=== PATIENT | male | born 1950 | race Caucasian/White ===

== ENCOUNTER 2023-11-04 12:11 | Emergency (ER) | payer MEDICARE, SELFPAY ==
[2023-11-04] VITALS (13 sets, daily range): BP systolic 91–124; BP diastolic 62–104
--- NOTE | 2023-11-04 13:13 | ED.GENMED ---
History of Present Illness
General
Chief Complaint: Heart Rate Problem
Source: patient
Time Seen by Provider: 11/04/23 12:56
Travel History
Have you had any contact with someone who has COVID-19?: No
Do you have any symptoms of coronavirus? Fever > 100 degrees, chills, cough, shortness of breath, sore throat, loss of taste or smell, muscle aches, or headache?: No
History of Present Illness
History of Present Illness:
This patient is a 72-year-old male with a longstanding history of intermittent A-fib. He is currently anticoagulated with a DOAC and confirms that he is compliant with this without interruptions or skipped doses. Patient had a 'regular cup' with
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 He was asymptomatic at that time. He was advised to take an extra dose of metoprolol at 50 mg. By Tuesday, he was starting to have symptoms which includes dyspnea on exertion
and fatigue, no chest pain. He was advised to increase his sotalol from 80 to 120 mg twice daily. He saw the cardiology PA on Tuesday and because he was still in a A-fib at a rapid rate the plan was for cardioversion next . Patient
presents emergency department today because his symptoms are getting worse. He describes fatigue, dyspnea, and dyspnea on exertion. He denies other symptoms. He denies chest pain or pressure, back pain, neck pain, headache, dizziness, fever,
chills, nausea, vomiting, leg swelling, abdominal pain, bleeding, or other complaints. Patient has a history of multiple myeloma and had labs checked yesterday and shows me a lab value of 13 2 for his hemoglobin
Past History
Past History
ED Past Medical History: Arrthythmia, CAD, HTN, Hypercholesterolemia and Other (multiple myeloma)
ED Past Surgical History: Orthopedic
Social History
Tobacco: Non-smoker
Alcohol: None
Drug: None
Personal:
Living: with family
Phy Exam
Physical Exam
Physical Exam:
GENERAL: Alert , in no apparent distress
EYE: pupils equal and reactive, conjunctive slightly pale
NECK: Supple, no significant adenopathy.
ENT: o/p clr, mmm.
CARDIAC: Tachycardic, irregularly irregular
LUNGS: Clear breath sounds bilaterally, no acute respiratory distress, no wheezes/rales/rhonchi
ABDOMEN: Soft, without focal tenderness, no r/g, no cvat
NEUROLOGICAL: Alert and oriented, no focal neuro deficits
SKIN: Warm and dry, skin intact.
MUSCULOSKELETAL: No edema, well perfused.
PSYCH: Normal and appropriate interaction.
Course
Orders/Labs/Results
Orders:
Orders
11/04/23 12:18
EKG [Electrocardiogram (*1)] Urgent
Reason for Study: Atrial Fibrillation
EKG- Treatment ONCE
11/04/23 13:12
Metoprolol [Lopressor] 5 mg IV NOW STA
11/04/23 13:13
Cardiac Monitoring- Treatment ONCE
11/04/23 13:20
Complete Blood Count/No Diff Urgent
Comprehensive Metabolic Panel Urgent
11/04/23 13:46
Propofol [Diprivan] 20 ml .ROUTE .STK-MED
11/04/23 14:02
EKG [Electrocardiogram (*1)] Urgent
Reason for Study: Atrial Fibrillation
EKG- Treatment ONCE
Abnormal Lab Results
11/04/23
13:20
RBC 4.21 L 10^6/uL
(4.70-6.10)
MCH 32.3 H pg
(27.0-31.0)
RDW 18.8 H %
(11.5-14.5)
Plt Count 128 L 10^3/uL
(130-400)
Sodium 134 L mmol/L
(135-145)
BUN 28 H mg/dl
(9-20)
Total Bilirubin 3.7 H mg/dl
(0.2-1.3)
ALT 83 H U/L
(0-50)
Alkaline Phosphatase 131 H U/L
(38-126)
11/04/23 13:20
11/04/23 13:20
Vital Signs
Initial and Last Documented VS:
Initial Vital Signs
Temp Pulse Resp BP Pulse Ox
98.5 F 104 18 110/75 99
11/04/23 12:14 11/04/23 12:14 11/04/23 12:14 11/04/23 12:14 11/04/23 12:14
Last Documented Vital Signs
Temp Pulse Resp BP Pulse Ox
98.5 F 60 28 111/75 98
11/04/23 12:14 11/04/23 15:00 11/04/23 15:00 11/04/23 15:00 11/04/23 15:00
Procedures
Moderate Sedation
ASA Risk Score: Class II
Chart and allergies reviewed: Yes
Consent for anesthesia obtained: Yes
Time out completed (validating right patient & procedure): Yes
History of difficult intubation: No
Airway free of obstruction: Yes
Patient has a gag reflex: Yes
Patient is able to open mouth: Yes
Patient has no dentures: Yes
Patient has no loose teeth: Yes
Medication administered by Provider during Moderate Sedation: IV Propofol (mg)
Total dose administered: 50
Time drug administered: 14:00
Start Time: 13:59
Stop Time: 14:15
Cardioversion
Indication:: Afib
Performed by:: Leslie Heart md
Synchronized?: Yes
Energy Used: Other
Number of attempts: 1
Successful?: Yes
*Critical Care Note
Total Time (30-74mins, 75-104mins- exclusive of procedures): Not Applicable
Update Note
Update Note:
Patient presents to the Emergency Department with ___fatigue sob
Number and Complexity of Problems Addressed at the Encounter
� Chronic conditions affecting care:
� Acute Exacerbation and/or Progression of Chronic Illness:
� Differential Diagnosis includes: But not limited to symptomatic anemia, A-fib with RVR, electrolyte disturbance, etc.
Amount and/or Complexity of Data to be Reviewed and Analyzed
� I performed an independent evaluation of and my interpretation is:
EKG: tachycardic, afib with rvr, no acute ischemia noted
CT:
Xrays:
Laboratory Studies: Nonspecific mild abnormalities noted, hemoglobin within normal limits
Other:
� Review of other/old records reveals: admitted recently for hernia repiar
� Clinical information was obtained by an independent historian: who is at bedside
� Prescriptions/Medications Considered but not given:
� Further testing considered but not performed:
Risk of Complications and/or Morbidity or Mortality of Patient Management
� Social determinants of health affecting care:
� Discussion with other providers (PCP, Hospitalists, Consultants, etc):
� Escalation of care including admission/observation vs risk of discharge considered: Long discussion with patient and . Patient reports being on Eliquis for at least 30 days, and again reaffirms that he has been compliant
with this medication. Case discussed with PA for his speed belt sander tender kate allen, who is aware of history, physical, and plan of care here. Patient will be encouraged to continue his DOAC upon discharge.
ED Attending Note
-
Portions of this chart may have been created with voice recognition software.� Occasional wrong word or��sound alike� substitutions may have occurred due to the inherent limitations of voice recognition software.
Discharge Plan
Departure
Patient Disposition: Home (Routine Discharge)
Date of Disposition: 11/04/23
Time of Disposition: 15:09
Patient with high blood pressure during this ER visit?: Yes
Condition: Good
Discharge Problem:
procedural sedation, Atrial fibrillation
Instructions: Atrial Fibrillation (DC), MODERATE SEDATION ADULT, BLOOD PRESSURE
Prescriptions:
No Action
clopidogrel 75 mg tablet
75 mg PO DAILY
Hold Instructions: Resume on 09/01/23. Hold Plavix 72 hours postop. Okay to resume a.m. 09/01/2023
Rx Instructions:
stopped 2 days ago
apixaban 5 mg Tablet
5 mg PO BID
Hold Instructions: Resume on 09/01/23. Hold apixaban for 72 hours postop. Okay to resume a.m.
tamsulosin [Flomax] 0.4 mg Capsule
0.4 mg PO DAILY
sotalol 80 mg Tablet
80 mg PO BID
potassium chloride 10 mEq Tablet Extended Release
10 meq PO BID
amlodipine 5 mg Tablet
5 mg PO DAILY
acyclovir 800 mg Tablet
800 mg PO BID
metoprolol succinate 25 mg Tablet Extended Release 24 Hr
25 mg PO DAILY
lisinopril 40 mg Tablet
40 mg PO DAILY
lenalidomide [Revlimid] 10 mg Capsule
10 mg PO DAILY
tramadol 50 mg tablet
50 mg PO Q6HPRN PRN (Reason: severe pain/breakthrough pain) Qty: 15 0RF
polyethylene glycol 3350 [Miralax] 17 gram/dose powder
4 g PO DAILY PRN (Reason: Constipation) Qty: 119 0RF
Rx Instructions:
start a laxative such as MIRALAX on day 2 after surgery if no bowel movement yet as long as no nausea/vomiting and passing gas
aspirin 81 mg capsule
81 mg PO DAILY Qty: 7 0RF
Rx Instructions:
take baby ASA 81mg daily while off plavix/eliquis
Referrals:
Walt Chin MD [Active] - Next open appointment
Sarabjit Chavarria MD [Family Provider] -
Activity Restrictions/Additional Instructions:
IF YOU DEVELOP CHEST PAIN, TROUBLE BREATHING, PALPITATIONS, FEVER, DIZZINESS, OR OTHER WORRISOME SIGNS, GO TOT HE ER IMMEDIATELY! PLEASE CONTINUE ALL YOUR MEDICATIONS, INCLUDING THE ELIQUIS.
Interventions
Interventions:
*Risk Screen - Suicide Last Done: 11/04/23 12:41
*General Assessment Last Done: 11/04/23 12:14
*Neglect/Abuse Screening Last Done: 11/04/23 12:41
*ED COVID-19 Vaccine History Last Done: 11/04/23 12:14
ED- Cardiac Assessment Last Done: 11/04/23 12:41
ED- Pulmonary Assessment Last Done: 11/04/23 12:41
[2023-11-04] MEDS: LOPRESSOR 5 MG IV (13:18)
[2023-11-04 13:30] LABS: Hematocrit 39.2 % (39.0-52.0); Hemoglobin 13.6 g/dL (13.0-18.0); Mean Corp Hgb Conc. 34.7 g/dL (33.0-37.0); Mean Corpuscular Hgb 32.3 pg (27.0-31.0); Mean Corpuscular Volume 93.1 fL (80.0-94.0); Mean Platelet Volume 10.1 fL (7.4-10.4); Platelet Count 128 10^3/uL (130-400); Red Blood Cell Count 4.21 10^6/uL (4.70-6.10); Red Cell Dist. Width 18.8 % (11.5-14.5); White Blood Cell Count 6.9 10^3/uL (4.8-10.8)
[2023-11-04 13:44] LABS: ALT (SGPT) 83 U/L (0-50); AST (SGOT) 48 U/L (17-59); Albumin 3.6 g/dl (3.5-5.0); Alkaline Phosphatase 131 U/L (38-126); Blood Urea Nitrogen 28 mg/dl (9-20); Calcium 9.2 mg/dl (8.4-10.2); Carbon Dioxide 23 mmol/L (22-30); Chloride 105 mmol/L (98-107); Glucose 88 mg/dl (70-99); Potassium 4.3 mmol/L (3.5-5.1); Sodium 134 mmol/L (135-145); Total Bilirubin 3.7 mg/dl (0.2-1.3); Total Protein 6.4 g/dl (6.3-8.2); eGFR > 60.00
== END 2023-11-04 15:29 | disposition home or self-care (01) ==
LOC: EMR 12:11
PROVIDERS: EMERGENCY PHYSICIAN Emergency Medicine; FAMILY PHYSICIAN Family Medicine
DX: I48.0 Paroxysmal atrial fibrillation (principal); I10 Essential (primary) hypertension; Z79.01 Long term (current) use of anticoagulants
CPT/HCPCS: 92960; 99285; 96374; 99152; 80053; 85027; 93005

== ENCOUNTER 2023-11-14 10:47 | Emergency (ER) | payer MEDICARE, SELFPAY ==
[2023-11-14] VITALS (10 sets, daily range): BP systolic 100–130; BP diastolic 62–84
[2023-11-14 11:23] LABS: % Eosinophils 19.6 % (0-6); % Immature Granulocytes 1.6 % (0-0.5); % Lymphocytes 10.3 % (20.5-51.1); % Monocytes 6.1 % (1.7-9.3); % Neutrophils 61.4 % (42.2-75.2); Absolute Eosinophils 0.6 10^3/uL (0-0.7); Absolute Immature Granulocytes 0.1 10^3/uL (0-0.05); Absolute Lymphocytes 0.3 10^3/uL (1.2-3.4); Absolute Monocytes 0.2 10^3/uL (0.1-0.6); Absolute Neutrophils 1.9 10^3/uL (1.4-6.5); Hematocrit 32.2 % (39.0-52.0); Hemoglobin 11.1 g/dL (13.0-18.0); Mean Corp Hgb Conc. 34.5 g/dL (33.0-37.0); Mean Corpuscular Hgb 32.8 pg (27.0-31.0); Mean Corpuscular Volume 95.3 fL (80.0-94.0); Nucleated Red Blood Cells % 0.6 % (-); Red Blood Cell Count 3.38 10^6/uL (4.70-6.10); Red Cell Dist. Width 19.9 % (11.5-14.5); White Blood Cell Count 3.1 10^3/uL (4.8-10.8)
--- NOTE | 2023-11-14 11:38 | ED.GENMED ---
History of Present Illness
<CUAUHTEMOC Sethi - Last Filed: 11/14/23 16:14>
General
Chief Complaint: Chest Pain
Source: patient
Exam Limitations: none
Time Seen by Provider: 11/14/23 11:14
Nursing documentation reviewed up to this point in time: agreed with
Travel History
Have you had any contact with someone who has COVID-19?: No
Do you have any symptoms of coronavirus? Fever > 100 degrees, chills, cough, shortness of breath, sore throat, loss of taste or smell, muscle aches, or headache?: No
History of Present Illness
History of Present Illness:
Patient is a 72-year-old male with past medical history of A-fib, ND 2018 multiple myeloma who presents to the ER for evaluation of chest pain. Patient reports he is currently receiving IVIG monthly for his multiple myeloma and he was about an hour
and a half in his treatment when he suddenly developed chest pain that shot to his back. He had no other radiation of symptoms. He had no associated chest pain shortness of breath diaphoresis. EMS was called he was given 1 sublingual
nitroglycerin which took away his pain. He is presently symptomatic. He also was given 4 baby aspirin. He reports that this pain is the same pain he had when he had his previous ND in 2018 at [facility]. He does have 2 current stents in
his RCA. He is on Eliquis for A-fib and also on Plavix.
Past History
<CUAUHTEMOC Sethi - Last Filed: 11/14/23 16:14>
Past History
ED Past Medical History: Arrthythmia, CAD, HTN, Hypercholesterolemia and Other (multiple myeloma)
ED Past Surgical History: Orthopedic
Social History
Tobacco: Non-smoker
Alcohol: None
Drug: None
Personal:
Living: with family
Review of Systems
<CUAUHTEMOC Stehi - Last Filed: 11/14/23 16:14>
Review of Systems
Allergies reviewed?: Yes
All Other Systems: ROS reviewed and negative except as documented in HPI and ROS
Constitutional: Reports no symptoms; Denies fever, fatigue or chills
Respiratory: Reports no symptoms
Cardiac: Reports chest pain; Denies diaphoresis, palpitations or syncope
ABD/GI: Reports no symptoms
: Reports no symptoms
Musculoskeletal: Reports no symptoms
Skin: Reports no symptoms
Neurological: Reports no symptoms
Psychiatric: Reports no symptoms
Phy Exam
<CUAUHTEMOC Sethi - Last Filed: 11/14/23 16:14>
General Physical Exam
General Presentation: no apparent distress
General age: appears stated age
General Skin: warm and dry
General Habitus: normal
General Mental: alert
General Hydration: appears well hydrated
Cardiovascular Exam
Cardiovascular Exam: no murmur, normal peripheral pulses and bradycardia
Pulmonary Exam
Pulmonary Exam: lungs clear and no respiratory distress
Neurological Exam
Neurological Exam: alert and oriented x3
[place] Coma Scale
Eye Opening: Spontaneous
Verbal Response: Oriented
Motor Response: Obeys Commands
GCS Total Score: 15
Musculoskeletal Exam
Musculoskeletal Exam: full ROM
Skin Exam
Skin Exam: normal color and warm/dry
Psychiatric Exam
Psychiatric Exam: normal mood/affect
<Lj Benson MD - Last Filed: 11/14/23 12:51>
H[place] Coma Scale
GCS Total Score: 15
Scores
<CUAUHTEMOC Sethi - Last Filed: 11/14/23 16:14>
Heart Score for Chest Pain Patients
Heart Score for Chest Pain Patients: 5
Heart Score Risk: 20.3% MACE over next 6 weeks
<Lj Benson MD - Last Filed: 11/14/23 12:51>
Heart Score for Chest Pain Patients
STEMI patient?: No
History: Moderately Suspicious
ECG: Normal
Age: >/= 65 years
Risk Factors: >/= 3 Risk Factors or History of CAD
Troponin: </= Normal Limit
Heart Score for Chest Pain Patients: 5
Heart Score Risk: 20.3% MACE over next 6 weeks
Course
<CUAUHTEMOC Sethi - Last Filed: 11/14/23 16:14>
Orders/Labs/Results
Orders:
Orders
11/14/23 11:09
Electrocardiogram (*1) Urgent
Reason for Study: Chest Pain
EKG- Treatment ONCE
11/14/23 11:12
CMP [Comprehensive Metabolic Panel] Urgent
Complete Blood Count/With Diff Urgent
Troponin I Urgent
11/14/23 11:38
Chest [CR Chest - 2 Views ] Urgent
Comment:
Reason For Exam: cp
11/14/23 13:25
CARDIOLOGY CONSULT Urgent
Consulting Provider: Ashok Torres
Was physician already notified: Yes
Reason for consult: chest pain
11/14/23 14:28
Electrocardiogram (*1) Stat
Reason for Study: Other
Other Reason for Exam: chest pain
EKG- Treatment ONCE
11/14/23 14:35
Troponin I Routine
Abnormal Lab Results
11/14/23
11:12
WBC 3.1 L 10^3/uL
(4.8-10.8)
RBC 3.38 L 10^6/uL
(4.70-6.10)
Hgb 11.1 L g/dL
(13.0-18.0)
Hct 32.2 L %
(39.0-52.0)
MCV 95.3 H fL
(80.0-94.0)
MCH 32.8 H pg
(27.0-31.0)
RDW 19.9 H %
(11.5-14.5)
Plt Count 92 L 10^3/uL
(130-400)
Abs Immat Gran (auto) 0.1 H 10^3/uL
(0-0.05)
Absolute Lymphs (auto) 0.3 L 10^3/uL
(1.2-3.4)
Immature Gran % 1.6 H %
(0-0.5)
Lymphocytes % 10.3 L %
(20.5-51.1)
Eosinophils % 19.6 H %
(0-6)
Creatinine 0.6 L mg/dL
(0.7-1.3)
Total Bilirubin 2.5 H mg/dl
(0.2-1.3)
Total Protein 6.0 L g/dl
(6.3-8.2)
Albumin 3.3 L g/dl
(3.5-5.0)
11/14/23 11:12
11/14/23 11:12
Vital Signs
Initial and Last Documented VS:
Initial Vital Signs
Temp Pulse Resp BP Pulse Ox
98.1 F 56 18 130/74 98
11/14/23 11:01 11/14/23 11:01 11/14/23 11:01 11/14/23 11:01 11/14/23 11:01
Last Documented Vital Signs
Temp Pulse Resp BP Pulse Ox
98.1 F 47 23 104/71 100
11/14/23 11:01 11/14/23 14:00 11/14/23 14:00 11/14/23 14:00 11/14/23 11:45
Chronic Condition Nurse consulted with Physician
Chronic Condition Nurse consulted with physician?: Yes
Name of Physician Consulted: Kelley
<Lj Benson MD - Last Filed: 11/14/23 12:51>
Orders/Labs/Results
Orders:
Orders
11/14/23 11:09
Electrocardiogram (*1) Urgent
Reason for Study: Chest Pain
EKG- Treatment ONCE
11/14/23 11:12
CMP [Comprehensive Metabolic Panel] Urgent
Complete Blood Count/With Diff Urgent
Troponin I Urgent
11/14/23 11:38
Chest [CR Chest - 2 Views ] Urgent
Comment:
Reason For Exam: cp
11/14/23 13:25
CARDIOLOGY CONSULT Urgent
Consulting Provider: Ashok Torres
Was physician already notified: Yes
Reason for consult: chest pain
11/14/23 14:28
Electrocardiogram (*1) Stat
Reason for Study: Other
Other Reason for Exam: chest pain
EKG- Treatment ONCE
11/14/23 14:35
Troponin I Routine
Abnormal Lab Results
11/14/23
11:12
WBC 3.1 L 10^3/uL
(4.8-10.8)
RBC 3.38 L 10^6/uL
(4.70-6.10)
Hgb 11.1 L g/dL
(13.0-18.0)
Hct 32.2 L %
(39.0-52.0)
MCV 95.3 H fL
(80.0-94.0)
MCH 32.8 H pg
(27.0-31.0)
RDW 19.9 H %
(11.5-14.5)
Plt Count 92 L 10^3/uL
(130-400)
Abs Immat Gran (auto) 0.1 H 10^3/uL
(0-0.05)
Absolute Lymphs (auto) 0.3 L 10^3/uL
(1.2-3.4)
Immature Gran % 1.6 H %
(0-0.5)
Lymphocytes % 10.3 L %
(20.5-51.1)
Eosinophils % 19.6 H %
(0-6)
Creatinine 0.6 L mg/dL
(0.7-1.3)
Total Bilirubin 2.5 H mg/dl
(0.2-1.3)
Total Protein 6.0 L g/dl
(6.3-8.2)
Albumin 3.3 L g/dl
(3.5-5.0)
11/14/23 11:12
11/14/23 11:12
Vital Signs
Initial and Last Documented VS:
Initial Vital Signs
Temp Pulse Resp BP Pulse Ox
98.1 F 56 18 130/74 98
11/14/23 11:01 11/14/23 11:01 11/14/23 11:01 11/14/23 11:01 11/14/23 11:01
Last Documented Vital Signs
Temp Pulse Resp BP Pulse Ox
98.1 F 47 23 104/71 100
11/14/23 11:01 11/14/23 14:00 11/14/23 14:00 11/14/23 14:00 11/14/23 11:45
<CUAUHTEMOC Sethi - Last Filed: 11/14/23 16:14>
MDM/Problems Addressed
MDM/Problems Addressed:
Patient is a 72-year-old male who has a history of multiple myeloma ND with stents as discussed was receiving his IVIG and had midsternal chest pain that radiated to his back. It was relieved with 1 nitroglycerin. He did say that it felt similar
to his ND in the past. Patient presented chest pain-free after his nitroglycerin from EMS. He was given aspirin by EMS as well. He does have a history of A-fib and is anticoagulated. He presents awake alert no acute distress. Given the fact
that patient reported this pain was similar to his previous ND patient was evaluated by cardiology. Initial troponin 0.017 followed by 0.016. While here patient has had a heart rate as low as the high 30s though is asymptomatic. Patient was
evaluated by cardiology. He is presently on 2 beta-blockers metoprolol and sotalol. Due to low heart rate as per cardiology they will be decreasing his metoprolol ER from 25 mg to 12.5 mg daily. Given the fact the patient has had flat troponins
and no chest pain while here and his chest pain has occurred during IVIG infusions cardiology does feel that patient can be safely discharged home. He should follow-up with his having a hospital liaison to decide about stress testing and follow-up with
Ralph Campos to discuss further additional IVIG infusions.
<CUAUHTEMOC Sethi - Last Filed: 11/14/23 16:14>
*Critical Care Note
Total Time (30-74mins, 75-104mins- exclusive of procedures): Not Applicable
ED Attending Note
<CUAUHTEMOC Sethi - Last Filed: 11/14/23 16:14>
-
Portions of this chart may have been created with voice recognition software.� Occasional wrong word or��sound alike� substitutions may have occurred due to the inherent limitations of voice recognition software.
<Lj Benson MD - Last Filed: 11/14/23 12:51>
ED Attending Note
Patient seen and examined by attending physician: Yes
ED Attending Note:
Patient with history of CAD, status post stent placement in 2018 at [facility], along with multiple myeloma, currently receiving treatment, presents to ED secondary to sudden onset of chest pain while receiving infusion treatment for his
multiple myeloma this afternoon. Chest pain described as sharp, radiation to the back, without any alleviating or exacerbating factors. Denies associated dizziness, diaphoresis, or nausea. Patient states that his chest pain is same as what he
experienced in 2018 when he had 'heart attack'. 911 was called approximately 15-20 minutes into his symptoms. Paramedics arrived within 5 to 10 minutes and was given aspirin and 1 nitroglycerin sublingual, with complete resolution of chest pain
within 5 minutes. At the time of evaluation ED, patient is without any discomfort. Denies recent illness. Denies recent change in medications or diet. Of note, patient was seen in ED recently where he received cardioversion for recurrent atrial
fibrillation. Patient is currently taking Plavix as well as Eliquis.
Physical Exam
General: no apparent distress, not acutely ill. afebrile
Head: nc/at. eomi
Neck: supple. no meningeal signs. normal posterior pharynx.
Heart: s1/s2 regular rate and rhythm, no murmur. equal radial pulses.
Lungs: no acute respiratory distress. clear bilaterally
Abdomen: normal bowel sounds. not tender.
Neuro: alert and oriented. no focal neurological deficits
Skin: no rash
Psychiatric: well kept. interactive and cooperative
Extremities: no edema. no calf tenderness.
History and exam concerning for unstable angina versus medication effect, although less likely, as patient has received multiple infusions in the past without any difficulties.
Discussed with Dr.DL Torres (cardiology) who will come and evaluate the patient in ED.
Discharge Plan
Departure
Patient Disposition: Home (Routine Discharge)
Date of Disposition: 11/14/23
Time of Disposition: 16:11
Patient with high blood pressure during this ER visit?: No
Condition: Fair
Covid-19: Not Applicable
Discharge Problem:
Chest pain
Prescriptions:
No Action
clopidogrel 75 mg tablet
75 mg PO DAILY
Hold Instructions: Resume on 09/01/23. Hold Plavix 72 hours postop. Okay to resume a.m. 09/01/2023
Rx Instructions:
stopped 2 days ago
apixaban 5 mg Tablet
5 mg PO BID
Hold Instructions: Resume on 09/01/23. Hold apixaban for 72 hours postop. Okay to resume a.m.
tamsulosin [Flomax] 0.4 mg Capsule
0.4 mg PO DAILY
sotalol 80 mg Tablet
80 mg PO BID
potassium chloride 10 mEq Tablet Extended Release
10 meq PO BID
amlodipine 5 mg Tablet
5 mg PO DAILY
acyclovir 800 mg Tablet
800 mg PO BID
metoprolol succinate 25 mg Tablet Extended Release 24 Hr
25 mg PO DAILY
lisinopril 40 mg Tablet
40 mg PO DAILY
lenalidomide [Revlimid] 10 mg Capsule
10 mg PO DAILY
tramadol 50 mg tablet
50 mg PO Q6HPRN PRN (Reason: severe pain/breakthrough pain) Qty: 15 0RF
polyethylene glycol 3350 [Miralax] 17 gram/dose powder
4 g PO DAILY PRN (Reason: Constipation) Qty: 119 0RF
Rx Instructions:
start a laxative such as MIRALAX on day 2 after surgery if no bowel movement yet as long as no nausea/vomiting and passing gas
aspirin 81 mg capsule
81 mg PO DAILY Qty: 7 0RF
Rx Instructions:
take baby ASA 81mg daily while off plavix/eliquis
Referrals:
Sarabjit Chavarria MD [Family Provider] -
Elyse Wiseman PA-C [Specified Professional Personl] - 12/05/23 3:00 pm (You have a follow up visit with Dr. Torres's Elyse GREGORY, at the [place] office. Please call with questions. )
Activity Restrictions/Additional Instructions:
Decrease your metoprolol to 25mg twice daily. Continue on sotalol 120mg BID. Will reassess at follow up cardiology appt. ( 12/05/2023 at 3pm)
Follow-up with [facility] oncologist for further evaluation of chest pain with your IVIG infusions. Return to the ER if any worsening of symptoms including increased chest pain lightheaded dizziness shortness of breath or any further concerns.
Interventions
Interventions:
*Risk Screen - Suicide Last Done: 11/14/23 11:01
*General Assessment Last Done: 11/14/23 11:01
*Neglect/Abuse Screening Last Done: 11/14/23 11:01
*ED COVID-19 Vaccine History Last Done: 11/14/23 11:01
ED- Cardiac Assessment Last Done: 11/14/23 12:39
Discharge Date and Time
Print Language: AZERI
[2023-11-14 11:44] LABS: ALT (SGPT) 24 U/L (0-50); AST (SGOT) 24 U/L (17-59); Albumin 3.3 g/dl (3.5-5.0); Alkaline Phosphatase 121 U/L (38-126); Blood Urea Nitrogen 16 mg/dl (9-20); Calcium 9.6 mg/dl (8.4-10.2); Carbon Dioxide 27 mmol/L (22-30); Chloride 107 mmol/L (98-107); Glucose 95 mg/dl (70-99); Potassium 4.1 mmol/L (3.5-5.1); Sodium 135 mmol/L (135-145); Total Bilirubin 2.5 mg/dl (0.2-1.3); eGFR > 60.00
[2023-11-14 11:49] LABS: Troponin I 0.017 ng/ml
[2023-11-14 12:14] LABS: Mean Platelet Volume 9.5 fL (7.4-10.4); Platelet Count 92 10^3/uL (130-400)
--- NOTE | 2023-11-14 13:26 | CON.CAR ---
Addendum entered and electronically signed by Ashok oTrres MD 11/14/23 17:20:
72-year-old man followed by Dr. Saurabh Bloom with ND and RCA PCI x 2 in 2017 with paroxysmal atrial fibrillation requiring cardioversion in 2022 after a diagnosis of multiple myeloma diagnosed. Now with an episode of chest discomfort following
IVIG administration with initial troponin 0.017.
Allergies: Amiodarone
Outpatient medications: Not yet verified but Acyclovir 800 twice daily, amlodipine 5 mg a day, apixaban 5 mg twice daily on hold, aspirin 81 mg a day, clopidogrel 75 mg a day on hold, Revlimid, lisinopril 40 mg a day, metoprolol succinate 25 mg a
day, MiraLAX, potassium chloride 10 mill equivalents twice daily, sotalol 80 mg p.o. twice daily, tamsulosin 0.4 mg daily and tramadol as needed
PMH: Inferior ND, RCA stents 2017, PAF on sotalol, multiple myeloma, status post autologous stem cell transplant March 2023 at [place], kyphoplasty L1-L3 February 2023, sleep apnea status post implant of inspire, hypertension, hyperlipidemia
PSH: Right total knee, left rotator cuff, lumbar laminectomy, inguinal hernia, cataracts, carpal/metacarpal joint replacement
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
FH: Noncontributory
ROS: Negative except as above
104/71, 47, 23, afebrile, sats 100%
No distress, head neck exam unremarkable, lungs clear, regular rate and rhythm, no obvious murmurs, abdomen benign extremities without edema, pulses okay, neuro nonfocal, musculoskeletal intact
Chest x-ray: Inspire device otherwise NAD
ECG QTc is borderline prolonged, sinus bradycardia, LVH, subtle ST depression seen anterior leads November 03 following cardioversion no longer present
Hemoglobin 11.1, white count 3.1, platelets are 92, BUN and creatinine 16 and 0.6, troponin 0.017
Impression:
Presented with chest pain during IVIG infusion
CAD
s/p ND w/ RCA PCI x2 05/2018
Paroxysmal atrial fibrillation
recent CV 11/04/2023
Chronic sotalol therapy
Chronic Eliquis anticoagulation
HTN
HLD
JA s/p Inspire implant 07/2022
Multiple Myeloma status post autologous stem cell transplant March 2023
Lexiscan stress test 01/13/2022: negative ECG for ischemia, LV perfusion is normal.
Echo 02/07/2023: EF 60 to 65%, mild MR, trace TR, mild AI, aortic root 4.2cm
Plan:
He presents with an episode of chest pain associated with gammaglobulin infusion. Chest pain can be reported in that setting. In his particular case, his EKG is normal and his troponin is detectable at very low levels but is flat. Of note, his
EKG looks even better than at the time of cardioversion 1 to 2 weeks ago. At that time in A-fib he had nonspecific ST and T wave changes.
His last stress test was 2021. In general he is physically active and does not have cardiovascular symptoms. This is his first episode of chest pain since his ND. He did not have chest pain when he had A-fib last week. Troponin level was not
checked at that time.
Given the above, I think it is reasonable for him to be discharged. He is bradycardic so I would recommend a decrease in metoprolol ER to 12.5 mg daily. Metoprolol may need to be stopped. He can follow-up to his primary clinical education specialist and to Ralph
Andres who can decide if an assessment for obstructive CAD should be undertaken. Ralph Campos will need to evaluate whether IVIG should be continued at this time.
Other than decreasing metoprolol I would not make any changes in his regimen. I note that apixaban, aspirin, and clopidogrel are all listed as medications but have not been verified. My recommendations would be for either apixaban alone or
apixaban plus aspirin for history of atrial fibrillation and PCI.
Okay for discharge from my standpoint.
Original Note:
Consultation
Consultation Request
Date/Time Consultation Requested: 11/14/2023
Date/Time Consultation Performed: 11/14/2023
Requesting Provider: Leida POSADAS
Performing Provider: Dr. LO Torres
Reason for Consultation: Chest Pain
Medical History
-
History of Present Illness:
HPI: Paco is a 72 year old male with PMH of CAD w/ h/o ND in 2018 s/p RCA PCI x2, paroxysmal atrial fibrillation w/ recent cardioversion 11/04/23 on chronic sotalol therapy, HTN, HLD, JA, and multiple myeloma. He presented to [facility] today after
having episode of chest pain while having IVIG today. He states suddenly he developed a sharp central chest pain which radiated to his back while he was at home receiving IVIG therapy. He stated the pain persisted and was fairly severe. The pain
reminded him of his anginal symptoms during prior ND in 2018, which prompted him to call EMS. He continued to have pain until EMS arrived and gave him 324mg of aspirin as well as SL nitro. A few minutes after receiving nitro, his pain dissipated and
has now completely resolved. He has had no recurrence of the pain and remains pain free at this time. He reports he has been doing well from a cardiac standpoint and has had no anginal symptoms since his ND. He has mostly been struggling with
recurrent afib recently. As OP at recent appt, he was noted to be back in rapid afib and he was placed on higher dose sotalol as well as Toprol. He remained in afib despite this and was seen in [facility] 11/03 and underwent cardioversion. Since that time
he has been bradycardic and has noted more fatigue and tiredness. Workup in ER thus far shows that he remains in sinus bradycardia with HRs in the 40s. Initial troponin 0.017. Labwork otherwise unremarkable. Cardiology consulted given episode of
chest pain concerning for angina.
PMH:
CAD
s/p ND w/ RCA PCI x2 05/2018
Paroxysmal atrial fibrillation
recent CV 11/04/2023
Chronic sotalol therapy
Chronic Eliquis anticoagulation
HTN
HLD
JA s/p Inspire implant 07/2022
Multiple Myeloma
Past Medical History
Past Medical History: Other (In HPI)
Past Surgical History: Cholecystectomy and Orthopedic (R TKA, L rotator cuff repair, kyphoplasty)
Social History
Tobacco: Non-Smoker
Alcohol: None
Drug: None
Personal:
Living: With Family
Employment: Retired
Family History
Family History: CAD and Hypertension
Allergies / Home Medications
Allergy/AdvReac Type Severity Reaction Status Date / Time
amiodarone Allergy Liver Verified 11/04/23 12:17
function
reduced
�Medication �Instructions �Recorded �Confirmed �Type
apixaban 5 mg tablet 5 mg PO BID Blood Clot 12/19/22 08/29/23 History
Prevention/Tx
clopidogrel 75 mg tablet 75 mg PO DAILY Blood Clot 12/19/22 08/29/23 History
Prevention/Tx
tamsulosin 0.4 mg capsule (Flomax) 0.4 mg PO DAILY Urinary Issue 03/06/23 08/29/23 History
acyclovir 800 mg tablet 800 mg PO BID 08/18/23 08/29/23 History
amlodipine 5 mg tablet 5 mg PO DAILY 08/18/23 08/29/23 History
lenalidomide 10 mg capsule 10 mg PO DAILY 08/18/23 08/29/23 History
(Revlimid)
lisinopril 40 mg tablet 40 mg PO DAILY 08/18/23 08/29/23 History
metoprolol succinate 25 mg 25 mg PO DAILY 08/18/23 08/29/23 History
tablet,extended release 24 hr
potassium chloride 10 mEq 10 meq PO BID 08/18/23 08/29/23 History
tablet,extended release
sotalol 80 mg tablet 80 mg PO BID 08/18/23 08/29/23 History
aspirin 81 mg capsule 81 mg PO DAILY #7 caps 08/29/23 Rx
polyethylene glycol 3350 17 4 g PO DAILY PRN Constipation #119 08/29/23 Rx
gram/dose oral powder (Miralax) grams
tramadol 50 mg tablet 50 mg PO Q6HPRN PRN severe 08/29/23 Rx
pain/breakthrough pain #15 tabs
Review of Systems
-
History Source: Patient
All other systems: Negative unless noted
Physical Exam
Vital Signs
Temp Pulse Resp BP Pulse Ox
98.1 F 48 18 130/74 100
11/14/23 11:01 11/14/23 12:30 11/14/23 12:30 11/14/23 11:01 11/14/23 11:45
Lab Results
11/14/23 11:12
11/14/23 11:12
Troponin I 0.017 ng/ml 11/14/23 11:12
Physical Exam
General: Well Developed, Well Nourished and No Apparent Distress
HEENT: Normocephalic, Anicteric and Moist Mucous Membranes
Respiratory: Clear and Non Labored Respirations
Cardiac: S1/S2 and Regular Rhythm
Musculoskeletal: No Clubbing, No Cyanosis and Edema
Skin: Warm and Dry
Neuro: AO x 3 and Nonfocal/Grossly Intact
Psych: Calm
Impression / Plan
-
PCP: Dr. Sarabjit Chavarria
Homebirth Midwife: Dr. Wiley ([facility])
Impression:
Presented with chest pain
CAD
s/p ND w/ RCA PCI x2 05/2018
Paroxysmal atrial fibrillation
recent CV 11/04/2023
Chronic sotalol therapy
Chronic Eliquis anticoagulation
HTN
HLD
JA s/p Inspire implant 07/2022
Multiple Myeloma
Lexiscan stress test 01/13/2022: negative ECG for ischemia, LV perfusion is normal.
Echo 02/07/2023: EF 60 to 65%, mild MR, trace TR, mild AI, aortic root 4.2cm
Plan:
-Presented with chest pain during IVIG. Pain felt similar to prior angina, resolved after given SL nitro by EMS. Pain free currently.
-EKG reviewed, sinus bradycardia with HR 51 bpm. No acute ischemic changes noted. QTc 490ms on Sotalol 120mg BID
-Initial troponin 0.017. Repeat flat at 0.016.
-Recent echo 01/2023 with preserved EF.
-He has h/o Afib and is maintained on sotalol 120mg BID. s/p CV in [facility] 11/04/2023.
-Has noted bradycardia since CV w/ associated fatigue. Would decrease Toprol to 25mg BID. He had been taking 100mg BID while in rapid afib and has recently reduced his dose to 50mg BID, but still has HRs in the 40s.
-Continue sotalol 120mg BID
-Continues on anticoagulation w/ Eliquis 5mg BID and plavix 75 mg daily.
-BP stable, continue amlodipine 5mg daily, lisinopril 40mg daily.
-Will need close OP follow up which has been arranged.
HPI: Paco is a 72 year old male with PMH of CAD w/ h/o ND in 2018 s/p RCA PCI x2, paroxysmal atrial fibrillation w/ recent cardioversion 11/04/23 on chronic sotalol therapy, HTN, HLD, JA, and multiple myeloma. He presented to [facility] today after
having episode of chest pain while having IVIG today. He states suddenly he developed a sharp central chest pain which radiated to his back while he was at home receiving IVIG therapy. He stated the pain persisted and was fairly severe. The pain
reminded him of his anginal symptoms during prior ND in 2018, which prompted him to call EMS. He continued to have pain until EMS arrived and gave him 324mg of aspirin as well as SL nitro. A few minutes after receiving nitro, his pain dissipated and
has now completely resolved. He has had no recurrence of the pain and remains pain free at this time. He reports he has been doing well from a cardiac standpoint and has had no anginal symptoms since his ND. He has mostly been struggling with
recurrent afib recently. As OP at recent appt, he was noted to be back in rapid afib and he was placed on higher dose sotalol as well as Toprol. He remained in afib despite this and was seen in [facility] 11/03 and underwent cardioversion. Since that time
he has been bradycardic and has noted more fatigue and tiredness. Workup in ER thus far shows that he remains in sinus bradycardia with HRs in the 40s. Initial troponin 0.017. Labwork otherwise unremarkable. Cardiology consulted given episode of
chest pain concerning for angina.
Data Reviewed
-
EKG: Tracing Personally Visualized and interpreted
Radiology: Report Reviewed by me
Labs: Labs Reviewed by me
Old Records: Reviewed
[2023-11-14 15:15] LABS: Troponin I 0.016 ng/ml
== END 2023-11-14 16:37 | disposition home or self-care (01) ==
LOC: EMR 10:47
PROVIDERS: Physician Assistant; CONSULT PHYSICIAN Internal Medicine Cardiovascular Disease; EMERGENCY PHYSICIAN Emergency Medicine; FAMILY PHYSICIAN Family Medicine
DX: R07.89 Other chest pain (principal); I10 Essential (primary) hypertension; I25.10 Atherosclerotic heart disease of native coronary artery without angina pectoris; I25.2 Old myocardial infarction
CPT/HCPCS: 99285; 71046; 80053; 84484; 85025; 93005

== ENCOUNTER 2023-11-23 14:47 | Inpatient (IN) | payer MEDICARE, SELFPAY ==
[2023-11-23] VITALS (10 sets, daily range): BP systolic 95–163; BP diastolic 52–80; BMI 28.0; BMI 27.0
--- NOTE | 2023-11-23 10:35 | ED.GENMED ---
History of Present Illness
General
Chief Complaint: Breathing Problem
Source: patient
Exam Limitations: none
Time Seen by Provider: 11/23/23 10:23
Nursing documentation reviewed up to this point in time: agreed with
Travel History
Have you had any contact with someone who has COVID-19?: No
Do you have any symptoms of coronavirus? Fever > 100 degrees, chills, cough, shortness of breath, sore throat, loss of taste or smell, muscle aches, or headache?: Yes
Symptoms:: see note
History of Present Illness
History of Present Illness:
Patient is a 72-year-old male with past medical history of A-fib on Plavix and Eliquis, CAD multiple myeloma in remission had stem cell transplant Mar 2023 ; (currently receives IVIG transfusions) and is on Revlimib presents to the ER for
evaluation of cough. Patient was visiting family in [place] who had a URI and on Tuesday started with cough shortness of breath. Patient was seen in urgent care on Tuesday, given steroids and Tessalon Perles. He took steroids Tuesday and
Tuesday however today complains of worsening shortness of breath and low pulse ox. He reports his pulse ox was in the high 80s at home. He called the ambulance and was given neb treatment here in the ER. He was not given an inhaler or nebs by
urgent care.
He denies any actual fevers.
He reports he is now not like to start ONE of the nurses there hypoxic sleeping because of the cough.
Past History
Past History
ED Past Medical History: Arrthythmia, CAD, HTN, Hypercholesterolemia and Other (multiple myeloma)
ED Past Surgical History: Orthopedic
Social History
Tobacco: Non-smoker
Alcohol: None
Drug: None
Personal:
Living: with family
Review of Systems
Review of Systems
Allergies reviewed?: Yes
Other source history: family
All Other Systems: ROS reviewed and negative except as documented in HPI and ROS
Constitutional: Reports no symptoms; Denies fever, fatigue or chills
EENT: Reports no symptoms
Respiratory: Reports cough and trouble breathing
Cardiac: Reports no symptoms
ABD/GI: Reports no symptoms
: Reports no symptoms
Musculoskeletal: Reports no symptoms
Skin: Reports no symptoms
Neurological: Reports no symptoms
Psychiatric: Reports no symptoms
Phy Exam
General Physical Exam
General Presentation: no apparent distress
General age: appears stated age
General Skin: warm and dry
General Habitus: normal
General Mental: alert
General Hydration: appears well hydrated
Cardiovascular Exam
Cardiovascular Exam: regular rate/rhythm, no murmur and normal peripheral pulses
Pulmonary Exam
Pulmonary Exam: lungs clear and other (+ cough )
Neurological Exam
Neurological Exam: alert and oriented x3
Musculoskeletal Exam
Musculoskeletal Exam: full ROM
Skin Exam
Skin Exam: normal color and warm/dry
Psychiatric Exam
Psychiatric Exam: normal mood/affect
Scores
Heart Failure Risk
Heart Failure Risk Score: Not Applicable
Course
Orders/Labs/Results
Orders:
Orders
11/23/23 Breakfast
Cholesterol Lowering
At Your Request: Full Participation
Cholesterol Lowering: Sodium, 2 Gram
11/23/23 10:21
Electrocardiogram (*1) Urgent
Reason for Study: Shortness of Breath
EKG- Treatment ONCE
11/23/23 10:47
Albuterol Sulfate [Ventolin Nebules] 7.5 mg INH R NOW STA
Dexamethasone Sod Phosphate [Decadron] 10 mg IV NOW STA
Ipratropium Nebs [Atrovent Nebules] 1 mg INH R NOW STA
Chest [CR Chest - 2 Views ] Urgent
Comment:
Reason For Exam: worsening cough/sob
11/23/23 10:48
Cardiac Monitoring- Treatment ONCE
IV Insert/Care/Rem.- Treatment PRN
Dexamethasone Sod Phosphate [Decadron] 20 mg .ROUTE .STK-MED ONE
Ipratropium Nebs [Atrovent Nebules] 0.5 mg .ROUTE .STK-MED ONE
11/23/23 10:49
Albuterol Sulfate [Ventolin Nebules] 7.5 mg .ROUTE .STK-MED ONE
11/23/23 11:09
Complete Blood Count/With Diff Urgent
Comprehensive Metabolic Panel Urgent
Manual Differential Urgent
11/23/23 14:07
Lactic Acid Urgent
Blood Culture Q30M
KIMBERLY Source: Blood/Venous
Specimen Description:
Blood Culture Q30M
KIMBERLY Source: Blood/Venous
Specimen Description:
11/23/23 14:24
CT Chest Pe Study Urgent
Comment:
Reason For Exam: PE
Albuterol Nebs [Ventolin Nebules] 2.5 mg INH R NOW STA
Ipratropium/Albuterol Sulfate [Duoneb] 3 ml INH R Q4HPRN PRN
11/23/23 14:25
Budesonide [Pulmicort] 0.5 mg INH R BID
11/23/23 14:26
Benzonatate [Tessalon Perles] 200 mg PO TIDPRN PRN
11/23/23 14:27
Admit/Transfer Patient As Directed
Co-Sign Provider:
Level of Care: Inpatient admission
Assign to:: Telemetry
Physician / Group: trevor anaya
Diagnosis: Acute hypoxic respiratory insufficiency, acute bronchitis, pancytopenia
Reason for Telemetry: Arrhythmia
Date to Stop Telemetry: 11/26/23
Time to Stop Telemetry: 11:00
Reason for Hospitalization: Acute hypoxic respiratory insufficiency, acute bronchitis, pancytopenia
Expected length of stay greater than two midnights?: Yes
ELOS- Estimated Length of Stay in days: 3
I certify the patient meets the requirements for IP care: Yes
11/23/23 14:29
Code Status As Directed
Resuscitation Status: Full Code
11/23/23 14:30
Doxycycline [Vibramycin] 100 mg PO Q12
Guaifenesin [Mucinex] 1,200 mg PO Q12
11/23/23 14:35
Sputum Culture [Respiratory Culture/Gram Stain] Urgent
KIMBERLY Source: Sputum
Specimen Description:
11/23/23 14:41
ONCOLOGY CONSULT Routine
Consulting Provider: Russ Davis
Was physician already notified: Yes
11/23/23 16:00
Ipratropium/Albuterol Sulfate [Duoneb] 3 ml INH R QID
Piperacillin/Tazo 3.375 Gram [Zosyn] 3.375 gram in 50 ml IV Q6H
11/23/23 18:00
Dexamethasone Sod Phosphate [Decadron] 4 mg IV Q8H
11/23/23 19:11
Tramadol HCl [Ultram] 50 mg PO Q6HPRN PRN
11/23/23 19:11
Activity As Directed
Activity Level: As Tolerated
Intake/ Output As Directed
Frequency: Per unit guidelines
Vital Signs As Directed
Frequency: Per unit guidelines
Weight As Directed
Frequency: Daily
Pulse Ox/spot Check [RESP] Routine
Quantity: 1
11/23/23 20:00
Acyclovir [Zovirax] 800 mg PO BID
Apixaban [Eliquis] 5 mg PO BID
Sotalol [Betapace] 80 mg PO BID
11/24/23 05:29
Basic Metabolic Panel IN AM
Complete Blood Count/With Diff IN AM
11/24/23 08:00
Amlodipine [Norvasc] 5 mg PO DAILY
Clopidogrel Bisulfate [Plavix] 75 mg PO DAILY
Lisinopril [Zestril] 40 mg PO DAILY
Tamsulosin [Flomax] 0.4 mg PO DAILY
lenalidomide [Revlimid] 10 mg PO DAILY
11/25/23 06:00
Basic Metabolic Panel IN AM
Complete Blood Count/With Diff IN AM
11/26/23 06:00
Basic Metabolic Panel IN AM
Complete Blood Count/With Diff IN AM
11/26/23 11:00
DC Protocol for Telemetry ONCE
11/27/23 06:00
Basic Metabolic Panel IN AM
Complete Blood Count/With Diff IN AM
11/28/23 06:00
Basic Metabolic Panel IN AM
Complete Blood Count/With Diff IN AM
Abnormal Lab Results
11/23/23
11:09
WBC 1.7 L* 10^3/uL
(4.8-10.8)
RBC 3.50 L 10^6/uL
(4.70-6.10)
Hgb 11.5 L g/dL
(13.0-18.0)
Hct 33.4 L %
(39.0-52.0)
MCV 95.4 H fL
(80.0-94.0)
MCH 32.9 H pg
(27.0-31.0)
RDW 20.1 H %
(11.5-14.5)
Plt Count 70 L 10^3/uL
(130-400)
Abs Neuts (Manual) 0.9 L* 10^3/uL
(1.4-6.5)
Segmented Neutrophils 32 L %
(42-75)
Band Neutrophils 21 H %
(0-3)
Monocytes (Manual) 17 H %
(2-9)
Sodium 133 L mmol/L
(135-145)
Creatinine 0.5 L mg/dL
(0.7-1.3)
Glucose 110 H mg/dl
(70-99)
Total Bilirubin 4.3 H mg/dl
(0.2-1.3)
Total Protein 6.1 L g/dl
(6.3-8.2)
Albumin 3.4 L g/dl
(3.5-5.0)
11/23/23 11:09
11/23/23 11:09
Vital Signs
Initial and Last Documented VS:
Initial Vital Signs
Temp Pulse Resp BP Pulse Ox
98.1 F 78 34 163/80 89
11/23/23 10:22 11/23/23 10:22 11/23/23 10:22 11/23/23 10:22 11/23/23 10:22
Last Documented Vital Signs
Temp Pulse Resp BP Pulse Ox
97.4 F 86 16 99/53 96
11/24/23 15:25 11/24/23 15:32 11/24/23 15:32 11/24/23 15:25 11/24/23 15:32
Heel Nail Rasper consulted with Physician
Heel Nail Rasper consulted with physician?: Yes
Name of Physician Consulted: Khang
MDM/Problems Addressed
Differential Diagnosis Includes:
Not limited to pneumonia, bronchitis
MDM/Problems Addressed:
Patient is a 72-year-old male with multiple myeloma in remission status post stem cell transplant history of TIA A-fib on Plavix and Eliquis presents to the ER for cough. Patient has had cough for the past several days after visiting family in
[place]. Family also all had similar symptoms does 2. Patient however continues to have worsening cough. He went to urgent care was tested for COVID and flu and negative sent home on steroids and Tessalon Perles without relief.
Patient presents with significant cough hypoxic minimal wheezing. Patient is on Eliquis and Plavix has not missed a dose not tachycardic less likely PE.
Patient denies any fevers and is afebrile here. White count low at 1.7 with low neutrophils of 900.
pt is on 3l NC O2 still hypoxic at 90 %. will require admission
Chronic conditions affecting care:
Multiple myeloma history of stem cell transplant A-fib anticoagulated
*Radiology
Radiology exam reviewed: radiology read reviewed
*Pulse Oximetry
Patient hypoxic: yes
*EKG
Interpreted by ED Provider?: Yes
Interpretation: abnormal
Heart Rate: 76
Rate: normal
Rhythm: sinus and other (with PVCs)
*Critical Care Note
Total Time (30-74mins, 75-104mins- exclusive of procedures): Not Applicable
ED Attending Note
-
Portions of this chart may have been created with voice recognition software.� Occasional wrong word or��sound alike� substitutions may have occurred due to the inherent limitations of voice recognition software.
Discharge Plan
Departure
Patient Disposition: Admit
Date of Disposition: 11/23/23
Time of Disposition: 13:52
Admit to: Telemetry
Admit to doctor: hospitalist
Presentation/result/management discussed w/ accepting MD/DO: Hospitalist
Patient with high blood pressure during this ER visit?: Yes
Condition: Fair
Covid-19: Not Applicable
Discharge Problem:
URI, hypoxia
Interventions
Interventions:
*Risk Screen - Suicide Last Done: 11/23/23 21:08
*General Assessment Last Done: 11/23/23 19:22
*Neglect/Abuse Screening Last Done: 11/23/23 10:26
ED- Fall Risk Assessment Last Done: 11/23/23 17:43
*ED COVID-19 Vaccine History Last Done: 11/23/23 21:08
*Nursing Disposition Last Done: 11/23/23 19:22
ED- Cardiac Assessment Last Done: 11/23/23 10:44
ED- Pulmonary Assessment Last Done: 11/23/23 10:44
Discharge Date and Time
Discharge Date/Time: 11/23/23 19:23
[2023-11-23] MEDS: VENTOLIN NEBULES 7.5 MG INH (10:51)
[2023-11-23] MEDS: ATROVENT NEBULES 1 MG INH (10:52)
[2023-11-23] MEDS: DECADRON 10 MG IV (10:55)
[2023-11-23 11:21] LABS: Hematocrit 33.4 % (39.0-52.0); Hemoglobin 11.5 g/dL (13.0-18.0); Mean Corp Hgb Conc. 34.4 g/dL (33.0-37.0); Mean Corpuscular Hgb 32.9 pg (27.0-31.0); Mean Corpuscular Volume 95.4 fL (80.0-94.0); Mean Platelet Volume 9.6 fL (7.4-10.4); Nucleated Red Blood Cells % 0 % (-); Platelet Count 70 10^3/uL (130-400); Red Cell Dist. Width 20.1 % (11.5-14.5)
[2023-11-23 11:27] LABS: White Blood Cell Count 1.7 10^3/uL (4.8-10.8)
[2023-11-23 11:48] LABS: ALT (SGPT) 47 U/L (0-50); AST (SGOT) 51 U/L (17-59); Albumin 3.4 g/dl (3.5-5.0); Alkaline Phosphatase 96 U/L (38-126); Blood Urea Nitrogen 17 mg/dl (9-20); Calcium 9.1 mg/dl (8.4-10.2); Carbon Dioxide 24 mmol/L (22-30); Chloride 105 mmol/L (98-107); Estimated Creatinine Clearance 104 ml/min; Glucose 110 mg/dl (70-99); Potassium 3.9 mmol/L (3.5-5.1); Sodium 133 mmol/L (135-145); Total Bilirubin 4.3 mg/dl (0.2-1.3); Total Protein 6.1 g/dl (6.3-8.2); eGFR > 60.00
[2023-11-23 11:57] LABS: Absolute Neutrophils -Man Diff 0.9 10^3/uL (1.4-6.5); Band Neutrophils 21 % (0-3); Eosinophils 1 % (0-6); Lymphocytes 29 % (20-51); Monocytes 17 % (2-9); Normal RBC Morphology Yes; Platelets Checked Yes; Segmented Neutrophils 32 % (42-75)
[2023-11-23 11:58] LABS: Total Cells Counted 100
--- NOTE | 2023-11-23 14:32 | HPS.HSE ---
Family Physician
-
Family Physician: Sarabjit Chavarria
Chief Complaint
-
Shortness of breath
History of Present Illness
72-year-old male with past medical history of paroxysmal atrial fibrillation, CAD on Plavix, multiple myeloma in remission status post stem cell transplant March 2023 came to the hospital with shortness of breath and ongoing cough. Patient
recently came back from [place] and over there him and his had upper respiratory symptoms including cough. Per patient his symptoms were a lot worse and slowly progressing. He was at urgent care Tuesday and was given steroids and
Tessalon Perles. He was also checked for COVID and flu which was negative. This morning patient was hypoxic at home so he called EMS. In the EMS patient was given nebulizer treatment. In the ED patient was given another nebulizer treatment.
Patient denies any fever/chills. Denies any nausea, vomiting, diarrhea, constipation.
Medical History
Past Medical History
Past Medical History: Reports Arrhythmia, CAD, HTN, Hypercholesterolemia and Other (Multiple myeloma)
Past Surgical History: Reports Orthopedic
Social History
Tobacco: Non-smoker
Alcohol: None
Family History
Family History: Not pertinent
Allergies / Home Medications
Allergies reflects when Allergies were last updated in [facility].
Home Medications with original date entered in [facility]
Allergy/Medication List:
Allergies
Allergy/AdvReac Type Severity Reaction Status Date / Time
amiodarone Allergy Liver Verified 11/04/23 12:17
function
reduced
Home Medications
tamsulosin 0.4 mg capsule (Flomax) 0.4 mg PO DAILY Urinary Issue 03/06/23
acyclovir 800 mg tablet 800 mg PO BID Infection 08/18/23
amlodipine 5 mg tablet 5 mg PO DAILY Blood Pressure 08/18/23
lenalidomide 10 mg capsule (Revlimid) 10 mg PO DAILY blood disorder 08/18/23
lisinopril 40 mg tablet 40 mg PO DAILY Blood Pressure 08/18/23
metoprolol succinate 25 mg tablet,extended release 24 hr 25 mg PO BID Blood Pressure 08/18/23
potassium chloride 10 mEq tablet,extended release 10 meq PO BID Electrolyte Repletion 08/18/23
sotalol 80 mg tablet 80 mg PO BID Arrhythmia 08/18/23
tramadol 50 mg tablet 50 mg PO Q6HPRN PRN severe pain/breakthrough pain #15 tabs 08/29/23
apixaban 5 mg tablet (Eliquis) 5 mg PO BID Blood Clot Prevention/Tx 11/23/23
benzonatate 200 mg capsule 200 mg PO TIDPRN PRN cough 11/23/23
clopidogrel 75 mg tablet 75 mg PO DAILY Blood Clot Prevention/Tx 11/23/23
prednisone 10 mg tablet 60 mg PO DIRECTED inflammation 11/23/23
therapeutic multivitamin 1 tab PO DAILY Supplement 11/23/23
zoledronic acid 4 mg intravenous solution 0 mg IV MONTHLY high calcium 11/23/23
Review of Systems
-
History Source: Patient
A 12 point ROS was completed and negative except as noted: Yes
Respiratory: Reports Cough and Trouble Breathing
Physical Exam
Vital Signs
Vital Signs
Temp Pulse Resp BP Pulse Ox
98.1 F 77 34 132/72 92
11/23/23 10:22 11/23/23 14:15 11/23/23 10:22 11/23/23 14:11 11/23/23 14:15
Physical Exam
General: Well Nourished and No Apparent Distress
HEENT: Anicteric and Moist mucous membranes
Respiratory: Clear, Wheezes and Non Labored Respirations
Cardiac: S1/S2 and Regular Rhythm
Breast: Deferred by me
GI: Soft, Non Tender, Non Distended and Normal Bowel Sounds
Rectal: Deferred by Provider
Genito-urinary: No Heart
Musculoskeletal: No Edema
Neuro: Awake, Alert, Oriented and AO x 3
Psych: Calm and Intact Judgment/Insight
Laboratory Results
-
11/23/23 11:09
11/23/23 11:09
Laboratory Results
Total Bilirubin 4.3 mg/dl (0.2-1.3) H 11/23/23 11:09
AST 51 U/L (17-59) 11/23/23 11:09
ALT 47 U/L (0-50) 11/23/23 11:09
Alkaline Phosphatase 96 U/L (38-126) 11/23/23 11:09
Data Reviewed
-
Medical Tests (Nuc Med, Echo, EKG etc): Report Reviewed by me, Discussed with Patient and Discussed with Family
Lab Data: Labs Reviewed by me, Discussed with Patient and Discussed with Family
Impression/Plan
-
Acute hypoxic respiratory insufficiency likely secondary to acute bronchitis
Appears viral in nature
Chest x-ray without any infiltration
Currently on 4 L, given degree of shortness of breath and hypoxia, will order CT chest
Spoke with oncology and they recommended broad-spectrum antibiotics. Will start with vancomycin and Zosyn for now
DuoNebs standing and as needed, start Decadron
Sputum culture
Mucinex, Testhony Smith
Paroxysmal atrial fibrillation
Follows up with cardiology at [place], now appears to be transferring his care with Dr. LO Torres
Currently on metoprolol and sotalol both, will continue with sotalol and will hold metoprolol for now especially given active wheezing
If heart rate stable here then likely will DC further metoprolol
History of multiple myeloma status post stem cell transplant March 2023
Follows up with oncologist at [place]
Currently pancytopenic, could be secondary to Revlimid and acute illness
On IVIG, Zometa and Revlimid. Recently had chest pain status post IVIG so now it is on hold per his outpatient oncologist.
Continue with Revlimid for now
Consult oncology
ANC around 900
On acyclovir outpatient, will continue
Mild hyponatremia
Monitor
History of CAD status post stent
Continue Plavix
History of hypertension
Plan continue with amlodipine, lisinopril
Suspected BPH
Flomax
DVT prophylaxis
Eliquis
Full code
I spent a total of 78 minutes with the patient or on the floor. More than 50% of this time involved counseling and coordination of care.
[2023-11-23 14:45] LABS: Lactic Acid 1.4 mmol/L (0.7-2.0)
[2023-11-23] MEDS: MUCINEX 1200 MG PO ×2 (14:45→20:45)
[2023-11-23] MEDS: PULMICORT INH (14:59)
[2023-11-23] MEDS: ZOSYN 50 IV ×2 (15:23→23:04)
[2023-11-23] MEDS: VENTOLIN NEBULES 2.5 MG INH (15:23)
[2023-11-23] MEDS: DUONEB 3 ML INH ×2 (15:25→19:40)
--- NOTE | 2023-11-23 15:28 | PHA.VAN.IN ---
Assessment
- Assessment
Renal Function: Appears similar to baseline
Concomitant Antimicrobials: piperacillin/tazobactam
AUC Dosing Plan
- Dosing Variables
Dosing Weight (kg): 81
Dosing CrCl (ml/min): 104
Vd coefficient (L/kg): 0.7
- Empiric Dosing
Initial / Loading Dose: 2000mg - administration pending
Maintenance Regimen: Vanc 1250mg Q12H starting 11/23 06
Estimated AUC (mcg*h/mL): 519
Estimated Peak (mcg*h/mL): 33
Estimated Trough (mcg/ml): 12.8
Estimated Half Life (H): 7.6
- Monitoring
No levels ordered at this time: consider levels in next few days
MRSA Screen: Ordered per protocol
Pharmacokinetics Vancomycin I
- -
Patient Age: 72
Patient Sex: Male
Vancomycin Day #: 1
Indication: Pulmonary/Respiratory
Requesting Provider: Dr. Toro
Pertinent Antimicrobial Allergies:
no pertinent antibiotic allergies
Height / Weight:
Height 5 ft 7 in
Actual Weight 81.1 kg
Pertinent Past Medical History: MM (remission s/p stem cell transplant)
- Vital Signs / Lab Results
Temp Pulse Resp BP Pulse Ox
98.1 F 77 34 132/72 92
11/23/23 10:22 11/23/23 14:15 11/23/23 10:22 11/23/23 14:11 11/23/23 14:15
Lab Results - Hematology
11/23/23
11:09
WBC 1.7 L*
Band Neutrophils 21 H
Lab Results - Chemistry
11/23/23
11:09
BUN 17
Creatinine 0.5 L
Estimated Creat Clear 104
Albumin 3.4 L
11/23/23
14:07
Lactic Acid 1.4
[2023-11-23] MEDS: VANCOCIN 540 MG IV (16:04)
--- NOTE | 2023-11-23 18:30 | PTCARENOTE ---
Patient received to 419-2 awake alert and oriented. Oriented to room and surroundings. Call baltazar in reach
[2023-11-23] MEDS: PULMICORT 0.5 MG INH (19:40)
[2023-11-23] MEDS: ELIQUIS 5 MG PO (20:45)
[2023-11-23] MEDS: ZOVIRAX 800 MG PO (20:46)
[2023-11-23 22:25] LABS: Hematocrit 29.9 % (39.0-52.0); Hemoglobin 10.3 g/dL (13.0-18.0)
[2023-11-23] MEDS: DECADRON 4 MG IV (23:04)
[2023-11-23] MEDS: BETAPACE 80 MG PO (23:17)
--- NOTE | 2023-11-23 23:30 | W.PN.UPDATE ---
Update Note
Progress Note Update
RN notified CONTROL SYSTEMS SPECIALIST, patient had episode of bleeding from penis and hematuria and that she had just given him home dose of Plavix. Patient seen and evaluated, Patient denies any discomfort, urine frequency or burning. states no previous hematuria noted,
and does not see Urologist out patient [id number]. Patient is on Plavix and Eliquis for blood clots, will hold at present, need to resume it once hematuria resolves with stable hemoglobin. Will order H/H, UA
H/H 11.5--> 10.3
vitals 102/52-70-22-97.5 96% on 4L
Will order Flomax for PM as he has not taken it yet.
If hematuria persists with clots consider consult with Urologist.
[2023-11-24] MEDS: FLOMAX 0.400000000000000022 MG PO ×2 (00:45→17:32)
[2023-11-24 03:00] VITALS: BP 94/53
--- NOTE | 2023-11-24 03:36 | PTCARENOTE ---
2200 called to patient room for blood on penis. patient noted to have bright red bleeding with small clot. [facility] notified, patient able to void without difficulty, hematuria noted. Will hold future eliquis and plavix. Flomax order changed to be
given tonight. patient denies pain, vs 102/52-70-22-97.5. H/H drawn, and UA ordered per Hephziba.
[2023-11-24] MEDS: ZOSYN 50 IV ×4 (04:16→22:17)
[2023-11-24 05:34] LABS: Urine Albumin 1+ (Neg - Trace); Urine Bilirubin 1+ (Negative); Urine Character Clear (Clear); Urine Color Yellow; Urine Glucose 1+ (Negative); Urine Ketone Negative (Negative); Urine Leukocyte Trace (Negative); Urine Nitrite Negative (Negative); Urine Occult Blood 4+ (Negative); Urine Specific Gravity 1.015 (<1.030); Urine Urobilinogen 2+ (Neg - 1+)
[2023-11-24 05:44] LABS: Hematocrit 32.1 % (39.0-52.0); Hemoglobin 10.6 g/dL (13.0-18.0); Mean Corpuscular Hgb 32.8 pg (27.0-31.0); Mean Corpuscular Volume 99.4 fL (80.0-94.0); Mean Platelet Volume 9.7 fL (7.4-10.4); Platelet Count 59 10^3/uL (130-400); Red Blood Cell Count 3.23 10^6/uL (4.70-6.10); Red Cell Dist. Width 19.8 % (11.5-14.5)
[2023-11-24 05:49] LABS: White Blood Cell Count 1.7 10^3/uL (4.8-10.8)
[2023-11-24 05:58] VITALS: BMI 27.0
[2023-11-24] MEDS: DECADRON 4 MG IV ×3 (06:16→22:16)
[2023-11-24] MEDS: VANCOCIN 275 MG IV (06:26)
[2023-11-24 06:45] LABS: Blood Urea Nitrogen 22 mg/dl (9-20); Calcium 8.5 mg/dl (8.4-10.2); Carbon Dioxide 22 mmol/L (22-30); Chloride 102 mmol/L (98-107); Estimated Creatinine Clearance 89 ml/min; Glucose 159 mg/dl (70-99); Potassium 3.7 mmol/L (3.5-5.1); Sodium 134 mmol/L (135-145); eGFR > 60.00
[2023-11-24 07:00] VITALS: BP 98/51
[2023-11-24 07:07] LABS: Platelets Checked Yes
[2023-11-24 07:11] LABS: Anisocytosis 1+; Band Neutrophils 15 % (0-3); Lymphocytes 24 % (20-51); Monocytes 15 % (2-9); Normal RBC Morphology No; Segmented Neutrophils 46 % (42-75)
[2023-11-24 07:12] LABS: Ovalocytes 1+; Polychromasia Slight
[2023-11-24 07:13] LABS: Total Cells Counted 100
[2023-11-24 07:33] LABS: Urine Red Blood Cell 16-20 /HPF (0-2)
[2023-11-24 07:34] LABS: Urine Bacteria Few (Negative)
[2023-11-24] MEDS: DUONEB 3 ML INH ×4 (07:49→19:43)
[2023-11-24] MEDS: PULMICORT 0.5 MG INH ×2 (07:50→19:43)
[2023-11-24] MEDS: MUCINEX 1200 MG PO ×2 (08:24→20:45)
[2023-11-24] MEDS: ZOVIRAX 800 MG PO ×2 (08:25→20:35)
[2023-11-24] MEDS: BETAPACE 80 MG PO ×2 (08:25→20:35)
[2023-11-24] MEDS: NORVASC PO (08:26)
--- NOTE | 2023-11-24 09:05 | CON.ONC ---
Addendum entered and electronically signed by Angel Romero DO 11/24/23 15:25:
Patient examined and chart reviewed independently. Agree with the assessment and plan as outlined by DIRECTOR BUSINESS DEVELOPMENT below.Patient continues to have hematuria. Difficulty with Sosa catheter requiring urology assessment. With current level of
thrombocytopenia would discontinue Revlimid. Monitor CBC for recovery and need for transfusion support. Anticoagulation on hold.
Original Note:
Impression
Impression
Multiple Myeloma s/p stem cell transplant 2022 (IVIG, Revlimid)
Acute hypoxic respiratory insufficiency likely secondary to acute URI
Hx afib on chronic anticoagulation
New onset hematuria
Neutropenia
Acute thrombocytopenia
Upper respiratory infection with cough
Hypotension
Plan
Plan
11/23 WBC 1.7, Hgb 10.6, Hct 32.1, PLT 59, ANC 1,000
Neutropenic precautions
Transfuse as needed to maintain Hgb >7, PLT >20 (or PLT >50 with active bleeding)
Monitor CBC w/ differential daily
HOLD Revlimid for now in the setting of acute thrombocytopenia
Continue Acyclovir for prophylaxis
QIGs, FLC, B12/folate level ordered
Urology consult
Monitor hematuria
Holding anticoagulation in setting of hematuria and acute thrombocytopenia
Records requested from [facility] per patient
We will follow.
Patient History
History of Present Illness
Paco Briggs is a 72-year-old male with history of multiple myeloma in remission s/p stem cell transplant in Mar 2023. He currently receives IVIG and Revlimid via [facility] with Dr. Leigh. He arrived to the ED last evening, 11/23 for
evaluation of cough/upper respiratory symptoms. He was recently visiting family in [place] when he began with cough shortness of breath. He reports symptoms began of last week. Patient was seen at an urgent care and he was provided
steroids and Tessalon Perles. He states he was negative for influenza, COVID and RSV. He took steroids Tuesday and Tuesday as prescribed but SOB worsened and home pox revealed hypoxia in the 80s. He called the ambulance and was given neb treatment
en route. He denies any actual fevers. Nursing reported patient to have acute hematuria last evening. He states nursing was unsuccessful placing a sosa catheter after 2 attempts. He denies evidence of clots. Denies dysuria. He endorses mild BPH
symptoms. He is managed on Eliquis/Plavix for history of VTE/afib. He denies fever, chest pain, shortness of breath, hemoptysis, melena, petechial rash or swelling. He states his breathing has improved. He was set up for monthly IVIG x6 treatments.
He received 4 of 6 treatments and experienced acute chest pain during infusion. IVIG has been held due to this reaction. His last IgG level was 891 on 11/11/23 per his records.
Past-Medical/Surgical History
Multiple myeloma s/p stem cell transplant 2022 (Revlimid, IVIF at [facility])
Hx acute chest pain (during IVIG treatment 4 of 6)
Hypertension
Hypercholesterolemia
Atrial fib on Plavix/Eliquis
CAD with stent
[place] (2017)
Patient Medication
�Medication �Instructions �Recorded �Confirmed �Last Taken �Type
tamsulosin 0.4 mg capsule (Flomax) 0.4 mg PO DAILY Urinary Issue 03/06/23 11/23/23 11/23/23 History
acyclovir 800 mg tablet 800 mg PO BID Infection 08/18/23 11/23/23 11/23/23 History
amlodipine 5 mg tablet 5 mg PO DAILY Blood Pressure 08/18/23 11/23/23 11/23/23 History
lenalidomide 10 mg capsule 10 mg PO DAILY blood disorder 08/18/23 11/23/23 11/23/23 History
(Revlimid)
lisinopril 40 mg tablet 40 mg PO DAILY Blood Pressure 08/18/23 11/23/23 11/23/23 History
metoprolol succinate 25 mg 25 mg PO BID Blood Pressure 0111/23/23 11/23/23 History
tablet,extended release 24 hr
potassium chloride 10 mEq 10 meq PO BID Electrolyte Repletion 08/18/23 11/23/23 11/23/23 History
tablet,extended release
sotalol 80 mg tablet 80 mg PO BID Arrhythmia 08/18/23 11/23/23 11/23/23 History
tramadol 50 mg tablet 50 mg PO Q6HPRN PRN severe 08/29/23 11/23/23 Unknown Rx
pain/breakthrough pain #15 tabs
apixaban 5 mg tablet (Eliquis) 5 mg PO BID Blood Clot 11/23/23 11/23/23 11/23/23 History
Prevention/Tx
benzonatate 200 mg capsule 200 mg PO TIDPRN PRN cough 11/23/23 11/23/23 Unknown History
clopidogrel 75 mg tablet 75 mg PO DAILY Blood Clot 11/23/23 11/23/23 11/23/23 History
Prevention/Tx
prednisone 10 mg tablet 60 mg PO DIRECTED inflammation 11/23/23 11/23/23 11/22/23 History
therapeutic multivitamin 1 tab PO DAILY Supplement 11/23/23 11/23/23 Unknown History
zoledronic acid 4 mg intravenous 0 mg IV MONTHLY high calcium 11/23/23 11/23/23 Unknown History
solution
Active Medications
Generic Name Dose Route Start Last Admin
Trade Name Freq PRN Reason Stop Dose Admin
Acyclovir Sodium 800 mg 11/23/23 20:00 11/24/23 08:25
Acyclovir Sodium 800 Mg Tablet PO 12/03/23 19:59 800 mg
BID ZAKI Administration
Albuterol/Ipratropium 3 ml 11/23/23 16:00 11/24/23 07:49
Ipratropium 0.5/Albuterol 3 Mg (3 Ml Ampul) INH 3 ml
R QID ZAKI Administration
Protocol
Albuterol/Ipratropium 3 ml 11/23/23 14:24
Ipratropium 0.5/Albuterol 3 Mg (3 Ml Ampul) INH
R Q4HPRN PRN
sob or wheezing
Protocol
Amlodipine Besylate 5 mg 11/24/23 08:00 11/24/23 08:26
Amlodipine 5 Mg Tablet PO 12/22/23 07:59 Not Given
DAILY ZAKI
Apixaban 5 mg 11/23/23 20:00 11/23/23 20:45
Apixaban (Eliquis) 5 Mg Tablet PO 12/21/23 19:59 5 mg
BID ZAKI Administration
Benzonatate 200 mg 11/23/23 14:26
Benzonatate 100 Mg Capsule PO 12/21/23 14:25
TIDPRN PRN
cough
Budesonide 0.5 mg 11/23/23 14:25 11/24/23 07:50
Budesonide (Pulmicort Respules) 0.5 Mg/2 Ml INH 0.5 mg
R BID ZAKI Administration
Protocol
Clopidogrel Bisulfate 75 mg 11/24/23 08:00 11/24/23 08:31
Clopidogrel 75 Mg Tablet PO 12/22/23 07:59 Not Given
DAILY ZAKI
Dexamethasone Sodium Phosphate 4 mg 11/23/23 23:00 11/24/23 06:16
Dexamethasone 4 Mg/Ml 1 Ml Vial IV 12/21/23 22:59 4 mg
Q8H ZAKI Administration
Guaifenesin 1,200 mg 11/23/23 14:30 11/24/23 08:24
Guaifenesin 600 Mg Extended Release Tablet PO 12/21/23 14:29 1,200 mg
Q12 ZAKI Administration
Piperacillin Sod/Tazobactam Sod 3.375 gram in 50 mls @ 100 mls/hr 11/23/23 16:00 11/24/23 04:16
Zosyn IV 50 mls
Q6H ZAKI Administration
Vancomycin HCl 1,250 mg/ 275 mls @ 183.33 mls/hr 11/24/23 06:00 11/24/23 06:26
Sodium Chloride IV 275 mls
Q12H ZAKI Administration
Protocol
Lisinopril 40 mg 11/24/23 08:00 11/24/23 08:26
Lisinopril 20 Mg Tablet PO 12/22/23 07:59 Not Given
DAILY ZAKI
Non-Formulary Medication 10 mg 11/24/23 08:00
Lenalidomide [Revlimid] PO 12/22/23 07:59
DAILY ZAKI
Sodium Chloride 0 flush 11/23/23 20:00
Sodium Chloride 0.9% (Flush) Syringe IV 12/21/23 19:59
PER PROTOCOL ZAKI
Sotalol HCl 80 mg 11/23/23 20:00 11/24/23 08:25
Sotalol 80 Mg Tablet PO 12/21/23 19:59 80 mg
BID ZAKI Administration
Tamsulosin HCl 0.4 mg 11/23/23 23:00 11/24/23 00:45
Tamsulosin 0.4 Mg Capsule PO 12/21/23 22:59 0.4 mg
QPM ZAKI Administration
Tramadol HCl 50 mg 11/23/23 19:11
Tramadol Hcl 50 Mg Tablet PO 12/21/23 19:10
Q6HPRN PRN
severe pain/breakthrough pain
Review of Systems
-
History Source: Patient, Family, Coordinated Provider and Records
Constitutional: Reports No Symptoms
EENT: Reports No Symptoms
Respiratory: Reports Cough
Cardiac: Reports No Symptoms
GI: Reports No Symptoms
Breast: Reports N/A
: Reports Bleeding
Musculoskeletal: Reports No Symptoms
Skin: Reports No Symptoms
Neuro: Reports No Symptoms
Endocrine: Reports No Symptoms
Hematologic/Lymphatic: Reports Bleeding
Allergy / Immunology: Reports No Symptoms
Psych: Reports No Symptoms
Physical Exam
-
patient sitting up resting in bed. spouse at bedside. reports he is much improved today compared to yesterday. he continues with scant hematuria. denies pain. patient states work of breathing has improved.
General: Well Developed, Well Nourished, No Apparent Distress, Comfortable and Conversant
HEENT: Negative Jaundice
Cardiology: S1 and S2
Pulmonary: Clear and Other (diminished, nasal cannula oxygen)
GI: Normal Bowel Sounds
Genito-Urinary: Bloody Urine
Extremities: Pulses Present
Neurology: Non Focal
Skin: Warm and Dry
Psych: Calm
Labs
Lab Results
WBC 1.7 10^3/uL (4.8-10.8) L* 11/24/23 05:29
RBC 3.23 10^6/uL (4.70-6.10) L 11/24/23 05:29
Hgb 10.6 g/dL (13.0-18.0) L 11/24/23 05:29
Hct 32.1 % (39.0-52.0) L 11/24/23 05:29
MCV 99.4 fL (80.0-94.0) H 11/24/23 05:29
MCH 32.8 pg (27.0-31.0) H 11/24/23 05:29
MCHC 33.0 g/dL (33.0-37.0) 11/24/23 05:29
RDW 19.8 % (11.5-14.5) H 11/24/23 05:29
Plt Count 59 10^3/uL (130-400) L 11/24/23 05:29
MPV 9.7 fL (7.4-10.4) 11/24/23 05:29
Creatinine 0.7 mg/dL (0.7-1.3) 11/24/23 05:29
Vital Signs
Vital Signs
Temp Pulse Resp BP Pulse Ox
97.8 F 63 18 98/51 93
11/24/23 03:00 11/24/23 08:25 11/24/23 07:53 11/24/23 08:25 11/24/23 07:53
11/23/23 CXR: No acute cardiopulmonary process.
11/23/[address]: No central pulmonary embolism. Limited evaluation of the subsegmental vessels secondary to respiratory motion artifact. No aortic dissection. Bibasilar consolidation, suggests a pneumonic process. No pleural effusion or
pneumothorax.
[2023-11-24 09:21] LABS: Procalcitonin 0.31 ng/ml (0.0-0.25)
--- NOTE | 2023-11-24 10:45 | VATNOTE ---
During rounds patient refused to have pre hospital site removed per protocol. Patient's wishes honored.
[2023-11-24 11:00] VITALS: BP 86/44
[2023-11-24 11:37] LABS: IgG 774 mg/dl (700-1600)
--- NOTE | 2023-11-24 11:49 | W.PN.HOSP.TC ---
Today's Communication/Plan
-
Monitor vital signs and see plan
Now with hematuria, hold Plavix and Eliquis
Consult urology
Sosa per urology
Continue with antibiotic; dc vanc
Monitor pancytopenia
Hold lisinopril, metoprolol
Continue with Decadron
Assessment / Plan
Assessment / Plan
General: Well Nourished and No Apparent Distress
HEENT: Anicteric and Moist mucous membranes
Respiratory: Clear, Wheezes and Non Labored Respirations
Cardiac: S1/S2 and Regular Rhythm
GI: Soft, Non Tender, Non Distended and Normal Bowel Sounds
Genito-urinary: hematuria
Musculoskeletal: No Edema
Neuro: Awake, Alert, Oriented and AO x 3
Psych: Calm and Intact Judgment/Insight
Acute hypoxic respiratory insufficiency likely secondary to bibasilar PNA
associated acute bronchitis
Appears viral in nature
Chest x-ray without any infiltration
Currently on 4 L, given degree of shortness of breath and hypoxia, CT chest with possible bibasilar PNA
procal +
Spoke with oncology and they recommended broad-spectrum antibiotics. MRSA neg so dc vanc; cw zosyn for now
DuoNebs standing and as needed, cw decadron
Sputum culture
Mucinex, Tessalon Sarah
Acute hematuria
Acute blood loss anemia likely secondary to above
Likely exacerbated by Plavix and Eliquis
administer sosa; urology consulted
cw flomax
might need CBI if continues to have blood clots
per patient he once had problems urinating and was put on Flomax. Does not follow-up with urology outpatient
Paroxysmal atrial fibrillation
Follows up with cardiology at [place], now appears to be transferring his care with Dr. LO Torres
Currently on metoprolol and sotalol both, will continue with sotalol and will hold metoprolol for now especially given active wheezing
If heart rate stable here then likely will DC further metoprolol
History of multiple myeloma status post stem cell transplant March 2023
Follows up with oncologist at [place]
Currently pancytopenic, could be secondary to Revlimid and acute illness
Monitor thrombocytopenia
On IVIG, Zometa and Revlimid. Recently had chest pain status post IVIG so now it is on hold per his outpatient oncologist.
Hold Revlimid per oncology
Oncology following
ANC around 1000
On acyclovir outpatient, will continue
Mild hyponatremia
Monitor
History of CAD status post stent
Plavix on hold due to hematuria
History of hypertension
Currently intermittent hypotension, hold amlodipine,
Suspected BPH
Flomax
DVT prophylaxis
Eliquis
Full code
I spent a total of 56 minutes with the patient or on the floor. More than 50% of this time involved counseling and coordination of care.
Anticipated Discharge: > 48 hours
Subjective/Interval History
-
Date of Service: November 24, 2023
denies pain
Objective Data
-
Labs:
Laboratory Results
11/24/23
05:29
WBC 1.7 L*
Hgb 10.6 L
Hct 32.1 L
Plt Count 59 L
Sodium 134 L
Potassium 3.7
Chloride 102
Carbon Dioxide 22
BUN 22 H
Creatinine 0.7
Glucose 159 H
Calcium 8.5
Vital Signs:
Vital Signs
Temp Pulse Resp BP Pulse Ox
97.6 F 88 16 98/51 93
11/24/23 07:00 11/24/23 11:38 11/24/23 11:38 11/24/23 08:25 11/24/23 07:53
I&O
11/23/23 11/24/23 11/25/23
06:59 06:59 06:59
Intake Total 120 / 120
Output Total 225 / 225
Balance -105 / -105
--- NOTE | 2023-11-24 12:06 | CM ---
Met with pt and his at bedside
Pt lives with his in a 1 story home
Independent, drives
Denies DME, past SNF/HH
Has ride at d/c
Recently received stem cell at [facility] and followed there
PCP - Dr Sonal Chavarria
Pharm - [facility]
CM will follow for d/c needs
Plan - anticipate home no needs vs with [facility]
--- NOTE | 2023-11-24 13:37 | CONS.URO ---
Consultation
-
Performing Provider: Noemi
Reason for Consultation: Urethral bleeding
Medical History
History of Present Illness
72M with history of mild BPH on tamsulosin
Admitted with PNA with severe cough and SOB at home
medical history of paroxysmal atrial fibrillation, CAD on Plavix, multiple myeloma in remission status post stem cell transplant March 2023
Per patient his symptoms were a lot worse and slowly progressing. He was at urgent care Tuesday and was given steroids and Tessalon Perles. He was also checked for COVID and flu which was negative.
Patient denies any fever/chills. Denies any nausea, vomiting, diarrhea, constipation.
He denies any symptoms until last night he noted some blood from the urethra
He did not have voiding difficulty and he noted that his urine appeared mostly clear, with blood only dripping from his penis
Denies dysuria
Attempts were made at sosa placement which were not succussful
He has little to no bothersome LUTS at baseline. Was started on tamsulosin after knee surgery
Has normal baseline PSA and FERNANDO with his PCP
Currently feels he is emptying his bladder well
Past Medical History
Past Medical History: Other (Reports Arrhythmia, CAD, HTN, Hypercholesterolemia and Other (Multiple myeloma))
Past Surgical History: Orthopedic
Social History
Tobacco: Non-smoker
Alcohol: None
Family History
Family History: Reviewed & Not Pertinent
Allergies/Home Medications
Allergies
Allergy/AdvReac Type Severity Reaction Status Date / Time
amiodarone Allergy Liver Verified 11/04/23 12:17
function
reduced
Home Medications
�Medication �Instructions �Recorded �Confirmed �Type
tamsulosin 0.4 mg capsule (Flomax) 0.4 mg PO DAILY Urinary Issue 03/06/23 11/23/23 History
acyclovir 800 mg tablet 800 mg PO BID Infection 08/18/23 11/23/23 History
amlodipine 5 mg tablet 5 mg PO DAILY Blood Pressure 08/18/23 11/23/23 History
lenalidomide 10 mg capsule 10 mg PO DAILY multiple myeloma 08/18/23 11/23/23 History
(Revlimid)
lisinopril 40 mg tablet 40 mg PO DAILY Blood Pressure 08/18/23 11/23/23 History
metoprolol succinate 25 mg 25 mg PO BID Blood Pressure 08/18/23 11/23/23 History
tablet,extended release 24 hr
potassium chloride 10 mEq 10 meq PO BID Electrolyte Repletion 08/18/23 11/23/23 History
tablet,extended release
sotalol 80 mg tablet 80 mg PO BID Arrhythmia 08/18/23 11/23/23 History
tramadol 50 mg tablet 50 mg PO Q6HPRN PRN severe 08/29/23 11/23/23 Rx
pain/breakthrough pain #15 tabs
apixaban 5 mg tablet (Eliquis) 5 mg PO BID Blood Clot 11/23/23 11/23/23 History
Prevention/Tx
benzonatate 200 mg capsule 200 mg PO TIDPRN PRN cough 11/23/23 11/23/23 History
clopidogrel 75 mg tablet 75 mg PO DAILY Blood Clot 11/23/23 11/23/23 History
Prevention/Tx
prednisone 10 mg tablet 60 mg PO DIRECTED inflammation 11/23/23 11/23/23 History
therapeutic multivitamin 1 tab PO DAILY Supplement 11/23/23 11/23/23 History
zoledronic acid 4 mg intravenous 0 mg IV MONTHLY high calcium 11/23/23 11/23/23 History
solution
Physical Exam
Vital Signs
Vital Signs
Temp Pulse Resp BP Pulse Ox
97.6 F 88 16 98/51 95
11/24/23 07:00 11/24/23 11:38 11/24/23 11:38 11/24/23 08:25 11/24/23 11:40
Lab / Testing Results
Laboratory Results
11/24/23 05:29
11/24/23 05:29
Physical Exam
General: Well Developed, Well Nourished and No Apparent Distress
Respiratory: Other (cough)
GI: Soft and Non Tender
Genito-urinary: No Costovertebral Tend, Clear Urine (yellow urine/slight pink in urinal) and Other (mild blood per meatus)
Skin: Warm and Dry
Neuro: AO x 3
Psych: Calm and Intact Judgement
Assessment / Plan
-
72M hx multiple myeloma s/p stem cell transplant, admitted with pneumonia
Developed mild blood per urethral meatus after admission
- No hematuria - urine clear and only with some blood per meatus between voids suggests prostate or urethral source. Suspect this is a small ruptured blood vessel from severe coughing and anticoagulation
- Urethral bleeding has been mild and is unlikely to explain anemia. Anemia appears stable since prior to admission
- No acute intervention needed, voiding without difficulty
- Cystoscopy as outpatient - contact info given for my office
- Continue tamsulosin
- Urine culture to r/o UTI
- Hold anticoagulation until 11/28 - can resume if bleeding has resolved by then
Data Reviewed
-
Lab Data: Labs Reviewed
[2023-11-24 15:25] VITALS: BP 99/53
[2023-11-24 19:55] VITALS: BP 112/57
[2023-11-24 23:14] VITALS: BP 111/67
[2023-11-25 02:53] VITALS: BP 118/59
[2023-11-25] MEDS: ZOSYN 50 IV ×4 (05:25→22:11)
[2023-11-25 05:47] LABS: Hematocrit 29.1 % (39.0-52.0); Hemoglobin 9.9 g/dL (13.0-18.0); Mean Corpuscular Hgb 32.1 pg (27.0-31.0); Mean Corpuscular Volume 94.5 fL (80.0-94.0); Platelet Count 53 10^3/uL (130-400); Red Blood Cell Count 3.08 10^6/uL (4.70-6.10)
[2023-11-25 05:53] LABS: White Blood Cell Count 1.5 10^3/uL (4.8-10.8)
[2023-11-25 06:00] VITALS: BMI 27.0
[2023-11-25] MEDS: DECADRON 4 MG IV ×3 (06:11→22:12)
[2023-11-25 06:14] LABS: Blood Urea Nitrogen 23 mg/dl (9-20); Calcium 8.3 mg/dl (8.4-10.2); Carbon Dioxide 24 mmol/L (22-30); Chloride 103 mmol/L (98-107); Estimated Creatinine Clearance 104 ml/min; Glucose 138 mg/dl (70-99); Potassium 3.5 mmol/L (3.5-5.1); Sodium 134 mmol/L (135-145); eGFR > 60.00
[2023-11-25 07:02] LABS: Anisocytosis 1+; Band Neutrophils 2 % (0-3); Lymphocytes 23 % (20-51); Monocytes 15 % (2-9); Normal RBC Morphology No; Ovalocytes 1+; Platelets Checked Yes; Segmented Neutrophils 60 % (42-75)
[2023-11-25 07:03] LABS: Hypochromasia Slight; Total Cells Counted 100
[2023-11-25 07:04] LABS: Absolute Neutrophils -Man Diff 0.9 10^3/uL (1.4-6.5)
[2023-11-25 07:18] LABS: Folate 12.1 ng/ml (2.76-20); Vitamin B12 581 pg/ml (239-931)
[2023-11-25] MEDS: DUONEB 3 ML INH ×4 (07:19→19:22)
[2023-11-25] MEDS: PULMICORT 0.5 MG INH ×2 (07:19→19:22)
[2023-11-25 07:55] VITALS: BP 122/70
[2023-11-25] MEDS: ZOVIRAX 800 MG PO ×2 (08:51→22:11)
[2023-11-25] MEDS: BETAPACE 80 MG PO ×2 (08:51→22:11)
[2023-11-25] MEDS: MUCINEX 1200 MG PO ×2 (08:53→22:11)
[2023-11-25] MEDS: TESSALON PERLES 200 MG PO ×2 (10:58→17:16)
[2023-11-25 11:33] VITALS: BP 111/60
--- NOTE | 2023-11-25 13:09 | W.PN.HOSP.TC ---
Today's Communication/Plan
-
Monitor vital signs and see plan
Continue with antibiotics
Monitor CBC
Continue with steroids,nebs
Assessment / Plan
Assessment / Plan
General: Well Nourished and No Apparent Distress
HEENT: Anicteric and Moist mucous membranes
Respiratory: Clear, Wheezes and Non Labored Respirations
Cardiac: S1/S2 and Regular Rhythm
GI: Soft, Non Tender, Non Distended and Normal Bowel Sounds
Genito-urinary: hematuria
Musculoskeletal: No Edema
Neuro: Awake, Alert, Oriented and AO x 3
Psych: Calm and Intact Judgment/Insight
Acute hypoxic respiratory insufficiency likely secondary to bibasilar PNA
associated acute bronchitis
Appears viral in nature
Chest x-ray without any infiltration
Now weaned off O2, continue to monitor oxygenation, CT chest with possible bibasilar PNA
procal +
Spoke with oncology and they recommended broad-spectrum antibiotics. MRSA neg so dc vanc; cw zosyn for now
DuoNebs standing and as needed, cw decadron
Sputum culture if able
Yadira Ledbetter
Acute hematuria
Does not suspect anemia is from acute blood loss as it was very brief
Initially patient had hematuria however now urine is clear but still have some bleeding from meatus, evaluated by urology instructed patient to follow-up with them outpatient. No plan for Heart
Likely exacerbated by Plavix and Eliquis
cw flomax
per patient he once had problems urinating and was put on Flomax. Does not follow-up with urology outpatient
Urology recommended patient to be off Plavix and Eliquis until 11/29/2023, if no further bleeding then can restart
Paroxysmal atrial fibrillation
Follows up with cardiology at [place], now appears to be transferring his care with Dr. LO Torres
Currently on metoprolol and sotalol both, will continue with sotalol and will hold metoprolol for now especially given active wheezing
If heart rate stable here then likely will DC further metoprolol
History of multiple myeloma status post stem cell transplant March 2023
Follows up with oncologist at [place]
Currently pancytopenic, could be secondary to Revlimid and acute illness
Monitor thrombocytopenia
On IVIG, Zometa and Revlimid. Recently had chest pain status post IVIG so now it is on hold per his outpatient oncologist.
Hold Revlimid per oncology
Oncology following
ANC around 900
On acyclovir outpatient, will continue
Mild hyponatremia
Monitor
History of CAD status post stent
Plavix on hold per urology recommendation
History of hypertension
Currently intermittent hypotension, hold amlodipine,
Suspected BPH
Flomax
DVT prophylaxis
SCD's
Full code
I spent a total of 52 minutes with the patient or on the floor. More than 50% of this time involved counseling and coordination of care.
Anticipated Discharge: 24 - 48 hours
Subjective/Interval History
-
Date of Service: November 25, 2023
Denies pain
Objective Data
-
Labs:
Laboratory Results
11/25/23
05:33
WBC 1.5 L*
Hgb 9.9 L
Hct 29.1 L
Plt Count 53 L
Sodium 134 L
Potassium 3.5
Chloride 103
Carbon Dioxide 24
BUN 23 H
Creatinine 0.6 L
Glucose 138 H
Calcium 8.3 L
Vital Signs:
Vital Signs
Temp Pulse Resp BP Pulse Ox
98.7 F 60 18 111/60 93
11/25/23 11:33 11/25/23 11:33 11/25/23 11:33 11/25/23 11:33 11/25/23 11:33
I&O
11/24/23 11/25/23 11/26/23
06:59 06:59 06:59
Intake Total 120 / 120 560 / 560
Output Total 225 / 225 700 / 700
Balance -105 / -105 -140 / -140
--- NOTE | 2023-11-25 14:55 | CM ---
Case management following for d/c planning
Receiving antibiotics, steroids, nebs
CM will follow for d/c needs
Plan - anticipate home no needs
[2023-11-25 15:00] VITALS: BP 120/71
[2023-11-25] MEDS: FLOMAX 0.400000000000000022 MG PO (17:10)
[2023-11-25 19:27] VITALS: BP 110/56
[2023-11-25 23:21] VITALS: BP 131/67
[2023-11-26 03:09] VITALS: BP 144/80
[2023-11-26] MEDS: ZOSYN 50 IV ×4 (05:02→22:27)
--- NOTE | 2023-11-26 05:43 | PTCARENOTE ---
[employer]ER made aware of patient's HR occasional going into the 40s while sleeping without sustaining. SO[employer] WR[employer]ER ordered CPAP given history of sleep apnea. New Order discuss with patient. Patient stated his will be bringing control device for '[employer]' Sleep
Apnea Implant later today. Patient is asymptomatic, will continue plan of care.
[2023-11-26 06:00] VITALS: BMI 26.8
[2023-11-26] MEDS: DECADRON 4 MG IV (06:12)
[2023-11-26] MEDS: TESSALON PERLES 200 MG PO ×2 (06:18→20:37)
[2023-11-26 07:00] VITALS: BP 135/66
[2023-11-26] MEDS: BETAPACE 80 MG PO ×2 (07:46→20:36)
[2023-11-26] MEDS: DUONEB 3 ML INH ×3 (07:47→15:32)
[2023-11-26] MEDS: PULMICORT 0.5 MG INH ×2 (07:47→17:56)
[2023-11-26] MEDS: ZOVIRAX 800 MG PO ×2 (07:47→20:35)
[2023-11-26] MEDS: MUCINEX 1200 MG PO ×2 (07:47→20:35)
[2023-11-26 08:42] LABS: % Basophils 0.9 % (0-2); % Immature Granulocytes 2.6 % (0-0.5); % Monocytes 19.5 % (1.7-9.3); Absolute Immature Granulocytes 0.1 10^3/uL (0-0.05); Absolute Lymphocytes 0.2 10^3/uL (1.2-3.4); Absolute Monocytes 0.5 10^3/uL (0.1-0.6); Absolute Neutrophils 1.6 10^3/uL (1.4-6.5); Hematocrit 30.8 % (39.0-52.0); Hemoglobin 10.5 g/dL (13.0-18.0); Mean Corp Hgb Conc. 34.1 g/dL (33.0-37.0); Mean Corpuscular Hgb 32.9 pg (27.0-31.0); Mean Corpuscular Volume 96.6 fL (80.0-94.0); Mean Platelet Volume 10.6 fL (7.4-10.4); Nucleated Red Blood Cells % 0 % (-); Platelet Count 73 10^3/uL (130-400); Red Blood Cell Count 3.19 10^6/uL (4.70-6.10); Red Cell Dist. Width 18.9 % (11.5-14.5)
[2023-11-26 08:53] LABS: White Blood Cell Count 2.3 10^3/uL (4.8-10.8)
[2023-11-26 10:57] LABS: Blood Urea Nitrogen 26 mg/dl (9-20); Calcium 8.8 mg/dl (8.4-10.2); Carbon Dioxide 25 mmol/L (22-30); Chloride 101 mmol/L (98-107); Estimated Creatinine Clearance 89 ml/min; Glucose 115 mg/dl (70-99); Potassium 3.8 mmol/L (3.5-5.1); Sodium 134 mmol/L (135-145); eGFR > 60.00
[2023-11-26 11:00] VITALS: BP 110/58
--- NOTE | 2023-11-26 12:37 | W.PN.HOSP.TC ---
Today's Communication/Plan
-
Monitor vital signs
see plan
Pancytopenia slowly improving
Continue with antibiotics
Switch to prednisone and monitor
If pancytopenia continues to improve and patient is feeling better by tomorrow then likely can be discharged
Continue to hold Eliquis and Plavix per urology recommendation
Assessment / Plan
Assessment / Plan
General: Well Nourished and No Apparent Distress
HEENT: Anicteric and Moist mucous membranes
Respiratory: Clear, Wheezes and Non Labored Respirations
Cardiac: S1/S2 and Regular Rhythm
GI: Soft, Non Tender, Non Distended and Normal Bowel Sounds
Genito-urinary: hematuria
Musculoskeletal: No Edema
Neuro: Awake, Alert, Oriented and AO x 3
Psych: Calm and Intact Judgment/Insight
Acute hypoxic respiratory insufficiency likely secondary to bibasilar PNA
associated acute bronchitis
Appears viral in nature
Chest x-ray without any infiltration
Now weaned off O2, continue to monitor oxygenation, CT chest with possible bibasilar PNA
procal +
Spoke with oncology and they recommended broad-spectrum antibiotics. MRSA neg so dc vanc; cw zosyn for now
DuoNebs standing and as needed, cw decadron
Sputum culture if able
Mucinex, Yadira Smith
Acute hematuria
Does not suspect anemia is from acute blood loss as it was very brief
Initially patient had hematuria however now urine is clear but still have some bleeding from meatus, evaluated by urology instructed patient to follow-up with them outpatient. No plan for Heart
Likely exacerbated by Plavix and Eliquis
cw flomax
per patient he once had problems urinating and was put on Flomax. Does not follow-up with urology outpatient
Urology recommended patient to be off Plavix and Eliquis until 11/29/2023, if no further bleeding then can restart
Paroxysmal atrial fibrillation
Follows up with cardiology at [place], now appears to be transferring his care with Dr. LO Torres
Currently on metoprolol and sotalol both, will continue with sotalol and will hold metoprolol for now especially given active wheezing
If heart rate stable here then likely will DC further metoprolol
History of multiple myeloma status post stem cell transplant March 2023
Follows up with oncologist at [place]
Currently pancytopenic, could be secondary to Revlimid and acute illness
Monitor thrombocytopenia
On IVIG, Zometa and Revlimid. Recently had chest pain status post IVIG so now it is on hold per his outpatient oncologist.
Hold Revlimid per oncology; restart when ok with oncology
Oncology following
ANC around 1600
On acyclovir outpatient, will continue
Mild hyponatremia
Monitor
History of CAD status post stent
Plavix on hold per urology recommendation
History of hypertension
Currently intermittent hypotension, hold amlodipine,
Suspected BPH
Flomax
DVT prophylaxis
SCD's
Full code
I spent a total of 53 minutes with the patient or on the floor. More than 50% of this time involved counseling and coordination of care.
Anticipated Discharge: Within 24 hours
Subjective/Interval History
-
Date of Service: November 26, 2023
Denies pain
Objective Data
-
Labs:
Laboratory Results
11/26/23
07:01
WBC 2.3 L*
Hgb 10.5 L
Hct 30.8 L
Plt Count 73 L D
Sodium 134 L
Potassium 3.8
Chloride 101
Carbon Dioxide 25
BUN 26 H
Creatinine 0.7
Glucose 115 H
Calcium 8.8
Vital Signs:
Vital Signs
Temp Pulse Resp BP Pulse Ox
97.6 F 68 16 110/58 94
11/26/23 11:00 11/26/23 11:36 11/26/23 11:36 11/26/23 11:00 11/26/23 11:36
I&O
11/25/23 11/26/23 11/27/23
06:59 06:59 06:59
Intake Total 560 / 560 1140 / 1140
Output Total 700 / 700
Balance -140 / -140 1140 / 1140
[2023-11-26] MEDS: DELTASONE 40 MG PO (13:19)
[2023-11-26 15:00] VITALS: BP 126/61
[2023-11-26] MEDS: FLOMAX 0.400000000000000022 MG PO (17:04)
[2023-11-26 20:04] VITALS: BP 136/78
[2023-11-26 23:57] VITALS: BP 142/80
[2023-11-27 00:04] LABS: Alpha 1 Globulin 0.52 g/dL (0.19-0.46); Alpha 2 Globulin 0.81 g/dL (0.48-1.05); Free Kappa Light Chains,Quant 17.08 mg/L (3.30-19.40); Free Lambda Light Chains,Quant 21.47 mg/L (5.71-26.30); IgA 70 mg/dL (68-408); IgG 744 mg/dL (768-1632); IgM 19 mg/dL (35-263); Immunofixation Electrophoresis IFE Done; Total Protein-Electrophoresis 5.4 g/dL (6.3-8.2)
[2023-11-27 03:01] VITALS: BP 149/72
[2023-11-27] MEDS: ZOSYN 50 IV ×2 (04:59→10:11)
[2023-11-27] MEDS: TESSALON PERLES 200 MG PO ×3 (05:03→21:21)
[2023-11-27 06:00] VITALS: BMI 27.3
[2023-11-27] MEDS: SENOKOT-S 1 TABLET PO (06:06)
[2023-11-27 07:00] VITALS: BP 144/72
[2023-11-27] MEDS: DUONEB 3 ML INH ×2 (07:18→14:30)
[2023-11-27] MEDS: PULMICORT 0.5 MG INH (07:18)
[2023-11-27] MEDS: DELTASONE 40 MG PO (07:48)
[2023-11-27] MEDS: ZOVIRAX 800 MG PO ×2 (07:48→21:18)
[2023-11-27] MEDS: BETAPACE 80 MG PO (07:48)
[2023-11-27] MEDS: MUCINEX 1200 MG PO ×2 (07:48→21:18)
[2023-11-27 08:55] LABS: % Basophils 0.4 % (0-2); % Immature Granulocytes 1.6 % (0-0.5); % Lymphocytes 9.6 % (20.5-51.1); % Monocytes 18.4 % (1.7-9.3); Absolute Immature Granulocytes 0.1 10^3/uL (0-0.05); Absolute Lymphocytes 0.5 10^3/uL (1.2-3.4); Absolute Monocytes 0.9 10^3/uL (0.1-0.6); Absolute Neutrophils 3.5 10^3/uL (1.4-6.5); Hematocrit 36.5 % (39.0-52.0); Hemoglobin 12.5 g/dL (13.0-18.0); Mean Corp Hgb Conc. 34.2 g/dL (33.0-37.0); Mean Corpuscular Hgb 33.1 pg (27.0-31.0); Mean Corpuscular Volume 96.6 fL (80.0-94.0); Nucleated Red Blood Cells % 0.4 % (-); Platelet Count 113 10^3/uL (130-400); Red Blood Cell Count 3.78 10^6/uL (4.70-6.10); Red Cell Dist. Width 18.7 % (11.5-14.5)
[2023-11-27 09:24] LABS: Blood Urea Nitrogen 20 mg/dl (9-20); Calcium 8.9 mg/dl (8.4-10.2); Carbon Dioxide 25 mmol/L (22-30); Chloride 101 mmol/L (98-107); Estimated Creatinine Clearance 89 ml/min; Glucose 123 mg/dl (70-99); Potassium 3.3 mmol/L (3.5-5.1); Sodium 136 mmol/L (135-145); eGFR > 60.00
[2023-11-27] MEDS: KCL 40 MEQ PO (10:10)
[2023-11-27 10:53] LABS: Magnesium 2.2 mg/dl (1.6-2.3)
--- NOTE | 2023-11-27 10:56 | CON.CAR ---
Consultation
Consultation Request
Date/Time Consultation Requested: November 27, 2023
Date/Time Consultation Performed: November 27, 2023
Requesting Provider: Hospitalist
Performing Provider: Park
Reason for Consultation: Bradycardia
Medical History
-
Chief Complaint: Bradycardia
History of Present Illness:
72-year-old male with complex past medical history including multiple myeloma, stem cell transplant, coronary artery disease with RCA stent in 2018, multiple cardioversions for atrial fibrillation. He is doing well with sotalol therapy and
metoprolol therapy although most recent office electrocardiogram demonstrates atrial fibrillation from Dr. Wiley most recent office visit in early 2023. He is admitted for hematuria which is new onset and is being evaluated by urology. They
have determined that he can resume oral anticoagulation early next week. We are consulted today as he has been noted to have bradycardia in the 40s to 60s which is sinus mechanism and occasional PVCs and couplets. His corrected QT interval today
is 529 ms and we are holding his sotalol therapy. He also has pancytopenia and his Revlimid is being held with improvement in his blood counts. He currently has no cardiovascular complaints without chest pain dyspnea or dyspnea on exertion and is
in sinus rhythm.
Past Medical History
Past Medical History: Arrhythmias, CAD and Cancer
Social History
Tobacco: Non-Smoker
Alcohol: None
Drug: None
Personal:
Living: Other
Employment: Not Employed
Family History
Family History: Reviewed & Not Pertinent
Allergies / Home Medications
Allergy/AdvReac Type Severity Reaction Status Date / Time
amiodarone Allergy Liver Verified 11/04/23 12:17
function
reduced
�Medication �Instructions �Recorded �Confirmed �Type
tamsulosin 0.4 mg capsule (Flomax) 0.4 mg PO DAILY Urinary Issue 03/06/23 11/23/23 History
acyclovir 800 mg tablet 800 mg PO BID Infection 08/18/23 11/23/23 History
amlodipine 5 mg tablet 5 mg PO DAILY Blood Pressure 08/18/23 11/23/23 History
lenalidomide 10 mg capsule 10 mg PO DAILY multiple myeloma 08/18/23 11/23/23 History
(Revlimid)
lisinopril 40 mg tablet 40 mg PO DAILY Blood Pressure 08/18/23 11/23/23 History
metoprolol succinate 25 mg 25 mg PO BID Blood Pressure 08/18/23 11/23/23 History
tablet,extended release 24 hr
potassium chloride 10 mEq 10 meq PO BID Electrolyte Repletion 08/18/23 11/23/23 History
tablet,extended release
sotalol 80 mg tablet 80 mg PO BID Arrhythmia 08/18/23 11/23/23 History
tramadol 50 mg tablet 50 mg PO Q6HPRN PRN severe 08/29/23 11/23/23 Rx
pain/breakthrough pain #15 tabs
apixaban 5 mg tablet (Eliquis) 5 mg PO BID Blood Clot 11/23/23 11/23/23 History
Prevention/Tx
benzonatate 200 mg capsule 200 mg PO TIDPRN PRN cough 11/23/23 11/23/23 History
clopidogrel 75 mg tablet 75 mg PO DAILY Blood Clot 11/23/23 11/23/23 History
Prevention/Tx
prednisone 10 mg tablet 60 mg PO DIRECTED inflammation 11/23/23 11/23/23 History
therapeutic multivitamin 1 tab PO DAILY Supplement 11/23/23 11/23/23 History
zoledronic acid 4 mg intravenous 0 mg IV MONTHLY high calcium 11/23/23 11/23/23 History
solution
Review of Systems
-
All other systems: Negative unless noted
Physical Exam
Vital Signs
Temp Pulse Resp BP Pulse Ox
97.7 F 58 18 144/72 91
11/27/23 07:00 11/27/23 07:41 11/27/23 07:41 11/27/23 07:00 11/27/23 07:41
Lab Results
11/27/23 08:39
11/27/23 08:39
Physical Exam
General: Well Developed and Well Nourished
HEENT: Normocephalic, Anicteric, Moist Mucous Membranes and Atraumatic
Respiratory: Rhonchi
Cardiac: Regular Rhythm
Breast: Deferred by me
GI: Soft, Non Tender, Non Distended and Flat
Genito-urinary: Bloody Urine
Musculoskeletal: No Clubbing and No Cyanosis
Skin: Warm and Dry
Neuro: Awake, Alert and Oriented
Hematologic/Lymphatic: No Lymphadenopathy
Psych: Calm
Impression / Plan
-
Impression:
Sinus bradycardia
Prolonged QT interval
Bronchitis acute
Pancytopenia
Drug related pancytopenia
History of multiple myeloma
History of stem cell transplantation
Acute hematuria
Paroxysmal atrial fibrillation
History of right coronary stent implantation 2017
On chronic Plavix therapy
Chronic oral anticoagulation
Recommendations:
Timing of resuming 1 coagulation per urology although I am supportive of resuming Eliquis early next week
Given that it is greater than 1 year since his stent implantation would be reasonable to consider Eliquis monotherapy given his ongoing hematuria
He has an appointment next week with Dr. Ashok Torres and as an outpatient can have discussions regarding alternatives to oral anticoagulation including watchman implantation and/or pulmonary vein isolation
-In the acute situation hold sotalol today and I ordered daily EKG with consideration of resuming sotalol in the next 1 to 2 days
-Continue telemetry
-Check daily ECG
-Reasonable to consider discontinuation of metoprolol at discharge although he has had atrial fibrillation and rapid ventricular response in the past
-Blood counts improving
-Will follow with you
Data Reviewed
-
EKG: Tracing Personally Visualized and interpreted
Labs: Labs Reviewed by me
Old Records: Reviewed
[2023-11-27 11:00] VITALS: BP 130/72
--- NOTE | 2023-11-27 11:23 | W.PN.HOSP.TC ---
Today's Communication/Plan
-
Monitor vital signs see plan
Hold sotalol
Repeat potassium
Check magnesium
EKG daily
Resume amlodipine
Assessment / Plan
Assessment / Plan
General: Well Nourished and No Apparent Distress
HEENT: Anicteric and Moist mucous membranes
Respiratory: Clear, Wheezes and Non Labored Respirations
Cardiac: S1/S2 and Regular Rhythm
GI: Soft, Non Tender, Non Distended and Normal Bowel Sounds
Genito-urinary: hematuria
Musculoskeletal: No Edema
Neuro: Awake, Alert, Oriented and AO x 3
Psych: Calm and Intact Judgment/Insight
Acute hypoxic respiratory insufficiency likely secondary to bibasilar PNA
associated acute bronchitis
Chest x-ray without any infiltration
Now weaned off O2, continue to monitor oxygenation, CT chest with possible bibasilar PNA
Spoke with oncology and they recommended broad-spectrum antibiotics. MRSA neg so dc vanc; switch antibiotics to Augmentin to finish course
DuoNebs now as needed, now on prednisone; will dc on albuterol prn
Sanjeevex, Yadira Smith
Acute hematuria
Does not suspect anemia is from acute blood loss as it was very brief
Initially patient had hematuria however now urine is clear but still have some bleeding from meatus, evaluated by urology instructed patient to follow-up with them outpatient. No plan for Heart
Likely exacerbated by Plavix and Eliquis
cw flomax
per patient he once had problems urinating and was put on Flomax. Does not follow-up with urology outpatient
Urology recommended patient to be off Plavix and Eliquis until 11/29/2023, if no further bleeding then can restart
Paroxysmal atrial fibrillation
Follows up with cardiology at [place], now appears to be transferring his care with Dr. LO Torres
Currently on metoprolol and sotalol both, I stopped his metoprolol since admission. He has been on sotalol and now developed significant bradycardia along with bigeminy's. Discussed with cardiology and will hold sotalol and monitor. cardiology
following
now with prolong Qtc; EKG daily
History of multiple myeloma status post stem cell transplant March 2023
Follows up with oncologist at [place]
Currently pancytopenic, could be secondary to Revlimid and acute illness
Monitor thrombocytopenia
On IVIG, Zometa and Revlimid. Recently had chest pain status post IVIG so now it is on hold per his outpatient oncologist.
Hold Revlimid per oncology; restart when ok with oncology
Oncology following
ANC around 1600
On acyclovir outpatient, will continue
Mild hyponatremia
Monitor
History of CAD status post stent
Plavix on hold per urology recommendation
History of hypertension
Restart amlodipine
Suspected BPH
Flomax
DVT prophylaxis
SCD's; Lovenox until Eliquis can be restarted
Full code
I spent a total of 52 minutes with the patient or on the floor. More than 50% of this time involved counseling and coordination of care.
Anticipated Discharge: 24 - 48 hours
Subjective/Interval History
-
Date of Service: November 27, 2023
Bradycardia overnight
Objective Data
-
Labs:
Laboratory Results
11/27/23
08:39
WBC 5.0
Hgb 12.5 L
Hct 36.5 L
Plt Count 113 L D
Sodium 136
Potassium 3.3 L
Chloride 101
Carbon Dioxide 25
BUN 20
Creatinine 0.7
Glucose 123 H
Calcium 8.9
Vital Signs:
Vital Signs
Temp Pulse Resp BP Pulse Ox
97.7 F 58 18 144/72 91
11/27/23 07:00 11/27/23 07:41 11/27/23 07:41 11/27/23 07:00 11/27/23 07:41
I&O
11/26/23 11/27/23 11/28/23
06:59 06:59 06:59
Intake Total 1140 / 1140 1660 / 1660
Balance 1140 / 1140 1660 / 1660
[2023-11-27] MEDS: AUGMENTIN 875 MG/125 MG 1 TABLET PO ×2 (12:00→21:18)
[2023-11-27 15:00] VITALS: BP 127/64
[2023-11-27] MEDS: LOVENOX 40 MG SC (17:00)
[2023-11-27] MEDS: FLOMAX 0.400000000000000022 MG PO (17:00)
[2023-11-27 19:00] VITALS: BP 143/81
[2023-11-27 23:00] VITALS: BP 140/72
[2023-11-28 03:00] VITALS: BP 142/75
[2023-11-28 05:19] VITALS: BMI 27.1
[2023-11-28 05:59] LABS: % Basophils 0.3 % (0-2); % Eosinophils 0.5 % (0-6); % Lymphocytes 15.3 % (20.5-51.1); % Monocytes 17.7 % (1.7-9.3); % Neutrophils 63.2 % (42.2-75.2); Absolute Immature Granulocytes 0.1 10^3/uL (0-0.05); Absolute Lymphocytes 0.6 10^3/uL (1.2-3.4); Absolute Monocytes 0.7 10^3/uL (0.1-0.6); Absolute Neutrophils 2.4 10^3/uL (1.4-6.5); Hemoglobin 10.8 g/dL (13.0-18.0); Mean Corp Hgb Conc. 34.8 g/dL (33.0-37.0); Mean Corpuscular Volume 94.8 fL (80.0-94.0); Mean Platelet Volume 10.4 fL (7.4-10.4); Nucleated Red Blood Cells % 0.5 % (-); Platelet Count 72 10^3/uL (130-400); Red Blood Cell Count 3.27 10^6/uL (4.70-6.10); Red Cell Dist. Width 18.5 % (11.5-14.5); White Blood Cell Count 3.7 10^3/uL (4.8-10.8)
[2023-11-28 06:24] LABS: Blood Urea Nitrogen 18 mg/dl (9-20); Calcium 8.6 mg/dl (8.4-10.2); Carbon Dioxide 27 mmol/L (22-30); Chloride 104 mmol/L (98-107); Estimated Creatinine Clearance 103 ml/min; Glucose 85 mg/dl (70-99); Potassium 3.5 mmol/L (3.5-5.1); Sodium 136 mmol/L (135-145); eGFR > 60.00
[2023-11-28 07:00] VITALS: BP 135/74
[2023-11-28] MEDS: DELTASONE 40 MG PO (08:44)
[2023-11-28] MEDS: NORVASC 5 MG PO (08:44)
[2023-11-28] MEDS: ZOVIRAX 800 MG PO ×2 (08:44→21:14)
[2023-11-28] MEDS: AUGMENTIN 875 MG/125 MG 1 TABLET PO ×2 (08:44→21:14)
[2023-11-28] MEDS: MUCINEX 1200 MG PO ×2 (08:44→21:13)
[2023-11-28] MEDS: DUONEB 3 ML INH ×4 (09:03→19:41)
--- NOTE | 2023-11-28 09:34 | W.PN.ONC ---
Today's Communication / Plan
-
11/27 WBC 3.7, Hgb 10.8, Hct 31.0 PLT 72, ANC 2400
Transfuse as needed to maintain Hgb >7, PLT >20 (or PLT >50 with active bleeding)
Monitor CBC w/ differential daily
Continue to hold Revlimid in the setting of acute thrombocytopenia
Continue Acyclovir for prophylaxis
Monitor hematuria/bleeding - resolved per patient
Resume Eliquis per Urology
Supportive care
We will follow.
Impression
Impression
Multiple Myeloma s/p stem cell transplant 2022 (IVIG, Revlimid)
Acute hypoxic respiratory insufficiency likely secondary to acute URI
Hx afib on chronic anticoagulation
New onset hematuria (resolved)
Neutropenia (resolved)
Acute thrombocytopenia (improving)
Upper respiratory infection with cough
Hypotension (improved)
Subjective/Objective
Subjective/Objective
patient sitting in bed. He states he did not sleep well last night. he just finished a breathing treatment due to feeling SOB/congested. He notes hematuria has resolved.
Vital Signs:
Vital Signs
Temp Pulse Resp BP Pulse Ox
98.3 F 85 16 135/74 93
11/28/23 07:00 11/28/23 09:06 11/28/23 09:06 11/28/23 07:00 11/28/23 09:06
physical exam:
aaox3, fatigued
HR irregular, on tele
lungs coarse/scattered wheezes on room air
+dry cough
Lab Results:
Laboratory Data
WBC 3.7 10^3/uL (4.8-10.8) L 11/28/23 05:43
Hgb 10.8 g/dL (13.0-18.0) L 11/28/23 05:43
Plt Count 72 10^3/uL (130-400) L D 11/28/23 05:43
eGFR > 60.00 11/28/23 05:43
--- NOTE | 2023-11-28 09:35 | W.PN.HOSP.TC ---
Today's Communication/Plan
-
Placed on scheduled DuoNebs at this point
Await further cardiology disposition of heart rate management/holding sotalol
Tried to obtain sputum but not viable for culture
Will restart apixaban
Now on Augmentin for presumptive bronchitis
Assessment / Plan
Assessment / Plan
General: Well Nourished and No Apparent Distress
HEENT: Anicteric and Moist mucous membranes
Respiratory: Clear, Wheezes and Non Labored Respirations
Cardiac: S1/S2 and Regular Rhythm
GI: Soft, Non Tender, Non Distended and Normal Bowel Sounds
Genito-urinary: hematuria
Musculoskeletal: No Edema
Neuro: Awake, Alert, Oriented and AO x 3
Psych: Calm and Intact Judgment/Insight
Acute hypoxic respiratory insufficiency likely secondary to bibasilar PNA
associated acute bronchitis
Chest x-ray without any infiltration
Now weaned off O2, continue to monitor oxygenation, CT chest with possible bibasilar PNA
Spoke with oncology and they recommended broad-spectrum antibiotics. MRSA neg so dc vanc; switch antibiotics to Augmentin to finish course
DuoNebs now as needed, now on prednisone; will dc on albuterol prn/seems to still be in need of DuoNeb scheduled
Mucinex, Tessalon Perles
Acute hematuria
Does not suspect anemia is from acute blood loss as it was very brief
Initially patient had hematuria however now urine is clear but still have some bleeding from meatus, evaluated by urology instructed patient to follow-up with them outpatient. No plan for Heart
Likely exacerbated by Plavix and Eliquis
cw flomax
per patient he once had problems urinating and was put on Flomax. Does not follow-up with urology outpatient
Urology recommended patient to be off Plavix and Eliquis until 11/29/2023, if no further bleeding then can restart
Paroxysmal atrial fibrillation
Follows up with cardiology at [place], now appears to be transferring his care with Dr. LO Torres
Currently on metoprolol and sotalol both, I stopped his metoprolol since admission. He has been on sotalol and now developed significant bradycardia along with bigeminy's. Discussed with cardiology and will hold sotalol and monitor. cardiology
following
now with prolong Qtc; EKG daily
History of multiple myeloma status post stem cell transplant March 2023
Follows up with oncologist at [place]
Currently pancytopenic, could be secondary to Revlimid and acute illness
Monitor thrombocytopenia
On IVIG, Zometa and Revlimid. Recently had chest pain status post IVIG so now it is on hold per his outpatient oncologist.
Hold Revlimid per oncology; restart when ok with oncology
Oncology following
ANC around 1600
On acyclovir outpatient, will continue
Mild hyponatremia
Monitor
History of CAD status post stent
Plavix on hold per urology recommendation
History of hypertension
Restart amlodipine
Suspected BPH
Flomax
DVT prophylaxis
SCD's; Lovenox until Eliquis can be restarted
Full code
I spent a total of 52 minutes with the patient or on the floor. More than 50% of this time involved counseling and coordination of care.
Anticipated Discharge: 24 - 48 hours
Subjective/Interval History
-
Date of Service: November 28, 2023
Remains short of breath and only gets relief when he gets his DuoNeb treatment which he requested to be changed from as needed to scheduled. Pulse ox overall obviously dyspneic sat 95% on room air however.
Objective Data
-
Labs:
Laboratory Results
11/28/23
05:43
WBC 3.7 L
Hgb 10.8 L
Hct 31.0 L
Plt Count 72 L D
Sodium 136
Potassium 3.5
Chloride 104
Carbon Dioxide 27
BUN 18
Creatinine 0.6 L
Glucose 85
Calcium 8.6
Vital Signs:
Vital Signs
Temp Pulse Resp BP Pulse Ox
98.3 F 85 16 135/74 93
11/28/23 07:00 11/28/23 09:06 11/28/23 09:06 11/28/23 07:00 11/28/23 09:06
I&O
11/27/23 11/28/23 11/29/23
06:59 06:59 06:59
Intake Total 1660 / 1660 1320 / 1320
Balance 1660 / 1660 1320 / 1320
Review of Systems
-
Constitutional: Reports Fatigue
Respiratory: Reports Cough and Trouble Breathing
Physical Exam
-
General: Well Developed
HEENT: Normocephalic
Respiratory: Rhonchi and Crackles
Cardiac: Irregular Rhythm
GI: Soft
Neuro: Awake and Alert
Data Reviewed
-
Total Time Spent with Patient (in minutes): 56
Labs: Labs Reviewed by me (Count 3.7 no neutropenia noted on ANC)
--- NOTE | 2023-11-28 09:38 | W.PN.CARDCBS ---
Today's Communication / Plan
-
Resume Eliquis once ok with urology as use only and without Plavix.
Can stop Plavix as he is over one year from PCI, to reduce bleeding risk especially given hematuria and pancytopenia hx.
He has an appointment very soon with Dr. Ashok Torres and as an outpatient can have discussions regarding alternatives to oral anticoagulation including watchman implantation and/or pulmonary vein isolation
His QTc is improved and will consider resuming Sotalol next 24 hrs.
Cont to hold Metoprolol.
Monitor daily EKG
Appears euvolemic
Obtain records from Dr Wiley if available.
Impression / Plan
-
.
Impression:
Sinus bradycardia stable
Prolonged QT interval, improved
Bronchitis acute, possible pneumonia
Pancytopenia
Drug related pancytopenia
History of multiple myeloma
History of stem cell transplantation
Acute hematuria
Paroxysmal atrial fibrillation on chronic oral anticoagulation
History of right coronary stent implantation 2018 on chronic Plavix therapy
Plan:
Resume Eliquis once ok with urology as use only and without Plavix.
Can stop Plavix as he is over one year from PCI, to reduce bleeding risk especially given hematuria and pancytopenia hx.
He has an appointment very soon with Dr. Ashok Torres and as an outpatient can have discussions regarding alternatives to oral anticoagulation including watchman implantation and/or pulmonary vein isolation
His QTc is improved and will consider resuming Sotalol next 24 hrs.
Cont to hold Metoprolol.
Monitor daily EKG
Appears euvolemic
Obtain records from Dr Wiley if available.
Cont supportive care.
Discussed with nursing.
HPI: 72-year-old male with complex past medical history including multiple myeloma, stem cell transplant, coronary artery disease with RCA stent in 2018, multiple cardioversions for atrial fibrillation. He is doing well with sotalol therapy and
metoprolol therapy although most recent office electrocardiogram demonstrates atrial fibrillation from Dr. Wiley most recent office visit in early 2023. He is admitted for hematuria which is new onset and is being evaluated by urology. They
have determined that he can resume oral anticoagulation early next week. We are consulted today as he has been noted to have bradycardia in the 40s to 60s which is sinus mechanism and occasional PVCs and couplets. His corrected QT interval today
is 529 ms and we are holding his sotalol therapy. He also has pancytopenia and his Revlimid is being held with improvement in his blood counts. He currently has no cardiovascular complaints without chest pain dyspnea or dyspnea on exertion and is
in sinus rhythm.
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
Subjective
Date of Service: November 28, 2023
Pt seen and examined. No chest pain.
Objective
Labs:
11/28/23 05:43
11/28/23 05:43
Labs
Hgb 10.8 g/dL (13.0-18.0) L 11/28/23 05:43
Hct 31.0 % (39.0-52.0) L 11/28/23 05:43
Plt Count 72 10^3/uL (130-400) L D 11/28/23 05:43
Sodium 136 mmol/L (135-145) 11/28/23 05:43
Potassium 3.5 mmol/L (3.5-5.1) 11/28/23 05:43
BUN 18 mg/dl (9-20) 11/28/23 05:43
Creatinine 0.6 mg/dL (0.7-1.3) L 11/28/23 05:43
Glucose 85 mg/dl (70-99) 11/28/23 05:43
Vital Signs and I&O:
Vital Signs
Temp Pulse Resp BP Pulse Ox
98.3 F 85 16 135/74 93
11/28/23 07:00 11/28/23 09:06 11/28/23 09:06 11/28/23 07:00 11/28/23 09:06
Vital Signs
Temp Pulse Resp BP Pulse Ox
98.3 F 85 16 135/74 93
11/28/23 07:00 11/28/23 09:06 11/28/23 09:06 11/28/23 07:00 11/28/23 09:06
Intake & Output
11/26/23 11/27/23 11/28/23 11/29/23
06:59 06:59 06:59 06:59
Intake Total 1140 / 1140 1660 / 1660 1320 / 1320
Balance 1140 / 1140 1660 / 1660 1320 / 1320
Physical Exam
Physical Exam
General: No acute distress, AAOX3
Neck: Negative JVD
Heart: Regular, Negative S3 positive S1/S2, Negative S4, No murmur
Lungs: CTA b/l, negative wheezes/rales/rhonchi
Abd: Positive BS, NT/ND, neg rebound/rigidity/guarding
Ext: Negative cyanosis/clubbing/edema
Neuro: nonfocal
[2023-11-28 11:00] VITALS: BP 130/61
[2023-11-28 15:00] VITALS: BP 120/70
--- NOTE | 2023-11-28 16:05 | CM ---
Case management following for d/c planning
Receiving DuoNebs. Presumptive bronchitis - now on Augmentin
Cards following
Case management will cont to follow
Plan -anticipate home no needs
[2023-11-28] MEDS: FLOMAX 0.400000000000000022 MG PO (17:03)
[2023-11-28] MEDS: LOVENOX 40 MG SC (17:03)
[2023-11-28 19:00] VITALS: BP 114/63
[2023-11-28] MEDS: TESSALON PERLES 200 MG PO (21:13)
[2023-11-28] MEDS: BETAPACE 80 MG PO (21:14)
[2023-11-28 23:00] VITALS: BP 129/75
[2023-11-29 03:00] VITALS: BP 142/78
[2023-11-29 05:44] LABS: % Basophils 0.5 % (0-2); % Eosinophils 1.2 % (0-6); % Immature Granulocytes 4.1 % (0-0.5); % Lymphocytes 17.1 % (20.5-51.1); % Monocytes 12.7 % (1.7-9.3); % Neutrophils 64.4 % (42.2-75.2); Absolute Eosinophils 0.1 10^3/uL (0-0.7); Absolute Immature Granulocytes 0.2 10^3/uL (0-0.05); Absolute Lymphocytes 0.7 10^3/uL (1.2-3.4); Absolute Monocytes 0.5 10^3/uL (0.1-0.6); Absolute Neutrophils 2.7 10^3/uL (1.4-6.5); Hematocrit 30.7 % (39.0-52.0); Hemoglobin 10.4 g/dL (13.0-18.0); Mean Corp Hgb Conc. 33.9 g/dL (33.0-37.0); Mean Corpuscular Volume 97.5 fL (80.0-94.0); Mean Platelet Volume 10.7 fL (7.4-10.4); Nucleated Red Blood Cells % 0.7 % (-); Platelet Count 72 10^3/uL (130-400); Red Blood Cell Count 3.15 10^6/uL (4.70-6.10); Red Cell Dist. Width 18.4 % (11.5-14.5); White Blood Cell Count 4.2 10^3/uL (4.8-10.8)
[2023-11-29 06:00] VITALS: BMI 27.0
--- NOTE | 2023-11-29 06:11 | PTCARENOTE ---
Pt complained of sore throat. 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
[2023-11-29 06:14] LABS: Blood Urea Nitrogen 14 mg/dl (9-20); Calcium 8.5 mg/dl (8.4-10.2); Carbon Dioxide 27 mmol/L (22-30); Chloride 102 mmol/L (98-107); Estimated Creatinine Clearance 103 ml/min; Glucose 94 mg/dl (70-99); Sodium 135 mmol/L (135-145); eGFR > 60.00
[2023-11-29 06:22] LABS: Potassium 3.5 mmol/L (3.5-5.1)
[2023-11-29] MEDS: ANESTHETIC LOZENGE 1 LOZENGE PO ×3 (06:36→16:32)
[2023-11-29 07:00] VITALS: BP 133/67
[2023-11-29] MEDS: DUONEB 3 ML INH ×4 (07:13→20:37)
--- NOTE | 2023-11-29 09:10 | W.PN.HOSP.TC ---
Today's Communication/Plan
-
Presumptive discharge plan for tomorrow November 29
Eliquis restarted watch for recurrent hematuria
Continue to monitor thrombocytopenia/Revlimed resumption as per hematology oncology
Assessment / Plan
Assessment / Plan
General: Well Nourished and No Apparent Distress
HEENT: Anicteric and Moist mucous membranes
Respiratory: Clear, Wheezes and Non Labored Respirations
Cardiac: S1/S2 and Regular Rhythm
GI: Soft, Non Tender, Non Distended and Normal Bowel Sounds
Genito-urinary: hematuria
Musculoskeletal: No Edema
Neuro: Awake, Alert, Oriented and AO x 3
Psych: Calm and Intact Judgment/Insight
Acute hypoxic respiratory insufficiency likely secondary to bibasilar PNA
associated acute bronchitis
Chest x-ray without any infiltration
Now weaned off O2, continue to monitor oxygenation, CT chest with possible bibasilar PNA
Spoke with oncology and they recommended broad-spectrum antibiotics. MRSA neg so dc vanc; switch antibiotics to Augmentin to finish course
DuoNebs now as needed, now on prednisone; will dc on albuterol prn/seems to still be in need of DuoNeb scheduled
Mucinex, Tessalon Perles
Acute hematuria
Does not suspect anemia is from acute blood loss as it was very brief
Initially patient had hematuria however now urine is clear but still have some bleeding from meatus, evaluated by urology instructed patient to follow-up with them outpatient. No plan for Heart
Likely exacerbated by Plavix and Eliquis
cw flomax
per patient he once had problems urinating and was put on Flomax. Does not follow-up with urology outpatient
Urology recommended patient to be off Plavix and Eliquis until 11/29/2023, if no further bleeding then can restart in absence of Plavix
Paroxysmal atrial fibrillation
Follows up with cardiology at [place], now appears to be transferring his care with Dr. LO Torres
Currently on metoprolol and sotalol both, I stopped his metoprolol since admission. He has been on sotalol and now developed significant bradycardia along with bigeminy's.
Discussed with cardiology and will hold sotalol and monitor. cardiology following/sotalol restarted November 27
now with prolong Qtc; EKG daily
History of multiple myeloma status post stem cell transplant March 2023
Follows up with oncologist at [place]
Currently pancytopenic, could be secondary to Revlimid and acute illness
Monitor thrombocytopenia
On IVIG, Zometa and Revlimid. Recently had chest pain status post IVIG so now it is on hold per his outpatient oncologist.
Hold Revlimid per oncology; restart when ok with oncology
Oncology following
ANC around 1600
On acyclovir outpatient, will continue
Mild hyponatremia
Monitor
History of CAD status post stent
Plavix on hold per urology recommendation
History of hypertension
Restart amlodipine
Suspected BPH
Flomax
DVT prophylaxis
SCD's; /Eliquis restarted November 28
Full code
I spent a total of 52 minutes with the patient or on the floor. More than 50% of this time involved counseling and coordination of care.
Anticipated Discharge: Within 24 hours
Subjective/Interval History
-
Date of Service: November 29, 2023
Continues with cough is his main complaint no evidence of any hematuria
Objective Data
-
Labs:
Laboratory Results
11/29/23
05:32
WBC 4.2 L
Hgb 10.4 L
Hct 30.7 L
Plt Count 72 L
Sodium 135
Potassium 3.5
Chloride 102
Carbon Dioxide 27
BUN 14
Creatinine 0.6 L
Glucose 94
Calcium 8.5
Vital Signs:
Vital Signs
Temp Pulse Resp BP Pulse Ox
98.2 F 71 16 133/67 95
11/29/23 07:00 04/16/24 07:18 11/29/23 07:18 11/29/23 07:00 11/29/23 07:18
I&O
11/28/23 11/29/23 11/30/23
06:59 06:59 06:59
Intake Total 1320 / 1320 730 / 730 720 / 720
Balance 1320 / 1320 730 / 730 720 / 720
Review of Systems
-
History Source: Patient
Constitutional: Reports No Symptoms
EENT: Reports No Symptoms Reported
Respiratory: Reports Cough
Cardiac: Reports No Symptoms
Abdomen/GI: Reports No Symptoms
Physical Exam
-
General: Well Developed
HEENT: Normocephalic
Respiratory: Rhonchi
Cardiac: Irregular Rhythm (In the 90s with A-fib)
GI: Soft
Neuro: Awake, Alert and Oriented
Data Reviewed
-
Total Time Spent with Patient (in minutes): 56
Labs: Labs Reviewed by me (Hemoglobin 10.4 stable/platelet count 72,000 unchanged from yesterday)
[2023-11-29] MEDS: ZOVIRAX 800 MG PO ×2 (09:19→20:24)
[2023-11-29] MEDS: DELTASONE 30 MG PO (09:19)
[2023-11-29] MEDS: MUCINEX 1200 MG PO ×2 (09:20→20:24)
[2023-11-29] MEDS: BETAPACE 80 MG PO ×2 (09:20→20:24)
[2023-11-29] MEDS: NORVASC 5 MG PO (09:21)
[2023-11-29] MEDS: DELTASONE PO (09:25)
[2023-11-29] MEDS: TESSALON PERLES 200 MG PO ×2 (09:27→20:30)
--- NOTE | 2023-11-29 11:34 | W.PN.ONC ---
Addendum entered and electronically signed by Mary Jane Quiñonez MD 11/29/23 13:32:
agree w/ A&P as below
f/u with [facility] team next week for repeat labs and to consider resuming Revlimid
Monitor for recurrence of hematuria w/ resuming Eliquis
d/c tomorrow likely
Will sign off, please call w/ any questions.
Original Note:
Today's Communication / Plan
-
11/28 WBC 4.2, Hgb 10.4, Hct 30.7, PLT 72, ANC 2700
Counts have improved, no longer neutropenic
Transfuse as needed to maintain Hgb >7, PLT >20 (or PLT >50 with active bleeding)
Monitor CBC w/ differential daily
Continue Acyclovir for prophylaxis
Hematuria has resolved
Resumption of Eliquis tonight per Urology
Supportive care
Continue to hold Revlimid until follow up with [facility] next week. Patient will need [facility] records upon discharge to provide to his physician.
We will follow.
Impression
Impression
Multiple Myeloma s/p stem cell transplant 2022 (IVIG, Revlimid)
Acute hypoxic respiratory insufficiency likely secondary to acute URI
Hx afib on chronic anticoagulation
New onset hematuria (resolved)
Neutropenia (resolved)
Acute thrombocytopenia (improving)
Upper respiratory infection with cough
Hypotension (resolved)
Subjective/Objective
Subjective/Objective
Patient states he is feeling better overall. Continues with congestion/cough. He is tired from lack of sleep in the hospital. Eager for discharge.
Vital Signs:
Vital Signs
Temp Pulse Resp BP Pulse Ox
98.2 F 71 16 133/67 94
11/29/23 07:00 11/29/23 09:20 11/29/23 11:31 11/29/23 09:20 11/29/23 11:31
physical exam unchanged.
Lab Results:
Laboratory Data
WBC 4.2 10^3/uL (4.8-10.8) L 11/29/23 05:32
Hgb 10.4 g/dL (13.0-18.0) L 11/29/23 05:32
Plt Count 72 10^3/uL (130-400) L 11/29/23 05:32
eGFR > 60.00 11/29/23 05:32
--- NOTE | 2023-11-29 13:32 | W.PN.CARDCBS ---
Today's Communication / Plan
-
Stable cardiology status
Sign off
Impression / Plan
-
.
Impression:
Acute hematuria
Bronchitis acute, possible pneumonia
Pancytopenia
Drug related pancytopenia
History of multiple myeloma
History of stem cell transplantation
Paroxysmal atrial fibrillation on chronic oral anticoagulation
History of right coronary stent implantation 2018 on chronic Plavix therapy
Plan:
Stable cardiology status
Eliquis to be resumed today
Plavix has been discontinued
Remains in sinus rhythm and will continue sotalol
He has an appointment with Dr. Ashok Torres and as an outpatient can have discussions regarding alternatives to oral anticoagulation including watchman implantation and/or pulmonary vein isolation
Discussed with primary service
HPI: 72-year-old male with complex past medical history including multiple myeloma, stem cell transplant, coronary artery disease with RCA stent in 2018, multiple cardioversions for atrial fibrillation. He is doing well with sotalol therapy and
metoprolol therapy although most recent office electrocardiogram demonstrates atrial fibrillation from Dr. Wiley most recent office visit in early 2023. He is admitted for hematuria which is new onset and is being evaluated by urology. They
have determined that he can resume oral anticoagulation early next week. We are consulted today as he has been noted to have bradycardia in the 40s to 60s which is sinus mechanism and occasional PVCs and couplets. His corrected QT interval today
is 529 ms and we are holding his sotalol therapy. He also has pancytopenia and his Revlimid is being held with improvement in his blood counts. He currently has no cardiovascular complaints without chest pain dyspnea or dyspnea on exertion and is
in sinus rhythm.
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
Subjective
Date of Service: November 29, 2023
No complaints
Objective
Labs:
11/29/23 05:32
11/29/23 05:32
Labs
Hgb 10.4 g/dL (13.0-18.0) L 11/29/23 05:32
Hct 30.7 % (39.0-52.0) L 11/29/23 05:32
Plt Count 72 10^3/uL (130-400) L 11/29/23 05:32
Sodium 135 mmol/L (135-145) 11/29/23 05:32
Potassium 3.5 mmol/L (3.5-5.1) 11/29/23 05:32
BUN 14 mg/dl (9-20) 11/29/23 05:32
Creatinine 0.6 mg/dL (0.7-1.3) L 11/29/23 05:32
Glucose 94 mg/dl (70-99) 11/29/23 05:32
Vital Signs and I&O:
Vital Signs
Temp Pulse Resp BP Pulse Ox
98.2 F 71 16 133/67 94
11/29/23 07:00 11/29/23 09:20 11/29/23 11:31 11/29/23 09:20 11/29/23 11:31
Vital Signs
Temp Pulse Resp BP Pulse Ox
98.2 F 71 16 133/67 94
11/29/23 07:00 11/29/23 09:20 11/29/23 11:31 11/29/23 09:20 11/29/23 11:31
Intake & Output
11/27/23 11/28/23 11/29/23 11/30/23
06:59 06:59 06:59 06:59
Intake Total 1660 / 1660 1320 / 1320 730 / 730 720 / 720
Balance 1660 / 1660 1320 / 1320 730 / 730 720 / 720
Physical Exam
Physical Exam
General: Well developed, well nourished in NAD.
Neck: Supple, no JVD, HJR, carotids +2 B/L, no bruits bilaterally.
Heart: Non displaced PMI, regular, no murmurs, No S3, S4, no rubs.
Lungs: Clear to auscultation bilaterally, no wheeze, rhonchi, rubs bilaterally,
normal expiratory phase.
Abdomen: Normal bowel sounds, soft, non-tender, non-distended.
Extremities: No clubbing, cyanosis or edema bilaterally.
Neuro: Grossly nonfocal, awake, alert and oriented x3.
[2023-11-29 15:00] VITALS: BP 115/65
[2023-11-29] MEDS: FLOMAX 0.400000000000000022 MG PO (17:08)
[2023-11-29 19:20] VITALS: BP 135/75
[2023-11-29] MEDS: ELIQUIS 5 MG PO (20:24)
[2023-11-29 23:04] VITALS: BP 123/73
[2023-11-30 03:11] VITALS: BP 134/71
--- NOTE | 2023-11-30 04:56 | DOWNTIME ---
There was a Servergy Client Repairer Helper Downtime on 11/30/2023 from 0100 to 11/30/2023 at 0439. Downtime documentation of patient's care, including medication administrations, has been reconciled in the electronic record per guidelines. Refer to the
patient's paper chart under the miscellaneous tab to see printed paper medication records and downtime forms.
[2023-11-30 06:00] VITALS: BMI 27.0
[2023-11-30 07:00] VITALS: BP 108/52
[2023-11-30] MEDS: DUONEB 3 ML INH (07:32)
[2023-11-30] MEDS: DELTASONE 30 MG PO (08:10)
[2023-11-30] MEDS: ELIQUIS 5 MG PO (08:10)
[2023-11-30] MEDS: ZOVIRAX 800 MG PO (08:11)
[2023-11-30] MEDS: MUCINEX 1200 MG PO (08:11)
[2023-11-30] MEDS: NORVASC 5 MG PO (08:12)
[2023-11-30] MEDS: BETAPACE 80 MG PO (08:12)
--- NOTE | 2023-11-30 08:12 | W.DS.TRANS ---
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
-
Discharge Instructions:
Sleep Apnea Risk Intermediate
Discharge Diagnosis/Procedures Acute hypoxic respiratory insufficiency likely
secondary to bibasilar pneumonia and acute
bronchitis
Acute hematuria
Pancytopenia
Diet As tolerated
Activity As tolerated
Driving Restrictions As prior to admission
Bathing Restrictions None
Instructions:
Stand-Alone Forms:
Changes to Home Medications: Yes
Discharge Medications:
DC Medications w/original date entered in [facility]
tamsulosin 0.4 mg capsule (Flomax) 0.4 mg PO DAILY Urinary Issue 03/06/23
acyclovir 800 mg tablet 800 mg PO BID Infection 08/18/23
amlodipine 5 mg tablet 5 mg PO DAILY Blood Pressure 08/18/23
lenalidomide 10 mg capsule (Revlimid) 10 mg PO DAILY multiple myeloma 08/18/23
lisinopril 40 mg tablet 40 mg PO DAILY Blood Pressure 08/18/23
potassium chloride 10 mEq tablet,extended release 10 meq PO BID Electrolyte Repletion 08/18/23
sotalol 80 mg tablet 80 mg PO BID Arrhythmia 08/18/23
tramadol 50 mg tablet 50 mg PO Q6HPRN PRN severe pain/breakthrough pain #15 tabs 08/29/23
apixaban 5 mg tablet (Eliquis) 5 mg PO BID Blood Clot Prevention/Tx 11/23/23
benzonatate 200 mg capsule 200 mg PO TIDPRN PRN cough 11/23/23
therapeutic multivitamin 1 tab PO DAILY Supplement 11/23/23
zoledronic acid 4 mg intravenous solution 0 mg IV MONTHLY high calcium 11/23/23
guaifenesin 600 mg tablet, extended release 12 hr 1,200 mg (2 x 600 mg) PO Q12 #14 tabs 11/26/23
prednisone 10 mg tablet See Rx Instructions .Route .COMPLEX Anti-inflammatory #20 tabs 11/30/23
Home Medication Changes
guaifenesin 600 mg tablet, extended release 12 hr 1,200 mg (2 x 600 mg) PO Q12 #14 tabs 11/26/23
prednisone 10 mg tablet See Rx Instructions .Route .COMPLEX Anti-inflammatory #20 tabs 11/30/23
Pending Results: No
Total time spent discharging patient (in min): 45
--- NOTE | 2023-11-30 10:44 | CM ---
Pt for d/c today
Has ride home
Discussed IMM
Plan - home no needs
--- NOTE | 2023-11-30 11:02 | W.DCSUMMARY ---
Discharge Summary
Discharge Data
Date of Admission: 11/23/23
Date of Discharge: 11/30/23
-
Pending Results: No
Hospital Course
72-year-old male with past medical history of paroxysmal atrial fibrillation, CAD on Plavix, multiple myeloma in remission status post stem cell transplant March 2023 came to the hospital with shortness of breath and ongoing cough. Patient
recently came back from [place] and over there him and his had upper respiratory symptoms including cough. Per patient his symptoms were a lot worse and slowly progressing. He was at urgent care Tuesday and was given steroids and
Tessalon Perles. He was also checked for COVID and flu which was negative. This morning patient was hypoxic at home so he called EMS. In the EMS patient was given nebulizer treatment. In the ED patient was given another nebulizer treatment.
Patient denies any fever/chills. Denies any nausea, vomiting, diarrhea, constipation.
Patient subsequently was admitted treated for hypoxic respiratory failure treated for upper versus lower respiratory tract infection empiric antibiotic coverage and steroids
He subsequently developed hematuria necessitating discontinuation of his Eliquis he been taking for his A-fib. He also was noted to be with significant thrombocytopenia and it was recommended by the oncology service to discontinue present course of
Revlimid for his multiple myeloma until further follow-up
Subsequently CBC was followed was seen by the urology service after several aborted attempts at the Heart catheter insertion by staff their evaluation showed at the time some meatal irritation blood per meatus suggestive of some prostate and/or
urethral source and is possible small ruptured blood vessel from his severe coughing and anticoagulation recommendation is to hold apixaban until 28 November which was undertaken. It was recommended cystoscopy be scheduled as an outpatient through
their office. And continuation of tamsulosin
He also subsequently developed some bradycardia necessitating discontinuation of sotalol in the short-term was resumed prior to discharge after stabilization and cardiology consultation.
With resumption of his Eliquis and no discerned return of hematuria and his respiratory symptoms significant improved he was recommended by the oncology service to obtain medical records/for his visit here to go with him at time of discharge so he
can follow-up with [facility] next week for repeated labs to consider resumption of his Revlimid.
Discharge diagnosis will be bronchitis acute in resolution
Pancytopenia presumed drug drug related with history of multiple myeloma and history of stem cell transplantation
Paroxysmal atrial fibrillation on chronic anticoagulant therapy
History of coronary stent implantation in 2018 had been on chronic Plavix therapy which will now be discontinued due to length of therapy and no further need for cardiology patient has a follow-up appoint with Dr. Ashok Torres as an outpatient to
discuss possible alternatives to oral anticoagulation should he redevelop bleeding.
Discharge Plan
-
Patient Disposition: Home (Routine Discharge)
Discharge Diagnosis/Procedures: Acute hypoxic respiratory insufficiency likely secondary to bibasilar pneumonia and acute bronchitis
Acute hematuria
Pancytopenia
Diet: As tolerated
Activity: As tolerated
Driving Restrictions: As prior to admission
Bathing Restrictions: None
Activity Restrictions/Additional Instructions:
Follow-up with the oncologist at [facility]
Get records from [facility] medical records for [facility] to review
Referrals:
Sarabjit Chavarria MD [Family Provider] - in less than 1 week
Additional Discharge Medication Instructions: Finish steroid taper as directed/
Prescriptions:
New
guaifenesin 600 mg Tablet Extended Release 12hr
1,200 mg PO Q12 Qty: 14 0RF
prednisone 10 mg Tablet
See Rx Instructions .ROUTE .COMPLEX Qty: 20 0RF
Rx Instructions:
Take By Mouth:
30 mg daily x3 days,
20 mg daily x3 days, 10 mg daily x3 days.
Continued
tamsulosin [Flomax] 0.4 mg Capsule
0.4 mg PO DAILY
sotalol 80 mg Tablet
80 mg PO BID
potassium chloride 10 mEq Tablet Extended Release
10 meq PO BID
acyclovir 800 mg Tablet
800 mg PO BID
lisinopril 40 mg Tablet
40 mg PO DAILY
tramadol 50 mg tablet
50 mg PO Q6HPRN PRN (Reason: severe pain/breakthrough pain) Qty: 15 0RF
benzonatate 200 mg Capsule
200 mg PO TIDPRN PRN (Reason: cough)
therapeutic multivitamin Tablet
1 tab PO DAILY
zoledronic acid 4 mg Recon Soln
0 mg IV MONTHLY
Eliquis 5 mg tablet
5 mg PO BID
Hold Instructions: Resume on 11/30/23. Restart on Tuesday if no further bleeding
Held
amlodipine 5 mg Tablet
5 mg PO DAILY
Hold Instructions: Until blood pressure greater than 140/90
lenalidomide [Revlimid] 10 mg Capsule
10 mg PO DAILY
Hold Instructions: Resume on 12/13/23. Still cleared to resume by Ralph Campos
Discontinued
metoprolol succinate 25 mg Tablet Extended Release 24 Hr
25 mg PO BID
prednisone 10 mg Tablet
60 mg PO DIRECTED
Rx Instructions:
starting on 11/21/23 take 60mg daily for 1 day then 50mg daily for 1 day then 40mg daily for 1 day then 30mg daily for 1 day then 20mg daily for 1 day then 10mg daily for 1 day
clopidogrel 75 mg tablet
75 mg PO DAILY
Hold Instructions: Resume on 11/30/23. Restart on Tuesday if no further bleeding
Discharge Orders:
Discharge Patient (As Directed); Ordered 11/30/23
Ordered By: Edgar Beal
Discharge Date and Time
Discharge Date/Time: 11/30/23 10:17
Print Language: HUNGARIAN
--- NOTE | 2023-11-30 13:27 | W.DS.TRANS ---
DC Summary - [facility]
-
Discharge Instructions:
Sleep Apnea Risk Intermediate
Discharge Diagnosis/Procedures Acute hypoxic respiratory insufficiency likely
secondary to bibasilar pneumonia and acute
bronchitis
Acute hematuria
Pancytopenia
Diet As tolerated
Activity As tolerated
Driving Restrictions As prior to admission
Bathing Restrictions None
Instructions:
Stand-Alone Forms:
Changes to Home Medications: Yes
Discharge Medications:
DC Medications w/original date entered in [facility]
tamsulosin 0.4 mg capsule (Flomax) 0.4 mg PO DAILY Urinary Issue 03/06/23
acyclovir 800 mg tablet 800 mg PO BID Infection 08/18/23
amlodipine 5 mg tablet 5 mg PO DAILY Blood Pressure 08/18/23
lenalidomide 10 mg capsule (Revlimid) 10 mg PO DAILY multiple myeloma 08/18/23
lisinopril 40 mg tablet 40 mg PO DAILY Blood Pressure 08/18/23
potassium chloride 10 mEq tablet,extended release 10 meq PO BID Electrolyte Repletion 08/18/23
sotalol 80 mg tablet 80 mg PO BID Arrhythmia 08/18/23
tramadol 50 mg tablet 50 mg PO Q6HPRN PRN severe pain/breakthrough pain #15 tabs 08/29/23
apixaban 5 mg tablet (Eliquis) 5 mg PO BID Blood Clot Prevention/Tx 11/23/23
benzonatate 200 mg capsule 200 mg PO TIDPRN PRN cough 11/23/23
therapeutic multivitamin 1 tab PO DAILY Supplement 11/23/23
zoledronic acid 4 mg intravenous solution 0 mg IV MONTHLY high calcium 11/23/23
guaifenesin 600 mg tablet, extended release 12 hr 1,200 mg (2 x 600 mg) PO Q12 #14 tabs 11/26/23
prednisone 10 mg tablet See Rx Instructions .Route .COMPLEX Anti-inflammatory #20 tabs 11/30/23
Home Medication Changes
guaifenesin 600 mg tablet, extended release 12 hr 1,200 mg (2 x 600 mg) PO Q12 #14 tabs 11/26/23
prednisone 10 mg tablet See Rx Instructions .Route .COMPLEX Anti-inflammatory #20 tabs 11/30/23
Pending Results: No
== END 2023-11-30 10:17 | disposition home or self-care (01) | DRG 193 ==
LOC: 3 WEST ACU 14:47
PROVIDERS: Nurse Practitioner; Nurse Practitioner Gerontology; ADMITTING PHYSICIAN Internal Medicine; ATTENDING PHYSICIAN Internal Medicine; CONSULT PHYSICIAN Internal Medicine Cardiovascular Disease; CONSULT PHYSICIAN Urology; EMERGENCY PHYSICIAN Emergency Medicine; FAMILY PHYSICIAN Family Medicine; OTHER PHYSICIAN Nurse Practitioner Family
DX: J18.9 Pneumonia, unspecified organism (principal); D61.810 Antineoplastic chemotherapy induced pancytopenia; C90.01 Multiple myeloma in remission; D62 Acute posthemorrhagic anemia; E87.1 Hypo-osmolality and hyponatremia; J20.8 Acute bronchitis due to other specified organisms; I10 Essential (primary) hypertension; I25.10 Atherosclerotic heart disease of native coronary artery without angina pectoris; I48.0 Paroxysmal atrial fibrillation; R31.9 Hematuria, unspecified; I25.2 Old myocardial infarction; Z79.02 Long term (current) use of antithrombotics/antiplatelets
CPT/HCPCS: 71046; 71275; 80048; 80053; 81003; 81015; 82607; 82746; 82784; 83521; 83605; 83735; 84145; 84155; 84165; 85014; 85018; 85025; 86334; 87040; 87086; 87449; 87641; 87899; 93005; 94640; 94644; 96365; 96366; 96375; 99285; Q9967

== ENCOUNTER 2023-12-12 03:30 | Inpatient (IN) | payer MEDICARE, SELFPAY ==
[2023-12-11 22:44] VITALS: BP 110/78
[2023-12-11 23:07] VITALS: BP 102/72
[2023-12-11 23:14] VITALS: BMI 27.4
[2023-12-11 23:22] LABS: % Basophils 0.9 % (0-2); % Eosinophils 6.8 % (0-6); % Immature Granulocytes 1.9 % (0-0.5); % Lymphocytes 17.6 % (20.5-51.1); % Monocytes 9.4 % (1.7-9.3); % Neutrophils 63.4 % (42.2-75.2); Absolute Eosinophils 0.3 10^3/uL (0-0.7); Absolute Immature Granulocytes 0.1 10^3/uL (0-0.05); Absolute Lymphocytes 0.8 10^3/uL (1.2-3.4); Absolute Monocytes 0.4 10^3/uL (0.1-0.6); Absolute Neutrophils 2.7 10^3/uL (1.4-6.5); Hematocrit 33.9 % (39.0-52.0); Hemoglobin 11.6 g/dL (13.0-18.0); Mean Corp Hgb Conc. 34.2 g/dL (33.0-37.0); Mean Corpuscular Volume 102.4 fL (80.0-94.0); Mean Platelet Volume 10.4 fL (7.4-10.4); Nucleated Red Blood Cells % 0.5 % (-); Platelet Count 86 10^3/uL (130-400); Red Blood Cell Count 3.31 10^6/uL (4.70-6.10); White Blood Cell Count 4.3 10^3/uL (4.8-10.8)
[2023-12-11 23:35] LABS: ALT (SGPT) 37 U/L (0-50); AST (SGOT) 23 U/L (17-59); Alkaline Phosphatase 144 U/L (38-126); Blood Urea Nitrogen 22 mg/dl (9-20); Calcium 9.4 mg/dl (8.4-10.2); Carbon Dioxide 29 mmol/L (22-30); Chloride 106 mmol/L (98-107); Estimated Creatinine Clearance 103 ml/min; Glucose 108 mg/dl (70-99); Potassium 3.5 mmol/L (3.5-5.1); Sodium 136 mmol/L (135-145); Total Bilirubin 1.6 mg/dl (0.2-1.3); Total Protein 5.5 g/dl (6.3-8.2); eGFR > 60.00
[2023-12-11] MEDS: CARDIZEM 10 MG IV (23:39)
[2023-12-11 23:40] VITALS: BP 101/82
[2023-12-11] MEDS: CARDIZEM 125 IV (23:43)
[2023-12-11 23:45] VITALS: BP 91/68
[2023-12-11 23:52] VITALS: BP 89/66
[2023-12-11 23:52] LABS: Troponin I 0.044 ng/ml
[2023-12-11] MEDS: NSS 1000 IV (23:57)
--- NOTE | 2023-12-11 23:58 | ED.GENMED ---
History of Present Illness
General
Chief Complaint: Heart Rate Problem
Source: patient and family
Exam Limitations: none
Time Seen by Provider: 12/11/23 23:04
Travel History
Have you had any contact with someone who has COVID-19?: No
Do you have any symptoms of coronavirus? Fever > 100 degrees, chills, cough, shortness of breath, sore throat, loss of taste or smell, muscle aches, or headache?: No
History of Present Illness
History of Present Illness:
73-year-old male states he went into A-fib around noon. Patient is a history of A-fib and typically feels it when he goes into it. He is on sotalol. He also is on Eliquis. Patient has been cardioverted in the past. Patient denies chest pain or
shortness of breath. Did take an extra dose of metoprolol but no relief.
Past History
Past History
ED Past Medical History: Arrthythmia, CAD, HTN, Hypercholesterolemia and Other (multiple myeloma)
ED Past Surgical History: Orthopedic
Social History
Tobacco: Non-smoker
Alcohol: None
Drug: None
Personal:
Living: with family
Phy Exam
Physical Exam
Physical Exam:
CONSTITUTIONAL Patient alert and oriented to person, place and time. Well-appearing. Vital signs reviewed.
HEAD atraumatic, normocephalic.
EYES eyelids normal to inspection, Pupils equally round and reactive to light, Extraocular muscles intact, Conjunctiva normal, Sclera normal.
NECK normal range of motion, Trachea midline, no jugular venous distention.
RESPIRATORY CHEST No respiratory distress noted, Chest expansion equal, Bilateral breath sounds clear.
CARDIOVASCULAR irregular irregular and tachycardic, Heart sounds normal.
ABDOMEN abdomen nontender, Bowel sounds normal. No distention.
BACK normal inspection, no obvious deformities
UPPER EXTREMITY range of motion normal, Motor strength normal, no cyanosis, no edema.
LOWER EXTREMITY range of motion normal, Motor strength normal, no cyanosis, no edema.
NEURO Speech normal, No focal motor deficits, [place] coma scale 15, Memory normal, Cranial Nerves intact to screening exam.
SKIN skin warm, dry, and normal in color.
PSYCHIATRIC patient oriented to person place and time, Normal affect.
Course
Orders/Labs/Results
Orders:
Orders
12/11/23 22:47
Electrocardiogram (*1) Urgent
Reason for Study: Atrial Fibrillation
EKG- Treatment ONCE
12/11/23 23:12
CMP [Comprehensive Metabolic Panel] Urgent
Complete Blood Count/With Diff Urgent
Troponin I Urgent
12/11/23 23:30
Diltiazem 125 mg/125 ml Nss [Cardizem] 125 mg in 125 ml IV NOW
Initial dose in mg/hr, then titrate:: 5
Titrate to keep:: Heart rate 80-100 bpm
Titrate by mg/hr:: 5 mg/hr
Frequency of titrations (minutes):: 15
Maximum dose in mg/hr:: 15
Diltiazem HCl [Cardizem] 10 mg IV NOW STA
12/11/23 23:56
0.9% Sodium Chloride 1000 ml [Nss] 1,000 ml IV BOLUS
Abnormal Lab Results
12/11/23
23:12
WBC 4.3 L 10^3/uL
(4.8-10.8)
RBC 3.31 L 10^6/uL
(4.70-6.10)
Hgb 11.6 L g/dL
(13.0-18.0)
Hct 33.9 L %
(39.0-52.0)
MCV 102.4 H fL
(80.0-94.0)
MCH 35.0 H pg
(27.0-31.0)
RDW 19.0 H %
(11.5-14.5)
Plt Count 86 L 10^3/uL
(130-400)
Abs Immat Gran (auto) 0.1 H 10^3/uL
(0-0.05)
Absolute Lymphs (auto) 0.8 L 10^3/uL
(1.2-3.4)
Immature Gran % 1.9 H %
(0-0.5)
Lymphocytes % 17.6 L %
(20.5-51.1)
Monocytes % 9.4 H %
(1.7-9.3)
Eosinophils % 6.8 H %
(0-6)
BUN 22 H mg/dl
(9-20)
Creatinine 0.6 L mg/dL
(0.7-1.3)
Glucose 108 H mg/dl
(70-99)
Total Bilirubin 1.6 H mg/dl
(0.2-1.3)
Alkaline Phosphatase 144 H U/L
(38-126)
Troponin I 0.044 H* ng/ml
Total Protein 5.5 L g/dl
(6.3-8.2)
Albumin 3.0 L g/dl
(3.5-5.0)
12/11/23 23:12
12/11/23 23:12
Vital Signs
Initial and Last Documented VS:
Initial Vital Signs
Temp Pulse Resp BP Pulse Ox
97.8 F 140 26 110/78 100
12/11/23 22:44 12/11/23 22:44 12/11/23 22:44 12/11/23 22:44 12/11/23 22:44
Last Documented Vital Signs
Temp Pulse Resp BP Pulse Ox
97.8 F 136 26 93/74 97
12/11/23 22:44 12/12/23 01:15 12/12/23 01:15 12/12/23 01:15 12/12/23 01:15
MDM/Problems Addressed
MDM/Problems Addressed:
Atrial fibrillation with RVR
*Pulse Oximetry
Patient hypoxic: no
*EKG
Interpreted by ED Provider?: Yes
Interpretation: abnormal
Rate: tachycardiac
Rhythm: a-fib
[place]: normal axis
Ischemia: non-specific ST changes
*Greaser Operator Interpretation
Rate: tachycardiac
Interpretation: abnormal
Rhythm: a-fib
*Critical Care Note
Total Time (30-74mins, 75-104mins- exclusive of procedures): 45 minutes
Data Reviewed
Review of Other/Old Records Reveals: Discharge Summary (Discharge summary from November 30, 2023 reviewed)
Prescriptions/Medications Considered But Not Given:
Consider beta-lion but already took beta-lion prior to arrival
Patient Management
Discussion with other providers: Hospitalist
Escalation/DeEscalation of care consider admission/obs:
73-year-old male who presents with rapid A-fib. Considered ED cardioversion but patient is hesitant because he was off his Eliquis for some time due to hematuria. I do think it is reasonable to forego emergency department elective cardioversion.
Admit. Continue AV blockers
ED Attending Note
-
Portions of this chart may have been created with voice recognition software.� Occasional wrong word or��sound alike� substitutions may have occurred due to the inherent limitations of voice recognition software.
Discharge Plan
Departure
Patient Disposition: Admit
Date of Disposition: 12/12/23
Time of Disposition: 01:24
Admit to: Telemetry
Presentation/result/management discussed w/ accepting MD/DO: Hospitalist
Discharge Problem:
Atrial fibrillation with RVR
Prescriptions:
No Action
tamsulosin [Flomax] 0.4 mg Capsule
0.4 mg PO DAILY
sotalol 80 mg Tablet
80 mg PO BID
potassium chloride 10 mEq Tablet Extended Release
10 meq PO BID
amlodipine 5 mg Tablet
5 mg PO DAILY
Hold Instructions: Until blood pressure greater than 140/90
acyclovir 800 mg Tablet
800 mg PO BID
lisinopril 40 mg Tablet
40 mg PO DAILY
lenalidomide [Revlimid] 10 mg Capsule
10 mg PO DAILY
Hold Instructions: Resume on 12/13/23. Still cleared to resume by Ralph Campos
tramadol 50 mg tablet
50 mg PO Q6HPRN PRN (Reason: severe pain/breakthrough pain) Qty: 15 0RF
therapeutic multivitamin Tablet
1 tab PO DAILY
zoledronic acid 4 mg Recon Soln
0 mg IV MONTHLY
Eliquis 5 mg tablet
5 mg PO BID
Hold Instructions: Resume on 11/30/23. Restart on Tuesday if no further bleeding
Referrals:
Evens Durant PA-C [Family Provider] -
Interventions
Interventions:
*Risk Screen - Suicide Last Done: 12/11/23 22:44
*General Assessment Last Done: 12/11/23 23:14
*Neglect/Abuse Screening Last Done: 12/11/23 22:44
ED- Fall Risk Assessment Last Done: 12/11/23 23:14
*ED COVID-19 Vaccine History Last Done: 12/11/23 23:14
ED- Cardiac Assessment Last Done: 12/11/23 23:14
ED- Pulmonary Assessment Last Done: 12/11/23 23:14
Discharge Date and Time
Print Language: GAMBIAN
[2023-12-12] VITALS (43 sets, daily range): BP systolic 83–123; BP diastolic 54–109; BMI 28.2
--- NOTE | 2023-12-12 02:54 | HPS.HSE ---
Addendum entered and electronically signed by Robles Machuca DO 12/12/23 03:50:
Plan to include:
Hx JA - Pt has inspire implant. No longer requiring Cpap.
Original Note:
Family Physician
-
Family Physician: MAXX LAO PA-C
Chief Complaint
-
'[place] I was in Afib'
History of Present Illness
72yo M with Afib on eliquis, CAD s/p Stent on Plavix, HTN/HLD, Hx Bronchitis, BPH, MM in remission s/p BM stem cell transplant (03/2023), Chronic Anemia/Thrombocytopenia presents stating 'I felt I was in Afib.' Pt states around 1:30 while a friend
was visiting his house he felt fluttering sensation in his chest. Mild SOB without other complaints. Of note recent admission (11/22-11/29) by Dr Beal for hypoxic resp failure treated with IVAbx and steroids. Subsequent hematuria requiring
discontinuation of eliquis (restarted MANAGER FIBER). He also had thrombocytopenia 2/2 revlimid use (restarted last week). He states he completed out steroid taper 1-2 days ago. Otherwise reports feeling much improved from acute bronchitis event last
admission. Denies F/C, sick contacts, dizziness, CP, wheezing, cough, abd pain, n/v/d/c, dysuria, calf or leg pain.
ER course: Pt presents with BP 102/72 with drop to 90/60s, RR 30s, Sat 96-97% RA. WBC 4.3K, Hgb 11.6 g/dL. BUN/Cr 22/0.6, Tbili 1.6. AST/ALT wnl, Trop 0.044. CXR ordered and pending. S/P Cardizem 10mg IV bolus and gtt and 1LNS bolus in ER.
Medical History
Past Medical History
Past Medical History: Reports Arrhythmia, CAD, HTN, Hypercholesterolemia and Other (Multiple myeloma)
Past Surgical History: Reports Orthopedic
Social History
Tobacco: Non-smoker
Alcohol: None
Family History
Family History: Not pertinent
Allergies / Home Medications
Allergies reflects when Allergies were last updated in [email or web address].
Home Medications with original date entered in [email or web address]
Allergy/Medication List:
Allergies
Allergy/AdvReac Type Severity Reaction Status Date / Time
amiodarone Allergy Liver Verified 12/11/23 22:48
function
reduced
hydrochlorothiazide Allergy Unknown Verified 12/11/23 22:48
Home Medications
tamsulosin 0.4 mg capsule (Flomax) 0.4 mg PO DAILY Urinary Issue 03/06/23
acyclovir 800 mg tablet 800 mg PO BID Infection 08/18/23
amlodipine 5 mg tablet 5 mg PO DAILY Blood Pressure 08/18/23 - On hold
lenalidomide 10 mg capsule (Revlimid) 10 mg PO DAILY multiple myeloma 08/18/23 - restarted
lisinopril 40 mg tablet 40 mg PO DAILY Blood Pressure 08/18/23
potassium chloride 10 mEq tablet,extended release 10 meq PO BID Electrolyte Repletion 08/18/23
sotalol 80 mg tablet 80 mg PO BID Arrhythmia 08/18/23
apixaban 5 mg tablet (Eliquis) 5 mg PO BID Blood Clot Prevention/Tx 11/23/23
therapeutic multivitamin 1 tab PO DAILY Supplement 11/23/23
zoledronic acid 4 mg intravenous solution 0 mg IV MONTHLY high calcium 11/23/23
Review of Systems
-
A 12 point ROS was completed and negative except as noted: Yes
Physical Exam
Vital Signs
Vital Signs
Temp Pulse Resp BP Pulse Ox
97.8 F 105 27 119/64 97
12/11/23 22:44 12/12/23 02:30 12/12/23 02:30 12/12/23 02:30 12/12/23 02:30
Physical Exam
General: Well Nourished and No Apparent Distress
HEENT: Anicteric and Moist mucous membranes
Respiratory: Clear, Wheezes and Non Labored Respirations
Cardiac: S1/S2, Regular Rhythm, Irregular Rhythm and Tachycardia; No Murmur, Rub or Gallop
Breast: Deferred by me
GI: Soft, Non Tender, Non Distended and Normal Bowel Sounds
Rectal: Deferred by Provider
Genito-urinary: No costovertebral tender; No Heart
Musculoskeletal: Edema, Left Lower Extremity (trace pitting) and Edema, Right Lower Extremity (trace pitting)
Skin: Warm and Dry; No Rash
Neuro: Awake, Alert, Oriented, AO x 3, No Motor Deficits and Nonfocal/grossly intact
Psych: Calm and Intact Judgment/Insight
Laboratory Results
-
12/11/23 23:12
12/11/23 23:12
Laboratory Results
Total Bilirubin 1.6 mg/dl (0.2-1.3) H 12/11/23 23:12
AST 23 U/L (17-59) 12/11/23 23:12
ALT 37 U/L (0-50) 12/11/23 23:12
Alkaline Phosphatase 144 U/L (38-126) H 12/11/23 23:12
Troponin I 0.044 ng/ml H* 12/11/23 23:12
Data Reviewed
-
Diagnostic Radiology: Image Personally Visualized and interpreted
Medical Tests (Nuc Med, Echo, EKG etc): Image Personally Visualized and interpreted
Lab Data: Labs Reviewed by me
Old Records: Reviewed
Impression/Plan
-
Atrial Fibrillation RVR
Elevated Troponin
- Pt presents with palpitations complaint. EKG confirming Afib RVR @ 144bpm, ST-depressions V2-V6, QTC 476ms, lateral changes new from 11/28, likely rate related
- No chest pain. Trop 0.044. R/O ACS per estelita protocol. Follow repeat EKG
- K 3.5. Replete to goal > 4.0. (on home 10meq BID supplementation additionally). Check Mag and replete accordingly. Check TSH
- Etiology for afib may be in setting of recent steroid use
- S/P Cardizem 10mg IV bolus and gtt in ER, continue gtt, wean as tolerated
- Continue home sotalol 80mg BID
- Hx DCCV x 6, last reported 10/2023
- Consult cardiology, may need EPS evaluation
Borderline Hypotension / Hx HTN
- SBP 90-100s on presentation. S/P 1LNS bolus. Maintain MAP > 65mmHg
- Holding home amlodipine and lisinopril.
Tachypnea
- RR 30s on presentation. Mild crackles right lung base on exam. No evidence of hypoxia since admission.
- No further wheezing on exam. Pt reports much improved symptoms from last bronchitis flare
- Obtain CXR for completeness. Pt may have mild congestion in setting of recent uncontrolled afib
Thrombocytopenia
- PLT 86k on admission, above prior trends last admission
- Follow trends on plavix with revlimid also resumed.
Hx MM s/p BM Stem Celll Transplant 03/2023
- Reported in remission
- Continue follow up with Ralph Ramirez
- Resumed back on revlimid last week
- Receives monthly zoledronic acid.
- Recently had chest pain status post IVIG so now it is on hold per his outpatient oncologist.
- Continue acyclovir antiviral ppx
Hx CAD s/p Stent - Continue home plavix. GWYN-I held 2/2 hypotension.
Recent Hematuria
- Appears resolved at at this time. Stable on plavix and eliquis
- Hgb stable.
- Evaluated by urology last admission: outpatient follow up advised.
BPH - Continue Flomax
Diet: Cardiac Diet
DVT Ppx: Eliquis
Code Status: Full Code
[2023-12-12] MEDS: KCL 40 MEQ PO (03:39)
[2023-12-12 04:30] LABS: Magnesium 1.7 mg/dl (1.6-2.3)
[2023-12-12 04:47] LABS: Troponin I 0.052 ng/ml
--- NOTE | 2023-12-12 04:52 | EDRN ---
Called pharmacy for magnesium infusion.
[2023-12-12] MEDS: MAGNESIUM SULFATE 50 IV (05:30)
--- NOTE | 2023-12-12 07:41 | CON.CAR ---
Addendum entered and electronically signed by Ashok Torres MD 12/12/23 09:29:
73-year-old man readmitted with recurrent atrial fibrillation on sotalol. He has a prior history of stem cell transplant for multiple myeloma, had been on amiodarone and statin with elevated LFTs and amiodarone was discontinued. Now on sotalol.
Had recently been on Revlimid. Also recently admitted with hematuria and Eliquis has been held. He has also required reduction in sotalol related to QT prolongation.
Allergies: Amiodarone and hydrochlorothiazide
Outpatient meds: Acyclovir, amlodipine, Eliquis, Revlimid, lisinopril 40 mg a day, potassium 10 mill equivalents daily, sotalol 80 mg twice daily, tamsulosin 0.4 mg daily, multivitamin, zoledronic acid
Current meds: Acyclovir, apixaban 5 mg twice daily, Revlimid 10 mg daily, potassium 10 mill equivalents twice daily, sotalol 80 mg twice daily, tamsulosin, diltiazem IV
PMH: PAF, multiple myeloma status post stem cell transplant with recurrence, history of hematuria, CAD status post PCI to the RCA 2017, Hypercholesterolemia, hypertension, obstructive sleep apnea
PSH: Right herniorrhaphy, Inspire implant, lap [place], right total knee, left rotator cuff, lumbar laminectomy
SH: Non-smoker no alcohol
FH: Noncontributory
ROS: Negative except as above
102/63, pulse 110, respiratory 20, Temp 36.6, saturations 90%
No acute distress, head neck exam unremarkable, lungs clear, irregular rate and rhythm without obvious murmurs abdomen benign, no edema, pulses intact, neuro nonfocal
Chest x-ray NAD, InSpire
white count 4.3 hemoglobin 11.6, platelets 86, troponin 0.052, BUN and creatinine 22 and 0.6
ECG atrial fibrillation with rapid ventricular response nonspecific ST and T wave changes, QT may be prolonged
Imp:
Paroxysmal atrial fibrillation w/ RVR
CV 11/04/2023
Chronic sotalol therapyChronic Eliquis anticoagulation
Elevated troponin, suspect nonischemic myocardial injury
CAD
s/p [place] w/ RCA PCI x2 05/2018h/o hematuria 11/2023
HTN
HLD
JA s/p Inspire implant 07/2022
Multiple Myeloma s/p autologous stem cell transplant 03/2023
Lexiscan stress test 01/13/2022: negative ECG for ischemia, LV perfusion is normal.
Echo 02/07/2023: EF 60 to 65%, mild MR, trace TR, mild AI, aortic root 4.2cm
Plan:
He comes in now with recurrent atrial fibrillation and is undergoing a total of approximately 6 cardioversions in the last year. He is not severely symptomatic in A-fib but rates are rapid, and when he is in sinus rhythm his heart rates are in the
60s. Amiodarone has been associated with increased LFTs and we are limited in sotalol dosing because of his QT interval. Furthermore, he has had hematuria and Eliquis was only recently restarted. In addition he has been relatively hypotensive on
amlodipine and lisinopril.
While we could perform transesophageal echo and repeat cardioversion, it seems that recurrent A-fib will be an ongoing problem until definitive therapy has been arranged. We are both in agreement that the best long-term strategy is pulmonary vein
isolation.
His heart rate is controlled now on IV diltiazem.
We discussed GILA cardioversion now versus a strategy of rate control only until he can be evaluated for PVI. We have elected for rate control.
He will stop sotalol, and we will hold amlodipine and lisinopril to prevent high dose diltiazem therapy for rate control. Metoprolol has produced fatigue in the past.
Presuming rate is controlled, he can be discharged in the morning. Will stop IV diltiazem at this time.
He knows Dr. Nick and we will set him up for an outpatient appointment to facilitate PVI.
Original Note:
Consultation
Consultation Request
Date/Time Consultation Requested: 12/12/2023
Date/Time Consultation Performed: 12/12/2023
Requesting Provider: Dr. Machuca
Performing Provider: Dr. LO Torres
Reason for Consultation: Afib w/ RVR
Medical History
-
History of Present Illness:
HPI: Paco is a 73 year old male with PMH of CAD, paroxysmal atrial fibrillation on chronic sotalol, hypertension, hyperlipidemia, JA, and multiple myeloma. He presented to [facility] last evening for evaluation of palpitations. he states he was talking
with a friend when around 1:30 PM, he felt that he went into atrial fibrillation. He states he felt the palpitations and like his heart was racing, so he took a metoprolol which he states helped calm down his heart rate for a while, however as the
night went on, he could tell that he was still in afib with elevated heart rates, so he came to [facility] for evaluation. He notes he does not drink any alcohol and does not typically drink any caffeine, however while talking with his friend, he drank a
small cup of half-caff coffee. In ER, he was confirmed to be in rapid afib by EKG and was started on IV cardizem for rate control. Overnight, he has remained in Afib, although rates are improved. No other complaints currently. K and mag were
borderline and both were repleted overnight.
PMH:
CAD
s/p [place] w/ RCA PCI x2 05/2018
Paroxysmal atrial fibrillation
CV 11/04/2023
Chronic sotalol therapy
Chronic Eliquis anticoagulation
h/o hematuria 11/2023
HTN
HLD
JA s/p Inspire implant 07/2022
Multiple Myeloma status post autologous stem cell transplant March 2023
Past Medical History
Past Medical History: Other (In HPI)
Past Surgical History: Cardiac (RCA PCI x2 2017), Cholecystectomy and Other (R TKA, L rotator cuff repair, kyphoplasty)
Social History
Tobacco: Non-Smoker
Alcohol: None
Drug: None
Personal:
Living: With Family
Employment: Retired
Family History
Family History: CAD and Hypertension
Allergies / Home Medications
Allergy/AdvReac Type Severity Reaction Status Date / Time
amiodarone Allergy Liver Verified 12/11/23 22:48
function
reduced
hydrochlorothiazide Allergy Unknown Verified 12/11/23 22:48
�Medication �Instructions �Recorded �Confirmed �Type
tamsulosin 0.4 mg capsule (Flomax) 0.4 mg PO DAILY Urinary Issue 03/06/23 12/11/23 History
acyclovir 800 mg tablet 800 mg PO BID Infection 08/18/23 12/11/23 History
amlodipine 5 mg tablet 5 mg PO DAILY Blood Pressure 08/18/23 12/11/23 History
lenalidomide 10 mg capsule 10 mg PO DAILY multiple myeloma 08/18/23 12/11/23 History
(Revlimid)
lisinopril 40 mg tablet 40 mg PO DAILY Blood Pressure 08/18/23 12/11/23 History
potassium chloride 10 mEq 10 meq PO BID Electrolyte Repletion 08/18/23 12/11/23 History
tablet,extended release
sotalol 80 mg tablet 80 mg PO BID Arrhythmia 08/18/23 12/11/23 History
apixaban 5 mg tablet (Eliquis) 5 mg PO BID Blood Clot 11/23/23 12/11/23 History
Prevention/Tx
therapeutic multivitamin 1 tab PO DAILY Supplement 11/23/23 12/11/23 History
zoledronic acid 4 mg intravenous 0 mg IV MONTHLY high calcium 11/23/23 12/11/23 History
solution
Review of Systems
-
History Source: Patient
All other systems: Negative unless noted
Physical Exam
Vital Signs
Temp Pulse Resp BP Pulse Ox
97.9 F 93 20 113/64 97
12/12/23 05:52 12/12/23 06:15 12/12/23 05:52 12/12/23 06:15 12/12/23 05:52
Lab Results
Troponin I 0.052 ng/ml H* 12/12/23 03:46
Physical Exam
General: Well Developed, Well Nourished and No Apparent Distress
HEENT: Normocephalic, Anicteric and Moist Mucous Membranes
Respiratory: Clear and Non Labored Respirations
Cardiac: S1/S2 and Irregular Rhythm
Musculoskeletal: No Clubbing, No Cyanosis and No Edema
Skin: Warm and Dry
Neuro: AO x 3 and Nonfocal/Grossly Intact
Psych: Calm
Impression / Plan
-
PCP: Evens Durant PA-C
Tour Bus Driver/Guide: Dr. LO Torres
Impression:
Presented with palpitations
Paroxysmal atrial fibrillation w/ RVR
CV 11/04/2023
Chronic sotalol therapy
Chronic Eliquis anticoagulation
Elevated troponin, suspect nonischemic myocardial injury
CAD
s/p [place] w/ RCA PCI x2 05/2018
h/o hematuria 11/2023
HTN
HLD
JA s/p Inspire implant 07/2022
Multiple Myeloma s/p autologous stem cell transplant 03/2023
Lexiscan stress test 01/13/2022: negative ECG for ischemia, LV perfusion is normal.
Echo 02/07/2023: EF 60 to 65%, mild MR, trace TR, mild AI, aortic root 4.2cm
Plan
-Presented with palpitations and recurrent rapid atrial fibrillation.
-Rate improving w/ IV Cardizem. Remains in Afib on review of telemetry.
-K 3.5 and mag 1.7, both repleted overnight. Await AM labs.
-On Sotalol 80mg BID as OP. Dose reduced during recent admission due to prolonged QT. QTc on EKG 12/10 stable at 476ms.
-Will continue with rate control alone for now. Stop Sotalol and will start Diltiazem 180mg BID. Wean cardizem drip as able.
-He previously had bradycardia and fatigue on metoprolol, discontinued during recent hospitalization.
-Remains on Eliquis for anticoagulation. During recent admission had hematuria which required Eliquis to be held. Resumed on 11/28.
-Consideration for PVI as OP. Will follow up with EP to discuss further.
-Previously did not tolerate amiodarone due to elevated LFTs.
-TSH pending.
-Echo 01/2023 with preserved EF and mild valvular disease.
-Elevated troponin noted. Suspect nonischemic myocardial injury in the setting of rapid afib.
-Hypotensive on arrival with BPs still on the lower side this AM. Op amlodipine and lisinopril on hold.
HPI: Paco is a 73 year old male with PMH of CAD, paroxysmal atrial fibrillation on chronic sotalol, hypertension, hyperlipidemia, JA, and multiple myeloma. He presented to [facility] last evening for evaluation of palpitations. he states he was talking
with a friend when around 1:30 PM, he felt that he went into atrial fibrillation. He states he felt the palpitations and like his heart was racing, so he took a metoprolol which he states helped calm down his heart rate for a while, however as the
night went on, he could tell that he was still in afib with elevated heart rates, so he came to [facility] for evaluation. He notes he does not drink any alcohol and does not typically drink any caffeine, however while talking with his friend, he drank a
small cup of half-caff coffee. In ER, he was confirmed to be in rapid afib by EKG and was started on IV cardizem for rate control. Overnight, he has remained in Afib, although rates are improved. No other complaints currently. K and mag were
borderline and both were repleted overnight.
Data Reviewed
-
EKG: Tracing Personally Visualized and interpreted
Labs: Labs Reviewed by me
Old Records: Reviewed
[2023-12-12] MEDS: THERAGRAN 1 TABLET PO (08:10)
[2023-12-12] MEDS: FLOMAX 0.400000000000000022 MG PO (08:10)
[2023-12-12] MEDS: BETAPACE 80 MG PO (08:10)
[2023-12-12] MEDS: KCL 10 MEQ PO ×2 (08:10→19:46)
[2023-12-12] MEDS: ELIQUIS 5 MG PO ×2 (08:11→19:46)
[2023-12-12] MEDS: ZOVIRAX 800 MG PO ×2 (08:12→19:46)
--- NOTE | 2023-12-12 08:21 | W.PN.HOSP.TC ---
Today's Communication/Plan
-
Cardiology consult
Assessment / Plan
Assessment / Plan
Gen-AAOx3, NAD
HEENT-NC, AT, anicteric, clear oral mm
Neck-supple
CV-reg, no M, +S1/S2
Lungs-clear B/L
Abd-soft, NT, ND
Ext-no edema
Musculoskeletal-no cyanosis, clubbing
Skin-warm and dry
Neuro-grossly non-focal
Psych-calm, cooperative
Recurrent atrial fibrillation RVR - Rates now controlled with Cardizem drip. Baseline paroxysmal atrial fibrillation. Continue Eliquis. Await cardiology input. Currently NPO. Has had 6 cardioversions in the past, last cardioversion was in October.
Essential hypertension -currently hypotensive. Amlodipine, lisinopril on hold.
CAD -history of stenting. Plavix discontinued last hospitalization due to hematuria. Informed to resume on November 29 on the discharge instructions. However, patient has not resumed. Will defer to cardiology. Not on aspirin either.
Pancytopenia -likely related to chemotherapy for multiple myeloma. Monitor counts.
Multiple myeloma - s/p stem cell transplantation March 2023. Follow-up with [facility].
Zoster prophylaxis -continue acyclovir.
Recent hematuria
BPH
Full code
Anticipated Discharge: > 48 hours
Subjective/Interval History
-
Date of Service: December 12, 2023
Patient seen and examined. Feeling better currently. No complaints.
Objective Data
-
Labs:
Laboratory Results
12/11/23 12/12/23
23:12 06:00
WBC 4.3 L Pending
Hgb 11.6 L Pending
Hct 33.9 L Pending
Plt Count 86 L Pending
Sodium 136 Pending
Potassium 3.5 Pending
Chloride 106 Pending
Carbon Dioxide 29 Pending
BUN 22 H Pending
Creatinine 0.6 L Pending
Glucose 108 H Pending
Calcium 9.4 Pending
Total Bilirubin 1.6 H
AST 23
ALT 37
Alkaline Phosphatase 144 H
Vital Signs:
Vital Signs
Temp Pulse Resp BP Pulse Ox
97.9 F 110 20 102/63 97
12/12/23 05:52 12/12/23 08:10 12/12/23 05:52 12/12/23 08:10 12/12/23 05:52
I&O
12/11/23 12/12/23 12/13/23
06:59 06:59 06:59
Output Total 200 / 200
Balance -200 / -200
Review of Systems
-
History Source: Patient
All other systems: Reviewed and negative
[2023-12-12 09:25] LABS: % Basophils 0.7 % (0-2); % Eosinophils 6.6 % (0-6); % Immature Granulocytes 2.7 % (0-0.5); % Lymphocytes 12.3 % (20.5-51.1); % Monocytes 9.8 % (1.7-9.3); % Neutrophils 67.9 % (42.2-75.2); Absolute Eosinophils 0.3 10^3/uL (0-0.7); Absolute Immature Granulocytes 0.1 10^3/uL (0-0.05); Absolute Lymphocytes 0.5 10^3/uL (1.2-3.4); Absolute Monocytes 0.4 10^3/uL (0.1-0.6); Hematocrit 34.5 % (39.0-52.0); Hemoglobin 11.6 g/dL (13.0-18.0); Mean Corp Hgb Conc. 33.6 g/dL (33.0-37.0); Mean Corpuscular Hgb 34.2 pg (27.0-31.0); Mean Corpuscular Volume 101.8 fL (80.0-94.0); Mean Platelet Volume 9.4 fL (7.4-10.4); Nucleated Red Blood Cells % 0 % (-); Platelet Count 80 10^3/uL (130-400); Red Blood Cell Count 3.39 10^6/uL (4.70-6.10); Red Cell Dist. Width 19.5 % (11.5-14.5); White Blood Cell Count 4.4 10^3/uL (4.8-10.8)
[2023-12-12 09:48] LABS: Troponin I 0.043 ng/ml
[2023-12-12 09:55] LABS: Blood Urea Nitrogen 19 mg/dl (9-20); Calcium 9.2 mg/dl (8.4-10.2); Carbon Dioxide 28 mmol/L (22-30); Chloride 106 mmol/L (98-107); Estimated Creatinine Clearance 103 ml/min; Glucose 83 mg/dl (70-99); Magnesium 2.3 mg/dl (1.6-2.3); Potassium 4.1 mmol/L (3.5-5.1); Sodium 135 mmol/L (135-145); eGFR > 60.00
[2023-12-12 11:09] LABS: TSH Reflex To Free T4 1.48 uIU/ml (0.47-4.68)
--- NOTE | 2023-12-12 11:49 | PTCARENOTE ---
patient has pauses on monitor still in Afib, BP 84/61, patient does feel lightheaded, D/C'd IV Cardizem gtt. TT Elyse GREGORY.
--- NOTE | 2023-12-12 12:26 | CM ---
spoke withpt in room, holly gonzales, lives with his beltran 1 story home with 2 steps to enter. he denies any dc planning needs or dme's. plan is for dc to home when medically stable.
[2023-12-12] MEDS: CARDIZEM 10 MG IV (18:35)
[2023-12-12] MEDS: FLUSH (NSS) 2 FLUSH IV (18:35)
--- NOTE | 2023-12-12 18:44 | PTCARENOTE ---
The patient's HR has been increasing to the 120s up to the 140s. I gave 10 mg of PRN IV Cardizem as ordered. The patient has no complaints of SOB or palpations. BP 114/83.
[2023-12-12] MEDS: CARDIZEM CD 180 MG PO (19:45)
[2023-12-12] MEDS: NON-FORMULARY ITEM 10 MG PO (20:45)
[2023-12-12] MEDS: CARDIZEM 125 IV (22:13)
--- NOTE | 2023-12-12 22:29 | PTCARENOTE ---
Tele remains afib. HR sustaining 120-140s at rest. Asymptomatic. BP 114/76. POX 97% RA. Renu Killian MD notified and orders placed. Resumed Cardizem gtt at 10mg/hr per Renu Killian.
[2023-12-13] VITALS (15 sets, daily range): BP systolic 101–134; BP diastolic 49–88; BMI 27.7
[2023-12-13] MEDS: FLOMAX 0.400000000000000022 MG PO (08:21)
[2023-12-13] MEDS: KCL 10 MEQ PO ×2 (08:21→19:57)
[2023-12-13] MEDS: THERAGRAN 1 TABLET PO (08:21)
[2023-12-13] MEDS: ELIQUIS 5 MG PO ×2 (08:21→19:57)
[2023-12-13] MEDS: ZOVIRAX 800 MG PO ×2 (08:21→19:57)
[2023-12-13] MEDS: FLUSH (NSS) 1 FLUSH IV ×2 (08:22→08:23)
[2023-12-13] MEDS: NON-FORMULARY ITEM 10 MG PO (08:22)
--- NOTE | 2023-12-13 08:25 | W.PN.CARDCBS ---
Today's Communication / Plan
-
Increase diltiazem CD to 240 mg twice daily
Add digoxin
Concern regarding adding beta-blockers given blood pressure and history of fatigue, not a candidate for amiodarone
Observe today
Discharge in a.m. if heart rate control adequate with EP follow-up
If ventricular response difficult to control we may need to rethink cardioversion prior to discharge
Impression / Plan
-
PCP: Evens Durant PA-C
Process Development Technician: Dr. LO Torres
Impression:
Presented with palpitations
Paroxysmal atrial fibrillation w/ RVR
CV 11/04/2023
Chronic sotalol therapy
Chronic Eliquis anticoagulation
Elevated troponin, suspect nonischemic myocardial injury
CAD
s/p [place] w/ RCA PCI x2 05/2018
h/o hematuria 11/2023
HTN
HLD
JA s/p Inspire implant 07/2022
Multiple Myeloma s/p autologous stem cell transplant 03/2023
Lexiscan stress test 01/13/2022: negative ECG for ischemia, LV perfusion is normal.
Echo 02/07/2023: EF 60 to 65%, mild MR, trace TR, mild AI, aortic root 4.2cm
Plan:
He looks reasonably well, but unfortunately is back on IV diltiazem in order to control heart rate.
Achieving heart rate control may be difficult. He had fatigue on metoprolol and his blood pressure is marginal. Amiodarone for rate control is not a good option given elevated LFTs in the past.
Will increase diltiazem CD to 240 mg twice daily
Will stop IV diltiazem
Add digoxin 0.25 mg/day
Observed today, consider for discharge in a.m. if heart rate control is adequate.
He had been hypokalemic so continue potassium in the setting of digoxin therapy.
He will need outpatient dig level and BMP
Long-term strategy is EP consultation with ablation. Hopefully for discharge in a.m.
HPI: Paco is a 73 year old male with PMH of CAD, paroxysmal atrial fibrillation on chronic sotalol, hypertension, hyperlipidemia, JA, and multiple myeloma. He presented to [facility] last evening for evaluation of palpitations. he states he was talking
with a friend when around 1:30 PM, he felt that he went into atrial fibrillation. He states he felt the palpitations and like his heart was racing, so he took a metoprolol which he states helped calm down his heart rate for a while, however as the
night went on, he could tell that he was still in afib with elevated heart rates, so he came to [facility] for evaluation. He notes he does not drink any alcohol and does not typically drink any caffeine, however while talking with his friend, he drank a
small cup of half-caff coffee. In ER, he was confirmed to be in rapid afib by EKG and was started on IV cardizem for rate control. Overnight, he has remained in Afib, although rates are improved. No other complaints currently. K and mag were
borderline and both were repleted overnight.
Progress Note - Process Development Technician
Subjective
Date of Service: December 13, 2023:
Patient feels well. However heart rate dayan overnight placed back on IV diltiazem. Rates now controlled.
Allergies: Amiodarone and hydrochlorothiazide
Outpatient meds: Acyclovir, amlodipine, Eliquis, Revlimid, lisinopril, potassium, sotalol 80 mg twice daily, tamsulosin,
Current meds: Apixaban 5 twice daily, Revlimid 10 mg a day, potassium 10 mill equivalents twice daily, diltiazem CD100 80 mg twice daily, tamsulosin 0.4 mg a day, IV diltiazem
PMH/PSH/SH/FH: Reviewed
ROS negative except as above
No labs today
Objective
Labs:
12/12/23 09:12
12/12/23 09:12
Labs
Hgb 11.6 g/dL (13.0-18.0) L 12/12/23 09:12
Hct 34.5 % (39.0-52.0) L 12/12/23 09:12
Plt Count 80 10^3/uL (130-400) L 12/12/23 09:12
Sodium 135 mmol/L (135-145) 12/12/23 09:12
Potassium 4.1 mmol/L (3.5-5.1) 12/12/23 09:12
BUN 19 mg/dl (9-20) 12/12/23 09:12
Creatinine 0.6 mg/dL (0.7-1.3) L 12/12/23 09:12
Glucose 83 mg/dl (70-99) 12/12/23 09:12
Troponins
12/11/23 12/12/23 12/12/23
23:12 03:46 09:12
Troponin I 0.044 H* 0.052 H* 0.043 H*
Vital Signs and I&O:
Vital Signs
Temp Pulse Resp BP Pulse Ox
36.4 C 81 16 101/75 98
12/13/23 07:05 12/13/23 07:05 12/13/23 07:05 12/13/23 07:02 12/13/23 07:05
Vital Signs
Temp Pulse Resp BP Pulse Ox
36.4 C 81 16 101/75 98
12/13/23 07:05 12/13/23 07:05 12/13/23 07:05 12/13/23 07:02 12/13/23 07:05
Intake & Output
12/11/23 12/12/23 12/13/23 12/14/23
07:59 07:59 07:59 07:59
Intake Total 240 / 240
Output Total 200 / 200 900 / 900
Balance -200 / -200 240 / 240 -900 / -900
Physical Exam
Physical Exam
101/75 115/82, pulse now around 100 at rest on IV diltiazem
No acute distress, head neck exam unremarkable, lungs are clear, irregular rate and rhythm, abdomen benign, extremities without clubbing cyanosis or edema
[2023-12-13] MEDS: CARDIZEM CD 240 MG PO ×2 (09:12→19:57)
[2023-12-13] MEDS: LANOXIN 500 MCG IV (09:12)
[2023-12-13] MEDS: FLUSH (NSS) 2 FLUSH IV (09:13)
--- NOTE | 2023-12-13 09:13 | W.PN.HOSP.TC ---
Today's Communication/Plan
-
Continue current care
Assessment / Plan
Assessment / Plan
Gen-AAOx3, NAD
HEENT-NC, AT, anicteric, clear oral mm
Neck-supple
CV-reg, no M, +S1/S2
Lungs-clear B/L
Abd-soft, NT, ND
Ext-no edema
Musculoskeletal-no cyanosis, clubbing
Skin-warm and dry
Neuro-grossly non-focal
Psych-calm, cooperative
Recurrent atrial fibrillation RVR -rates improving overall. Cardiology has increased Cardizem dose, added digoxin. Off sotalol. Baseline paroxysmal atrial fibrillation. Continue Eliquis. Monitor 1 more day per cardiology.
Essential hypertension - Amlodipine, lisinopril on hold for relative hypotension.
CAD -history of stenting. Plavix discontinued last hospitalization due to hematuria.
Pancytopenia -likely related to chemotherapy for multiple myeloma. Monitor counts.
Multiple myeloma - s/p stem cell transplantation March 2023. Follow-up with [facility].
Zoster prophylaxis -continue acyclovir.
Recent hematuria
BPH
Full code
Anticipated Discharge: Within 24 hours
Subjective/Interval History
-
Date of Service: December 13, 2023
Patient seen and examined. Feels fine. No complaints.
Objective Data
-
Vital Signs:
Vital Signs
Temp Pulse Resp BP Pulse Ox
97.6 F 81 16 101/75 98
12/13/23 07:05 12/13/23 07:05 12/13/23 07:05 12/13/23 07:02 12/13/23 07:05
I&O
12/12/23 12/13/23 12/14/23
06:59 06:59 06:59
Intake Total 240 / 240
Output Total 200 / 200 900 / 900
Balance -200 / -200 240 / 240 -900 / -900
Review of Systems
-
History Source: Patient
All other systems: Reviewed and negative
[2023-12-13] MEDS: CARDIZEM CD PO (09:30)
--- NOTE | 2023-12-13 11:37 | PTCARENOTE ---
While assessing the patient's IV sites this am, his right forearm was showing signs of phlebitis. I removed his IV and applied alternating heat and cold to his site.
[2023-12-13] MEDS: LANOXIN 250 MCG PO (11:57)
--- NOTE | 2023-12-13 22:34 | PTCARENOTE ---
Pt AOx3 and pleasant. Tele remains afib. Offers no c/o at this time. Assessment noted as documented. Ambulating around room w/ steady gait. Currently in bed; call giovanny w/in reach.
[2023-12-14 03:43] VITALS: BP 148/85
--- NOTE | 2023-12-14 04:44 | PTCARENOTE ---
Tele remains Afib w/ PVCs. HR reaches up to 160-170s on ambulation and asymptomatic. Will return to 60-100s at rest.
[2023-12-14 06:00] VITALS: BMI 27.1
[2023-12-14 07:21] VITALS: BP 109/76
--- NOTE | 2023-12-14 08:04 | PTCARENOTE ---
Assumed care of pt from prev nsg shift AAOx3 w/no c/o CP or SOB. Pt's VS stable w/HR in the 90'-100's at rest but HR does go into the the 140's-160's w/any activity. Pt using urinal at bedside & limiting walking at this time. Plan of care ongoing.
--- NOTE | 2023-12-14 08:43 | W.PN.HOSP.TC ---
Addendum entered and electronically signed by Willie Cuevas DO 12/14/23 15:19:
Discussed with cardiology, fermin Mock for discharge today on current regimen. Outpatient follow-up with electrophysiology in 2 weeks to discuss ablation.
Original Note:
Today's Communication/Plan
-
Await cardiology input
Assessment / Plan
Assessment / Plan
Gen-AAOx3, NAD
HEENT-NC, AT, anicteric, clear oral mm
Neck-supple
CV-reg, no M, +S1/S2
Lungs-clear B/L
Abd-soft, NT, ND
Ext-no edema
Musculoskeletal-no cyanosis, clubbing
Skin-warm and dry
Neuro-grossly non-focal
Psych-calm, cooperative
Recurrent atrial fibrillation RVR - rates still fast with activity. Cardiology has increased Cardizem dose, added digoxin. Off sotalol. Baseline paroxysmal atrial fibrillation. Continue Eliquis. Likely will need cardioversion, defer to
cardiology.
TSH 1.48.
Essential hypertension - Amlodipine, lisinopril on hold for relative hypotension.
CAD -history of stenting. Plavix discontinued last hospitalization due to hematuria.
Pancytopenia -likely related to chemotherapy for multiple myeloma. Monitor counts.
Multiple myeloma - s/p stem cell transplantation March 2023. Follow-up with [facility].
Zoster prophylaxis -continue acyclovir.
Recent hematuria
BPH
Full code
Anticipated Discharge: 24 - 48 hours
Subjective/Interval History
-
Date of Service: December 14, 2023
Patient seen and examined. No complaints. Still gets tachycardic with activity.
Objective Data
-
Vital Signs:
Vital Signs
Temp Pulse Resp BP Pulse Ox
97.7 F 106 20 109/76 99
12/14/23 07:19 12/14/23 07:21 12/14/23 07:19 12/14/23 07:21 12/14/23 07:19
I&O
12/13/23 12/14/23 12/15/23
06:59 06:59 06:59
Intake Total 240 / 240 240 / 240
Output Total 900 / 900
Balance 240 / 240 -660 / -660
Review of Systems
-
History Source: Patient
All other systems: Reviewed and negative
[2023-12-14] MEDS: NON-FORMULARY ITEM 10 MG PO (09:22)
[2023-12-14] MEDS: FLUSH (NSS) 1 FLUSH IV (09:22)
[2023-12-14] MEDS: ZOVIRAX 800 MG PO (09:23)
[2023-12-14] MEDS: THERAGRAN 1 TABLET PO (09:23)
[2023-12-14] MEDS: FLOMAX 0.400000000000000022 MG PO (09:23)
[2023-12-14] MEDS: KCL 10 MEQ PO (09:23)
[2023-12-14] MEDS: ELIQUIS 5 MG PO (09:23)
[2023-12-14] MEDS: CARDIZEM CD 240 MG PO (09:23)
[2023-12-14 11:56] VITALS: BP 118/69
--- NOTE | 2023-12-14 12:15 | W.PN.CARDCBS ---
Addendum entered and electronically signed by Kraig Acuña MD 12/14/23 15:14:
I saw and examined the patient.
The [place] Administrative Law Judge's note was reviewed and I agree with the note.
Comment: Briefly, 73-year-old man past medical history atrial fibrillation maintained on sotalol as an outpatient presenting with atrial fibrillation with rapid ventricular response
Plan for rate control strategy, currently on Cardizem 240 mg twice daily and digoxin
Resting heart rates largely in the 70s and 80s by my review of telemetry
Tachycardic at times with exertion; however, he is not overtly symptomatic
I think it would be reasonable for him to be discharged home on CCB/digoxin and follow-up with electrophysiology in our office in the next few weeks as planned to discuss ablation
Continue Eliquis for cardioembolic prophylaxis
Original Note:
Today's Communication / Plan
-
rate control strategy as short term bridge to ablation
continue cardizem cd 240mg BID and digoxin 0.25mg daily
BMP/dig level in 1 week
ambulate
for possible DC to home later today
OP EP follow up arranged
Impression / Plan
-
PCP: Evens Durant PA-C
Forging Dies Final Finisher: Dr. LO Torres
Impression:
Presented with palpitations
Paroxysmal atrial fibrillation w/ RVR
CV 11/04/2023
Chronic sotalol therapy
Chronic Eliquis anticoagulation
Elevated troponin, suspect nonischemic myocardial injury
CAD
s/p [place] w/ RCA PCI x2 05/2018
h/o hematuria 11/2023
HTN
HLD
JA s/p Inspire implant 07/2022
Multiple Myeloma s/p autologous stem cell transplant 03/2023
Lexiscan stress test 01/13/2022: negative ECG for ischemia, LV perfusion is normal.
Echo 02/07/2023: EF 60 to 65%, mild MR, trace TR, mild AI, aortic root 4.2cm
Plan:
-He presented with palpitations and was back in atrial fibrillation with rapid ventricular response. Sotalol was stopped. Plan is for rate control with ablation in short order
-He is off of IV Cardizem and heart rates overall appear adequate on diltiazem CD 240 mg twice daily and digoxin 0.25 mg daily. he had prior fatigue on metoprolol and and elevated LFTs with amiodarone.
-He has occasional brief bursts of tachycardia mostly related to ambulation upon review of tele. he reports being asymptomatic with this and HR quickly recovers with rest
-will need dig level and BMP in 1 week upon DC
-he is scheduled for EP consultation 12/[address] Nick and at that time can be set up for ablation
-d/w nursing
-d/w patient and in detail. will have patient ambulate in [place] after lunch. if no issues, ok for DC to home today with follow up as scheduled
HPI: Paco is a 73 year old male with PMH of CAD, paroxysmal atrial fibrillation on chronic sotalol, hypertension, hyperlipidemia, JA, and multiple myeloma. He presented to [facility] last evening for evaluation of palpitations. he states he was talking
with a friend when around 1:30 PM, he felt that he went into atrial fibrillation. He states he felt the palpitations and like his heart was racing, so he took a metoprolol which he states helped calm down his heart rate for a while, however as the
night went on, he could tell that he was still in afib with elevated heart rates, so he came to [facility] for evaluation. He notes he does not drink any alcohol and does not typically drink any caffeine, however while talking with his friend, he drank a
small cup of half-caff coffee. In ER, he was confirmed to be in rapid afib by EKG and was started on IV cardizem for rate control. Overnight, he has remained in Afib, although rates are improved. No other complaints currently. K and mag were
borderline and both were repleted overnight.
Progress Note - Forging [facility] Final Finisher
Subjective
Date of Service: December 14, 2023
denies CP, SOB, palpitations, lightheadedness
Objective
Labs:
12/12/23 09:12
12/12/23 09:12
Labs
Hgb 11.6 g/dL (13.0-18.0) L 12/12/23 09:12
Hct 34.5 % (39.0-52.0) L 12/12/23 09:12
Plt Count 80 10^3/uL (130-400) L 12/12/23 09:12
Sodium 135 mmol/L (135-145) 12/12/23 09:12
Potassium 4.1 mmol/L (3.5-5.1) 12/12/23 09:12
BUN 19 mg/dl (9-20) 12/12/23 09:12
Creatinine 0.6 mg/dL (0.7-1.3) L 12/12/23 09:12
Glucose 83 mg/dl (70-99) 12/12/23 09:12
Troponins
12/11/23 12/12/23 12/12/23
23:12 03:46 09:12
Troponin I 0.044 H* 0.052 H* 0.043 H*
Vital Signs and I&O:
Vital Signs
Temp Pulse Resp BP Pulse Ox
97.9 F 106 20 109/76 99
12/14/23 11:56 12/14/23 07:21 12/14/23 11:56 12/14/23 07:21 12/14/23 11:56
Vital Signs
Temp Pulse Resp BP Pulse Ox
97.9 F 106 20 109/76 99
12/14/23 11:56 12/14/23 07:21 12/14/23 11:56 12/14/23 07:21 12/14/23 11:56
Intake & Output
12/12/23 12/13/23 12/14/23 12/15/23
07:59 07:59 07:59 07:59
Intake Total 240 / 240 240 / 240 960 / 960
Output Total 200 / 200 900 / 900
Balance -200 / -200 240 / 240 -660 / -660 960 / 960
Physical Exam
Physical Exam
GEN: No distress, awake, alert, oriented x3
HEENT: supple, anicteric, mmm, eomi
LUNGS: Few fine crackles RLB, no wheezes/rales
CV: Irreg, S1/S2, no murmur
ABD: soft, BS+, NT/ND
EXT: No cyanosis, clubbing, edema
NEURO: Gross non-focal
SKIN: Warm, pink, dry. No rash
[2023-12-14] MEDS: LANOXIN 250 MCG PO (12:36)
[2023-12-14 13:07] VITALS: BP 109/85
--- NOTE | 2023-12-14 14:25 | CM ---
CM following for DC planning needs.
Met w/ patient at bedside.
Goal is for DC to home without needs.
Will cont. to follow.
--- NOTE | 2023-12-14 14:51 | PTCARENOTE ---
Pt ambulated in the halls as advised by cardiac PA. Afterwards pt reported 'feeling OK, but that he could feel palpitations when he sat down'. Pt HR went up into the 160's while ambulating but returned to the 90's-100's once he was at rest. Shortly
after he was given his noon dose of PO digoxin as ordered. About 30 mins later the pt called this RN in bec he had ambulated around in the room & 'felt dizzy & had to sit down right away afterwards'. Pt's HR only went into the 120's-130's during
this activity & has stayed in the 70's-80's at rest since that time. This RN advised the Cardiac PA, Zahraa Feng. No new orders received. PA will be in to see pt. Plan of care ongoing.
--- NOTE | 2023-12-14 15:23 | W.DS.TRANS ---
DC Summary - Adjutant General
-
Discharge Instructions:
Discharge Diagnosis/Procedures Atrial fibrillation
Diet Low Fat,Low Cholesterol
Activity No strenuous activity
Driving Restrictions As prior to admission
Bathing Restrictions None
Blood Work BMP and digoxin level in 1 week
Specialty Instructions Weigh Daily
Instructions:
Stand-Alone Forms:
Changes to Home Medications: Yes
Discharge Medications:
DC Medications w/original date entered in [employer]
tamsulosin 0.4 mg capsule (Flomax) 0.4 mg PO DAILY Urinary Issue 03/06/23
acyclovir 800 mg tablet 800 mg PO BID Infection 08/18/23
lenalidomide 10 mg capsule (Revlimid) 10 mg PO DAILY multiple myeloma 08/18/23
potassium chloride 10 mEq tablet,extended release 10 meq PO BID Electrolyte Repletion 08/18/23
apixaban 5 mg tablet (Eliquis) 5 mg PO BID Blood Clot Prevention/Tx 11/23/23
therapeutic multivitamin 1 tab PO DAILY Supplement 11/23/23
digoxin 250 mcg (0.25 mg) tablet 250 mcg PO NOON #30 tabs 12/14/23
diltiazem HCl 240 mg capsule,extended release 24 hr 240 mg PO BID #60 caps 12/14/23
Home Medication Changes
Stop sotalol
Stop lisinopril
Stop amlodipine
Pending Results: No
[2023-12-14 15:46] VITALS: BP 112/68
--- NOTE | 2023-12-14 17:39 | PTCARENOTE ---
Pt discharged to home w/spouse providing transportation. Pt left w/personal belongings including cell phone & extension edger. Pt left w/prescription for lab work next week & his own lymphoma med from home he brought in. Pt taken out via wheelchair by staff
w/spouse providing transportation home.
== END 2023-12-14 18:04 | disposition home or self-care (01) | DRG 308 ==
LOC: IVU 03:30
PROVIDERS: Emergency Medicine; ADMITTING PHYSICIAN Internal Medicine; ATTENDING PHYSICIAN Hospitalist; EMERGENCY PHYSICIAN Emergency Medicine; FAMILY PHYSICIAN Physician Assistant Medical; OTHER PHYSICIAN Internal Medicine Cardiovascular Disease
DX: I48.0 Paroxysmal atrial fibrillation (principal); D61.810 Antineoplastic chemotherapy induced pancytopenia; C90.00 Multiple myeloma not having achieved remission; Z94.84 Stem cells transplant status; I5A Non-ischemic myocardial injury (non-traumatic); E78.00 Pure hypercholesterolemia, unspecified; I10 Essential (primary) hypertension; I25.10 Atherosclerotic heart disease of native coronary artery without angina pectoris; G47.33 Obstructive sleep apnea (adult) (pediatric); I95.9 Hypotension, unspecified; N40.0 Benign prostatic hyperplasia without lower urinary tract symptoms; D69.59 Other secondary thrombocytopenia; T45.1X5A Adverse effect of antineoplastic and immunosuppressive drugs, initial encounter; Y92.9 Unspecified place or not applicable; Z79.02 Long term (current) use of antithrombotics/antiplatelets; I25.2 Old myocardial infarction; Z88.8 Allergy status to other drugs, medicaments and biological substances; Z95.5 Presence of coronary angioplasty implant and graft; Z79.01 Long term (current) use of anticoagulants
CPT/HCPCS: 71046; 80048; 80053; 83735; 84443; 84484; 85025; 93005; 96361; 96374; 99291; J1160

== ENCOUNTER → 2024-01-10 10:09 | Outpatient (REF) | payer MEDICARE, SELFPAY ==
[2024-01-10 10:44] LABS: % Basophils 1.5 % (0-2); % Eosinophils 3.6 % (0-6); % Immature Granulocytes 0.7 % (0-0.5); % Lymphocytes 7.5 % (20.5-51.1); % Monocytes 9.1 % (1.7-9.3); % Neutrophils 77.6 % (42.2-75.2); Absolute Basophils 0.1 10^3/uL (0-0.2); Absolute Eosinophils 0.2 10^3/uL (0-0.7); Absolute Lymphocytes 0.5 10^3/uL (1.2-3.4); Absolute Monocytes 0.6 10^3/uL (0.1-0.6); Absolute Neutrophils 4.8 10^3/uL (1.4-6.5); Hematocrit 35.2 % (39.0-52.0); Hemoglobin 11.8 g/dL (13.0-18.0); Mean Corp Hgb Conc. 33.5 g/dL (33.0-37.0); Mean Corpuscular Hgb 34.4 pg (27.0-31.0); Mean Corpuscular Volume 102.6 fL (80.0-94.0); Mean Platelet Volume 8.4 fL (7.4-10.4); Nucleated Red Blood Cells % 0 % (-); Platelet Count 97 10^3/uL (130-400); Red Blood Cell Count 3.43 10^6/uL (4.70-6.10); Red Cell Dist. Width 17.2 % (11.5-14.5); White Blood Cell Count 6.2 10^3/uL (4.8-10.8)
[2024-01-10 10:58] LABS: ALT (SGPT) 23 U/L (0-50); AST (SGOT) 23 U/L (17-59); Albumin 3.7 g/dl (3.5-5.0); Alkaline Phosphatase 104 U/L (38-126); Blood Urea Nitrogen 13 mg/dl (9-20); Calcium 9.3 mg/dl (8.4-10.2); Carbon Dioxide 24 mmol/L (22-30); Chloride 108 mmol/L (98-107); Glucose 101 mg/dl (70-99); Magnesium 1.5 mg/dl (1.6-2.3); Potassium 3.5 mmol/L (3.5-5.1); Sodium 140 mmol/L (135-145); Total Bilirubin 2.5 mg/dl (0.2-1.3); Total Protein 5.9 g/dl (6.3-8.2); eGFR > 60.00
== END ==
LOC: SDSPAT 10:09
PROVIDERS: ATTENDING PHYSICIAN Internal Medicine Cardiovascular Disease; FAMILY PHYSICIAN Physician Assistant Medical; OTHER PHYSICIAN Internal Medicine Cardiovascular Disease
DX: Z01.818 Encounter for other preprocedural examination (principal); I48.0 Paroxysmal atrial fibrillation
CPT/HCPCS: 36415; 75572; 80053; 83735; 85025; 85610; 86850; 86900; 86901; Q9967

== ENCOUNTER 2024-01-17 14:56 | Inpatient (IN) | payer MEDICARE, SELFPAY ==
[2024-01-17] VITALS (26 sets, daily range): BP systolic 90–129; BP diastolic 55–85; BMI 26.2
[2024-01-17 11:22] LABS: % Basophils 0.7 % (0-2); % Eosinophils 0.2 % (0-6); % Immature Granulocytes 0.7 % (0-0.5); % Lymphocytes 6.7 % (20.5-51.1); % Monocytes 7.1 % (1.7-9.3); % Neutrophils 84.6 % (42.2-75.2); Absolute Lymphocytes 0.3 10^3/uL (1.2-3.4); Absolute Monocytes 0.3 10^3/uL (0.1-0.6); Absolute Neutrophils 3.8 10^3/uL (1.4-6.5); Hematocrit 38.4 % (39.0-52.0); Hemoglobin 12.8 g/dL (13.0-18.0); Mean Corp Hgb Conc. 33.3 g/dL (33.0-37.0); Mean Corpuscular Hgb 33.3 pg (27.0-31.0); Mean Platelet Volume 9.9 fL (7.4-10.4); Nucleated Red Blood Cells % 0 % (-); Platelet Count 98 10^3/uL (130-400); Red Blood Cell Count 3.84 10^6/uL (4.70-6.10); Red Cell Dist. Width 16.3 % (11.5-14.5); White Blood Cell Count 4.5 10^3/uL (4.8-10.8)
[2024-01-17 11:34] LABS: D-Dimer 0.41 ug/mlFEU (0.00-0.50)
--- NOTE | 2024-01-17 11:35 | ED.GENMED ---
History of Present Illness
General
Chief Complaint: Breathing Problem
Source: patient
Time Seen by Provider: 01/17/24 11:28
Travel History
Have you had any contact with someone who has COVID-19?: No
Do you have any symptoms of coronavirus? Fever > 100 degrees, chills, cough, shortness of breath, sore throat, loss of taste or smell, muscle aches, or headache?: Yes
Symptoms:: cough sob
History of Present Illness
History of Present Illness:
70-year-old male presents emergency room complaining of shortness of breath, cough. Patient been feeling unwell for the past 4 days. He saw his primary care doctor who diagnosed him with a respiratory infection and started on Levaquin. Unclear if
the patient was tachycardic at that time. He was told to come to the emergency room if he is not feeling any better or starts feeling worse. Patient has a history of A-fib. He is scheduled for an ablation today actually but canceled because he
was not feeling well. In preparation for his procedure the patient had stopped taking digoxin. He had also has run out of diltiazem so has not taken after 3 days.
Past History
Past History
ED Past Medical History: Arrthythmia, CAD, HTN, Hypercholesterolemia and Other (multiple myeloma)
ED Past Surgical History: Orthopedic
Social History
Tobacco: Non-smoker
Alcohol: None
Drug: None
Personal:
Living: with family
Phy Exam
Physical Exam
Physical Exam:
General: Awake, Alert, Oriented X3. No acute distress.
Vitals: Tachycardic
Head: Atraumatic
Eyes: Pupils equal, EOMI
Throat: Airway intact, no exudates
Neck: Trachea midline
Lungs: Crackles bilateral bases
Heart: Tachycardic, irregular rate, no murmurs
Abd: Soft, Nontender, No pulsatile mass
Neuro: Nonfocal
Skin: Warm, dry, no rash
Extremities: pulses equal b/l, trace edema
Scores
Heart Failure Risk
Heart Failure Risk Score: Not Applicable
Course
Orders/Labs/Results
Orders:
Orders
01/17/24 11:08
Electrocardiogram (*1) Urgent
Reason for Study: Shortness of Breath
EKG- Treatment ONCE
01/17/24 11:13
CMP [Comprehensive Metabolic Panel] Urgent
Complete Blood Count/With Diff Urgent
D-Dimer Urgent
Troponin I Urgent
01/17/24 11:33
Diltiazem 125 mg/125 ml Nss [Cardizem] 125 mg in 125 ml IV NOW
Initial dose in mg/hr, then titrate:: 5
Titrate to keep:: Heart rate 80-100 bpm
Titrate by mg/hr:: 5 mg/hr
Frequency of titrations (minutes):: 15
Maximum dose in mg/hr:: 15
Diltiazem HCl [Cardizem] 20 mg IV NOW STA
01/17/24 11:34
CR Chest - 2 Views Urgent
Comment:
Reason For Exam: cough, sob
01/17/24 13:01
Diltiazem HCl [Cardizem] 25 mg IV NOW STA
01/17/24 13:38
COVID-19 Antigen Urgent
Source: Nasal Swab
Abnormal Lab Results
01/17/24
11:13
WBC 4.5 L 10^3/uL
(4.8-10.8)
RBC 3.84 L 10^6/uL
(4.70-6.10)
Hgb 12.8 L g/dL
(13.0-18.0)
Hct 38.4 L %
(39.0-52.0)
MCV 100.0 H fL
(80.0-94.0)
MCH 33.3 H pg
(27.0-31.0)
RDW 16.3 H %
(11.5-14.5)
Plt Count 98 L 10^3/uL
(130-400)
Absolute Lymphs (auto) 0.3 L 10^3/uL
(1.2-3.4)
Immature Gran % 0.7 H %
(0-0.5)
Neutrophils % 84.6 H %
(42.2-75.2)
Lymphocytes % 6.7 L %
(20.5-51.1)
Sodium 132 L mmol/L
(135-145)
Carbon Dioxide 21 L mmol/L
(22-30)
Glucose 104 H mg/dl
(70-99)
Total Bilirubin 4.2 H mg/dl
(0.2-1.3)
Troponin I 0.050 H* ng/ml
01/17/24 11:13
01/17/24 11:13
Vital Signs
Initial and Last Documented VS:
Initial Vital Signs
Temp Pulse Resp BP Pulse Ox
98.2 F 89 16 101/70 94
01/17/24 11:04 01/17/24 11:04 01/17/24 11:04 01/17/24 11:04 01/17/24 11:04
Last Documented Vital Signs
Temp Pulse Resp BP Pulse Ox
98.2 F 98 39 115/66 92
01/17/24 11:04 01/17/24 13:34 01/17/24 13:34 01/17/24 13:34 01/17/24 13:36
MDM/Problems Addressed
Differential Diagnosis Includes:
A-fib with rapid ventricular response with poor control due to medication discontinuation, A-fib with AVR due to running out of Cardizem, anemia, electrode abnormality, heart failure
MDM/Problems Addressed:
Patient presents with shortness of breath. He was treated by his primary care provider with antibiotics feeling worse today. Suspect his shortness of breath and cough may be more due to his rapid heart rate and acute infectious process. His chest
x-ray does not show any pneumonia. His white count is essentially normal. Rapid heart rate addressed with a bolus of IV Cardizem and a drip. Heart rate did not improve significantly even with the drip titrated up to 15 mg/h. Second bolus
administered with improved rate control initially. Given difficulty controlling rate patient will require hospitalization for further evaluation.
Chronic conditions affecting care: Arrhythmia (Atrial fibrillation)
*Radiology
Radiology exam reviewed: preliminary read by ED provider (No acute abnormality by my personal review)
*Pulse Oximetry
Patient hypoxic: no
*EKG
Interpreted by ED Provider?: Yes
Interpretation: abnormal
Heart Rate: 163
Rate: tachycardiac
Rhythm: a-fib
Interval: normal interval
QRS Pattern: normal QRS
Ischemia: non-specific ST changes
*[employer] Interpretation
Rate: tachycardiac
Interpretation: abnormal
Rhythm: a-fib
*Critical Care Note
Total Time (30-74mins, 75-104mins- exclusive of procedures): 35 min
comment:
Critical care statement: A total of 40 minutes of critical care time was provided for this patient. This includes management of unstable vital signs, evaluation of the patient at bedside, reviewing the patient's pertinent medical records, discussion
with consultants, review of old EKGs and review of pertinent medical records. This time with separate from time utilized to perform the aforementioned documented procedures
ED Attending Note
-
Portions of this chart may have been created with voice recognition software.� Occasional wrong word or��sound alike� substitutions may have occurred due to the inherent limitations of voice recognition software.
Discharge Plan
Departure
Patient Disposition: Admit
Date of Disposition: 01/17/24
Time of Disposition: 13:38
Admit to: Telemetry
Presentation/result/management discussed w/ accepting MD/DO: Hospitalist
Condition: Fair
Discharge Problem:
Atrial fibrillation with RVR
Prescriptions:
No Action
tamsulosin [Flomax] 0.4 mg Capsule
0.4 mg PO DAILY
potassium chloride 10 mEq Tablet Extended Release
20 meq PO BID
lenalidomide [Revlimid] 10 mg Capsule
10 mg PO QPM
Hold Instructions: Resume on 12/13/23. Still cleared to resume by Ralph Campos
Eliquis 5 mg tablet
5 mg PO BID
Hold Instructions: Resume on 11/30/23. Restart on Tuesday if no further bleeding
atorvastatin 40 mg Tablet
40 mg PO DAILY
Theragen Tablet
1 tab PO DAILY
acetaminophen [Tylenol Extra Strength] 500 mg Tablet
1,000 mg PO Q6HPRN PRN (Reason: mild pain)
guaifenesin [Robitussin] 100 mg/5 mL Liquid
200 mg PO Q4HPRN PRN (Reason: cough)
levofloxacin 750 mg Tablet
750 mg PO DAILY
diltiazem HCl 240 mg capsule,extended release 24hr
240 mg PO BID
digoxin 250 mcg (0.25 mg) tablet
250 mcg PO NOON
Referrals:
Evens Durant PA-C [Family Provider] -
Interventions
Interventions:
*Risk Screen - Suicide Last Done: 01/17/24 11:30
*General Assessment Last Done: 01/17/24 11:30
*Neglect/Abuse Screening Last Done: 01/17/24 11:30
ED- Fall Risk Assessment Last Done: 01/17/24 11:30
*ED COVID-19 Vaccine History Last Done: 01/17/24 11:04
ED- Cardiac Assessment Last Done: 01/17/24 11:30
ED- Pulmonary Assessment Last Done: 01/17/24 11:30
Discharge Date and Time
Print Language: CROATIAN
[2024-01-17] MEDS: CARDIZEM 125 IV ×2 (11:42→17:40)
[2024-01-17] MEDS: CARDIZEM 20 MG IV (11:42)
--- NOTE | 2024-01-17 12:17 | PHANOTE ---
med rec sandip-patient threw up today's(01/17/2024) medications ~30/60 minutes after taking them.
[2024-01-17 12:29] LABS: ALT (SGPT) 20 U/L (0-50); AST (SGOT) 28 U/L (17-59); Albumin 3.9 g/dl (3.5-5.0); Alkaline Phosphatase 104 U/L (38-126); Blood Urea Nitrogen 18 mg/dl (9-20); Calcium 9.8 mg/dl (8.4-10.2); Carbon Dioxide 21 mmol/L (22-30); Chloride 102 mmol/L (98-107); Glucose 104 mg/dl (70-99); Potassium 4.5 mmol/L (3.5-5.1); Sodium 132 mmol/L (135-145); Total Bilirubin 4.2 mg/dl (0.2-1.3); Total Protein 6.3 g/dl (6.3-8.2); eGFR > 60.00
[2024-01-17] MEDS: CARDIZEM 25 MG IV (13:17)
[2024-01-17 14:11] LABS: COVID-19 Antigen Negative (Negative)
--- NOTE | 2024-01-17 14:50 | HPS.HSE ---
Family Physician
-
Family Physician: MAXX LAO PA-C
Chief Complaint
-
Rapid atrial fibrillation
Congestion/upper respiratory symptoms
History of Present Illness
Patient is a 73 years old male with paroxysmal atrial fibrillation, coronary artery disease, multiple myeloma and obstructive sleep apnea who was recently admitted for atrial fibrillation and problems with rate control. At the time of admission
patient regimen was established with Cardizem and digoxin. Patient has been on chronic anticoagulation with Eliquis. Given issues with rate control, patient had been scheduled for outpatient ablation procedure held Eliquis about 2 days prior to
presentation. In addition he also ran out of digoxin and his last dose according to patient was about 2 days ago. He has been on Eliquis without interruption.
In addition patient developed upper respiratory symptoms with congestion and dyspnea. He reported subjective fever at home. Seen by primary physician and initiated Levaquin empirically.
Medical History
Past Medical History
Past Medical History: Reports Arrhythmia (Paroxysmal A-fib), CAD and Other (Multiple myeloma/obstructive sleep apnea/hypertension)
Past Surgical History: Reports Other (Cardiac, stent placement. Inspire implant.)
Social History
Tobacco: Non-smoker
Alcohol: None
Personal:
Living: With Family
Family History
Family History: Not pertinent
Allergies / Home Medications
Allergies reflects when Allergies were last updated in [employer].
Home Medications with original date entered in [employer]
Allergy/Medication List:
Allergies
Allergy/AdvReac Type Severity Reaction Status Date / Time
amiodarone Allergy Liver Verified 12/11/23 22:48
function
reduced
hydrochlorothiazide Allergy Unknown Verified 12/11/23 22:48
Home Medications
tamsulosin 0.4 mg capsule (Flomax) 0.4 mg PO DAILY Urinary Issue 03/06/23
lenalidomide 10 mg capsule (Revlimid) 10 mg PO QPM multiple myeloma 08/18/23
potassium chloride 10 mEq tablet,extended release 20 meq PO BID Electrolyte Repletion 08/18/23
apixaban 5 mg tablet (Eliquis) 5 mg PO BID Blood Clot Prevention/Tx 11/23/23
acetaminophen 500 mg tablet (Tylenol Extra Strength) 1,000 mg PO Q6HPRN PRN mild pain 01/17/24
atorvastatin 40 mg tablet 40 mg PO DAILY High Cholesterol 01/17/24
digoxin 250 mcg (0.25 mg) tablet 250 mcg PO NOON Arrhythmia 01/17/24
diltiazem HCl 240 mg capsule,extended release 24 hr 240 mg PO BID Arrhythmia 01/17/24
guaifenesin 100 mg/5 mL oral liquid 200 mg PO Q4HPRN PRN cough 01/17/24
levofloxacin 750 mg tablet 750 mg PO DAILY Infection 01/17/24
therapeutic multivitamin 1 tab PO DAILY Supplement 01/17/24
Review of Systems
-
A 12 point ROS was completed and negative except as noted: Yes
Cardiac: Reports See HPI
Physical Exam
Vital Signs
Vital Signs
Temp Pulse Resp BP Pulse Ox
98.2 F 112 42 98/72 96
01/17/24 11:04 01/17/24 14:45 01/17/24 14:45 01/17/24 14:30 01/17/24 14:45
Physical Exam
General: Well Developed, Well Nourished and No Apparent Distress
HEENT: NormoCephalic, Moist mucous membranes and Atraumatic
Respiratory: Clear
Cardiac: S1/S2 and Irregular Rhythm; No Murmur, Rub or JVD
GI: Soft, Non Tender, Non Distended and Normal Bowel Sounds; No Organomegaly
Rectal: Deferred by Provider
Musculoskeletal: No Clubbing, No Cyanosis and No Edema
Skin: No Rash
Neuro: Awake, Alert, Oriented, AO x 3 and Nonfocal/grossly intact
Laboratory Results
-
01/17/24 11:13
01/17/24 11:13
Laboratory Results
Total Bilirubin 4.2 mg/dl (0.2-1.3) H 01/17/24 11:13
AST 28 U/L (17-59) 01/17/24 11:13
ALT 20 U/L (0-50) 01/17/24 11:13
Alkaline Phosphatase 104 U/L (38-126) 01/17/24 11:13
Troponin I 0.050 ng/ml H* 01/17/24 11:13
Data Reviewed
-
Diagnostic Radiology: Report Reviewed by me
Lab Data: Labs Reviewed by me
Impression/Plan
-
IMPRESSION:
Paroxysmal fibrillation with rapid ventricular response.
Upper respiratory tract infection.
Conditions prior to admission:
Paroxysmal atrial fibrillation
-Cardioversion 11/05.
Chronic anticoagulation with Eliquis.
CAD.
� Status post [place] with RCA PCI times 09/2017.
Essential hypertension
Dyslipidemia.
Obstructive sleep apnea status post inspire implant 2021.
Multiple myeloma status post stem cell transplant 2022 currently on Revlimid
BPH
PLAN:
Atrial fibrillation with rapid ventricular response
Patient has been off digoxin in preparation for ablation procedure and ran out of diltiazem.
Initiated on Cardizem drip in ED and currently at 15 mg an hour.
Plan is to resume oral Cardizem and digoxin and attempt to wean off IV Cardizem.
Continue Eliquis
Ablation will be scheduled as outpatient
Cardiology consultation.
Noted with dyspnea.
Not hypoxic.
Echo 02/07/2023: EF 60 to 65%, mild MR, trace TR, mild AI, aortic root 4.2cm
Chest x-ray with clear lung rodrigez.
Will check pro CHF BNP.? Acute diastolic CHF in the settings of rapid A-fib
Consider IV Lasix.
Upper respiratory tract infection
Initiated on Levaquin as outpatient
Afebrile.
Noted immunosuppression given multiple myeloma and Revlimid.
Monitor closely.
Check procalcitonin.
Hold further antibiotics for now
CAD, status post stent.
Chest pain-free.
Continue statin.
Obstructive sleep apnea status post inspire implant 2021.
Multiple myeloma on Revlimid
CBC stable.
DVT prophylaxis/Eliquis
Full code.
[2024-01-17 15:20] LABS: NT-proBNP 1280 pg/ml
[2024-01-17] MEDS: CARDIZEM CD 240 MG PO (16:04)
[2024-01-17] MEDS: LANOXIN 250 MCG PO (16:05)
--- NOTE | 2024-01-17 16:08 | CON.CAR ---
Addendum entered and electronically signed by Rodrigue Nick MD 01/17/24 16:24:
patient seen and examined
agree with YVAN Johnson's notes and assessment
agree with YVAN Johnson's plan
exam:
heent ncat
jvp 6
cor irreg irreg
lungs diminished
abd soft
trace ext edema
non focal neurologically
Assessment:
Presented with SOB, cough
Paroxysmal atrial fibrillation w/ RVR
CV 11/04/2023
Chronic sotalol therapy
Chronic Eliquis anticoagulationElevated troponin, suspected nonischemic myocardial injury
CAD
s/p [place] w/ RCA PCI x2 05/2018h/o hematuria 11/2023
HTN
HLD
JA s/p Inspire implant 07/2022
Multiple Myeloma s/p autologous stem cell transplant 03/2023
Lexiscan stress test 01/13/2022: negative ECG for ischemia, LV perfusion is normal.
Echo 02/07/2023: EF 60 to 65%, mild MR, trace TR, mild AI, aortic root 4.2cm
Plan:
-Patient presents with shortness of breath and cough over the last 4 days
-He has been off of digoxin (as instructed pre ablation) and Cardizem (ran out) the last several days.
-on arrival he is in afib with RVR
-CXR without acute abnormality, suspect component of acute CHF. proBNP 1280. will give dose of IV lasix 20mg and assess response
-resume cardizem cd and digoxin.
-continue eliquis
-rescheduled for ablation with Dr. Nick 02/07/24.
-EKG in rapid afib with lateral ST depressions. last stress from 2021 with normal perfusion. trop 0.05, trend to peak. no CP. may consider OP ischemic evaluation prior to ablation
-d/w hospitalist
-d/w patient and at bedside
Original Note:
Consultation
Consultation Request
Date/Time Consultation Performed: 01/17/24
Requesting Provider: Dr. Ambrosio
Performing Provider: Zahraa Johnson PA-C for Dr. Nick
Reason for Consultation: afib with RVR
Medical History
-
Chief Complaint: SOB, cough
History of Present Illness:
Patient is a 73-year-old male recently admitted to [facility] 12/10 - 12/14/2023 for atrial fibrillation with rapid ventricular response. He had been on sotalol with breakthrough, so was stopped during that admission. Plan was for rate
control with ablation in short order. Heart rates adequately controlled on diltiazem CD to 40 mg twice daily and digoxin 0.25 mg daily. Of note he had prior fatigue on metoprolol and elevated LFTs with amiodarone. He had been scheduled for
ablation today. He reports he stopped his digoxin 2 days ago as instructed by our office. He also ran out of of Cardizem CD approximately 2 to 4 days ago, so has not been taking that. He states approximately 4 days ago he started with cough and
shortness of breath which has progressed. He was seen by his primary care physician and given Levaquin for possible URI. He presents to [facility] now for further evaluation of symptoms. He is noted to be in A-fib with rapid ventricular
response. He reports his cough is dry. He denies weight gain or orthopnea. He is not on diuretic as an outpatient.
PMH:
Paroxysmal atrial fibrillation w/ RVR
CV 11/04/2023
Chronic sotalol therapy
Chronic Eliquis anticoagulation
CAD
s/p [place] w/ RCA PCI x2 05/2018
h/o hematuria 11/2023
HTN
HLD
JA s/p Inspire implant 07/2022
Multiple Myeloma s/p autologous stem cell transplant 03/2023
Past Medical History
Past Medical History: Other (in HPI)
Social History
Tobacco: Non-Smoker
Alcohol: None
Personal:
Living: With Family
Employment: Retired
Family History
Family History: CAD and Hypertension
Allergies / Home Medications
Allergy/AdvReac Type Severity Reaction Status Date / Time
amiodarone Allergy Liver Verified 12/11/23 22:48
function
reduced
hydrochlorothiazide Allergy Unknown Verified 12/11/23 22:48
�Medication �Instructions �Recorded �Confirmed �Type
tamsulosin 0.4 mg capsule (Flomax) 0.4 mg PO DAILY Urinary Issue 03/06/23 01/17/24 History
lenalidomide 10 mg capsule 10 mg PO QPM multiple myeloma 08/18/23 01/17/24 History
(Revlimid)
potassium chloride 10 mEq 20 meq PO BID Electrolyte Repletion 08/18/23 01/17/24 History
tablet,extended release
apixaban 5 mg tablet (Eliquis) 5 mg PO BID Blood Clot 11/23/23 01/17/24 History
Prevention/Tx
acetaminophen 500 mg tablet 1,000 mg PO Q6HPRN PRN mild pain 01/17/24 01/17/24 History
(Tylenol Extra Strength)
atorvastatin 40 mg tablet 40 mg PO DAILY High Cholesterol 01/17/24 01/17/24 History
digoxin 250 mcg (0.25 mg) tablet 250 mcg PO NOON Arrhythmia 01/17/24 01/17/24 History
diltiazem HCl 240 mg 240 mg PO BID Arrhythmia 01/17/24 01/17/24 History
capsule,extended release 24 hr
guaifenesin 100 mg/5 mL oral liquid 200 mg PO Q4HPRN PRN cough 01/17/24 01/17/24 History
levofloxacin 750 mg tablet 750 mg PO DAILY Infection 01/17/24 01/17/24 History
therapeutic multivitamin 1 tab PO DAILY Supplement 01/17/24 01/17/24 History
Review of Systems
-
History Source: Patient and Family
All other systems: Negative unless noted
Physical Exam
Vital Signs
Temp Pulse Resp BP Pulse Ox
98.2 F 105 39 124/73 96
01/17/24 11:04 01/17/24 16:00 01/17/24 16:00 01/17/24 16:00 01/17/24 16:00
Lab Results
01/17/24 11:13
01/17/24 11:13
Troponin I 0.050 ng/ml H* 01/17/24 11:13
Eyp-Q-Ntpgqkoheyl Pept 1280 pg/ml 01/17/24 11:13
Physical Exam
General: Other (labored breathing. on supp O2)
HEENT: Normocephalic, Anicteric and Moist Mucous Membranes
Respiratory: Crackles and Non Labored Respirations
Cardiac: S1/S2 and Irregular Rhythm
GI: Soft, Non Tender, Non Distended and Normal Bowel Sounds
Musculoskeletal: No Clubbing, No Cyanosis and No Edema
Skin: Warm and Dry
Neuro: AO x 3
Impression / Plan
-
PCP: Evens Durant PA-C
Intranet Specialist: Dr. LO Torres
Assessment:
Presented with SOB, cough
Paroxysmal atrial fibrillation w/ RVR
CV 11/04/2023
Chronic sotalol therapy
Chronic Eliquis anticoagulation
Elevated troponin, suspected nonischemic myocardial injury
CAD
s/p [place] w/ RCA PCI x2 05/2018
h/o hematuria 11/2023
HTN
HLD
JA s/p Inspire implant 07/2022
Multiple Myeloma s/p autologous stem cell transplant 03/2023
Lexiscan stress test 01/13/2022: negative ECG for ischemia, LV perfusion is normal.
Echo 02/07/2023: EF 60 to 65%, mild MR, trace TR, mild AI, aortic root 4.2cm
Plan:
-Patient presents with shortness of breath and cough over the last 4 days
-He has been off of digoxin (as instructed pre ablation) and Cardizem (ran out) the last several days.
-on arrival he is in afib with RVR
-CXR without acute abnormality, suspect component of acute CHF. proBNP 1280. will give dose of IV lasix 20mg and assess response
-resume cardizem cd and digoxin.
-continue eliquis
-rescheduled for ablation with Dr. Nick 02/07/24.
-EKG in rapid afib with lateral ST depressions. last stress from 2021 with normal perfusion. trop 0.05, trend to peak. no CP. may consider OP ischemic evaluation prior to ablation
-d/w hospitalist
-d/w patient and at bedside
Data Reviewed
-
EKG: Tracing Personally Visualized and interpreted
Radiology: Report Reviewed by me
Medical Tests (Nuc Med, Echo etc): Report Reviewed by me
Labs: Labs Reviewed by me
Old Records: Reviewed
[2024-01-17] MEDS: LIPITOR 40 MG PO (16:55)
[2024-01-17] MEDS: ROBITUSSIN 200 MG PO (16:55)
[2024-01-17 18:14] LABS: Procalcitonin < 0.05 ng/ml (0.0-0.25)
[2024-01-17] MEDS: KCL 20 MEQ PO (20:16)
[2024-01-17] MEDS: ELIQUIS 5 MG PO (20:16)
[2024-01-17] MEDS: DUONEB 3 ML INH (20:17)
[2024-01-17] MEDS: LASIX 40 MG IV (20:18)
[2024-01-17] MEDS: CARDIZEM CD PO (20:28)
--- NOTE | 2024-01-18 00:03 | W.PN.UPDATE ---
Update Note
Progress Note Update
pt arrived to unit with HR still 120-150s.
ED nurse didn't give pm dose of cardizem po 240mg due to pt being on cardizem gtt
Will order cardizem 240mg po now. Hopefully we can attempt to wean gtt during night.
[2024-01-18] MEDS: CARDIZEM CD 240 MG PO ×3 (00:13→19:52)
[2024-01-18] MEDS: MELATONIN 5 MG PO (00:48)
[2024-01-18] MEDS: CARDIZEM 125 IV (01:35)
[2024-01-18 03:29] VITALS: BP 113/78
[2024-01-18] MEDS: ROBITUSSIN 200 MG PO ×3 (05:16→22:35)
[2024-01-18] MEDS: TYLENOL 1000 MG PO ×3 (05:16→22:35)
[2024-01-18 05:25] VITALS: BMI 26.1
[2024-01-18 07:30] VITALS: BP 132/66
[2024-01-18 08:00] VITALS: BMI 26.1
[2024-01-18 08:08] LABS: % Basophils 0.4 % (0-2); % Eosinophils 0.2 % (0-6); % Immature Granulocytes 0.8 % (0-0.5); % Monocytes 11.3 % (1.7-9.3); % Neutrophils 81.3 % (42.2-75.2); Absolute Lymphocytes 0.3 10^3/uL (1.2-3.4); Absolute Monocytes 0.6 10^3/uL (0.1-0.6); Absolute Neutrophils 4.1 10^3/uL (1.4-6.5); Hematocrit 36.1 % (39.0-52.0); Hemoglobin 12.1 g/dL (13.0-18.0); Mean Corp Hgb Conc. 33.5 g/dL (33.0-37.0); Mean Corpuscular Hgb 33.7 pg (27.0-31.0); Mean Corpuscular Volume 100.6 fL (80.0-94.0); Mean Platelet Volume 10.1 fL (7.4-10.4); Nucleated Red Blood Cells % 0 % (-); Platelet Count 106 10^3/uL (130-400); Red Blood Cell Count 3.59 10^6/uL (4.70-6.10); Red Cell Dist. Width 16.5 % (11.5-14.5)
[2024-01-18] MEDS: ELIQUIS 5 MG PO ×2 (08:24→19:52)
[2024-01-18] MEDS: LIPITOR 40 MG PO (08:24)
[2024-01-18] MEDS: KCL 20 MEQ PO ×2 (08:24→19:51)
[2024-01-18] MEDS: FLOMAX 0.400000000000000022 MG PO (08:24)
[2024-01-18] MEDS: THERAGRAN 1 TABLET PO (08:24)
[2024-01-18 08:53] LABS: Blood Urea Nitrogen 29 mg/dl (9-20); Calcium 9.1 mg/dl (8.4-10.2); Carbon Dioxide 23 mmol/L (22-30); Chloride 100 mmol/L (98-107); Estimated Creatinine Clearance 56 ml/min; Glucose 106 mg/dl (70-99); Potassium 4.9 mmol/L (3.5-5.1); Sodium 133 mmol/L (135-145); eGFR > 60.00
[2024-01-18 11:28] VITALS: BP 107/62
[2024-01-18] MEDS: LANOXIN 250 MCG PO (12:23)
[2024-01-18 15:00] VITALS: BP 114/70
--- NOTE | 2024-01-18 15:23 | W.PN.CARDCBS ---
Addendum entered and electronically signed by Kash aCrl MD 01/18/24 15:54:
I saw and examined the patient.
The [facility] Manager's note was reviewed and I agree with the note.
Comment:
GEN: No distress, awake, Ox3
HEENT: supple, anicteric, mmm
LUNGS: scatt rhonchi
CV: irreg, S1/S2, 08/20 syst LSB, no murmur
ABD: soft, BS+, NT/ND
EXT: No edema
NEURO: Gross non-focal
SKIN: No rash
Plan:
Ventricular rates remain poorly controlled. Would continue higher dose of diltiazem to 40 mg twice daily and digoxin. Hopefully restarting these meds will improve his heart rate.
If heart rates remain elevated we will need to add low-dose amiodarone.
Continue Eliquis.
Continue diuresis with IV Lasix.
Original Note:
Today's Communication / Plan
-
STOP Cardizem gtt
Extra dose of Lasix this evening
Impression / Plan
-
PCP: Evens Durant PA-C
Sr. Consultant: Dr. LO Torres
Assessment:
Presented with SOB, cough
Paroxysmal atrial fibrillation w/ RVR
CV 11/04/2023
previous amiodarone therapy stopped due to elevated LFTs
previous sotalol therapy stopped due to inability to maintain SR and QTc prolongation 11/2023
Chronic Eliquis anticoagulation
Elevated troponin, suspected nonischemic myocardial injury
CAD
s/p [place] w/ RCA PCI x2 05/2018
h/o hematuria 11/2023
HTN
HLD
JA s/p Inspire implant 07/2022
Multiple Myeloma s/p autologous stem cell transplant 03/2023
Lexiscan stress test 01/13/2022: negative ECG for ischemia, LV perfusion is normal.
Echo 02/07/2023: EF 60 to 65%, mild MR, trace TR, mild AI, aortic root 4.2cm
Plan:
-Weight is unchanged since admission although negative by I&Os despite Lasix 40 mg IV x1 on 01/17/24 and again 01/18/24. Patient was not taking a diuretic prior to admission.
-Will give an additional dose of Lasix 40 mg IV on 01/18/24 evening.
-EF was 60-65% by echo 02/07/23. Consider repeat echo
-Rapid Afib since admission. Patient was previously scheduled for ablation 01/17/24, but is now pushed back to 02/07/24 due to acute HF on admission.
-Stopping Cardizem gtt 01/18/24 to focus on PO meds for rate control.
-HR control with outpatient dose of Cardizem CD 240 mg BID and resumption of digoxin 250 mcg daily that had been on hold leading up to ablation.
-Cont Eliquis 5 mg BID (age 73, Cre 1.1, wt 77.6 kg)
-Single Troponin checked this admission was 0.05, will order repeat for AM. No chest pain, although ECG with lateral ST depressions while in rapid Afib. Patient should have an eventual outpatient ischemic evaluation, perhaps after PVI. Last stress
test was a Lexiscan in 01/13/22 that was negative for ischemia. For now will manage as a nonischemic myocardial injury Troponin elevation.
Progress Note - Sr. Consultant
Subjective
Date of Service: January 18, 2024
Objective
Labs:
01/18/24 07:33
01/18/24 07:33
Labs
Hgb 12.1 g/dL (13.0-18.0) L 01/18/24 07:33
Hct 36.1 % (39.0-52.0) L 01/18/24 07:33
Plt Count 106 10^3/uL (130-400) L 01/18/24 07:33
Sodium 133 mmol/L (135-145) L 01/18/24 07:33
Potassium 4.9 mmol/L (3.5-5.1) 01/18/24 07:33
BUN 29 mg/dl (9-20) H 01/18/24 07:33
Creatinine 1.1 mg/dL (0.7-1.3) 01/18/24 07:33
Glucose 106 mg/dl (70-99) H 01/18/24 07:33
Troponins
01/17/24
11:13
Troponin I 0.050 H*
Vital Signs and I&O:
Vital Signs
Temp Pulse Resp BP Pulse Ox
97.6 F 96 20 107/62 95
01/18/24 11:28 01/18/24 12:23 01/18/24 11:28 01/18/24 11:28 01/18/24 11:36
Vital Signs
Temp Pulse Resp BP Pulse Ox
97.6 F 96 20 107/62 95
01/18/24 11:28 01/18/24 12:23 01/18/24 11:28 01/18/24 11:28 01/18/24 11:36
Intake & Output
01/16/24 01/17/24 01/18/24 01/19/24
06:59 06:59 06:59 06:59
Intake Total 240 / 240
Output Total 1100 / 1100
Balance -860 / -860
Physical Exam
Physical Exam
GEN: AAOx3
HEENT: MMM
LUNGS: No audible wheeze
CV: Afib on tele
ABD: ND
EXT: No edema
NEURO: Gross non-focal
SKIN: No rash
--- NOTE | 2024-01-18 16:19 | CM ---
Patient off floor, Mae present, initial assessment completed. Patient resides in a ranch style home, two steps to enter. reports patient does not use any type of DME although believes patient would benefit from a walker. No history with
VN or SNF. requesting if PT/OT is able to see patient, TT sent to Hospitalist. Patient PCP Evens Durant, pharmacy [facility], confirms prescription coverage, denies food insecurities. CM will continue to follow for discharge planning need.
Plan; home no needs likely.
[2024-01-18] MEDS: LASIX 40 MG IV (16:31)
--- NOTE | 2024-01-18 17:36 | W.PN.HOSP.TC ---
Today's Communication/Plan
-
IV diuresis
Rate control adjustment regimen.
Assessment / Plan
Assessment / Plan
IMPRESSION:
Paroxysmal fibrillation with rapid ventricular response.
Acute CHF preserved EF in the settings of rapid ventricular rate
Upper respiratory tract infection.
Reported altered mental status prior to admission with what sounds like single episode of aphasia/confusion
Conditions prior to admission:
Paroxysmal atrial fibrillation
-Cardioversion 11/05.
Chronic anticoagulation with Eliquis.
CAD.
� Status post [place] with RCA PCI times 09/2017.
Essential hypertension
Dyslipidemia.
Obstructive sleep apnea status post inspire implant 2021.
Multiple myeloma status post stem cell transplant 2022 currently on Revlimid
BPH
PLAN:
Atrial fibrillation with rapid ventricular response
Patient has been off digoxin in preparation for ablation procedure and ran out of diltiazem.
Initiated on Cardizem drip in ED and currently at 15 mg an hour.
Plan is to resume oral Cardizem and digoxin and attempt to wean off IV Cardizem.
Continue Eliquis
Ablation will be scheduled as outpatient
Cardiology consultation.
Acute CHF preserved EF secondary to rapid ventricular fibrillation.
Noted with dyspnea.
Not hypoxic.
Echo 02/07/2023: EF 60 to 65%, mild MR, trace TR, mild AI, aortic root 4.2cm
Chest x-ray with clear lung rodrigez.
Elevated pro CHF BNP.
Continue IV Lasix 40 mg daily
Follow daily weight
Upper respiratory tract infection
Initiated on Levaquin as outpatient
Afebrile.
Noted immunosuppression given multiple myeloma and Revlimid.
Monitor closely.
Normal procalcitonin
Hold further antibiotics for now
Altered mental status with what sounds like single episode of aphasia prior to admission.
Neurologic exam benign
With cognition at the baseline.
No reports of interruption of anticoagulation.
CT scan of the head with no acute abnormalities.
CAD, status post stent.
Chest pain-free.
Continue statin.
Obstructive sleep apnea status post inspire implant 2021.
Multiple myeloma on Revlimid
CBC stable.
DVT prophylaxis/Eliquis
Full code.
Anticipated Discharge: 24 - 48 hours
Subjective/Interval History
-
Date of Service: January 18, 2024
Objective Data
-
Labs:
Laboratory Results
01/18/24
07:33
WBC 5.0
Hgb 12.1 L
Hct 36.1 L
Plt Count 106 L
Sodium 133 L
Potassium 4.9
Chloride 100
Carbon Dioxide 23
BUN 29 H
Creatinine 1.1
Glucose 106 H
Calcium 9.1
Vital Signs:
Vital Signs
Temp Pulse Resp BP Pulse Ox
97.9 F 98 20 114/70 98
01/18/24 15:00 01/18/24 15:00 01/18/24 15:00 01/18/24 15:00 01/18/24 15:00
I&O
01/17/24 01/18/24 01/19/24
06:59 06:59 06:59
Intake Total 240 / 240
Output Total 1100 / 1100
Balance -860 / -860
Physical Exam
-
General: Well Developed and No Apparent Distress
HEENT: Normocephalic, Atraumatic and Moist Mucous Membranes
Respiratory: Clear to Auscultation
Cardiac: Regular Rhythm and S1/S2; Negative Murmur, Rub or Gallop
GI: Soft, Nontender, Nondistended and Normal Bowel Sounds; Negative Organomegaly
Rectal: Deferred by Provider
Musculoskeletal: No Clubbing, No Cyanosis and No Edema
Skin: Negative Rash
Neuro: Awake, Alert, Oriented and Nonfocal/Grossly Intact
[2024-01-18 19:20] VITALS: BP 134/75
[2024-01-18 23:00] VITALS: BP 126/77
[2024-01-19] VITALS (8 sets, daily range): BP systolic 105–123; BP diastolic 65–81; PULSE 79–96; O2SAT 97–98; BMI 26.1
[2024-01-19 08:02] LABS: Blood Urea Nitrogen 31 mg/dl (9-20); Calcium 9.2 mg/dl (8.4-10.2); Carbon Dioxide 24 mmol/L (22-30); Chloride 99 mmol/L (98-107); Estimated Creatinine Clearance 68 ml/min; Glucose 103 mg/dl (70-99); Potassium 4.2 mmol/L (3.5-5.1); Sodium 131 mmol/L (135-145); eGFR > 60.00
[2024-01-19] MEDS: LASIX 40 MG IV (08:20)
[2024-01-19] MEDS: CARDIZEM CD 240 MG PO ×2 (08:20→20:47)
[2024-01-19] MEDS: THERAGRAN 1 TABLET PO (08:20)
[2024-01-19] MEDS: KCL 20 MEQ PO ×2 (08:20→20:47)
[2024-01-19] MEDS: ELIQUIS 5 MG PO ×2 (08:20→20:48)
[2024-01-19] MEDS: LIPITOR 40 MG PO (08:20)
[2024-01-19] MEDS: FLOMAX 0.400000000000000022 MG PO (08:20)
[2024-01-19] MEDS: LANOXIN 250 MCG PO (11:37)
[2024-01-19] MEDS: LOPRESSOR 5 MG IV (11:37)
[2024-01-19] MEDS: ROBITUSSIN 200 MG PO ×2 (14:06→20:47)
--- NOTE | 2024-01-19 14:16 | W.PN.CARDCBS ---
Today's Communication / Plan
-
Wean oxygen
Will order echo
Change to p.o. diuretics January 19
Calcium channel lion and digoxin for rate control. We can tolerate heart rates in the 100-120 range in the short-term and would not make that a condition of discharge
Oral anticoagulation
PVI on February 06
Will follow while hospitalized
Impression / Plan
-
PCP: Evens Durant PA-C
Electrician Technician: Dr. LO Torres
Assessment:
Presented with SOB, cough
Paroxysmal atrial fibrillation w/ RVR
CV 11/04/2023
previous amiodarone therapy stopped due to elevated LFTs
previous sotalol therapy stopped due to inability to maintain SR and QTc prolongation 11/2023
Chronic Eliquis anticoagulation
Elevated troponin, suspected nonischemic myocardial injury
CAD
s/p [place] w/ RCA PCI x2 05/2018
h/o hematuria 11/2023
HTN
HLD
JA s/p Inspire implant 07/2022
Multiple Myeloma s/p autologous stem cell transplant 03/2023
Lexiscan stress test 01/13/2022: negative ECG for ischemia, LV perfusion is normal.
Echo 02/07/2023: EF 60 to 65%, mild MR, trace TR, mild AI, aortic root 4.2cm
Plan:
-Will change to 20 mg of Lasix p.o. daily on January 19Tuesday and can be discharged on 20 mg of Lasix daily. Can he please get a BMP next week with results to our office
-Received IV Lasix this morning
-EF was 60-65% by echo 02/07/23
-Rapid Afib since admission. Patient was previously scheduled for ablation 01/17/24, but is now pushed back to 02/07/24 due to acute HF on admission.
-Stopping Cardizem gtt 01/18/24 to focus on PO meds for rate control.
-HR control with outpatient dose of Cardizem CD 240 mg BID and resumption of digoxin 250 mcg daily that had been on hold leading up to ablation. I offered amiodarone although he has had transaminitis which was significant in the past and he
deferred on amiodarone at this time.
-Cont Eliquis 5 mg BID (age 73, Cre 1.1, wt 77.6 kg)
-Troponin values are stable
-I have no objection to trying to wean oxygen as he tells me he is feeling better and hopefully can be considered for discharge on January 19.
Progress Note - Electrician Technician
Subjective
Date of Service: January 19, 2024
Total Time Spent with Patient (in minutes): Feeling better
Objective
Labs:
01/18/24 07:33
01/19/24 07:28
Labs
Hgb 12.1 g/dL (13.0-18.0) L 01/18/24 07:33
Hct 36.1 % (39.0-52.0) L 01/18/24 07:33
Plt Count 106 10^3/uL (130-400) L 01/18/24 07:33
Sodium 131 mmol/L (135-145) L 01/19/24 07:28
Potassium 4.2 mmol/L (3.5-5.1) 01/19/24 07:28
BUN 31 mg/dl (9-20) H 01/19/24 07:28
Creatinine 0.9 mg/dL (0.7-1.3) 01/19/24 07:28
Glucose 103 mg/dl (70-99) H 01/19/24 07:28
Troponins
01/17/24 01/19/24
11:13 07:28
Troponin I 0.050 H* 0.040 H*
Vital Signs and I&O:
Vital Signs
Temp Pulse Resp BP Pulse Ox
97.6 F 112 18 121/77 92
01/19/24 11:00 01/19/24 11:37 01/19/24 11:00 01/19/24 11:00 01/19/24 12:40
Vital Signs
Temp Pulse Resp BP Pulse Ox
97.6 F 112 18 121/77 92
01/19/24 11:00 01/19/24 11:37 01/19/24 11:00 01/19/24 11:00 01/19/24 12:40
Intake & Output
01/17/24 01/18/24 01/19/24 01/20/24
06:59 06:59 06:59 06:59
Intake Total 240 / 240 880 / 880
Output Total 1100 / 1100 400 / 400
Balance -860 / -860 480 / 480
Physical Exam
Physical Exam
Physical Exam
General: no apparent distress, not acutely ill
Neck: supple. no meningeal signs. normal psoterior pharynx
Heart: Irregularly irregular no murmur
Lungs: no acute respiratory distress. clear bilaterally
Abdomen: normal bowel sounds. not tender. no CVAT
Neuro: alert and oriented. no focal neurological deficits
Skin: no rash
Psychiatric: well kept. interactive and cooperative
Extremities: no edema. no calf tenderness. negative homans. good distal pulses
--- NOTE | 2024-01-19 16:00 | CM ---
Patient seen bedside, patient reports he is hopeful to discharge home tomorrow. Patient inquiring about obtaining a walker, TT sent to PT. IMM reviewed, signed, placed in chart. CM will continue to follow for discharge planning needs.
Plan; home no needs, patient requesting a walker, PT able to provide, script in patients chart.
--- NOTE | 2024-01-19 16:40 | W.PN.HOSP.TC ---
Today's Communication/Plan
-
Monitor rate on current regiment
IV Lasix for another 24 hours
Attempt to wean off oxygen
Assessment / Plan
Assessment / Plan
IMPRESSION:
Paroxysmal fibrillation with rapid ventricular response.
Acute CHF preserved EF in the settings of rapid ventricular rate
Upper respiratory tract infection.
Reported altered mental status prior to admission with what sounds like single episode of aphasia/confusion
Conditions prior to admission:
Paroxysmal atrial fibrillation
-Cardioversion 11/05.
Chronic anticoagulation with Eliquis.
CAD.
� Status post [place] with RCA PCI times 09/2017.
Essential hypertension
Dyslipidemia.
Obstructive sleep apnea status post inspire implant 2021.
Multiple myeloma status post stem cell transplant 2022 currently on Revlimid
BPH
PLAN:
Atrial fibrillation with rapid ventricular response
Patient has been off digoxin in preparation for ablation procedure and ran out of diltiazem.
Initiated on Cardizem drip in ED and currently at 15 mg an hour.
Plan is to resume oral Cardizem and digoxin and attempt to wean off IV Cardizem.
Continue Eliquis
Ablation will be scheduled as outpatient
Cardiology consultation.
Acute CHF preserved EF secondary to rapid ventricular fibrillation.
Noted with dyspnea.
Not hypoxic.
Echo 02/07/2023: EF 60 to 65%, mild MR, trace TR, mild AI, aortic root 4.2cm
Chest x-ray with clear lung rodrigez.
Elevated pro CHF BNP.
Continue IV Lasix 40 mg daily
Follow daily weight
Upper respiratory tract infection
Initiated on Levaquin as outpatient
Afebrile.
Noted immunosuppression given multiple myeloma and Revlimid.
Monitor closely.
Normal procalcitonin
Hold further antibiotics for now
Altered mental status with what sounds like single episode of aphasia prior to admission.
Neurologic exam benign
With cognition at the baseline.
No reports of interruption of anticoagulation.
CT scan of the head with no acute abnormalities.
CAD, status post stent.
Chest pain-free.
Continue statin.
Obstructive sleep apnea status post inspire implant 2021.
Multiple myeloma on Revlimid
CBC stable.
DVT prophylaxis/Eliquis
Full code.
Anticipated Discharge: 24 - 48 hours
Subjective/Interval History
-
Date of Service: January 19, 2024
Objective Data
-
Labs:
Laboratory Results
01/19/24
07:28
Sodium 131 L
Potassium 4.2
Chloride 99
Carbon Dioxide 24
BUN 31 H
Creatinine 0.9
Glucose 103 H
Calcium 9.2
Vital Signs:
Vital Signs
Temp Pulse Resp BP Pulse Ox
97.6 F 112 18 121/77 92
01/19/24 11:00 01/19/24 11:37 01/19/24 11:00 01/19/24 11:00 01/19/24 12:40
I&O
01/18/24 01/19/24 01/20/24
06:59 06:59 06:59
Intake Total 240 / 240 880 / 880
Output Total 1100 / 1100 400 / 400
Balance -860 / -860 480 / 480
Physical Exam
-
General: Well Developed and No Apparent Distress
HEENT: Normocephalic, Atraumatic and Moist Mucous Membranes
Respiratory: Clear to Auscultation
Cardiac: Regular Rhythm and S1/S2; Negative Murmur, Rub or Gallop
GI: Soft, Nontender, Nondistended and Normal Bowel Sounds; Negative Organomegaly
Rectal: Deferred by Provider
Musculoskeletal: No Clubbing, No Cyanosis and No Edema
Skin: Negative Rash
Neuro: Awake, Alert, Oriented and Nonfocal/Grossly Intact
[2024-01-19] MEDS: MELATONIN 5 MG PO (20:47)
[2024-01-20] MEDS: TYLENOL 1000 MG PO (01:20)
[2024-01-20 03:17] VITALS: BP 99/61
[2024-01-20 05:20] VITALS: BMI 26.1
[2024-01-20 07:53] VITALS: BP 100/65
[2024-01-20] MEDS: ELIQUIS 5 MG PO (08:01)
[2024-01-20] MEDS: FLOMAX 0.400000000000000022 MG PO (08:01)
[2024-01-20] MEDS: THERAGRAN 1 TABLET PO (08:01)
[2024-01-20] MEDS: CARDIZEM CD 240 MG PO (08:02)
[2024-01-20] MEDS: KCL 20 MEQ PO (08:02)
[2024-01-20] MEDS: LASIX 40 MG IV (08:02)
[2024-01-20] MEDS: LIPITOR 40 MG PO (08:02)
--- NOTE | 2024-01-20 09:14 | PN.CDI ---
CDI
- -
CDI:
Physician Documentation Request
Admit Date: 01/17/24 14:56
Dear Doctor Hebert,
Please review the following and provide your response in the progress notes.
Clinical Indicators:
- 40mg IV Lasix given x 4
- Labs as follows:
Laboratory Tests
01/17/24 01/18/24 01/19/24
11:13 07:33 07:28
Sodium 132 L 133 L 131 L
Please provide a diagnosis for the above lab values that were monitored and treatment rendered:
Hyponatremia
Clinically insignificant abnormal lab value
Other
Use of terms such as suspected, likely, concern for, or probable (associated with a specific diagnosis that is being evaluated, monitored, or treated as if it exists) are acceptable and can be coded in the inpatient setting, when documented at the
time of discharge.
Thank you,
Renny Weiss RN
CDI Specialist
Please use your independent medical judgment in providing your response.
[2024-01-20 09:18] LABS: Blood Urea Nitrogen 28 mg/dl (9-20); Carbon Dioxide 24 mmol/L (22-30); Chloride 102 mmol/L (98-107); Estimated Creatinine Clearance 77 ml/min; Glucose 94 mg/dl (70-99); Potassium 3.7 mmol/L (3.5-5.1); Sodium 134 mmol/L (135-145); eGFR > 60.00
[2024-01-20 11:19] VITALS: BP 99/60
[2024-01-20 12:36] VITALS: PULSE 72
--- NOTE | 2024-01-20 12:56 | W.DS.TRANS ---
DC Summary - Supervisor Dials
-
Discharge Instructions:
Discharge Diagnosis/Procedures IMPRESSION:
Paroxysmal fibrillation with rapid ventricular
response.
Acute CHF preserved EF in the settings of rapid
ventricular rate
Upper respiratory tract infection.
Reported altered mental status prior to
admission with what sounds like single episode
of aphasia/confusion
Conditions prior to admission:
Paroxysmal atrial fibrillation
-Cardioversion 11/05.
Chronic anticoagulation with Eliquis.
CAD.
� Status post [facility] with RCA PCI times 09/2017.
Essential hypertension
Dyslipidemia.
Obstructive sleep apnea status post inspire
implant 2021.
Multiple myeloma status post stem cell
transplant 2022 currently on Revlimid
BPH
Diet 2 Gram Sodium
Blood Work BMP in one week
Instructions:
Stand-Alone Forms:
Changes to Home Medications: Yes
Discharge Medications:
DC Medications w/original date entered in [facility]
tamsulosin 0.4 mg capsule (Flomax) 0.4 mg PO DAILY Urinary Issue 03/06/23
lenalidomide 10 mg capsule (Revlimid) 10 mg PO QPM multiple myeloma 08/18/23
potassium chloride 10 mEq tablet,extended release 20 meq PO BID Electrolyte Repletion 08/18/23
apixaban 5 mg tablet (Eliquis) 5 mg PO BID Blood Clot Prevention/Tx 11/23/23
acetaminophen 500 mg tablet (Tylenol Extra Strength) 1,000 mg PO Q6HPRN PRN mild pain 01/17/24
atorvastatin 40 mg tablet 40 mg PO DAILY High Cholesterol 01/17/24
digoxin 250 mcg (0.25 mg) tablet 250 mcg PO NOON Arrhythmia 01/17/24
diltiazem HCl 240 mg capsule,extended release 24 hr 240 mg PO BID Arrhythmia 01/17/24
guaifenesin 100 mg/5 mL oral liquid 200 mg PO Q4HPRN PRN cough 01/17/24
therapeutic multivitamin 1 tab PO DAILY Supplement 01/17/24
furosemide 20 mg tablet (Lasix) 20 mg PO DAILY #30 tabs 01/20/24
potassium chloride 10 mEq capsule,extended release 10 meq PO DAILY #30 caps 01/20/24
Home Medication Changes
Lasix added along with KCL
Pending Results: No
[2024-01-20] MEDS: LANOXIN 250 MCG PO (13:13)
--- NOTE | 2024-01-20 13:15 | CM ---
Met with patient and spouse at bedside to discuss discharge plan
Plan: discharge to home; no services needed; will transport home
[2024-01-20 14:00] VITALS: BP 100/62
--- NOTE | 2024-01-20 19:01 | W.PN.CARDCBS ---
Today's Communication / Plan
-
No contraindication from a cardiac standpoint for discharge home
Impression / Plan
-
PCP: Evens Durant PA-C
Gun Tester: Dr. LO Torres
Assessment:
Presented with SOB, cough
Paroxysmal atrial fibrillation w/ RVR
CV 11/04/2023
previous amiodarone therapy stopped due to elevated LFTs
previous sotalol therapy stopped due to inability to maintain SR and QTc prolongation 11/2023
Chronic Eliquis anticoagulation
Elevated troponin, suspected nonischemic myocardial injury
CAD
s/p [place] w/ RCA PCI x2 05/2018
h/o hematuria 11/2023
HTN
HLD
JA s/p Inspire implant 07/2022
Multiple Myeloma s/p autologous stem cell transplant 03/2023
Lexiscan stress test 01/13/2022: negative ECG for ischemia, LV perfusion is normal.
Echo 02/07/2023: EF 60 to 65%, mild MR, trace TR, mild AI, aortic root 4.2cm
Plan:
-He is feeling well and anxious for discharge home. He denies palpitations or shortness of breath. No lower extremity edema.
-Transition to oral Lasix 20 mg once daily which is a new medication. Can he please get a BMP next week with results to our office
-EF was 60-65% by echo 02/07/23
-Recurrent symptomatic rapid atrial fibrillation with plan for rate control strategy and eventual ablation.Hewas previously scheduled for ablation 01/17/24, but is now pushed back to 02/07/24 due to acute HF on admission.
-Cont Eliquis 5 mg BID (age 73, Cre 1.1, wt 77.6 kg)
-Stable for discharge home
Progress Note - Gun Tester
Subjective
Date of Service: January 20, 2024
Seen and examined. Patient feels well and anxious to return home. Offers no complaints
Objective
Labs:
01/18/24 07:33
01/20/24 08:01
Labs
Hgb 12.1 g/dL (13.0-18.0) L 01/18/24 07:33
Hct 36.1 % (39.0-52.0) L 01/18/24 07:33
Plt Count 106 10^3/uL (130-400) L 01/18/24 07:33
Sodium 134 mmol/L (135-145) L 01/20/24 08:01
Potassium 3.7 mmol/L (3.5-5.1) 01/20/24 08:01
BUN 28 mg/dl (9-20) H 01/20/24 08:01
Creatinine 0.8 mg/dL (0.7-1.3) 01/20/24 08:01
Glucose 94 mg/dl (70-99) 01/20/24 08:01
Troponins
01/19/24
07:28
Troponin I 0.040 H*
Vital Signs and I&O:
Vital Signs
Temp Pulse Resp BP Pulse Ox
97.4 F 68 18 100/62 96
01/20/24 14:00 01/20/24 14:00 01/20/24 14:00 01/20/24 14:00 01/20/24 14:00
Vital Signs
Temp Pulse Resp BP Pulse Ox
97.4 F 68 18 100/62 96
01/20/24 14:00 01/20/24 14:00 01/20/24 14:00 01/20/24 14:00 01/20/24 14:00
Intake & Output
01/18/24 01/19/24 01/20/24 01/21/24
06:59 06:59 06:59 06:59
Intake Total 240 / 240 880 / 880 1410 / 1410 1560 / 1560
Output Total 1100 / 1100 400 / 400 400 / 400
Balance -860 / -860 480 / 480 1010 / 1010 1560 / 1560
Physical Exam
Physical Exam
General: No acute distress, AAOX3
Neck: Negative JVD
Heart: Irregularly irregular. Positive S1-S2. No murmurs
Lungs: CTA b/l, negative wheezes/rales/rhonchi
Abd: Positive BS, NT/ND, neg rebound/rigidity/guarding
Ext: No edema
Neuro: nonfocal
== END 2024-01-20 15:25 | disposition home or self-care (01) | DRG 291 ==
LOC: 4 WEST ACU 14:56
PROVIDERS: Physician Assistant; Physician Assistant Medical; ADMITTING PHYSICIAN Internal Medicine; CONSULT PHYSICIAN Internal Medicine Cardiovascular Disease; EMERGENCY PHYSICIAN Emergency Medicine; FAMILY PHYSICIAN Physician Assistant Medical
DX: I11.0 Hypertensive heart disease with heart failure (principal); I50.31 Acute diastolic (congestive) heart failure; J96.01 Acute respiratory failure with hypoxia; E87.1 Hypo-osmolality and hyponatremia; Z94.84 Stem cells transplant status; C90.00 Multiple myeloma not having achieved remission; I48.0 Paroxysmal atrial fibrillation; I25.10 Atherosclerotic heart disease of native coronary artery without angina pectoris; G47.33 Obstructive sleep apnea (adult) (pediatric); N40.0 Benign prostatic hyperplasia without lower urinary tract symptoms; I5A Non-ischemic myocardial injury (non-traumatic); I25.2 Old myocardial infarction; Z79.01 Long term (current) use of anticoagulants
CPT/HCPCS: 70450; 71046; 80048; 80053; 83880; 84145; 84484; 85025; 85379; 87811; 93005; 93306; 96374; 96375; 96376; 97116; 97162; 97166; 97530; 99291

== ENCOUNTER 2024-02-07 08:30 | Day surgery (SDC) | payer MEDICARE, SELFPAY ==
[2024-01-10 10:22] VITALS: BMI 27.7
[2024-02-07] VITALS (13 sets, daily range): BP systolic 98–129; BP diastolic 52–99
[2024-02-07] MEDS: NSS 500 IV (09:16)
[2024-02-07] MEDS: TYLENOL 1000 MG PO (09:52)
[2024-02-07 11:45] LABS: ACT-LR - POC 256 Seconds (116-155)
[2024-02-07 12:05] LABS: ACT-LR - POC 263 Seconds (116-155)
--- NOTE | 2024-02-07 12:35 | ITS.CL.ABL ---
Internet Assessor - Ablation
Ablation
Procedure Report:
ELECTROPHYSIOLOGY ABLATION STUDY
�
DATE:: February 07, 2024���������������������������� REFERRING: Dr. John Wiley
�
INDICATION: Persistent supraventricular tachycardia in the form of atrial fibrillation.� Failed sotalol therapy
�
HISTORY: See H and P. As above
�
ANTIARRHYTHMIC DRUG: Prior sotalol use now on digoxin
�
PRE-PROCEDURE GILA: No atrial thrombus on intracardiac ultrasound and preablation CT
�
PRESENTING RHYTHM: A-fib
�
'TIME-OUT':� called and confirmed.
�
SEDATION/ANESTHESIA:� provided via the anesthesia department using general anesthesia (LMA).
�
INTRAVENOUS/ARTERIAL ACCESS:
Right femoral venous - 8Fr
Left femoral venous - 8 Fr, 6 Fr
The venous access sites were closed with the Vascade closure system to allow early ambulation and potential same-day discharge
Ultrasound guidance for bilateral femoral vein access was utilized by me to obtain access with demonstration of normal anatomy
CHADS-VASC Score:
�
HAS-Bled Score
�
PROCEDURE:�
1.� A decapolar CS catheter was placed within the CS for mapping and pacing.� This was also used as the reference catheter for the 3-D map.
�
2. The intracardiac ultrasound catheter was positioned in the RA to identify the FO for targeting of transseptal puncture, assist� in identification of the pulmonary vein ostia, monitoring pre and post ablation pulmonary vein flow velocities,
monitoring for 'bubble' formation during RF application as a sign of thermal injury,� and to monitor for pericardial effusion during mapping and ablation procedure.�� Left atrial size, LV ejection fraction, and pulmonary vein flows were monitored
pre and post ablation procedure. The other valves were inspected and found to be free of significant regurgitation or stenosis.
�
3.� Half of the calculated heparin bolus was administered prior to the first transeptal puncture.� Transseptal puncture was performed to diagnose RA and LA pressure so that safety of LA mapping and ablation could be further assessed, and to access
the left atrium and pulmonary veins for mapping and ablation.� This entailed advancing an 10 Croatian Contour with dilator apparatus into the superior vena cava and withdrawing both (monitoring intracardiac ultrasound, fluoroscopy and tip pressure)
with the tip oriented toward the atrial septum.� The fossa ovalis was engaged (indicated by sudden displacement of the sheath tip as well as tenting of the fossa seen on intracardiac ultrasound).� Left atrial access required a pass with the
Brockenbrough needle extended.� Left atrial catheter position was confirmed by pressure monitoring (RA mean pressure 8 mm Hg and LA mean presure 14 mm Hg), LA saturation (99%),� as well as fluoroscopy.� The sheath was advanced over the dilator and
positioned in the left atrium.� � The remainder of the calculated heparin bolus was administered and heparin was
infused to maintain ACT at 300 -350 seconds throughout the case.
�
4.� RA pacing was performed via the proximal decapolar poles and LA pacing was performed via the distal decapolr poles.
�
5. A quadrapolar catheter was first positioned at the His position for His Bundle recording which was tagged via the 3-D Navex sytem, and then passed to the RVA for RV pacing and recording.
�
6. The multipolar catheter and the PFA catheter were placed in each of the LIPV, LSPV, RSPV and the RIPV.��
�
7.� Next, a 3-D map was created using Navex.�� A 3-D reconstructed CT image was compared to the 3-D Navex map to assist in anatomic interpretation, mapping and ablation.� The CT image and the NavX image were fused.
�
8. All 4 pulmonary veins were isolated and the posterior was isolated with PFA catheter. This was performed in atrial fibrillation and the patient was converted to sinus rhythm. Utilizing a multipolar catheter entrance next block was confirmed in
all 4 pulmonary veins as well as the left atrial posterior wall with electrical silence. Follow-up EP study post isolation demonstrated no other nonpulmonary vein triggers or other supraventricular arrhythmia.
�
9. No significant pause was noted on conversion and the sinus node rates were noted to be approximately 1200 ms post cardioversion
�
TOTAL FLOURO TIME: 15.3 minutes 123 mGy
�
TOTAL RF DURATION: 0 minutes
�
REVERSAL OF HEPARIN: 35 mg of protamine, slow IV administration
�
COMPLICATIONS:�
None
Intracardiac US shows no pericardial effusion post ablation.
�
SUMMARY:��
Complex left atrial mapping and ablation.
Isolation of all 4 pulmonary veins as above and isolation of the left atrial posterior wall as above.
�
RECOMMENDATIONS:
1. Admit to monitored bed.�
2. Resume anticoagulation
3. Ambulation in 2 hours
4.� Consider same-day discharge
�
Copy to: Dr. John Wiley at [facility] cardiology
�
[2024-02-07] MEDS: TYLENOL 650 MG PO (14:41)
--- NOTE | 2024-02-07 15:49 | W.PN.UPDATE ---
Update Note
Progress Note Update
Pt seen post PVI. Bilat groin sites without ht/bleeding. OOB ambulating, urinating without difficulty. Post EKG NSR 70s with PAC/PVC, no acute changes. Resume eliquis tonight. Will continue digoxin for 2 more weeks, then d/c. Followup with
[facility] as scheduled. Home today if groin sites/tele remain stable.
== END 2024-02-07 15:45 | disposition home or self-care (01) ==
LOC: CATH 08:30
PROVIDERS: ATTENDING PHYSICIAN Internal Medicine Cardiovascular Disease; FAMILY PHYSICIAN Physician Assistant Medical; OTHER PHYSICIAN Internal Medicine Cardiovascular Disease
DX: I48.19 Other persistent atrial fibrillation (principal); Z79.899 Other long term (current) drug therapy; Z79.01 Long term (current) use of anticoagulants; G47.33 Obstructive sleep apnea (adult) (pediatric); Z97.8 Presence of other specified devices; I10 Essential (primary) hypertension; E78.5 Hyperlipidemia, unspecified
CPT/HCPCS: C1732; C1760; C1894; C1733; C1769; C1892; C1759; 76937; 85347; 86850; 86900; 86901; 93005; 93656

== ENCOUNTER → 2024-03-29 07:50 | Outpatient (REF) | payer MEDICARE, SELFPAY | LOC: HWRAD 07:50 | PROVIDERS: ATTENDING PHYSICIAN Internal Medicine Rheumatology; FAMILY PHYSICIAN Family Medicine | DX: M81.0 Age-related osteoporosis without current pathological fracture (principal) | CPT/HCPCS: 77080 ==

== ENCOUNTER → 2024-06-18 06:19 | Outpatient (REF) | payer MEDICARE, SELFPAY ==
[2024-06-18 09:01] LABS: Hematocrit 32.6 % (39.0-52.0); Hemoglobin 10.7 g/dL (13.0-18.0); Mean Corp Hgb Conc. 32.8 g/dL (33.0-37.0); Mean Corpuscular Hgb 35.8 pg (27.0-31.0); Mean Platelet Volume 9.8 fL (7.4-10.4); Platelet Count 95 10^3/uL (130-400); Red Blood Cell Count 2.99 10^6/uL (4.70-6.10); Red Cell Dist. Width 17.5 % (11.5-14.5); White Blood Cell Count 5.6 10^3/uL (4.8-10.8)
[2024-06-18 09:24] LABS: ALT (SGPT) 20 U/L (0-50); AST (SGOT) 23 U/L (17-59); Albumin 3.7 g/dl (3.5-5.0); Alkaline Phosphatase 122 U/L (38-126); Blood Urea Nitrogen 25 mg/dl (9-20); Calcium 10.2 mg/dl (8.4-10.2); Carbon Dioxide 29 mmol/L (22-30); Chloride 99 mmol/L (98-107); Glucose 125 mg/dl (70-99); Sodium 139 mmol/L (135-145); Total Protein 5.8 g/dl (6.3-8.2); eGFR > 60.00
== END ==
LOC: SDSPAT 06:19
PROVIDERS: ATTENDING PHYSICIAN Student in an Organized Health Care Education/Training Program; FAMILY PHYSICIAN Family Medicine
DX: Z01.818 Encounter for other preprocedural examination (principal)
CPT/HCPCS: 36415; 80053; 85027

== ENCOUNTER 2024-06-22 08:56 | Emergency (ER) | payer MEDICARE, SELFPAY ==
[2024-06-22 09:05] VITALS: BP 157/82
--- NOTE | 2024-06-22 09:20 | EDRN ---
Dr. Carlisle in room w/ pt.
--- NOTE | 2024-06-22 09:30 | ED.GENMED ---
History of Present Illness
General
Chief Complaint: Urinary Symptoms
Time Seen by Provider: 06/22/24 09:12
History of Present Illness
History of Present Illness:
73-year-old male with history of A-fib on Eliquis, hyperlipidemia, hypertension, multiple myeloma in remission, CAD presenting to the emergency department for hematuria. Patient notes that last night he started to urinate blood, which has
persisted. He reports sterling hematuria. Denies any pain associated with urination. Denies abdominal pain or back pain. Reports that this happened about a year ago while he was hospitalized for A-fib, however resolved on its own. Denies chest
pain or difficulty breathing. Denies additional acute medical complaints. He did not take his Eliquis today because he is supposed to have foot surgery on Tuesday.
Past History
Past History
ED Past Medical History: Arrthythmia, CAD, HTN, Hypercholesterolemia and Other (multiple myeloma)
ED Past Surgical History: Orthopedic
Social History
Tobacco: Non-smoker
Alcohol: None
Drug: None
Personal:
Living: with family
Phy Exam
Physical Exam
Physical Exam:
General: Well-appearing, no clinical signs of dehydration, nontoxic and in no acute distress
HEENT: protecting airway
Neck: appears supple
CV: Normal heart rate, regular rhythm
Resp: No accessory muscle use, no increased work of breathing, lungs clear to auscultation bilaterally
Abd: Soft and non-distended, no tenderness to palpation
Extremities: No deformities, no swelling
Neuro: alert, no focal neurologic deficit
: deferred
Rectal: deferred
Psych: Normal affect
Skin: Intact
Course
Orders/Labs/Results
Orders:
Orders
06/22/24 09:54
Complete Blood Count/With Diff Urgent
Comprehensive Metabolic Panel Urgent
PTT Urgent
Prothrombin Time Urgent
Urinalysis Reflex To Culture Urgent
Date Specimen was Collected: 06/22/24
Time Specimen was Collected: 09:40
Urine Microscopic Reflex Cult Urgent
06/22/24 09:57
0.9% Sodium Chloride 1000 ml [Nss] 1,000 ml IV BOLUS
Abnormal Lab Results
06/22/24
09:54
RBC 3.09 L 10^6/uL
(4.70-6.10)
Hgb 10.9 L g/dL
(13.0-18.0)
Hct 32.5 L %
(39.0-52.0)
MCV 105.2 H fL
(80.0-94.0)
MCH 35.3 H pg
(27.0-31.0)
RDW 16.8 H %
(11.5-14.5)
Plt Count 95 L 10^3/uL
(130-400)
Abs Immat Gran (auto) 0.1 H 10^3/uL
(0-0.05)
Absolute Lymphs (auto) 0.6 L 10^3/uL
(1.2-3.4)
Immature Gran % 1.1 H %
(0-0.5)
Neutrophils % 80.0 H %
(42.2-75.2)
Lymphocytes % 8.6 L %
(20.5-51.1)
Potassium 3.2 L mmol/L
(3.5-5.1)
Glucose 102 H mg/dl
(70-99)
Total Bilirubin 2.3 H mg/dl
(0.2-1.3)
Total Protein 5.9 L g/dl
(6.3-8.2)
Ur Occult Blood Reflex 4+ A
(Negative)
Urine RBC 60-70 A /HPF
(0-2)
06/22/24 09:54
06/22/24 09:54
Vital Signs
Initial and Last Documented VS:
Initial Vital Signs
Temp Pulse Resp BP Pulse Ox
98.4 F 71 18 157/82 100
06/22/24 09:05 06/22/24 09:05 06/22/24 09:05 06/22/24 09:05 06/22/24 09:05
Last Documented Vital Signs
Temp Pulse Resp BP Pulse Ox
98.4 F 67 16 130/69 100
06/22/24 09:05 06/22/24 09:59 06/22/24 09:59 06/22/24 09:59 06/22/24 09:59
MDM/Problems Addressed
MDM/Problems Addressed:
73-year-old male with history of A-fib on Eliquis presenting for hematuria since last evening. Vital signs on arrival are significant for mild hypertension.
On exam patient is resting comfortably, no acute distress or discomfort. Patient is asymptomatic with the exception of hematuria, notes sterling hematuria. Suspect likely from anticoagulation. Patient without any tenderness to the abdomen or flanks,
without current indication for imaging. Will obtain laboratory analysis to assess hemoglobin and coags. Will check urinalysis to assess degree of hematuria and potential need for CBI.
10:30 - urine is clearing on its own, administering IV fluids. No indication for catheter at this time.
11:35 - Patient's labs are unremarkable. Urine without sign of infection. Urine continues to clear. At this time feel stable for discharge. Advised continued monitoring of urine with close outpatient follow-up with urology. Patient is holding
his Eliquis until Tuesday, supposed to have surgery on his foot. Advised continuing to hold this medication until being told to resume. Return precautions discussed and patient verbalized understanding
*Critical Care Note
Total Time (30-74mins, 75-104mins- exclusive of procedures): Not Applicable
ED Attending Note
-
Portions of this chart may have been created with voice recognition software.� Occasional wrong word or��sound alike� substitutions may have occurred due to the inherent limitations of voice recognition software.
Discharge Plan
Departure
Prescriptions:
No Action
tamsulosin [Flomax] 0.4 mg Capsule
0.4 mg PO DAILY
potassium chloride 10 mEq Tablet Extended Release
20 meq PO BID
prednisone 10 mg Tablet
5 mg PO DAILY
Eliquis 5 mg tablet
5 mg PO BID Qty: 90 3RF
atorvastatin 40 mg Tablet
40 mg PO DAILY
therapeutic multivitamin Tablet
1 tab PO DAILY
acetaminophen [Tylenol Extra Strength] 500 mg Tablet
1,000 mg PO Q6HPRN PRN (Reason: mild pain)
diltiazem HCl 240 mg capsule,extended release 24hr
120 mg PO DAILY
furosemide [Lasix] 20 mg tablet
20 mg PO DAILY Qty: 30 0RF
Patient Comments:
dosage increased to BID week of 06/17/24
calcium 100 mg Capsule
PO BID
Referrals:
Robert Eaton MD [Family Provider] -
Interventions
Interventions:
*Risk Screen - Suicide Last Done: 06/22/24 09:05
*General Assessment Last Done: 06/22/24 09:05
*Neglect/Abuse Screening Last Done: 06/22/24 09:05
ED- Fall Risk Assessment Last Done: 06/22/24 09:41
*ED COVID-19 Vaccine History Last Done: 06/22/24 09:40
ED-Male Genitourinary Assessment Last Done: 06/22/24 09:58
Discharge Date and Time
Print Language: PERUVIAN
[2024-06-22 09:42] VITALS: BMI 29.0
[2024-06-22 09:59] VITALS: BP 130/69
[2024-06-22 10:00] VITALS: BP 127/81
[2024-06-22] MEDS: NSS 1000 IV (10:10)
--- NOTE | 2024-06-22 10:14 | EDRN ---
Pt voided and urine still only sl pink in color.
[2024-06-22 10:15] LABS: % Basophils 0.5 % (0-2); % Eosinophils 0.9 % (0-6); % Immature Granulocytes 1.1 % (0-0.5); % Lymphocytes 8.6 % (20.5-51.1); % Monocytes 8.9 % (1.7-9.3); Absolute Eosinophils 0.1 10^3/uL (0-0.7); Absolute Immature Granulocytes 0.1 10^3/uL (0-0.05); Absolute Lymphocytes 0.6 10^3/uL (1.2-3.4); Absolute Monocytes 0.6 10^3/uL (0.1-0.6); Absolute Neutrophils 5.2 10^3/uL (1.4-6.5); Hematocrit 32.5 % (39.0-52.0); Hemoglobin 10.9 g/dL (13.0-18.0); Mean Corp Hgb Conc. 33.5 g/dL (33.0-37.0); Mean Corpuscular Hgb 35.3 pg (27.0-31.0); Mean Corpuscular Volume 105.2 fL (80.0-94.0); Nucleated Red Blood Cells % 0 % (-); Red Blood Cell Count 3.09 10^6/uL (4.70-6.10); Red Cell Dist. Width 16.8 % (11.5-14.5); White Blood Cell Count 6.5 10^3/uL (4.8-10.8)
[2024-06-22 10:22] LABS: Urine Albumin Trace (Neg - Trace); Urine Bilirubin Negative (Negative); Urine Character Slightly Cloudy (Clear); Urine Color Yellow; Urine Glucose Negative (Negative); Urine Ketone Negative (Negative); Urine Leukocyte Negative (Negative); Urine Nitrite Negative (Negative); Urine Occult Blood 4+ (Negative); Urine Urobilinogen Negative (Neg - 1+); Urine pH 6.5 (5.0-9.0)
[2024-06-22 10:23] LABS: ALT (SGPT) 22 U/L (0-50); AST (SGOT) 26 U/L (17-59); Albumin 3.9 g/dl (3.5-5.0); Alkaline Phosphatase 105 U/L (38-126); Blood Urea Nitrogen 19 mg/dl (9-20); Calcium 9.6 mg/dl (8.4-10.2); Carbon Dioxide 30 mmol/L (22-30); Chloride 102 mmol/L (98-107); Estimated Creatinine Clearance 88 ml/min; Glucose 102 mg/dl (70-99); Potassium 3.2 mmol/L (3.5-5.1); Sodium 138 mmol/L (135-145); Total Bilirubin 2.3 mg/dl (0.2-1.3); Total Protein 5.9 g/dl (6.3-8.2); eGFR > 60.00
[2024-06-22 10:25] LABS: INR 1.05
[2024-06-22 10:47] LABS: Urine Red Blood Cell 60-70 /HPF (0-2); Urine Squamous Cell 0-2 /LPF (Few); Urine White Cell 0-2 /HPF (0-5)
[2024-06-22 11:00] VITALS: BP 139/72
[2024-06-22 11:09] LABS: Mean Platelet Volume 8.3 fL (7.4-10.4); Platelet Count 95 10^3/uL (130-400)
[2024-06-22 12:03] VITALS: BP 123/69
== END 2024-06-22 12:07 | disposition home or self-care (01) ==
LOC: EMR 08:56
PROVIDERS: EMERGENCY PHYSICIAN Student in an Organized Health Care Education/Training Program; FAMILY PHYSICIAN Family Medicine
DX: R31.9 Hematuria, unspecified (principal); I48.91 Unspecified atrial fibrillation; E78.00 Pure hypercholesterolemia, unspecified; I10 Essential (primary) hypertension; C90.01 Multiple myeloma in remission; I25.10 Atherosclerotic heart disease of native coronary artery without angina pectoris; Z79.01 Long term (current) use of anticoagulants
CPT/HCPCS: 99283; 80053; 81003; 81015; 85025; 85610; 85730

== ENCOUNTER 2024-06-25 06:12 | Day surgery (SDC) | payer MEDICARE, SELFPAY ==
[2024-06-18 08:38] VITALS: BMI 28.3
[2024-06-25 09:01] VITALS: BMI 28.3
[2024-06-25 09:05] VITALS: BP 174/96
[2024-06-25] MEDS: CELEBREX 200 MG PO (09:14)
[2024-06-25] MEDS: TYLENOL 1000 MG PO (09:14)
[2024-06-25 12:15] VITALS: BP 127/70
[2024-06-25 12:30] VITALS: BP 120/104
[2024-06-25 12:45] VITALS: BP 123/70
== END 2024-06-25 13:01 | disposition home or self-care (01) ==
LOC: SDS 06:12
PROVIDERS: ATTENDING PHYSICIAN Student in an Organized Health Care Education/Training Program
PROC: 0SGL07Z Fusion of Left Tarsometatarsal Joint with Autologous Tissue Substitute, Open Approach (ICD-10-PCS; 2024-06-25)
DX: M19.072 Primary osteoarthritis, left ankle and foot (principal)
CPT/HCPCS: 28740; C1713; C1776

== ENCOUNTER 2024-08-30 02:38 | Inpatient (IN) | payer MEDICARE, SELFPAY ==
[2024-08-29 22:54] VITALS: BP 130/72; BMI 29.6
[2024-08-29 23:00] VITALS: BP 127/53
[2024-08-29 23:08] LABS: % Basophils 0.1 % (0-2); % Eosinophils 0.1 % (0-6); % Immature Granulocytes 0.3 % (0-0.5); % Lymphocytes 2.9 % (20.5-51.1); % Monocytes 9.7 % (1.7-9.3); % Neutrophils 86.9 % (42.2-75.2); Absolute Lymphocytes 0.2 10^3/uL (1.2-3.4); Absolute Monocytes 0.7 10^3/uL (0.1-0.6); Absolute Neutrophils 6.1 10^3/uL (1.4-6.5); Hematocrit 35.1 % (39.0-52.0); Hemoglobin 11.8 g/dL (13.0-18.0); Mean Corp Hgb Conc. 33.6 g/dL (33.0-37.0); Mean Corpuscular Hgb 32.1 pg (27.0-31.0); Mean Corpuscular Volume 95.4 fL (80.0-94.0); Mean Platelet Volume 8.6 fL (7.4-10.4); Nucleated Red Blood Cells % 0 % (-); Platelet Count 94 10^3/uL (130-400); Red Blood Cell Count 3.68 10^6/uL (4.70-6.10)
[2024-08-29 23:20] LABS: ALT (SGPT) 17 U/L (0-50); AST (SGOT) 30 U/L (17-59); Albumin 4.1 g/dl (3.5-5.0); Alkaline Phosphatase 100 U/L (38-126); Blood Urea Nitrogen 15 mg/dl (9-20); Calcium 10.1 mg/dl (8.4-10.2); Carbon Dioxide 23 mmol/L (22-30); Chloride 102 mmol/L (98-107); Estimated Creatinine Clearance 68 ml/min; Glucose 103 mg/dl (70-99); Potassium 3.4 mmol/L (3.5-5.1); Sodium 135 mmol/L (135-145); Total Bilirubin 2.9 mg/dl (0.2-1.3); Total Protein 6.5 g/dl (6.3-8.2); eGFR > 60.00
[2024-08-29 23:33] LABS: Troponin I 0.022 ng/ml
[2024-08-29] MEDS: DUONEB 3 ML INH (23:36)
[2024-08-29] MEDS: TYLENOL 650 MG PO (23:36)
[2024-08-29] MEDS: NSS 1000 IV (23:37)
--- NOTE | 2024-08-29 23:37 | ED.GENMED ---
History of Present Illness
General
Chief Complaint: Fever
Source: patient
Exam Limitations: none
Time Seen by Provider: 08/29/24 22:54
Nursing documentation reviewed up to this point in time: agreed with
History of Present Illness
History of Present Illness:
73-year-old male multiple myeloma followed at [facility], diagnosed with COVID a few weeks ago with mild symptoms no treatment lasted a few days felt better in a few days he has had cough congestion fever past day or so fairly intense fatigue nausea
vomiting diarrhea
Past History
Past History
ED Past Medical History: Arrthythmia, CAD, HTN, Hypercholesterolemia and Other (multiple myeloma)
ED Past Surgical History: Orthopedic
Social History
Tobacco: Non-smoker
Alcohol: None
Drug: None
Personal:
Living: with family
Review of Systems
Review of Systems
All Other Systems: Not applicable
Constitutional: Reports fever and fatigue
EENT: Reports no symptoms
Respiratory: Reports cough and trouble breathing
Cardiac: Reports no symptoms
ABD/GI: Reports nausea, vomiting and diarrhea
: Reports no symptoms
Musculoskeletal: Reports muscle stiffness
Neurological: Reports dizzy and weakness
Endocrine: Reports no symptoms
Phy Exam
Physical Exam
Physical Exam:
Physical Exam
General: 73 male mild distress
Neck: Dry lips
Heart: Regular
Lungs: Rhonchi bilateral
Abdomen: Nontender
Neuro: alert and oriented. no focal neurological deficits
Skin: no rash
Psychiatric: well kept. interactive and cooperative
Extremities: no edema.
Course
Orders/Labs/Results
Orders:
Orders
08/29/24 22:54
Electrocardiogram (*1) Urgent
Reason for Study: Other
Other Reason for Exam: Respiratory Distress
Cardiac Monitoring- Treatment ONCE
EKG- Treatment ONCE
IV Insert/Care/Rem.- Treatment PRN
CR Chest - 2 Views Urgent
Comment:
Reason For Exam: respiratory distress
O2 Therapy [RESP] Urgent
Titrate/Wean O2 to maintain O2 sat greater than (%): 93
Special Instructions: TO MAINTAIN CONTINUOUS O2 SATS >/= 93%
Pulse Ox/cont/shift [RESP] Urgent
Quantity: 1
Special Instructions: continuous pulse ox
08/29/24 22:59
COVID-19 Antigen Urgent
Source: Nasal Swab
Complete Blood Count/With Diff Urgent
Comprehensive Metabolic Panel Urgent
Troponin I Urgent
Influenza A+B Rapid Molecular Urgent
KIMBERLY Source: Nasal Swab
Specimen Description:
08/29/24 23:25
Acetaminophen [Tylenol] 650 mg PO NOW STA
Ipratropium/Albuterol Sulfate [Duoneb] 3 ml INH R NOW STA
08/29/24 23:26
0.9% Sodium Chloride 1000 ml [Nss] 1,000 ml IV BOLUS
Ondansetron Injectable [Zofran] 4 mg IV NOW STA
08/30/24 00:56
Albuterol Nebs [Ventolin Nebules] 2.5 mg INH R NOW STA
Potassium Chloride [KCl] 40 meq PO NOW STA
08/30/24 00:57
CefTRIAXone [Rocephin] 1,000 mg IV NOW STA
08/30/24 01:08
Doxycycline Hyclate [Vibramycin] 100 mg 0.9% Sodium Chloride 250 ml [Nss] 250 ml IV NOW
08/30/24 01:41
Guaifenesin Solution [Robitussin] 200 mg .ROUTE .ST-MED ONE
08/30/24 01:42
Guaifenesin Solution [Robitussin] 200 mg PO NOW STA
08/30/24 01:43
Guaifenesin Solution [Robitussin] 200 mg PO NOW STA
08/30/24 02:12
Metoprolol [Lopressor] 25 mg PO NOW STA
08/30/24 03:00
Flush (0.9% Sodium Chloride) [Flush (Nss)] See Dose Instructions IV PER PROTOCOL
Abnormal Lab Results
08/29/24
22:59
RBC 3.68 L 10^6/uL
(4.70-6.10)
Hgb 11.8 L g/dL
(13.0-18.0)
Hct 35.1 L %
(39.0-52.0)
MCV 95.4 H fL
(80.0-94.0)
MCH 32.1 H pg
(27.0-31.0)
RDW 16.0 H %
(11.5-14.5)
Plt Count 94 L 10^3/uL
(130-400)
Absolute Lymphs (auto) 0.2 L 10^3/uL
(1.2-3.4)
Absolute Monos (auto) 0.7 H 10^3/uL
(0.1-0.6)
Neutrophils % 86.9 H %
(42.2-75.2)
Lymphocytes % 2.9 L %
(20.5-51.1)
Monocytes % 9.7 H %
(1.7-9.3)
Potassium 3.4 L mmol/L
(3.5-5.1)
Glucose 103 H mg/dl
(70-99)
Total Bilirubin 2.9 H mg/dl
(0.2-1.3)
08/29/24 22:59
08/29/24 22:59
Vital Signs
Initial and Last Documented VS:
Initial Vital Signs
Temp Pulse Resp BP Pulse Ox
100.3 F 115 18 130/72 97
08/29/24 22:54 08/29/24 22:54 08/29/24 22:54 08/29/24 22:54 08/29/24 22:54
Last Documented Vital Signs
Temp Pulse Resp BP Pulse Ox
99.0 F 123 24 147/62 92
08/30/24 01:45 08/30/24 02:00 08/30/24 02:00 08/30/24 02:00 08/30/24 02:00
MDM/Problems Addressed
Differential Diagnosis Includes:
Influenza pneumonia bronchitis
MDM/Problems Addressed:
Cough congestion nausea vomit
Chronic conditions affecting care:
Arrhythmia malignancy
Acute Exacerbation and/or Progression of Chronic Illness:
Arrhythmia malignancy
*Radiology
Radiology exam reviewed: preliminary read by ED provider
*Pulse Oximetry
Patient hypoxic: yes
Comment: 88
*EKG
Interpreted by ED Provider?: Yes
Interpretation: abnormal
Comparison EKG: no comparison EKG present
Heart Rate: 115
Rate: tachycardiac
Rhythm: sinus
Ischemia: non-specific ST changes
*Brake Liner Interpretation
Rate: tachycardiac
Interpretation: normal
Heart Rate: 112
Rhythm: sinus
*Critical Care Note
Total Time (30-74mins, 75-104mins- exclusive of procedures): Not Applicable
Update Note
Update Note:
1 AM update patient still coughing states he feels a bit better saturations go down to 8889% on room air chest x-ray noted suspect he does have pneumonia on the lateral view, will start on antibiotics, low threshold to admit
ED Attending Note
-
Portions of this chart may have been created with voice recognition software.� Occasional wrong word or��sound alike� substitutions may have occurred due to the inherent limitations of voice recognition software.
Discharge Plan
Departure
Patient Disposition: Admit
Date of Disposition: 08/30/24
Time of Disposition: 01:01
Presentation/result/management discussed w/ accepting MD/DO: Hospitalist
Patient with high blood pressure during this ER visit?: No
Condition: Fair
Discharge Problem:
Multiple myeloma, PAF (paroxysmal atrial fibrillation), Pneumonia
Prescriptions:
No Action
tamsulosin [Flomax] 0.4 mg Capsule
0.4 mg PO DAILY
potassium chloride 10 mEq Tablet Extended Release
20 meq PO BID
prednisone 10 mg Tablet
5 mg PO DAILY
Eliquis 5 mg tablet
5 mg PO BID Qty: 90 3RF
therapeutic multivitamin Tablet
1 tab PO DAILY
acetaminophen [Tylenol Extra Strength] 500 mg Tablet
1,000 mg PO Q6HPRN PRN (Reason: mild pain)
diltiazem HCl 240 mg capsule,extended release 24hr
120 mg PO DAILY
furosemide [Lasix] 20 mg tablet
20 mg PO DAILY Qty: 30 0RF
Patient Comments:
dosage increased to BID week of 06/17/24
calcium 100 mg Capsule
PO BID
Referrals:
Evens Durant PA-C [Family Provider] -
Interventions
Interventions:
*Risk Screen - Suicide Last Done: 08/29/24 22:54
*General Assessment Last Done: 08/29/24 22:54
*Neglect/Abuse Screening Last Done: 08/29/24 22:54
*ED COVID-19 Vaccine History Last Done: 08/29/24 22:54
ED- Neurological Assessment Last Done: 08/29/24 22:57
ED-Skin Assessment Last Done: 08/29/24 22:57
Discharge Date and Time
Print Language: SWAZI
[2024-08-29 23:38] LABS: COVID-19 Antigen Negative (Negative)
[2024-08-30] VITALS (11 sets, daily range): BP systolic 112–161; BP diastolic 55–90; BMI 29.6; BMI 28.1
[2024-08-30] MEDS: KCL 40 MEQ PO ×3 (01:06→19:51)
[2024-08-30] MEDS: VENTOLIN NEBULES 2.5 MG INH (01:06)
[2024-08-30] MEDS: ROCEPHIN 1000 MG IV (01:06)
[2024-08-30] MEDS: VIBRAMYCIN 260 MG IV (01:34)
[2024-08-30] MEDS: ROBITUSSIN 200 MG PO ×4 (01:43→22:10)
--- NOTE | 2024-08-30 02:18 | HPS.HSE ---
Family Physician
-
Family Physician: MAXX LAO PA-C
Chief Complaint
-
Cough, SOB, Weakness
History of Present Illness
Patient is a 73y M with PMH significant for multiple myeloma, ASCVD, A-Fib and CHF who presents to ED complaining of cough, SOB and weakness. Patient states that he has had cough productive of yellow sputum for about 3 days. He notes fatigue,
SOB, fevers / chills (recorded temp of 101 at home) and some loose, non-bloody stools. This evening he was unable to stand due to significant weakness and notes that he could barely roll over in bed. He presented to the ED for further evaluation
and treatment.
Patient's myeloma is currently in remission. He receives monthly Zometa infusions, but is no longer on Revlimid or other active therapies.
He denies any known sick contacts or recent travel.
In the ED this evening he is in atrial fibrillation which is a surprise to him. He is s/p PVI ablation in January 2024.
Medical History
Past Medical History
Past Medical History: Reports Other
Additional Past Medical History:
Multiple Myeloma (currently in remission)
ASCVD
Paroxysmal Atrial Fibrillation
JA
Hypertension
Past Surgical History: Reports Other
Additional Past Surgical History:
PTCA with Stent x 2
PVI Ablation (01/2024)
Inspire Implantation
Bone Marrow Transplant (03/2023)
Bilateral Thumb Surgeries
Cataracts
Cholecystectomy
Left Inguinal Herniorrhaphy
Right TKA
Left Rotator Cuff Repair
Lumbar Laminectomy
Left Ankle Surgery
Social History
Tobacco: Non-smoker
Alcohol: None
Drug: None
Family History
Family History: Other (Mother: Longevity Father: CAD)
Allergies / Home Medications
Allergies reflects when Allergies were last updated in [employer].
Home Medications with original date entered in [employer]
Allergy/Medication List:
Allergies
Allergy/AdvReac Type Severity Reaction Status Date / Time
hydrochlorothiazide Allergy Unknown Unknown Verified 08/29/24 22:57
amiodarone AdvReac Liver Verified 08/29/24 22:57
function
reduced
Home Medications
tamsulosin 0.4 mg capsule (Flomax) 0.4 mg PO DAILY Urinary Issue 03/06/23
potassium chloride 10 mEq tablet,extended release 20 meq PO BID Electrolyte Repletion 08/18/23
acetaminophen 500 mg tablet (Tylenol Extra Strength) 1,000 mg PO Q6HPRN PRN mild pain 01/17/24
diltiazem HCl 240 mg capsule,extended release 24 hr 120 mg PO DAILY Arrhythmia 01/17/24
therapeutic multivitamin 1 tab PO DAILY Supplement 01/17/24
furosemide 20 mg tablet (Lasix) 20 mg PO DAILY #30 tabs 01/20/24
apixaban 5 mg tablet (Eliquis) 5 mg PO BID Blood Clot Prevention/Tx #90 tabs 02/07/24
prednisone 10 mg tablet 5 mg PO DAILY 02/07/24
calcium 100 mg capsule mg PO BID 06/19/24
Review of Systems
-
History Source: Patient
A 12 point ROS was completed and negative except as noted: Yes
Constitutional: Reports Fever, Fatigue and Chills
EENT: Denies Sore Throat or Runny Nose
Respiratory: Reports Cough and Trouble Breathing
Cardiac: Denies Chest Pain or Palpitations
Abdomen/GI: Reports Diarrhea; Denies Abdominal Pain, Nausea, Vomiting or Bloody Stools
: Denies Dysuria, Frequency or Flank Pain
Musculoskeletal: Denies Joint Pain or Edema
Neurological: Reports Headache and Weakness; Denies Dizzy
Psych: Denies Depression or Anxiety
Physical Exam
Vital Signs
Vital Signs
Temp Pulse Resp BP Pulse Ox
99.0 F 123 24 147/62 92
08/30/24 01:45 08/30/24 02:00 08/30/24 02:00 08/30/24 02:00 08/30/24 02:00
Physical Exam
General: Other (73y M in mild distress due to cough / dyspnea.)
HEENT: Moist mucous membranes and PERRLA
Respiratory: Other (Bibasilar rales about 1/4 up. Coarse breath sounds / rub over the L midlung.)
Cardiac: S1/S2, Irregular Rhythm and Tachycardia; No Murmur
GI: Soft, Non Tender, Non Distended and Normal Bowel Sounds
Musculoskeletal: No Clubbing, No Cyanosis and No Edema
Neuro: AO x 3
Laboratory Results
-
08/29/24 22:59
08/29/24 22:59
Laboratory Results
Total Bilirubin 2.9 mg/dl (0.2-1.3) H 08/29/24 22:59
AST 30 U/L (17-59) 08/29/24 22:59
ALT 17 U/L (0-50) 08/29/24 22:59
Alkaline Phosphatase 100 U/L (38-126) 08/29/24 22:59
Troponin I 0.022 ng/ml 08/29/24 22:59
Impression/Plan
-
A/P: Patient is a 73y M with PMH significant for multiple myeloma, A-Fib and ASCVD who presents to ED complaining of cough, fever and weakness.
Pneumonia
Sepsis secondary to the above
- Admit for further evaluation and treatment.
- Patient presents with fever, tachycardia and tachypnea.
- Reportedly hypoxemic in the ED though this is not reflected in documented vital signs.
- COVID / flu negative in the ED.
- Abx with ceftriaxone and doxycycline for now.
- Supportive care, nebs, O2, mucolytics, etc.
- Follow for clinical improvement.
Paroxysmal Atrial Fibrillation with Rapid Ventricular Response
- Patient with no chest pain or palpitations.
- Variable rate / rhythm with PACs and PVCs - but ? A-Fib as underlying rhythm.
- One dose of metoprolol now.
- Continue usual Cardizem and Eliquis.
- Cardiology evaluation for additional recommendations.
- Treat underlying illness as noted above.
Acute on Chronic HFpEF
- Bibasilar rales on exam and weight increased from prior.
- ? secondary to tachyarrhythmia / acute illness as noted above.
- Increase PO Lasix to 40mg daily for now.
- (Increase potassium supplementation as well)
- Follow I/Os, daily weights, etc.
- Cardiology evaluation as noted.
- Update Echo.
Multiple Myeloma
- In remission per report.
- Chronic thrombocytopenia and hyperbilirubinemia are unchanged from baseline.
- No longer on Revlimid / viral prophylaxis.
- Follow for changes in cell counts, etc.
ASCVD
- Stable. No chest pain. Continue current CV med regimen.
JA
- Stable. Inspire device present.
PMR
- Stable. Maintained on chronic low-dose prednisone and will continue this without changes for now.
DVT Prophylaxis: On Eliquis
Code Status: Full
[2024-08-30] MEDS: LOPRESSOR 25 MG PO (02:57)
[2024-08-30] MEDS: FLUSH (NSS) 1 FLUSH IV (02:57)
[2024-08-30 05:49] LABS: Hematocrit 32.5 % (39.0-52.0); Hemoglobin 10.9 g/dL (13.0-18.0); Mean Corp Hgb Conc. 33.5 g/dL (33.0-37.0); Mean Corpuscular Hgb 32.3 pg (27.0-31.0); Mean Corpuscular Volume 96.4 fL (80.0-94.0); Mean Platelet Volume 9.6 fL (7.4-10.4); Platelet Count 87 10^3/uL (130-400); Red Blood Cell Count 3.37 10^6/uL (4.70-6.10); Red Cell Dist. Width 16.3 % (11.5-14.5); White Blood Cell Count 7.5 10^3/uL (4.8-10.8)
[2024-08-30 05:54] LABS: Blood Urea Nitrogen 15 mg/dl (9-20); Calcium 9.4 mg/dl (8.4-10.2); Carbon Dioxide 24 mmol/L (22-30); Chloride 103 mmol/L (98-107); Estimated Creatinine Clearance 62 ml/min; Glucose 98 mg/dl (70-99); Potassium 3.3 mmol/L (3.5-5.1); Sodium 137 mmol/L (135-145); eGFR > 60.00
[2024-08-30 06:25] LABS: TSH Reflex To Free T4 0.93 uIU/ml (0.47-4.68)
--- NOTE | 2024-08-30 10:18 | CON.CAR ---
Addendum entered and electronically signed by Kadi Castillo DO 08/30/24 18:13:
I saw and examined the patient.
The Hha's note was reviewed and I agree with the note.
Comment: Patient was seen and examined in ED 18. Patient is a 73-year-old male with past medical history of paroxysmal atrial fibrillation status post PVI 01/2024 on chronic anticoagulation with Eliquis, CAD status post CO with RCA PCI in 2018,
hypertension, hyperlipidemia, multiple myeloma status post stem cell transplant considered to be in remission, chronic thrombocytopenia who had recent COVID illness several weeks ago. He did not require hospitalization, supplemental oxygen and did
not take Paxlovid. He felt that he had recovered from COVID however over the last several days started to feel poorly. He has noted headache and neck pain, cough, shortness of breath, subjective fevers and diarrhea. He also has had bilateral
lower extremity edema which she feels has worsened. He denies sick contacts at home. He has had no recent travel. In the ER he was COVID and flu negative. Cardiology was consulted for possible recurrent atrial fibrillation and tachycardia.
General: Appears acutely ill, AOA x 3.
Heart: Regular with ectopy. Positive S1/S2, no murmur or rub
Lungs: Bronchovesicular breath sounds with coarse rhonchi. No wheezes. No crackles
Abd: Positive BS, NT/ND, neg rebound/rigidity/guarding
Ext: trace edema
Plan:
Acute illness with recent COVID complaining of shortness of breath/cough, headache/body aches, diarrhea
-Afebrile without significant leukocytosis
-Chest x-ray without evidence of pneumonia and no significant evidence of heart failure
-COVID and influenza swabs in the ED are negative
-Discussed with hospitalist for broader infection workup given multiple complaints; empiric antibiotic started
-Given headache on anticoagulation will check head CT
History of atrial fibrillation status post PVI in January 2024 currently in sinus rhythm with ectopy and episodes of PAT
-Continue telemetry monitoring
-Cardizem increased to 120 mg twice daily with hold parameters
-Continue Eliquis anticoagulation; he denies interruption or missed doses
History of chronic HFpEF
-Appears dry/euvolemic with proBNP not elevated
-Will hold Lasix today and hopefully resume tomorrow
-2D echocardiogram with normal biventricular size and systolic function with mild mitral, aortic and trace tricuspid regurgitation. Estimated pulmonary artery pressures 25-30 mmHg. No pericardial effusion.
-Continue outpatient Eliquis. hgb/plts appear relatively stable
-Replete potassium
History of coronary artery disease with prior CO and RCA PCI in 2018�no chest pain.
History of sleep apnea status post inspire implant 2021
History of multiple myeloma status post stem cell transplant 2022 in remission/chronic thrombocytopenia
History of PMR on low-dose prednisone
Discussed case with hospitalist
Will follow with you
Original Note:
Consultation
Consultation Request
Date/Time Consultation Performed: 08/30/24
Requesting Provider: Dr. Jones
Performing Provider: Zahraa Johnson PA-C for Dr. Toro
Reason for Consultation: tachycardia
Medical History
-
Chief Complaint: SOB, cough
History of Present Illness:
Patient is a 73-year-old male with past medical history of paroxysmal atrial fibrillation status post PVI 01/2024 on chronic anticoagulation with Eliquis, CAD status post CO with RCA PCI in 2018, hypertension, hyperlipidemia, multiple myeloma status
post stem cell transplant considered to be in remission, chronic thrombocytopenia who had recent COVID illness several weeks ago. He states he felt poorly for several days however then began to feel better. He states over the last several days he
has had worsening shortness of breath, nonproductive cough, fevers, diarrhea and presented to ER for further evaluation. He is COVID and flu negative. He is noted to have elevated heart rates at times with concern for atrial fibrillation
recurrence and cardiology consulted for evaluation. He denies feeling palpitations. He reports he has been compliant with his diltiazem and Eliquis. He does report some lower extremity edema and abdominal bloating despite taking his p.o. Lasix 20
mg daily.
PMH:
Paroxysmal atrial fibrillation
CV 11/04/2023
previous amiodarone therapy stopped due to elevated LFTs
previous sotalol therapy stopped due to inability to maintain SR and QTc prolongation 11/2023
PVI 02/07/24
Chronic Eliquis anticoagulation
Chronic HFpEF
CAD
s/p CO w/ RCA PCI x2 05/2018
h/o hematuria 11/2023
HTN
HLD
JA s/p Inspire implant 07/2022
Multiple Myeloma s/p autologous stem cell transplant 03/2023, considered in remission
Chronic anemia/thrombocytopenia
S/P L midfoot fusion 06/25/24
Past Medical History
Past Medical History: Other (in HPI)
Social History
Tobacco: Non-Smoker
Alcohol: None
Personal:
Living: With Family
Employment: Retired
Family History
Family History: CAD
Allergies / Home Medications
Allergy/AdvReac Type Severity Reaction Status Date / Time
hydrochlorothiazide Allergy Unknown Unknown Verified 08/29/24 22:57
amiodarone AdvReac Liver Verified 08/29/24 22:57
function
reduced
�Medication �Instructions �Recorded �Confirmed �Type
tamsulosin 0.4 mg capsule (Flomax) 0.4 mg PO DAILY Urinary Issue 03/06/23 08/30/24 History
potassium chloride 10 mEq 10 meq PO BID Electrolyte Repletion 08/18/23 08/30/24 History
tablet,extended release
acetaminophen 500 mg tablet 1,000 mg PO Q6HPRN PRN mild pain 01/17/24 08/30/24 History
(Tylenol Extra Strength)
therapeutic multivitamin 1 tab PO DAILY Supplement 01/17/24 08/30/24 History
furosemide 20 mg tablet (Lasix) 20 mg PO DAILY #30 tabs 01/20/24 08/30/24 Rx
apixaban 5 mg tablet (Eliquis) 5 mg PO BID Blood Clot 02/07/24 08/30/24 Rx
Prevention/Tx #90 tabs
calcium carbonate 500 mg PO DAILY 08/30/24 08/30/24 History
diltiazem HCl 120 mg 120 mg PO DAILY 08/30/24 08/30/24 History
capsule,extended release 24 hr
guaifenesin 100 mg/5 mL oral liquid 200 mg PO Q4HPRN PRN cough 08/30/24 08/30/24 History
prednisone 1 mg tablet 2 mg PO DAILY 08/30/24 08/30/24 History
tramadol 50 mg tablet 50 mg PO QIDPRN PRN moderate pains 08/30/24 08/30/24 History
Review of Systems
-
History Source: Patient
All other systems: Negative unless noted
Physical Exam
Vital Signs
Temp Pulse Resp BP Pulse Ox
99.1 F 94 22 123/78 96
08/30/24 08:43 08/30/24 09:21 08/30/24 09:21 08/30/24 08:43 08/30/24 09:21
Lab Results
08/30/24 05:07
08/30/24 05:07
Troponin I 0.022 ng/ml 08/29/24 22:59
Physical Exam
General: Other (ill appearing, lethargic)
HEENT: Normocephalic, Anicteric and Moist Mucous Membranes
Respiratory: Other (no audible wheezes, nonproductive cough)
Cardiac: Regular Rhythm (on tele)
Musculoskeletal: Edema (1+ of B/L LE)
Skin: Warm and Dry
Neuro: AO x 3
Impression / Plan
-
Primary Ocular Care Aide: Dr. Nick
Assessment:
Presentation with SOB, cough, fevers, diarrhea
Recent covid illness
Paroxysmal atrial tachycardia
PACs/PVCs
Hypokalemia
Paroxysmal atrial fibrillation
CV 11/04/2023
previous amiodarone therapy stopped due to elevated LFTs
previous sotalol therapy stopped due to inability to maintain SR and QTc prolongation 11/2023
PVI 02/07/24
Chronic Eliquis anticoagulation
Chronic HFpEF
CAD
s/p CO w/ RCA PCI x2 05/2018
h/o hematuria 11/2023
HTN
HLD
JA s/p Inspire implant 07/2022
Multiple Myeloma s/p autologous stem cell transplant 03/2023, considered in remission
Chronic anemia/thrombocytopenia
S/P L midfoot fusion 06/25/24
Echo 01/20/2024: EF 59%, mild concentric LVH, mild to moderate MR, mild AR, PAP 43 mmHg, dilated aortic root
Plan:
-Patient presented with shortness of breath, cough, fevers, diarrhea in the setting of recent COVID illness. He is COVID and flu negative on 08/29. Workup per primary service. Continue antibiotics
-On review of telemetry, patient noted to be mostly in sinus rhythm, however is having brief runs of what appears to be a rapid atrial tachycardia, as well as some PACs and PVCs. Suspect this is secondary to his acute infectious/febrile process. He
is status post PVI 01/2024. Will increase outpatient Cardizem to 120 mg twice daily with hold parameters as blood pressure allows
-Continue outpatient Eliquis. hgb/plts appear relatively stable
-Last echo from 01/2024 with results as above
-Check proBNP. Chest x-ray noted to have no acute abnormalities. Patient reports lower extremity edema and abdominal bloating and weight up compared to last office visit (182 pounds) if accurate. Currently on p.o. Lasix 40 mg daily. Would
consider IV Lasix dose x 1 and assess response. Creatinine stable at 1
-Replete potassium
-d/w nursing. d/w hospitalist
Data Reviewed
-
EKG: Tracing Personally Visualized and interpreted
Radiology: Report Reviewed by me
Medical Tests (Nuc Med, Echo etc): Report Reviewed by me
Labs: Labs Reviewed by me
Old Records: Reviewed
[2024-08-30] MEDS: FLOMAX 0.4 MG PO (10:48)
[2024-08-30] MEDS: ELIQUIS 5 MG PO ×2 (10:48→19:51)
[2024-08-30] MEDS: DELTASONE 5 MG PO (10:49)
[2024-08-30] MEDS: VIBRAMYCIN 100 MG PO (10:49)
[2024-08-30] MEDS: LASIX 40 MG PO (10:49)
[2024-08-30] MEDS: CARDIZEM CD PO (11:17)
[2024-08-30 11:43] LABS: NT-proBNP 376 pg/ml
[2024-08-30] MEDS: CARDIZEM CD 120 MG PO ×2 (12:41→19:50)
--- NOTE | 2024-08-30 12:55 | W.PN.HOSP.TC ---
Today's Communication/Plan
-
Monitor vital signs see plan
Broaden antibiotics coverage with Vanco and Zosyn
Check stool studies
Check CT chest
CT head
Replete potassium
Nonbillable note
Assessment / Plan
Assessment / Plan
General: No acute distress
HEENT: Moist mucous membranes and PERRLA
Respiratory: Coarse breath sound
Cardiac: S1/S2, Irregular Rhythm and Tachycardia; No Murmur
GI: Soft, Non Tender, Non Distended and Normal Bowel Sounds
Musculoskeletal: No Edema
Neuro: AO x 3
SIRS; unclear etiology
CXR without infiltration; check CT chest
- Patient presents with fever, tachycardia and tachypnea.
Acute hypoxic respiratory insufficiency secondary pneumonia, monitor
- COVID / flu negative in the ED.
Switch abx to vanc and Zosyn, continue to monitor
- Supportive care, nebs, O2, mucolytics, etc.
- Follow for clinical improvement.
bcx; never were drawn on admission
Flu, COVID-negative. Check Legionella
Paroxysmal Atrial Fibrillation with Rapid Ventricular Response
- Patient with no chest pain or palpitations.
Discussed with cardiology, appears rapid atrial tachycardia along with PACs and PVC.
Cardizem increased to twice daily, continue Eliquis
Cardiology following
- Treat underlying illness as noted above.
Chronic HFpEF
- ? secondary to tachyarrhythmia / acute illness as noted above.
Cardiology following, hold Lasix for now
Per cardiology does not appear to be volume overloaded
- Follow I/Os, daily weights, etc.
- Cardiology evaluation as noted.
- Update Echo
Loose stool/diarrhea
Check C. difficile, stool studies, norovirus
Monitor
Headache
check CT head
Hypokalemia
Replete
Multiple Myeloma
- In remission per report.
- Chronic thrombocytopenia and hyperbilirubinemia are unchanged from baseline.
- No longer on Revlimid / viral prophylaxis.
- Follow for changes in cell counts, etc.
ASCVD
- Stable. No chest pain. Continue current CV med regimen.
JA
- Stable. Inspire device present.
PMR
- Stable. Maintained on chronic low-dose prednisone and will continue this without changes for now.
DVT Prophylaxis: On Eliquis
Code Status: Full
Anticipated Discharge: > 48 hours
Subjective/Interval History
-
Date of Service: August 30, 2024
Denies pain
Objective Data
-
Labs:
Laboratory Results
08/30/24
05:07
WBC 7.5
Hgb 10.9 L
Hct 32.5 L
Plt Count 87 L
Sodium 137
Potassium 3.3 L
Chloride 103
Carbon Dioxide 24
BUN 15
Creatinine 1.0
Glucose 98
Calcium 9.4
Vital Signs:
Vital Signs
Temp Pulse Resp BP Pulse Ox
99.0 F 101 20 161/90 98
08/30/24 12:40 08/30/24 12:40 08/30/24 12:40 08/30/24 12:40 08/30/24 12:48
I&O
08/29/24 08/30/24 08/31/24
06:59 06:59 06:59
Output Total 200 / 200 180 / 180
Balance -200 / -200 -180 / -180
--- NOTE | 2024-08-30 14:22 | PHA.VAN.IN ---
Assessment
- Assessment
Renal Function: Appears similar to baseline (SCR may be slightly elevated compared to baseline)
Concomitant Antimicrobials: piperacillin/tazobactam
Plan
- Plan
Initial / Loading Dose: 2000mg - administration pending
Maintenance Regimen: dosing by level - CrCl borderline - will re-assess for Q12 vs Q24 tomorrow
Monitoring: random 08/31 0600
Pharmacokinetics Vancomycin I
- -
Patient Age: 73
Patient Sex: Male
Vancomycin Day #: 1
Indication: Bacteremia
Requesting Provider: Dr. Toro
Pertinent Antimicrobial Allergies:
no pertinent antibiotic allergies
Height / Weight:
Height 5 ft 7 in
Actual Weight 85.502 kg
Pertinent Past Medical History: Multiple Myeloma
- Vital Signs / Lab Results
Temp Pulse Resp BP Pulse Ox
99.0 F 101 20 161/90 98
08/30/24 12:40 08/30/24 12:40 08/30/24 12:40 08/30/24 12:40 08/30/24 12:48
Lab Results - Hematology
08/29/24 08/30/24
22:59 05:07
WBC 7.0 7.5
Lab Results - Chemistry
08/29/24 08/30/24
22:59 05:07
BUN 15 15
Creatinine 0.9 1.0
Estimated Creat Clear 68 62
Albumin 4.1
Microbiology Results
08/29/24 22:59 Influenza Types A & B (REANNA) - Final
Nasal Swab Negative for Influenza A & B, NAAT
Negative results must be combined with clinical observations
and patient history.
Nucleic Acid Amplification test (NAAT)performed on the
[employer] platform.
[2024-08-30] MEDS: XOPENEX 1.25 MG INHALANT SOLUTION INH ×2 (14:50→20:26)
[2024-08-30] MEDS: ATROVENT NEBULES 0.5 MG INH ×2 (14:50→20:27)
[2024-08-30 15:29] LABS: Magnesium 1.6 mg/dl (1.6-2.3)
[2024-08-30 15:51] LABS: Procalcitonin 0.08 ng/ml (0.0-0.25)
[2024-08-30 15:58] LABS: Urine Albumin Trace (Neg - Trace); Urine Bilirubin Negative (Negative); Urine Character Clear (Clear); Urine Color Yellow; Urine Glucose Negative (Negative); Urine Ketone Negative (Negative); Urine Leukocyte Negative (Negative); Urine Nitrite Negative (Negative); Urine Occult Blood 3+ (Negative); Urine Specific Gravity 1.005 (<1.030); Urine Urobilinogen Negative (Neg - 1+)
[2024-08-30 16:11] LABS: Urine Bacteria Few (Negative); Urine Red Blood Cell 16-20 /HPF (0-2); Urine Squamous Cell 0-2 /LPF (Few); Urine White Cell 0-2 /HPF (0-5)
[2024-08-30] MEDS: ZOSYN 50 IV ×2 (16:29→23:26)
[2024-08-30] MEDS: TYLENOL 1000 MG PO (16:36)
[2024-08-30] MEDS: VANCOCIN 540 MG IV (17:48)
[2024-08-31 03:47] VITALS: BP 149/82
[2024-08-31] MEDS: ZOSYN 50 IV ×4 (05:00→23:54)
[2024-08-31 06:00] VITALS: BMI 28.1
[2024-08-31 07:00] VITALS: BP 127/75
[2024-08-31] MEDS: ATROVENT NEBULES 0.5 MG INH ×3 (07:48→19:47)
[2024-08-31] MEDS: XOPENEX 1.25 MG INHALANT SOLUTION INH ×3 (07:48→19:47)
[2024-08-31 08:59] LABS: Vancomycin Random 10.4 ug/ml
[2024-08-31] MEDS: FLOMAX 0.4 MG PO (08:59)
[2024-08-31] MEDS: CARDIZEM CD 120 MG PO ×2 (08:59→20:32)
[2024-08-31] MEDS: ELIQUIS 5 MG PO ×2 (09:00→20:32)
[2024-08-31] MEDS: ROBITUSSIN 200 MG PO ×4 (09:00→20:32)
[2024-08-31] MEDS: KCL 40 MEQ PO ×2 (09:00→20:31)
[2024-08-31] MEDS: DELTASONE 5 MG PO (09:00)
[2024-08-31 09:06] LABS: % Basophils 0.2 % (0-2); % Immature Granulocytes 0.7 % (0-0.5); % Lymphocytes 9.6 % (20.5-51.1); % Neutrophils 82.5 % (42.2-75.2); Absolute Lymphocytes 0.4 10^3/uL (1.2-3.4); Absolute Monocytes 0.3 10^3/uL (0.1-0.6); Absolute Neutrophils 3.5 10^3/uL (1.4-6.5); Mean Corp Hgb Conc. 32.4 g/dL (33.0-37.0); Mean Corpuscular Hgb 31.8 pg (27.0-31.0); Mean Corpuscular Volume 98.1 fL (80.0-94.0); Mean Platelet Volume 9.2 fL (7.4-10.4); Nucleated Red Blood Cells % 0 % (-); Platelet Count 91 10^3/uL (130-400); Red Blood Cell Count 3.77 10^6/uL (4.70-6.10); Red Cell Dist. Width 16.8 % (11.5-14.5); White Blood Cell Count 4.3 10^3/uL (4.8-10.8)
[2024-08-31 09:31] LABS: Blood Urea Nitrogen 13 mg/dl (9-20); Calcium 9.5 mg/dl (8.4-10.2); Carbon Dioxide 20 mmol/L (22-30); Chloride 102 mmol/L (98-107); Estimated Creatinine Clearance 62 ml/min; Glucose 117 mg/dl (70-99); Potassium 3.5 mmol/L (3.5-5.1); Sodium 136 mmol/L (135-145); eGFR > 60.00
--- NOTE | 2024-08-31 09:56 | PHA.VAN.FU ---
Vancomycin Assessment / Plan
- Assessment
Renal Function: Stable
Concomitant Antimicrobials: piperacillin/tazobactam
Receiving furosemide 40mg PO daily
- Assessment - Therapeutic Drug Monitoring
Random Level: 10.4 - drawn ~14.5H after 2g loading dose
- Dosing Plan
Adjust Regimen to: Vanc 750mg Q12H - first dose now then 1800
New Regimen Predicts: AUC (487), Peak (27.1), Trough (14.6)
Dosing Comments: predicted half-life ~12H
Renal function borderline for Q12H vs Q24H
Will tentatively start Q12H dosing as patient clearing loading dose appropriately
Low threshold to switch to Q24H or dose by level if SCR increases
- Monitoring Plan
No level(s) ordered at this time: consider levels in next few days
- Follow Up
Pharmacy will continue to follow.
Vancomycin Follow UP
- -
Patient Age: 73
Patient Sex: Male
Vancomycin Day #: 2
Indication: Bacteremia
Requesting Provider: Dr. Toro
Pertinent Antimicrobial Allergies:
no pertinent antibiotic allergies
Height / Weight:
Height 5 ft 7 in
Actual Weight 81.329 kg
Pertinent Past Medical History: Multiple Myeloma
- Vital Signs / Lab Results
Temp Pulse Resp BP Pulse Ox
98.2 F 71 18 127/75 97
08/31/24 03:47 08/31/24 07:50 08/31/24 07:50 08/31/24 07:00 08/31/24 07:50
Lab Results - Hematology
08/29/24 08/30/24 08/31/24
22:59 05:07 08:21
WBC 7.0 7.5 4.3 L
Lab Results - Chemistry
08/29/24 08/30/24 08/31/24
22:59 05:07 08:21
BUN 15 15 13
Creatinine 0.9 1.0 1.0
Estimated Creat Clear 68 62 62
Albumin 4.1
Lab Results - Urine
08/30/24
15:27
Urine Nitrite (Reflex) Negative
Leukocyte Esterase Rfl Negative
Ur Squamous Epith Cells 0-2
Microbiology Results
08/30/24 15:27 Nasal Screen MRSA (PCR) - Final
Nose MRSA not detected - performed by PCR methodology.
08/30/24 15:05 Legionella Urinary Antigen - Final
Urine Negative for Legionella pneumophila Serogroup 1 antigen.
A negative result does not rule out the possiblity of
Legionella infection due to other serogroups or species of
Legionella. Clinical correlation is recommended.
08/29/24 22:59 Influenza Types A & B (REANNA) - Final
Nasal Swab Negative for Influenza A & B, NAAT
Negative results must be combined with clinical observations
and patient history.
Nucleic Acid Amplification test (NAAT)performed on the
[employer] platform.
Therapeutic Drug Monitoring
Random Vancomycin 10.4 ug/ml 08/31/24 08:21
[2024-08-31] MEDS: VANCOCIN 150 IV (10:53)
[2024-08-31 11:00] VITALS: BP 129/70
--- NOTE | 2024-08-31 13:16 | W.PN.HOSP.TC ---
Today's Communication/Plan
-
Monitor vital signs see plan
Check CT abdomen/pelvis
Follow fever curve
Continue with antibiotics for now
Cardizem
Assessment / Plan
Assessment / Plan
General: No acute distress
HEENT: Moist mucous membranes and PERRLA
Respiratory: Coarse breath sound
Cardiac: S1/S2, Irregular Rhythm and Tachycardia; No Murmur
GI: Soft, Non Tender, Non Distended and Normal Bowel Sounds
Musculoskeletal: No Edema
Neuro: AO x 3
SIRS; unclear etiology
could be 2/2 viral etiology
CXR without infiltration; CT chest without any pneumonia
- Patient presents with fever, tachycardia and tachypnea.
Acute hypoxic respiratory insufficiency secondary pneumonia, monitor
- COVID / flu negative in the ED.
DC Vanco, MRSA negative. Continue with Zosyn for now
- Supportive care, nebs, O2, mucolytics, etc.
bcx; never were drawn on admission
Flu, COVID-negative
check CT abd/pelvis
Follow fever curve, if continues to spike fever then will get ID evaluation
Paroxysmal Atrial Fibrillation with Rapid Ventricular Response
- Patient with no chest pain or palpitations.
Discussed with cardiology, appears rapid atrial tachycardia along with PACs and PVC.
Cardizem increased to twice daily, continue Eliquis
Cardiology following
- Treat underlying illness as noted above
on eliquis
Chronic HFpEF
- ? secondary to tachyarrhythmia / acute illness as noted above.
Cardiology following, hold Lasix for now
Per cardiology does not appear to be volume overloaded
- Follow I/Os, daily weights, etc.
- Cardiology evaluation as noted.
- Update Echo
Loose stool/diarrhea
Check C. difficile, stool studies, norovirus
Monitor
Headache
CT head negative for any hemorrhage
Continue to monitor
Headaches improved
Hypokalemia
Replete
Multiple Myeloma
- In remission per report.
- Chronic thrombocytopenia and hyperbilirubinemia are unchanged from baseline.
- No longer on Revlimid / viral prophylaxis.
- Follow for changes in cell counts, etc.
ASCVD
- Stable. No chest pain. Continue current CV med regimen.
JA
- Stable. Inspire device present.
PMR
- Stable. Maintained on chronic low-dose prednisone and will continue this without changes for now.
DVT Prophylaxis: On Eliquis
Code Status: Full
I spent a total of 52 minutes with the patient or on the floor. More than 50% of this time involved counseling and coordination of care.
Anticipated Discharge: > 48 hours
Subjective/Interval History
-
Date of Service: August 31, 2024
Has abdominal discomfort
Objective Data
-
Labs:
Laboratory Results
08/31/24
08:21
WBC 4.3 L
Hgb 12.0 L
Hct 37.0 L
Plt Count 91 L
Sodium 136
Potassium 3.5
Chloride 102
Carbon Dioxide 20 L
BUN 13
Creatinine 1.0
Glucose 117 H
Calcium 9.5
Vital Signs:
Vital Signs
Temp Pulse Resp BP Pulse Ox
100.5 F H 97 18 129/70 94
08/31/24 11:00 08/31/24 11:00 08/31/24 11:00 08/31/24 11:00 08/31/24 11:00
I&O
08/30/24 08/31/24 09/01/24
06:59 06:59 06:59
Intake Total 2550 / 2550
Output Total 200 / 200 755 / 755
Balance -200 / -200 1795 / 1795
--- NOTE | 2024-08-31 13:42 | PN.CDI ---
CDI
- -
CDI:
Physician Documentation Request
Admit Date: 08/30/24 02:38
Dear Doctor Cortez,
Patient admitted with shortness of breath and weakness.
H&P, 'Patient states that he has had cough productive of yellow sputum for about 3 days. He notes fatigue, SOB, fevers / chills (recorded temp of 101 at home)'
08/30 PN, 'SIRS; unclear etiology....Patient presents with fever, tachycardia and tachypnea....Acute hypoxic respiratory insufficiency secondary pneumonia....Switch abx to Vanc and Zosyn, continue to monitor.'
Please clarify which of the following most accurately describes the status of the patient:
Sepsis, POA secondary to pneumonia
SIRS due to unclear etiology only
Other
Sepsis
- Systemic manifestations of infection, with 2 or more SIRS criteria which include:
- Fever >100.4 degrees F or hypothermia < 96.8 degrees F
- Leukocytosis - WBC > 12,000 or leukopenia - WBC < 4,000 or > 10% bands
- Tachycardia > 90 beats per minute
- Tachypnea - RR > 20 breaths per minute or PaCO2 , 32mmHg
Source: Merck Manual 2013
- Indicate the known or suspected organism
- Indicate the known or suspected underlying infection, such as UTI, pneumonia or cellulitis
Localized Infection Only, Without Systemic Illness
- indicate the site/source, such as pneumonia
Other
Use of terms such as suspected, likely, concern for, or probable (associated with a specific diagnosis that is being evaluated, monitored, or treated as if it exists) are acceptable and can be coded in the inpatient setting, when documented at the
time of discharge.
Thank you,
Alesha QUINTERO,RN,CCDS
CDI Specialist
Available via [place] text
Please use your independent medical judgment in providing your response.
[2024-08-31] MEDS: OMNIPAQUE 50 ML PO (14:44)
[2024-08-31 15:00] VITALS: BP 138/73
[2024-08-31 19:00] VITALS: BP 124/63
--- NOTE | 2024-08-31 20:22 | W.PN.CARDCBS ---
Today's Communication / Plan
-
Monitor telemetry
Workup of infection and treatment deferred to primary
Impression / Plan
-
Primary Asphalt Heater Tender: Dr. Nick
Assessment:
Presentation with SOB, cough, fevers, diarrhea
Recent covid illness
Paroxysmal atrial tachycardia
PACs/PVCs
Hypokalemia
Paroxysmal atrial fibrillation
CV 11/04/2023
previous amiodarone therapy stopped due to elevated LFTs
previous sotalol therapy stopped due to inability to maintain SR and QTc prolongation 11/2023
PVI 02/07/24
Chronic Eliquis anticoagulation
Chronic HFpEF
CAD
s/p MA w/ RCA PCI x2 05/2018
h/o hematuria 11/2023
HTN
HLD
JA s/p Inspire implant 07/2022
Multiple Myeloma s/p autologous stem cell transplant 03/2023, considered in remission
Chronic anemia/thrombocytopenia
S/P L midfoot fusion 06/25/24
Echo 01/20/2024: EF 59%, mild concentric LVH, mild to moderate MR, mild AR, PAP 43 mmHg, dilated aortic root
Plan:
Acute febrile illness with recent COVID complaining of shortness of breath/cough, headache/body aches, diarrhea
-Chest x-ray without evidence of pneumonia and no significant evidence of heart failure
-CT head negative for bleed or acute pathology
-CT chest with no pulmonary embolism.
-COVID and influenza swabs in the ED are negative; Legionella negative. Blood cultures no growth for 24 hours. C. difficile Negative
-Patient feels slightly better than yesterday but still unwell with ongoing diarrhea. CT of the abdomen planned
-Empiric antibiotics per primary
History of atrial fibrillation status post PVI in January 2024 currently in sinus rhythm/Sinus tachycardia with ectopy and episodes of PAT
-Asymptomatic
-Continue telemetry monitoring
-Cardizem increased to 120 mg twice daily with hold parameters
-Continue Eliquis anticoagulation; he denies interruption or missed doses
History of chronic HFpEF
-Appears dry/euvolemic with proBNP not elevated
-Resume oral Lasix
-2D echocardiogram with normal biventricular size and systolic function with mild mitral, aortic and trace tricuspid regurgitation. Estimated pulmonary artery pressures 25-30 mmHg. No pericardial effusion.
-Continue outpatient Eliquis. hgb/plts appear relatively stable
-Replete potassium
History of coronary artery disease with prior MA and RCA PCI in 2018�no chest pain.
History of sleep apnea status post inspire implant 2021
History of multiple myeloma status post stem cell transplant 2022 in remission/chronic thrombocytopenia
History of PMR on low-dose prednisone
Progress Note - Asphalt Heater Tender
Subjective
Date of Service: August 31, 2024
Seen and examined. Still feels unwell with shortness of breath/cough and ongoing diarrhea.
Objective
Labs:
08/31/24 08:21
08/31/24 08:21
Labs
Hgb 12.0 g/dL (13.0-18.0) L 08/31/24 08:21
Hct 37.0 % (39.0-52.0) L 08/31/24 08:21
Plt Count 91 10^3/uL (130-400) L 08/31/24 08:21
Sodium 136 mmol/L (135-145) 08/31/24 08:21
Potassium 3.5 mmol/L (3.5-5.1) 08/31/24 08:21
BUN 13 mg/dl (9-20) 08/31/24 08:21
Creatinine 1.0 mg/dL (0.7-1.3) 08/31/24 08:21
Glucose 117 mg/dl (70-99) H 08/31/24 08:21
Troponins
08/29/24
22:59
Troponin I 0.022
Vital Signs and I&O:
Vital Signs
Temp Pulse Resp BP Pulse Ox
98.6 F 59 24 138/73 98
08/31/24 15:00 08/31/24 15:00 08/31/24 15:00 08/31/24 15:00 08/31/24 15:00
Vital Signs
Temp Pulse Resp BP Pulse Ox
98.6 F 59 24 138/73 98
08/31/24 15:00 08/31/24 15:00 08/31/24 15:00 08/31/24 15:00 08/31/24 15:00
Intake & Output
08/29/24 08/30/24 08/31/24 09/01/24
06:59 06:59 06:59 06:59
Intake Total 2550 / 2550 960 / 960
Output Total 200 / 200 755 / 755
Balance -200 / -200 1795 / 1795 960 / 960
Physical Exam
Physical Exam
General: AAOx3
Heart: Regular with ectopy. Positive S1/S2, no murmur or rub
Lungs: Bronchovesicular breath sounds with coarse rhonchi. No wheezes. No crackles
Abd: Positive BS, NT/ND, neg rebound/rigidity/guarding
Ext: no edema
[2024-08-31 23:00] VITALS: BP 142/76
[2024-08-31] MEDS: TYLENOL 1000 MG PO (23:59)
[2024-09-01 03:00] VITALS: BP 122/73
[2024-09-01] MEDS: ZOSYN 50 IV ×4 (05:13→23:25)
[2024-09-01 06:46] VITALS: BMI 28.1
[2024-09-01 07:05] LABS: % Immature Granulocytes 0.3 % (0-0.5); % Lymphocytes 8.9 % (20.5-51.1); % Monocytes 7.9 % (1.7-9.3); % Neutrophils 82.9 % (42.2-75.2); Absolute Lymphocytes 0.3 10^3/uL (1.2-3.4); Absolute Monocytes 0.2 10^3/uL (0.1-0.6); Absolute Neutrophils 2.5 10^3/uL (1.4-6.5); Hematocrit 33.3 % (39.0-52.0); Hemoglobin 10.9 g/dL (13.0-18.0); Mean Corp Hgb Conc. 32.7 g/dL (33.0-37.0); Mean Corpuscular Volume 97.7 fL (80.0-94.0); Mean Platelet Volume 8.8 fL (7.4-10.4); Nucleated Red Blood Cells % 0 % (-); Platelet Count 77 10^3/uL (130-400); Red Blood Cell Count 3.41 10^6/uL (4.70-6.10); Red Cell Dist. Width 16.7 % (11.5-14.5); White Blood Cell Count 3.1 10^3/uL (4.8-10.8)
[2024-09-01 07:15] VITALS: BP 110/65
[2024-09-01 07:20] LABS: Blood Urea Nitrogen 15 mg/dl (9-20); Calcium 8.9 mg/dl (8.4-10.2); Carbon Dioxide 22 mmol/L (22-30); Chloride 103 mmol/L (98-107); Estimated Creatinine Clearance 56 ml/min; Glucose 94 mg/dl (70-99); Potassium 3.8 mmol/L (3.5-5.1); Sodium 134 mmol/L (135-145); eGFR > 60.00
[2024-09-01] MEDS: ATROVENT NEBULES 0.5 MG INH ×3 (07:43→19:32)
[2024-09-01] MEDS: XOPENEX 1.25 MG INHALANT SOLUTION INH ×3 (07:43→19:32)
[2024-09-01] MEDS: ELIQUIS 5 MG PO ×2 (08:27→21:43)
[2024-09-01] MEDS: ROBITUSSIN 200 MG PO ×4 (08:27→21:43)
[2024-09-01] MEDS: DELTASONE 5 MG PO (08:27)
[2024-09-01] MEDS: LASIX 40 MG PO (08:27)
[2024-09-01] MEDS: KCL 40 MEQ PO ×2 (08:27→21:43)
[2024-09-01] MEDS: CARDIZEM CD 120 MG PO ×2 (08:28→21:43)
[2024-09-01] MEDS: FLOMAX 0.4 MG PO (08:28)
[2024-09-01 11:15] VITALS: BP 118/77
--- NOTE | 2024-09-01 12:40 | CM ---
CM reviewed chart, late entry from 08/31/24: Patient resides with his spouse in a one story home, two steps to enter. Patient is independent, denies VN/SNF history. Patient confirms PCP Evens Durant, pharmacy [facility]. CM will continue to follow
for all discharge planning needs.
Plan; home no needs likely.
--- NOTE | 2024-09-01 12:45 | W.PN.HOSP.TC ---
Today's Communication/Plan
-
Monitor vital signs see plan
Continue with antibiotics
Follow fever curve, if continues to spike fever then will get ID evaluation
Spouse updated over the phone
Assessment / Plan
Assessment / Plan
General: No acute distress
HEENT: Moist mucous membranes and PERRLA
Respiratory: Coarse breath sound
Cardiac: S1/S2, Irregular Rhythm and Tachycardia; No Murmur
GI: Soft, Non Tender, Non Distended and Normal Bowel Sounds
Musculoskeletal: No Edema
Neuro: AO x 3
sepsis likely 2/2 Pneumonia
could be 2/2 viral etiology however he did improve with abx
CXR without infiltration; CT chest without any pneumonia
- Patient presents with fever, tachycardia and tachypnea.
Acute hypoxic respiratory insufficiency secondary pneumonia, monitor. Now improving and on room air
Suspect associated bronchitis. Continue with nebs
- COVID / flu negative in the ED.
DC Vanco, MRSA negative. Continue with Zosyn for now
- Supportive care, nebs, O2, mucolytics, etc.
bcx NGTD; never were drawn on admission
Flu, COVID-negative
Initially imaging did not show pneumonia however CT abdomen/pelvis showed infiltration consistent with interstitial pneumonia
Follow fever curve, if continues to spike fever then will get ID evaluation
Paroxysmal Atrial Fibrillation with Rapid Ventricular Response
- Patient with no chest pain or palpitations.
Discussed with cardiology, appears rapid atrial tachycardia along with PACs and PVC.
Cardizem increased to twice daily, continue Eliquis
Cardiology following
- Treat underlying illness as noted above
on eliquis
Chronic HFpEF
- secondary to tachyarrhythmia / acute illness as noted above.
Cardiology following, Lasix resumed
- Follow I/Os, daily weights, etc.
- Cardiology evaluation as noted.
Echo 08/30 with a EF 55 to 60%
Intermittent hematuria
Did had some RBC in UA
Abdomen/pelvis CT without any urological acute issues
Patient instructed to follow-up with urology outpatient.
Loose stool/diarrhea
C. difficile, stool studies, norovirus negative
Monitor
Headache
CT head negative for any hemorrhage
Continue to monitor
Headaches improved
Hyponatremia
Monitor
Hypokalemia
Replete
Multiple Myeloma
- In remission per report.
- Chronic thrombocytopenia and hyperbilirubinemia are unchanged from baseline.
- No longer on Revlimid / viral prophylaxis.
- Follow for changes in cell counts, etc.
ASCVD
- Stable. No chest pain. Continue current CV med regimen.
JA
- Stable. Inspire device present.
History of compression fracture, lumbar
PMR
- Stable. Maintained on chronic low-dose prednisone and will continue this without changes for now.
DVT Prophylaxis: On Eliquis
Code Status: Full
I spent a total of 51 minutes with the patient or on the floor. More than 50% of this time involved counseling and coordination of care.
Anticipated Discharge: 24 - 48 hours
Subjective/Interval History
-
Date of Service: September 01, 2024
Denies pain
Objective Data
-
Labs:
Laboratory Results
09/01/24
06:21
WBC 3.1 L
Hgb 10.9 L
Hct 33.3 L
Plt Count 77 L
Sodium 134 L
Potassium 3.8
Chloride 103
Carbon Dioxide 22
BUN 15
Creatinine 1.1
Glucose 94
Calcium 8.9
Vital Signs:
Vital Signs
Temp Pulse Resp BP Pulse Ox
98.8 F 79 16 118/77 97
09/01/24 11:15 09/01/24 11:55 09/01/24 11:55 09/01/24 11:15 09/01/24 11:55
I&O
08/31/24 09/01/24 09/02/24
06:59 06:59 06:59
Intake Total 2550 / 2550 960 / 960
Output Total 755 / 755
Balance 1795 / 1795 960 / 960
[2024-09-01 15:10] VITALS: BP 115/63
[2024-09-01 19:28] VITALS: BP 118/64
[2024-09-01 23:40] VITALS: BP 121/70
[2024-09-02] MEDS: TUMS CHEWABLE TABLET 200 MG PO (01:02)
[2024-09-02 03:48] VITALS: BP 116/65
[2024-09-02] MEDS: ZOSYN 50 IV ×2 (05:15→12:23)
[2024-09-02 06:00] VITALS: BMI 27.8
[2024-09-02 07:08] VITALS: BP 104/63
[2024-09-02] MEDS: ATROVENT NEBULES 0.5 MG INH ×2 (07:49→11:55)
[2024-09-02] MEDS: XOPENEX 1.25 MG INHALANT SOLUTION INH ×2 (07:49→11:55)
[2024-09-02] MEDS: KCL 40 MEQ PO (08:36)
[2024-09-02] MEDS: CARDIZEM CD 120 MG PO (08:36)
[2024-09-02] MEDS: ROBITUSSIN 200 MG PO ×2 (08:36→12:23)
[2024-09-02] MEDS: ELIQUIS 5 MG PO (08:37)
[2024-09-02] MEDS: FLOMAX 0.4 MG PO (08:37)
[2024-09-02] MEDS: DELTASONE 5 MG PO (08:37)
[2024-09-02] MEDS: LASIX 40 MG PO (08:37)
[2024-09-02 08:43] LABS: % Basophils 0.4 % (0-2); % Eosinophils 0.8 % (0-6); % Immature Granulocytes 0.8 % (0-0.5); % Lymphocytes 14.8 % (20.5-51.1); % Monocytes 10.2 % (1.7-9.3); Absolute Lymphocytes 0.4 10^3/uL (1.2-3.4); Absolute Monocytes 0.3 10^3/uL (0.1-0.6); Absolute Neutrophils 1.9 10^3/uL (1.4-6.5); Hematocrit 30.7 % (39.0-52.0); Mean Corp Hgb Conc. 32.6 g/dL (33.0-37.0); Mean Corpuscular Hgb 31.4 pg (27.0-31.0); Mean Corpuscular Volume 96.5 fL (80.0-94.0); Mean Platelet Volume 9.5 fL (7.4-10.4); Nucleated Red Blood Cells % 0 % (-); Platelet Count 75 10^3/uL (130-400); Red Blood Cell Count 3.18 10^6/uL (4.70-6.10); Red Cell Dist. Width 16.6 % (11.5-14.5); White Blood Cell Count 2.6 10^3/uL (4.8-10.8)
[2024-09-02 08:59] LABS: Blood Urea Nitrogen 16 mg/dl (9-20); Carbon Dioxide 22 mmol/L (22-30); Chloride 105 mmol/L (98-107); Estimated Creatinine Clearance 62 ml/min; Glucose 83 mg/dl (70-99); Potassium 3.7 mmol/L (3.5-5.1); Sodium 136 mmol/L (135-145); eGFR > 60.00
--- NOTE | 2024-09-02 10:36 | W.PN.HOSP.TC ---
Today's Communication/Plan
-
monitor vitals
see plan
urology f/u outpatient
switch abx to PO
dc today
time of discharge 38 minutes
Assessment / Plan
Assessment / Plan
General: No acute distress
HEENT: Moist mucous membranes and PERRLA
Respiratory: Coarse breath sound
Cardiac: S1/S2, Irregular Rhythm and Tachycardia; No Murmur
GI: Soft, Non Tender, Non Distended and Normal Bowel Sounds
Musculoskeletal: No Edema
Neuro: AO x 3
sepsis likely 2/2 Pneumonia
could be 2/2 viral etiology however he did improve with abx
CXR without infiltration; CT chest without any pneumonia
- Patient presents with fever, tachycardia and tachypnea.
Acute hypoxic respiratory insufficiency secondary pneumonia, monitor. Now improving and on room air
Suspect associated bronchitis. now improved. will dc with albuterol prn
- COVID / flu negative in the ED.
DC Vanco, MRSA negative. Continue with Zosyn for now. switch abx to PO
- Supportive care, nebs, O2, mucolytics, etc.
bcx NGTD; never were drawn on admission
Flu, COVID-negative
Initially imaging did not show pneumonia however CT abdomen/pelvis showed infiltration consistent with interstitial pneumonia
Follow fever curve, if continues to spike fever then will get ID evaluation
Paroxysmal Atrial Fibrillation with Rapid Ventricular Response
- Patient with no chest pain or palpitations.
Discussed with cardiology, appears rapid atrial tachycardia along with PACs and PVC. now stable with BID cardizem
Cardizem increased to twice daily, continue Eliquis
Cardiology following
- Treat underlying illness as noted above
on eliquis
Chronic HFpEF
- secondary to tachyarrhythmia / acute illness as noted above.
Cardiology following, Lasix resumed
- Follow I/Os, daily weights, etc.
- Cardiology evaluation as noted.
Echo 08/30 with a EF 55 to 60%
Intermittent hematuria
Did had some RBC in UA; per patient happened before and now 2/2 trauma. Urine is otherwise clear but occasionally upon initiation he has few blood drops
Abdomen/pelvis CT without any urological acute issues
Patient instructed to follow-up with urology outpatient.
Loose stool/diarrhea
C. difficile, stool studies, norovirus negative
Monitor
Headache
CT head negative for any hemorrhage
Continue to monitor
Headaches improved
Hyponatremia
resolved
Hypokalemia
resolved
Multiple Myeloma
- In remission per report.
- Chronic thrombocytopenia and hyperbilirubinemia are unchanged from baseline.
- No longer on Revlimid / viral prophylaxis.
- Follow for changes in cell counts, etc.
ASCVD
- Stable. No chest pain. Continue current CV med regimen.
JA
- Stable. Inspire device present.
History of compression fracture, lumbar
PMR
- Stable. Maintained on chronic low-dose prednisone and will continue this without changes for now.
DVT Prophylaxis: On Eliquis
Code Status: Full
Anticipated Discharge: Today
Subjective/Interval History
-
Date of Service: September 02, 2024
DENIES PAIN
Objective Data
-
Labs:
Laboratory Results
09/02/24
07:15
WBC 2.6 L
Hgb 10.0 L
Hct 30.7 L
Plt Count 75 L
Sodium 136
Potassium 3.7
Chloride 105
Carbon Dioxide 22
BUN 16
Creatinine 1.0
Glucose 83
Calcium 9.0
Vital Signs:
Vital Signs
Temp Pulse Resp BP Pulse Ox
98.2 F 69 20 104/63 95
09/02/24 07:08 09/02/24 08:36 09/02/24 07:50 09/02/24 08:36 09/02/24 07:50
I&O
09/01/24 09/02/24 09/03/24
06:59 06:59 06:59
Intake Total 960 / 960 1829
Balance 960 / 960 1829
--- NOTE | 2024-09-02 10:46 | W.DCSUMMARY ---
Discharge Summary
Discharge Data
Date of Admission: 08/30/24
Date of Discharge: 09/02/24
-
Pending Results: No
Hospital Course
73-year-old male with past medical history of multiple myeloma, JA, compression fracture lumbar, polymyalgia rheumatica, paroxysmal atrial fibrillation came to the hospital with sepsis secondary to pneumonia. Initially imaging was not consistent
with pneumonia however later on patient got a CT scan of the abdomen/pelvis which was consistent with pneumonia. Patient symptoms continue to improve over time with antibiotics which were later transitioned to oral antibiotics prior to discharge.
He also had associated bronchitis which continue to improve. Flu and COVID was checked which was negative. On this hospitalization patient also had elevated heart rate for which he was seen by cardiology. Patient Cardizem was increased to twice
daily. On this hospitalization patient also had intermittent hematuria which was likely thought was secondary to trauma. Abdomen/pelvis CT did not show any acute urological issues. Patient symptoms continue to improve over time. Patient
instructed to follow-up with urology outpatient. Once patient symptoms continue to improve, he was then discharged home with instructions to follow-up with all his physicians outpatient.
Discharge Plan
-
Patient Disposition: Home (Routine Discharge)
Discharge Diagnosis/Procedures: sepsis likely 2/2 Pneumonia
Suspected Atrial Tachycardia
Intermittent mild hematuria
Hypokalemia
Diet: As tolerated
Activity: As tolerated
Driving Restrictions: As prior to admission
Bathing Restrictions: None
Blood Work: BMP next week with PCP
Activity Restrictions/Additional Instructions:
PLEASE FOLLOW UP WITH UROLOGY SOON
Referrals:
Josiah Herrera MD [Active] - in less than 1 week
Yassine Killian DO [Active] -
Evens Durant PA-C [Family Provider] - in less than 1 week
Prescriptions:
New
prednisone 5 mg Tablet
5 mg PO DAILY Qty: 0 0RF
guaifenesin 100 mg/5 mL Liquid
200 mg PO QID Qty: 1500 0RF
diltiazem HCl 120 mg Capsule,Extended Release 24hr
120 mg PO BID Qty: 60 0RF
amoxicillin-pot clavulanate 875-125 mg tablet
1 tab PO Q12H Qty: 10 0RF
Probiotic 10 billion cell capsule
10,000 mmu cells PO DAILY Qty: 7 0RF
albuterol sulfate 90 mcg/actuation HFA aerosol inhaler
2 puff inhalation Q6H PRN (Reason: shortness of breath or wheezing) Qty: 6.7 0RF
Continued
tamsulosin [Flomax] 0.4 mg Capsule
0.4 mg PO DAILY
Eliquis 5 mg tablet
5 mg PO BID Qty: 90 3RF
therapeutic multivitamin Tablet
1 tab PO DAILY
acetaminophen [Tylenol Extra Strength] 500 mg Tablet
1,000 mg PO Q6HPRN PRN (Reason: mild pain)
guaifenesin 100 mg/5 mL Liquid
200 mg PO Q4HPRN PRN (Reason: cough)
calcium carbonate 500 mg calcium (1,250 mg) Tablet
500 mg PO DAILY
tramadol 50 mg Tablet
50 mg PO QIDPRN PRN (Reason: moderate pain)
Changed
potassium chloride 10 mEq Tablet Extended Release
20 meq PO BID Qty: 0 0RF
furosemide [Lasix] 20 mg tablet
40 mg PO DAILY Qty: 30 0RF
Discontinued
prednisone 1 mg Tablet
2 mg PO DAILY
diltiazem HCl 120 mg Capsule,Extended Release 24hr
120 mg PO DAILY
Discharge Orders:
Discharge Patient (As Directed); Ordered 09/02/24
Ordered By: Vickey Toro
Discharge Date and Time
Discharge Date/Time: 09/02/24 14:16
Print Language: TAIWANESE
--- NOTE | 2024-09-02 11:00 | CM ---
Patient seen beside, for discharge today. IMM verbally reviewed, declining copy at this time, placed in chart. Patient denies needs upon discharge, confirms family will transport home. CM will continue to follow for all discharge planning needs.
Plan; home no needs.
[2024-09-02 11:03] VITALS: BP 118/68
== END 2024-09-02 14:16 | disposition home or self-care (01) | DRG 871 ==
LOC: 4 WEST ACU 02:38
PROVIDERS: ADMITTING PHYSICIAN Hospitalist; ATTENDING PHYSICIAN Internal Medicine; EMERGENCY PHYSICIAN Emergency Medicine; FAMILY PHYSICIAN Physician Assistant Medical; OTHER PHYSICIAN Internal Medicine Cardiovascular Disease
DX: A41.9 Sepsis, unspecified organism (principal); J18.9 Pneumonia, unspecified organism; I47.19 Other supraventricular tachycardia; C90.01 Multiple myeloma in remission; M48.56XA Collapsed vertebra, not elsewhere classified, lumbar region, initial encounter for fracture; R17 Unspecified jaundice; Z94.84 Stem cells transplant status; I50.32 Chronic diastolic (congestive) heart failure; E87.6 Hypokalemia; Z11.52 Encounter for screening for COVID-19; G47.33 Obstructive sleep apnea (adult) (pediatric); M35.3 Polymyalgia rheumatica; I48.0 Paroxysmal atrial fibrillation; J40 Bronchitis, not specified as acute or chronic; Z86.16 Personal history of COVID-19; Z79.01 Long term (current) use of anticoagulants; I11.0 Hypertensive heart disease with heart failure; I25.10 Atherosclerotic heart disease of native coronary artery without angina pectoris; Z82.49 Family history of ischemic heart disease and other diseases of the circulatory system; R09.02 Hypoxemia; D69.6 Thrombocytopenia, unspecified; Z79.52 Long term (current) use of systemic steroids; I25.2 Old myocardial infarction; Z95.5 Presence of coronary angioplasty implant and graft; E78.00 Pure hypercholesterolemia, unspecified; I49.3 Ventricular premature depolarization; Z96.651 Presence of right artificial knee joint
CPT/HCPCS: 70450; 71046; 71275; 74177; 80048; 80053; 80202; 81003; 81015; 83735; 83880; 84145; 84443; 84484; 85025; 85027; 87040; 87045; 87046; 87324; 87427; 87449; 87502; 87641; 87798; 87811; 87899; 89055; 93005; 93306; 94640; 94760; 96361; 96365; 96375; 99285; Q9967

== ENCOUNTER 2024-09-21 08:31 | Emergency (ER) | payer MEDICARE, SELFPAY ==
[2024-09-21 10:18] VITALS: BMI 28.7
--- NOTE | 2024-09-21 10:23 | ED.GENMED ---
History of Present Illness
General
Chief Complaint: DVT/Possible Blood Clot
Source: patient
Exam Limitations: none
Time Seen by Provider: 09/21/24 09:48
Nursing documentation reviewed up to this point in time: agreed with
History of Present Illness
History of Present Illness:
73-year-old male on Eliquis for A-fib, HTN, HLD, AZ with 2 stents 2017, stem cell transplant 2022, multiple myeloma in remission, right TKA 2020 with revision in 2021 presents for pain medial aspect of right knee for the past 3 days and then 2 days
ago noted lower leg and calf swelling and warmth. No recollection of overuse or injury. Denies chest pain or shortness of breath. Denies fever or chills.
Past History
Past History
ED Past Medical History: Arrthythmia, CAD, HTN, Hypercholesterolemia, AZ and Other (multiple myeloma)
ED Past Surgical History: Cardiac (2 cardiac stents 2017) and Orthopedic
Social History
Tobacco: Non-smoker
Alcohol: None
Drug: None
Personal:
Living: with family
Review of Systems
Review of Systems
Allergies reviewed?: Yes
All Other Systems: ROS reviewed and negative except as documented in HPI and ROS
Constitutional: Denies fever or chills
Respiratory: Denies trouble breathing
Cardiac: Denies chest pain
ABD/GI: Denies abdominal pain or nausea
Musculoskeletal: Reports other (Pain medial right knee, swelling lower leg)
Skin: Reports other (Mild redness right calf)
Neurological: Reports no symptoms
Phy Exam
Physical Exam
Physical Exam:
GENERAL: No acute distress. A&Ox3.
CONSTITUTIONAL: Afebrile.
EYES: clear, conjunctivae normal
ENMT: moist mucus membranes,
RESPIRATORY: Regular respirations, nonlabored, lungs clear.
CARDIOVASCULAR: Regular rate and rhythm, no murmurs, no rubs.
GI: Soft, nontender, normal BS
MUSCULOSKELETAL: Point tender medial aspect of right knee along medial collateral ligament, and medial and laterally along the lower leg, no real calf belly tenderness. There is +1 swelling of the lower leg, calf, not including the foot, mild
erythema and warmth, good pedal pulse. Brisk capillary refill.
Moves with ease. Well perfused.
SKIN: Warm, dry, pink. Well-healed scar anterior right knee, very mild erythema of the lower leg, skin is intact no abrasions, lesions.
PSYCH: Normal mood and affect. Well kept, interactive and appropriate
NEUROLOGIC: Awake, alert and oriented. No focal neurological deficits
Course
Orders/Labs/Results
Orders:
Orders
09/21/24 08:35
US Periph Venous LOWER Ext RT Urgent
Comment:
Reason For Exam: right calf swelling with pain
09/21/24 10:11
Knee, Right 4 or More Views [CR Knee- Right 4 Or More View*] Urgent
Comment:
Reason For Exam: pain medially, swelling lower leg
Vital Signs
Initial and Last Documented VS:
Initial Vital Signs
Temp Pulse Resp Pulse Ox
98.0 F 83 16 98
09/21/24 08:33 09/21/24 08:33 09/21/24 08:33 09/21/24 08:33
Last Documented Vital Signs
Temp Pulse Resp Pulse Ox
98.0 F 83 16 98
09/21/24 08:33 09/21/24 08:33 09/21/24 08:33 09/21/24 08:33
MDM/Problems Addressed
Differential Diagnosis Includes:
DVT, cellulitis, musculoskeletal injury
MDM/Problems Addressed:
73-year-old male on Eliquis for A-fib, HTN, HLD, AZ with 2 stents 2017, stem cell transplant 2022, multiple myeloma in remission, right TKA 2020 with revision in 2021 presents for pain medial aspect of right knee for the past 3 days and then 2 days
ago noted lower leg and calf swelling and warmth. No recollection of overuse or injury. Denies chest pain or shortness of breath. Denies fever or chills.
Afebrile, NAD
10:00 AM:
Ultrasound negative for DVT
Point tender medial aspect of right knee along medial collateral ligament, and medial and laterally along the lower leg, no real calf belly tenderness. There is +1 swelling of the lower leg, calf, not including the foot, mild erythema and warmth,
good pedal pulse. Brisk capillary refill.
No sign of DVT, no openings in the skin, with significant tenderness medial aspect of right knee will obtain knee x-ray, he will follow-up with his orthopedic doctor Dr. Mullins at [facility]
11:15 AM:
X-ray of knee initially read by this examiner, hardware in place, no acute bony abnormality.
Patient instructed to keep a close eye on his leg if it gets more swollen, more red, more painful, fever it may indicate an infection and he should seek medical care immediately.
He will follow-up with his orthopedic doctor next week.
*Critical Care Note
Total Time (30-74mins, 75-104mins- exclusive of procedures): Not Applicable
ED Attending Note
-
Portions of this chart may have been created with voice recognition software.� Occasional wrong word or��sound alike� substitutions may have occurred due to the inherent limitations of voice recognition software.
Discharge Plan
Departure
Patient Disposition: Home (Routine Discharge)
Date of Disposition: 09/21/24
Time of Disposition: 11:16
Patient with high blood pressure during this ER visit?: No
Condition: Good
Discharge Problem:
Acute pain of right knee, Pain and swelling of right lower leg
Prescriptions:
No Action
tamsulosin [Flomax] 0.4 mg Capsule
0.4 mg PO DAILY
Eliquis 5 mg tablet
5 mg PO BID Qty: 90 3RF
therapeutic multivitamin Tablet
1 tab PO DAILY
acetaminophen [Tylenol Extra Strength] 500 mg Tablet
1,000 mg PO Q6HPRN PRN (Reason: mild pain)
guaifenesin 100 mg/5 mL Liquid
200 mg PO Q4HPRN PRN (Reason: cough)
calcium carbonate 500 mg calcium (1,250 mg) Tablet
500 mg PO DAILY
tramadol 50 mg Tablet
50 mg PO QIDPRN PRN (Reason: moderate pain)
prednisone 5 mg Tablet
5 mg PO DAILY Qty: 0 0RF
guaifenesin 100 mg/5 mL Liquid
200 mg PO QID Qty: 1500 0RF
diltiazem HCl 120 mg Capsule,Extended Release 24hr
120 mg PO BID Qty: 60 0RF
amoxicillin-pot clavulanate 875-125 mg tablet
1 tab PO Q12H Qty: 10 0RF
Probiotic 10 billion cell capsule
10,000 mmu cells PO DAILY Qty: 7 0RF
albuterol sulfate 90 mcg/actuation HFA aerosol inhaler
2 puff inhalation Q6H PRN (Reason: shortness of breath or wheezing) Qty: 6.7 0RF
potassium chloride 10 mEq Tablet Extended Release
20 meq PO BID Qty: 0 0RF
furosemide [Lasix] 20 mg tablet
40 mg PO DAILY Qty: 30 0RF
Referrals:
Your, Orthopedic doctor [Other] - Next open appointment
Evens Durant PA-C [Family Provider] -
Activity Restrictions/Additional Instructions:
As we discussed, your knee x-ray shows nothing acute, the hardware is in place. Your ultrasound shows no clots
Call your orthopedic doctors office today and make an appointment for next week.
Seek medical care immediately for signs of infection with may include increasing swelling, redness, warmth, pain, fever or your leg seeming worse in any way
Interventions
Interventions:
*Risk Screen - Suicide Last Done: 09/21/24 08:33
*Neglect/Abuse Screening Last Done: 09/21/24 08:33
*Nursing Disposition Last Done: 09/21/24 11:27
ED- Pulmonary Assessment Last Done: 09/21/24 10:19
ED-Peripheral Vascular Assessment Last Done: 09/21/24 10:22
ED-Skin Assessment Last Done: 09/21/24 10:23
Discharge Date and Time
Discharge Date/Time: 09/21/24 11:28
Print Language: DANISH
== END 2024-09-21 11:28 | disposition home or self-care (01) ==
LOC: EMR 08:31
PROVIDERS: EMERGENCY PHYSICIAN Emergency Medicine; FAMILY PHYSICIAN Physician Assistant Medical
DX: M25.561 Pain in right knee (principal); M79.661 Pain in right lower leg; R22.41 Localized swelling, mass and lump, right lower limb; I48.91 Unspecified atrial fibrillation; I10 Essential (primary) hypertension; E78.00 Pure hypercholesterolemia, unspecified; I25.2 Old myocardial infarction; Z95.5 Presence of coronary angioplasty implant and graft; Z94.84 Stem cells transplant status; C90.01 Multiple myeloma in remission; Z96.651 Presence of right artificial knee joint; Z79.01 Long term (current) use of anticoagulants; I25.10 Atherosclerotic heart disease of native coronary artery without angina pectoris
CPT/HCPCS: 99284; 73564; 93971

== ENCOUNTER → 2024-10-10 08:28 | Emergency (ER) | payer MEDICARE, SELFPAY ==
[2024-10-10 08:50] VITALS: BP 124/72
[2024-10-10 09:07] LABS: % Basophils 0.3 % (0-2); % Eosinophils 0.5 % (0-6); % Immature Granulocytes 0.8 % (0-0.5); % Lymphocytes 7.6 % (20.5-51.1); % Monocytes 10.3 % (1.7-9.3); % Neutrophils 80.5 % (42.2-75.2); Absolute Immature Granulocytes 0.1 10^3/uL (0-0.05); Absolute Lymphocytes 0.5 10^3/uL (1.2-3.4); Absolute Monocytes 0.7 10^3/uL (0.1-0.6); Absolute Neutrophils 5.3 10^3/uL (1.4-6.5); Hematocrit 35.1 % (39.0-52.0); Hemoglobin 11.7 g/dL (13.0-18.0); Mean Corp Hgb Conc. 33.3 g/dL (33.0-37.0); Mean Corpuscular Hgb 32.2 pg (27.0-31.0); Mean Corpuscular Volume 96.7 fL (80.0-94.0); Mean Platelet Volume 8.5 fL (7.4-10.4); Nucleated Red Blood Cells % 0 % (-); Platelet Count 140 10^3/uL (130-400); Red Blood Cell Count 3.63 10^6/uL (4.70-6.10); Red Cell Dist. Width 16.3 % (11.5-14.5); White Blood Cell Count 6.6 10^3/uL (4.8-10.8)
[2024-10-10 09:30] LABS: ALT (SGPT) 20 U/L (0-50); AST (SGOT) 27 U/L (17-59); Albumin 4.3 g/dl (3.5-5.0); Alkaline Phosphatase 107 U/L (38-126); Blood Urea Nitrogen 23 mg/dl (9-20); Carbon Dioxide 27 mmol/L (22-30); Chloride 102 mmol/L (98-107); Glucose 95 mg/dl (70-99); Potassium 3.6 mmol/L (3.5-5.1); Sodium 137 mmol/L (135-145); Total Bilirubin 2.4 mg/dl (0.2-1.3); Total Protein 6.5 g/dl (6.3-8.2); eGFR > 60.00
[2024-10-10 09:54] LABS: Troponin I < 0.012 ng/ml
[2024-10-10 10:42] VITALS: BP 123/64
[2024-10-10 10:43] VITALS: BMI 28.0
--- NOTE | 2024-10-10 11:06 | ED.GENMED ---
History of Present Illness
General
Chief Complaint: Chest Pain
Source: patient
Time Seen by Provider: 10/10/24 10:35
History of Present Illness
History of Present Illness:
73-year-old male presents to the emergency room complaining of chest pain. Patient was walking his dog when he developed midsternal chest pain, shortness of breath. The chest pain radiated to his back and neck. Symptoms reminded him of when he
had a heart attack in 2018. Chest pain began at about 730. It did improve once he got home and was resting but did not go away completely. Currently he has a trace amount of chest discomfort but he feels much better than he did previously.
Past History
Past History
ED Past Medical History: Arrthythmia, CAD, HTN, Hypercholesterolemia, [place] and Other (multiple myeloma)
ED Past Surgical History: Cardiac (2 cardiac stents 2018) and Orthopedic
Social History
Tobacco: Non-smoker
Alcohol: None
Drug: None
Personal:
Living: with family
Phy Exam
Physical Exam
Physical Exam:
General: Awake, Alert, Oriented X3. No acute distress.
Vitals: unremarkable
Head: Atraumatic
Eyes: Pupils equal, EOMI
Throat: Airway intact, no exudates
Neck: Trachea midline
Lungs: Clear and equal b/l
Heart: Regular rate, no murmurs
Abd: Soft, Nontender, No pulsatile mass
Neuro: Nonfocal
Skin: Warm, dry, no rash
Extremities: pulses equal b/l, no edema
Scores
Heart Score for Chest Pain Patients
STEMI patient?: No
History: Moderately Suspicious
ECG: Nonspecific Repolarization
Age: >/= 65 years
Risk Factors: >/= 3 Risk Factors or History of CAD
Troponin: </= Normal Limit
Heart Score for Chest Pain Patients: 6
Heart Score Risk: 20.3% MACE over next 6 weeks
Course
Orders/Labs/Results
Orders:
Orders
10/10/24 08:31
EKG [Electrocardiogram (*1)] Stat
Reason for Study: Chest Pain
EKG- Treatment ONCE
10/10/24 08:51
CR Chest - 2 Views Urgent
Comment:
Reason For Exam: cough
10/10/24 08:58
Complete Blood Count/With Diff Urgent
Comprehensive Metabolic Panel Urgent
Troponin I Urgent
10/10/24 12:26
Troponin I Urgent
Abnormal Lab Results
10/10/24
08:58
RBC 3.63 L 10^6/uL
(4.70-6.10)
Hgb 11.7 L g/dL
(13.0-18.0)
Hct 35.1 L %
(39.0-52.0)
MCV 96.7 H fL
(80.0-94.0)
MCH 32.2 H pg
(27.0-31.0)
RDW 16.3 H %
(11.5-14.5)
Abs Immat Gran (auto) 0.1 H 10^3/uL
(0-0.05)
Absolute Lymphs (auto) 0.5 L 10^3/uL
(1.2-3.4)
Absolute Monos (auto) 0.7 H 10^3/uL
(0.1-0.6)
Immature Gran % 0.8 H %
(0-0.5)
Neutrophils % 80.5 H %
(42.2-75.2)
Lymphocytes % 7.6 L %
(20.5-51.1)
Monocytes % 10.3 H %
(1.7-9.3)
BUN 23 H mg/dl
(9-20)
Total Bilirubin 2.4 H mg/dl
(0.2-1.3)
10/10/24 08:58
10/10/24 08:58
Vital Signs
Initial and Last Documented VS:
Initial Vital Signs
Temp Pulse Resp BP Pulse Ox
98.4 F 64 18 124/72 99
10/10/24 08:50 10/10/24 08:50 10/10/24 08:50 10/10/24 08:50 10/10/24 08:50
Last Documented Vital Signs
Temp Pulse Resp BP Pulse Ox
98.4 F 74 21 126/72 100
10/10/24 08:50 10/10/24 14:30 10/10/24 14:30 10/10/24 12:00 10/10/24 14:30
MDM/Problems Addressed
Differential Diagnosis Includes:
Stable angina, acute coronary syndrome, NSTEMI
MDM/Problems Addressed:
Patient presents after having an episode of chest pain with exertion that is reminiscent of when he had an ME. Chest pain resolved on its own after a period of time. EKG shows no acute ischemic changes. His troponin is normal x 2. Given his
story is suggestive of angina I did ask cardiology to evaluate the patient. Dr. Carl called the patient. Given he has 2 negative troponins they are going to schedule a stress test in the very near future. Patient will be discharged with a
appointment. He understands he needs to return if he has any further episodes of chest pain.
*Radiology
Radiology exam reviewed: preliminary read by ED provider (No acute disease)
*Pulse Oximetry
Patient hypoxic: no
*EKG
Interpretation: normal
Heart Rate: 64
Rate: normal
Rhythm: sinus and PAC's
[place]: normal axis
Interval: normal interval
QRS Pattern: normal QRS
Ischemia: no ischemia
*Adult School Teacher Interpretation
Rate: normal
Interpretation: normal
Rhythm: sinus
*Critical Care Note
Total Time (30-74mins, 75-104mins- exclusive of procedures): Not Applicable
ED Attending Note
-
Portions of this chart may have been created with voice recognition software.� Occasional wrong word or��sound alike� substitutions may have occurred due to the inherent limitations of voice recognition software.
Discharge Plan
Departure
Patient Disposition: Home (Routine Discharge)
Date of Disposition: 10/10/24
Time of Disposition: 14:35
Patient with high blood pressure during this ER visit?: No
Condition: Good
Discharge Problem:
Chest pain
Instructions: Chest Pain DCA Follow Up
Prescriptions:
No Action
tamsulosin [Flomax] 0.4 mg Capsule
0.4 mg PO DAILY
Eliquis 5 mg tablet
5 mg PO BID Qty: 90 3RF
therapeutic multivitamin Tablet
1 tab PO DAILY
acetaminophen [Tylenol Extra Strength] 500 mg Tablet
1,000 mg PO Q6HPRN PRN (Reason: mild pain)
guaifenesin 100 mg/5 mL Liquid
200 mg PO Q4HPRN PRN (Reason: cough)
calcium carbonate 500 mg calcium (1,250 mg) Tablet
500 mg PO DAILY
tramadol 50 mg Tablet
50 mg PO QIDPRN PRN (Reason: moderate pain)
prednisone 5 mg Tablet
5 mg PO DAILY Qty: 0 0RF
guaifenesin 100 mg/5 mL Liquid
200 mg PO QID Qty: 1500 0RF
diltiazem HCl 120 mg Capsule,Extended Release 24hr
120 mg PO BID Qty: 60 0RF
amoxicillin-pot clavulanate 875-125 mg tablet
1 tab PO Q12H Qty: 10 0RF
Probiotic 10 billion cell capsule
10,000 mmu cells PO DAILY Qty: 7 0RF
albuterol sulfate 90 mcg/actuation HFA aerosol inhaler
2 puff inhalation Q6H PRN (Reason: shortness of breath or wheezing) Qty: 6.7 0RF
potassium chloride 10 mEq Tablet Extended Release
20 meq PO BID Qty: 0 0RF
furosemide [Lasix] 20 mg tablet
40 mg PO DAILY Qty: 30 0RF
Referrals:
Evens Durant PA-C [Family Provider] -
Activity Restrictions/Additional Instructions:
Cardiology will arrange a stress test as outpatient. Return to the ER if you have more episodes of pain.
Interventions
Interventions:
*Risk Screen - Suicide Last Done: 10/10/24 08:50
*General Assessment Last Done: 10/10/24 08:50
*Neglect/Abuse Screening Last Done: 10/10/24 08:50
ED- Fall Risk Assessment Last Done: 10/10/24 11:24
*ED COVID-19 Vaccine History Last Done: 10/10/24 10:44
*Nursing Disposition Last Done: 10/10/24 14:55
ED- Cardiac Assessment Last Done: 10/10/24 11:24
Discharge Date and Time
Print Language: SRI LANKAN
[2024-10-10 11:10] VITALS: BP 108/68
[2024-10-10 12:00] VITALS: BP 126/72
[2024-10-10 13:17] LABS: Troponin I < 0.012 ng/ml
--- NOTE | 2024-10-10 14:41 | CON.CAR ---
Addendum entered and electronically signed by Kash Carl MD 10/10/24 15:43:
I saw and examined the patient.
The Executive Vice President And Chief Operating Officer's note was reviewed and I agree with the note.
Comment:
GEN: No distress, awake, Ox3
HEENT: supple, anicteric, mmm
LUNGS: CTA, no wheezes/rales
CV: Reg, S1/S2, 1/6 syst LSB, no murmur
ABD: soft, BS+, NT/ND
EXT: No edema
NEURO: Gross non-focal
SKIN: No rash
PLan:
He has a past medical history of coronary artery disease/PR/RCA PCI 2017, paroxysmal atrial fibrillation status post PVI January 2024, hematuria, hypertension, hyperlipidemia, obstructive sleep apnea, multiple myeloma, chronic heart failure with
preserved ejection fraction. He was out walking his dog today when he started having episodes of chest pain. It was a substernal chest discomfort which persisted. Ultimately upon arrival to emergency room the pain resolved. He had no significant
shortness of breath. He also had some pain in his back. He is currently pain-free.
EKG with normal sinus rhythm with no specific ST abnormalities. Cardiac troponins are undetectable x 2. Chest x-ray is unremarkable.
Patient with chest pain of unclear etiology. He is stable for discharge with close cardiac follow-up including Lexiscan nuclear stress test over the next several days.
I advised him if his symptoms worsen or return he should come back to the emergency room.
Continue medical therapy for his coronary artery disease for now. Continue Eliquis, diltiazem, and Lasix.
He remains in sinus rhythm. Continue diltiazem.
Blood pressure is stable.
Original Note:
Consultation
Consultation Request
Date/Time Consultation Requested: 10/10/24
Date/Time Consultation Performed: 10/10/24
Requesting Provider: Dr. Quiñonez in the ER
Performing Provider: Dr. Carl
Reason for Consultation: Chest pain, CAD
Medical History
-
History of Present Illness:
Patient came to ER today with chest pain and cardiology is consulted. Patient says that he awoke in his usual state of health this morning and was walking his new puppy and started with a substernal chest pain that radiated into his back and
felt similar to his PR pain from 2018. Patient walked back home and sat down and rested, but pain did not improve and so he came to ER for evaluation. Altogether the pain lasted just over an hour and then resolved without specific intervention.
Pain has not recurred. Patient denies any SOB or POLLOCK. Patient has a history of CAD with previous PR and RCA PCI while he was still following with AMS back in 2018. His last ischemic evaluation was a Lexiscan nuclear stress test 01/13/22 and it
showed normal perfusion imaging and this was done as a preop to TKA at the time. Patient has been walking the puppy for the last 2 weeks and has not had any other pains with those episodes. He says that the dog walking has not been for great
distances because he is still dealing with foot pain after left 2nd and 3rd metatarsal fusion with Dr. Cruz on 06/25/2024. He is walking about 1/2 mile at a time and always on a flat surface.Patient was gardening yesterday including sweeping with
frequent bending over and picking up objects without any symptoms whatsoever. In the ER he's had 2 undetectable troponin levels and his ECG is without acute ischemic changes.
PMH:
CAD
s/p PR w/ RCA PCI x2 05/2018
h/o hematuria 11/2023, 08/2024
Paroxysmal Afib
previous amiodarone therapy stopped due to elevated LFTs
previous sotalol therapy stopped due to inability to maintain SR and QTc prolongation 11/2023
s/p PVI 02/07/24
Chronic Eliquis OAC
Paroxysmal atrial tachycardia
PACs/PVCs
Chronic HFpEF
HTN
HLD
JA s/p Inspire implant 07/2022
Multiple Myeloma s/p autologous stem cell transplant 03/2023, considered in remission
Chronic anemia/thrombocytopenia
s/p left midfoot fusion with 2nd and 3rd metatarsal fusion 06/25/24
Past Medical History
Past Medical History: Other (in HPI)
Past Surgical History: Cholecystectomy, Orthopedic and Tonsilectomy
Social History
Tobacco: Non-Smoker
Alcohol: None
Personal:
Living: With Family
Employment: Retired
Family History
Family History: CAD
Allergies / Home Medications
Allergy/AdvReac Type Severity Reaction Status Date / Time
hydrochlorothiazide Allergy Unknown Unknown Verified 10/10/24 11:28
amiodarone AdvReac Liver Verified 10/10/24 11:28
function
reduced
�Medication �Instructions �Recorded �Confirmed �Type
tamsulosin 0.4 mg capsule (Flomax) 0.4 mg PO DAILY Urinary Issue 03/06/23 08/30/24 History
acetaminophen 500 mg tablet 1,000 mg PO Q6HPRN PRN mild pain 01/17/24 08/30/24 History
(Tylenol Extra Strength)
therapeutic multivitamin 1 tab PO DAILY Supplement 01/17/24 08/30/24 History
apixaban 5 mg tablet (Eliquis) 5 mg PO BID Blood Clot 02/07/24 08/30/24 Rx
Prevention/Tx #90 tabs
calcium carbonate 500 mg PO DAILY Supplement 08/30/24 08/30/24 History
guaifenesin 100 mg/5 mL oral liquid 200 mg PO Q4HPRN PRN cough 08/30/24 08/30/24 History
tramadol 50 mg tablet 50 mg PO QIDPRN PRN moderate pain 08/30/24 08/30/24 History
Lactobacillus acidophilus 10 10,000 mmu cells PO DAILY #7 caps 09/02/24 Rx
billion cell capsule (Probiotic)
albuterol sulfate 90 mcg/actuation 2 puff inhalation Q6H PRN 09/02/24 Rx
aerosol inhaler shortness of breath or wheezing
#6.7 grams
amoxicillin 875 mg-potassium 1 tab PO Q12H #10 tabs 09/02/24 Rx
clavulanate 125 mg tablet
diltiazem HCl 120 mg 120 mg PO BID #60 caps 09/02/24 Rx
capsule,extended release 24 hr
furosemide 20 mg tablet (Lasix) 40 mg (2 x 20 mg) PO DAILY #30 tabs 09/02/24 08/30/24 Rx
guaifenesin 100 mg/5 mL oral liquid 200 mg (10 mL) PO QID #1,500 mL 09/02/24 Rx
potassium chloride 10 mEq 20 meq (2 x 10 mEq) PO BID 09/02/24 08/30/24 Rx
tablet,extended release Electrolyte Repletion #0 tabs
prednisone 5 mg tablet 5 mg PO DAILY #0 tabs 09/02/24 Rx
Review of Systems
-
History Source: Patient
All other systems: Negative unless noted
Physical Exam
Vital Signs
Temp Pulse Resp BP Pulse Ox
98.4 F 64 16 126/72 99
10/10/24 08:50 10/10/24 13:15 10/10/24 14:00 10/10/24 12:00 10/10/24 13:15
GEN: NAD. AAOx3
HEENT: EOMI, MMM
LUNGS: RA. CTA B/L, no wheeze
CV: SR on tele with PVCs. Reg, S1/S2, no murmur
ABD: soft, BS+, NT, ND
EXT: +1-2 non-pitting B/L LE edema. No clubbing, cyanosis or lesions B/L
NEURO: Gross non-focal
SKIN: Warm, dry and pink. No rash
Lab Results
10/10/24 08:58
10/10/24 08:58
Troponin I < 0.012 ng/ml 10/10/24 12:26
Impression / Plan
-
PCP Evens Durant PA-C
Primary Automatic Tire Tester: Dr. Nick
Impression:
Chest pain evaluation in the ER 10/10/24
Chest pain
CAD
s/p PR w/ RCA PCI x2 05/2018
h/o hematuria 11/2023, 08/2024
Paroxysmal Afib
previous amiodarone therapy stopped due to elevated LFTs
previous sotalol therapy stopped due to inability to maintain SR and QTc prolongation 11/2023
s/p PVI 02/07/24
Chronic Eliquis OAC
Paroxysmal atrial tachycardia
PACs/PVCs
Chronic HFpEF
HTN
HLD
JA s/p Inspire implant 07/2022
Multiple Myeloma s/p autologous stem cell transplant 03/2023, considered in remission
Chronic anemia/thrombocytopenia
s/p left midfoot fusion with 2nd and 3rd metatarsal fusion 06/25/24
Echo 01/20/2024: EF 59%, mild concentric LVH, mild to moderate MR, mild AR, PAP 43 mmHg, dilated aortic root
Echo 08/30/2024: EF 55 to 60%, mild concentric LVH, mild MR, mild aortic regurgitation, normal pericardium without effusion
Plan:
-Patient came to ER today with chest pain and cardiology is consulted. Patient says that he awoke in his usual state of health this morning and was walking his new puppy and started with a substernal chest pain that radiated into his back and
felt similar to his PR pain from 2018. Patient walked back home and sat down and rested, but pain did not improve and so he came to ER for evaluation. Altogether the pain lasted just over an hour and then resolved without specific intervention.
Pain has not recurred. Patient denies any SOB or POLLOCK. Patient has a history of CAD with previous PR and RCA PCI while he was still following with AMS back in 2018. His last ischemic evaluation was a Lexiscan nuclear stress test 01/13/22 and it
showed normal perfusion imaging and this was done as a preop to TKA at the time. Patient has been walking the puppy for the last 2 weeks and has not had any other pains with those episodes. He says that the dog walking has not been for great
distances because he is still dealing with foot pain after left 2nd and 3rd metatarsal fusion with Dr. Cruz on 06/25/2024. He is walking about 1/2 mile at a time and always on a flat surface.Patient was gardening yesterday including sweeping with
frequent bending over and picking up objects without any symptoms whatsoever. In the ER he's had 2 undetectable troponin levels and his ECG is without acute ischemic changes.
-ECG reviewed by me shows SR without acute ischemic changes
-Troponin undetectable x 2
-Chest pain lasted for over an hour this morning and Troponin is undetectable x2. Will arrange for an outpatient Lexiscan mibi on 10/18/24 at 12:20.
-Patient was given order slip and instructions for stress test before leaving the ER
-Patient cannot walk on treadmill at incline due to ongoing foot pain after metatarsal fusion.
-Patient with known paroxysmal A-fib, but is in SR on ECG today and was in SR with occasional PVCs on telemetry reviewed by me.
-Patient will continue with his usual dose of Cardizem CD1 120 mg twice daily
-Patient will continue with his usual dose of Eliquis 5 mg twice daily
-Patient with +1 nonpitting B/L LE edema. Patient denies any orthopnea, weight gain or SOB. Patient had Lasix increased to 20 mg twice daily at OV 09/07/2024, but ran out of those doses over the weekend. Refill was called in this past Tuesday and
he noted increased urine output. No evidence of CHF on CXR. Continue Lasix 20 mg twice daily as it is
-Patient is stable for D/C from the ER
== END | disposition home or self-care (01) ==
LOC: EMR 08:28
PROVIDERS: Student in an Organized Health Care Education/Training Program; EMERGENCY PHYSICIAN Emergency Medicine; FAMILY PHYSICIAN Physician Assistant Medical
DX: R07.89 Other chest pain (principal); R06.02 Shortness of breath; I25.10 Atherosclerotic heart disease of native coronary artery without angina pectoris; I25.2 Old myocardial infarction; I10 Essential (primary) hypertension; C90.00 Multiple myeloma not having achieved remission; E78.00 Pure hypercholesterolemia, unspecified; G47.33 Obstructive sleep apnea (adult) (pediatric); I48.0 Paroxysmal atrial fibrillation; I47.19 Other supraventricular tachycardia; Z79.899 Other long term (current) drug therapy; Z82.49 Family history of ischemic heart disease and other diseases of the circulatory system; Z90.49 Acquired absence of other specified parts of digestive tract; Z94.84 Stem cells transplant status; Z95.5 Presence of coronary angioplasty implant and graft; Z96.659 Presence of unspecified artificial knee joint; Z98.1 Arthrodesis status
CPT/HCPCS: 99283; 71046; 80053; 84484; 85025; 93005

== ENCOUNTER → 2024-10-18 12:09 | Outpatient (REF) | payer MEDICARE, SELFPAY | LOC: HWRCS 12:09 | PROVIDERS: ATTENDING PHYSICIAN Internal Medicine Cardiovascular Disease; FAMILY PHYSICIAN Physician Assistant Medical | DX: R07.89 Other chest pain (principal); I25.10 Atherosclerotic heart disease of native coronary artery without angina pectoris; M79.672 Pain in left foot | CPT/HCPCS: 78452; 93017; A9500; J2785 ==

== ENCOUNTER 2024-12-15 10:29 | Emergency (ER) | payer MEDICARE, SELFPAY ==
[2024-12-15 10:33] VITALS: BP 171/79
--- NOTE | 2024-12-15 11:22 | ED.GENMED ---
History of Present Illness
General
Chief Complaint: Skin Surface Trauma
Source: patient
Exam Limitations: none
Time Seen by Provider: 12/15/24 11:11
History of Present Illness
History of Present Illness:
74yo left hand dominant male with a history of atrial fibrillation on Eliquis, coronary artery disease, hypertension presenting for evaluation of a left little finger injury. Patient was using a table saw about an hour ago when he accidentally cut
his left pinky. He reports some 'kick back' which subsequently caused a laceration to the right palm. He is having difficulty extending the left little finger. No paresthesias. Unknown last Tdap.
Past History
Past History
ED Past Medical History: Arrthythmia, CAD, HTN, Hypercholesterolemia, [place] and Other (multiple myeloma)
ED Past Surgical History: Cardiac (2 cardiac stents 2018) and Orthopedic
Social History
Tobacco: Non-smoker
Alcohol: None
Drug: None
Personal:
Living: with family
Phy Exam
General Physical Exam
General Presentation: well appearing and no apparent distress
General age: appears stated age
General Skin: warm and dry
General Habitus: normal
General Mental: alert
ENT Exam
ENT Exam: normocephalic
Pulmonary Exam
Pulmonary Exam: no respiratory distress
Musculoskeletal Exam
Musculoskeletal Exam: other (L little finger: Ragged laceration noted to dorsum of finger overlying PIP joint with deformity. Able to flex PIP joint but cannot completely extend. Cap refill and sensation intact at distal fingertip. )
Skin Exam
Skin Exam: normal color, warm/dry and other (Laceration noted to the R palm at the thenar eminence that extends to the subcutaneous tissue. No active bleeding. )
Psychiatric Exam
Psychiatric Exam: normal mood/affect
Course
Orders/Labs/Results
Orders:
Orders
12/15/24 10:36
Finger(s)/Thumb 2 View Lt [CR Finger(s)/thumb Min 2 Vw Lt] Urgent
Comment:
Reason For Exam: table saw cut left pinky finger
Indicate Which Finger:: Little Finger
12/15/24 11:22
Tetanus/Diphth/Acelpertussis [Adacel] 0.5 ml IM .ONCE ONE
12/15/24 11:28
CeFAZolin 2 GRAM [Ancef] 2 grams in 10 ml IV NOW
12/15/24 12:15
Splints/Slings/Crut- Treatment ONCE
Location: Left
Type of Splint: Ulnar Gutter
Oxycodone/Acetaminophen [Percocet 5/325] 1 tablet PO NOW STA
12/15/24 13:05
CR Hand - Right Min 3 Views Urgent
Comment:
Reason For Exam: hand injury
Vital Signs
Initial and Last Documented VS:
Initial Vital Signs
Temp Pulse Resp BP Pulse Ox
98.2 F 75 16 171/79 98
12/15/24 10:33 12/15/24 10:33 12/15/24 10:33 12/15/24 10:33 12/15/24 10:33
Last Documented Vital Signs
Temp Pulse Resp BP Pulse Ox
98.2 F 80 20 144/72 99
12/15/24 10:33 12/15/24 14:18 12/15/24 14:18 12/15/24 14:18 12/15/24 14:18
Procedures
Laceration Closure
Left Dorsal Fifth Finger:
Size of Wound in cm: 3
Description of Wound Edges: ragged
Preparation: cleaned with saline and cleaned with Betadine
Anesthesia: 1% Lidocaine and Digital-Regional
Wound exploration: explored to base- no FB
Skin Closure Material: 4-0 nylon
Number of sutures: 4
Right Palmar Hand:
Status of Wound: clean
Size of Wound in cm: 2.5
Description of Wound Edges: sharp
Preparation: cleaned with saline
Anesthesia: 1% Lidocaine with epi
Wound exploration: explored to base- no FB
Type of Closure: single layer closure
Skin Closure Material: 5-0 nylon
Number of sutures: 4
MDM/Problems Addressed
Differential Diagnosis Includes:
74yoM here with a L little finger injury/laceration as well as a R palm laceration after using a table saw. Deformity noted to the L little finger with ragged laceration overlying PIP joint. Unable to extend PIP joint completely. Cap refill and
sensation intact at distal fingertip. Differential diagnosis includes: laceration, open fracture, dislocation
X-rays of L little finger obtained in triage which reveal a comminuted displaced fracture of the proximal phalanx. Discussed case with Dr. Tee, mission analyst orthopedic surgeon. Orthopedics recommending irrigation, loose skin closure, antibiotics,
Tdap, forearm splint and outpatient f/u. Patient will likely require surgery.
Lacerations irrigated extensively and repaired as above. He was placed in an ulnar gutter splint by instructional technology director and neurovascular status unchanged after splint placement. Patient received dose of IV Ancef and was started on a course of Keflex. He was
given contact information for hand surgery and advised to call on Tuesday to schedule a f/u appt. Advised return to the ED with any signs of infection. Patient discharged in stable condition.
*Critical Care Note
Total Time (30-74mins, 75-104mins- exclusive of procedures): Not Applicable
ED Attending Note
-
Portions of this chart may have been created with voice recognition software.� Occasional wrong word or��sound alike� substitutions may have occurred due to the inherent limitations of voice recognition software.
Discharge Plan
Departure
Patient Disposition: Home (Routine Discharge)
Date of Disposition: 12/15/24
Time of Disposition: 14:15
Patient with high blood pressure during this ER visit?: Yes
Discharge Problem:
Open fracture of proximal phalanx of left little finger, Laceration of right palm
Instructions: Laceration Repair With Stitches (DC), Finger Fracture ED
Prescriptions:
New
cephalexin 500 mg capsule
500 mg PO Q6H 7 Days Qty: 28 0RF
No Action
tamsulosin [Flomax] 0.4 mg Capsule
0.4 mg PO DAILY
Eliquis 5 mg tablet
5 mg PO BID Qty: 90 3RF
therapeutic multivitamin Tablet
1 tab PO DAILY
acetaminophen [Tylenol Extra Strength] 500 mg Tablet
1,000 mg PO Q6HPRN PRN (Reason: mild pain)
guaifenesin 100 mg/5 mL Liquid
200 mg PO Q4HPRN PRN (Reason: cough)
calcium carbonate 500 mg calcium (1,250 mg) Tablet
500 mg PO DAILY
tramadol 50 mg Tablet
50 mg PO QIDPRN PRN (Reason: moderate pain)
prednisone 5 mg Tablet
5 mg PO DAILY Qty: 0 0RF
guaifenesin 100 mg/5 mL Liquid
200 mg PO QID Qty: 1500 0RF
diltiazem HCl 120 mg Capsule,Extended Release 24hr
120 mg PO BID Qty: 60 0RF
amoxicillin-pot clavulanate 875-125 mg tablet
1 tab PO Q12H Qty: 10 0RF
Probiotic 10 billion cell capsule
10,000 mmu cells PO DAILY Qty: 7 0RF
albuterol sulfate 90 mcg/actuation HFA aerosol inhaler
2 puff inhalation Q6H PRN (Reason: shortness of breath or wheezing) Qty: 6.7 0RF
potassium chloride 10 mEq Tablet Extended Release
20 meq PO BID Qty: 0 0RF
furosemide [Lasix] 20 mg tablet
40 mg PO DAILY Qty: 30 0RF
Referrals:
Damon Cuellar MD [Active] -
Evens Durant PA-C [Family Provider] -
Evens Aguirre MD [Active] -
Activity Restrictions/Additional Instructions:
Take antibiotics as prescribed. Keep splint in place and do not get wet.
Please call on Tuesday to schedule a follow-up with hand surgery. You will need to have sutures removed in 10-14 days.
Return to the ER with any signs of infection.
Interventions
Interventions:
*Risk Screen - Suicide Last Done: 12/15/24 10:33
*General Assessment Last Done: 12/15/24 11:07
*Neglect/Abuse Screening Last Done: 12/15/24 10:33
*ED- Fall Risk Assessment Last Done: 12/15/24 11:07
*Nursing Disposition Last Done: 12/15/24 14:19
Discharge Date and Time
Discharge Date/Time: 12/15/24 15:02
Print Language: MOROCCAN
[2024-12-15] MEDS: ANCEF 10 IV (12:32)
[2024-12-15] MEDS: PERCOCET 5/325 1 TABLET PO (12:32)
[2024-12-15] MEDS: ADACEL 0.5 ML IM (12:32)
[2024-12-15 14:18] VITALS: BP 144/72
== END 2024-12-15 15:02 | disposition home or self-care (01) ==
LOC: EMR 10:29
PROVIDERS: EMERGENCY PHYSICIAN Emergency Medicine; FAMILY PHYSICIAN Physician Assistant Medical
DX: S62.617B Displaced fracture of proximal phalanx of left little finger, initial encounter for open fracture (principal); S61.411A Laceration without foreign body of right hand, initial encounter; W31.2XXA Contact with powered woodworking and forming machines, initial encounter; I48.91 Unspecified atrial fibrillation; E78.00 Pure hypercholesterolemia, unspecified; I10 Essential (primary) hypertension; I25.10 Atherosclerotic heart disease of native coronary artery without angina pectoris; Z79.01 Long term (current) use of anticoagulants; Z95.5 Presence of coronary angioplasty implant and graft; Z23 Encounter for immunization
CPT/HCPCS: 12002; 29125; 96374; 90471; 99284; 73130; 73140; 90715

== ENCOUNTER 2024-12-18 06:09 | Day surgery (SDC) | payer MEDICARE, SELFPAY ==
[2024-12-18] VITALS (9 sets, daily range): BP systolic 97–152; BP diastolic 55–93; BMI 27.3
[2024-12-18] MEDS: NORMOSOL-R/PLASMALYTE-A 1000 IV (08:56)
[2024-12-18] MEDS: CELEBREX 200 MG PO (08:56)
[2024-12-18] MEDS: TYLENOL 1000 MG PO (08:56)
== END 2024-12-18 13:05 | disposition home or self-care (01) ==
LOC: SDS 06:09
PROVIDERS: ATTENDING PHYSICIAN Orthopaedic Surgery
DX: S62.617B Displaced fracture of proximal phalanx of left little finger, initial encounter for open fracture (principal); W31.2XXA Contact with powered woodworking and forming machines, initial encounter
CPT/HCPCS: 26727; C1713

== ENCOUNTER 2025-03-02 08:59 | Emergency (ER) | payer MEDICARE, SELFPAY ==
[2025-03-02 09:00] VITALS: BP 118/72
--- NOTE | 2025-03-02 09:25 | ED.GENMED ---
History of Present Illness
General
Chief Complaint: Fall
Source: patient
Time Seen by Provider: 03/02/25 09:18
History of Present Illness
History of Present Illness:
74-year-old male presents the emergency room complaint right flank pain. Patient had a fall 2 days ago. He was walking his dog and the dog pulled him while chasing after another animal. He fell and struck his right side. He denies any head
injury. Patient has pain with movement and deep inspiration in the right lateral thorax. No shortness of breath. He does take Eliquis. Again he denies any head injury. He does not have a headache at this point. He has some abrasions to the
right arm as well. He is unsure of his last tetanus shot.
Past History
Past History
ED Past Medical History: Arrthythmia, CAD, HTN, Hypercholesterolemia, [place] and Other (multiple myeloma)
ED Past Surgical History: Cardiac (2 cardiac stents 2018) and Orthopedic
Social History
Tobacco: Non-smoker
Alcohol: None
Drug: None
Personal:
Living: with family
Phy Exam
Physical Exam
Physical Exam:
General: Awake, Alert, Oriented X3. No acute distress.
Vitals: unremarkable
Head: Atraumatic
Eyes: Pupils equal, EOMI
Throat: Airway intact, no exudates
Neck: Trachea midline
Thorax: Tenderness palpation right lateral thorax at approximately the 5th-8th rib region. No crepitance
Lungs: Clear and equal b/l
Heart: Regular rate, no murmurs
Abd: Soft, Nontender, No pulsatile mass
Neuro: Nonfocal
Skin: Warm, dry, no rash
Extremities: pulses equal b/l, no edema. Abrasion, ecchymosis right arm
Course
Orders/Labs/Results
Orders:
Orders
03/02/25 09:04
Ribs, Right 3 View W/PA Chest [CR Ribs-right 3 Vw W/pa Chest*] Urgent
Comment:
Reason For Exam: pain after fall
03/02/25 09:42
Tetanus/Diphth/Acelpertussis [Adacel] 0.5 ml IM .ONCE ONE
Vital Signs
Initial and Last Documented VS:
Initial Vital Signs
Temp Pulse Resp BP Pulse Ox
98.2 F 60 18 118/72 98
03/02/25 09:00 03/02/25 09:00 03/02/25 09:00 03/02/25 09:00 03/02/25 09:00
Last Documented Vital Signs
Temp Pulse Resp BP Pulse Ox
98.2 F 69 16 113/65 99
03/02/25 09:00 03/02/25 09:46 03/02/25 09:46 03/02/25 09:46 03/02/25 09:46
MDM/Problems Addressed
Differential Diagnosis Includes:
Rib fracture, contusion, pneumothorax
MDM/Problems Addressed:
Imaging shows no pneumo or rib fracture. Patient stable for discharge home taking Tylenol for pain. Tetanus updated
*Radiology
Radiology exam reviewed: preliminary read by ED provider (no acute fx noted)
*Pulse Oximetry
SaO2: 98
Oxygen Mode of Delivery: Room air
Patient hypoxic: no
*Critical Care Note
Total Time (30-74mins, 75-104mins- exclusive of procedures): Not Applicable
ED Attending Note
-
Portions of this chart may have been created with voice recognition software.� Occasional wrong word or��sound alike� substitutions may have occurred due to the inherent limitations of voice recognition software.
Discharge Plan
Departure
Patient Disposition: Home (Routine Discharge)
Date of Disposition: 03/02/25
Time of Disposition: 09:43
Patient with high blood pressure during this ER visit?: No
Discharge Problem:
Chest wall contusion
Instructions: Blunt Chest Trauma ED
Prescriptions:
No Action
tamsulosin [Flomax] 0.4 mg Capsule
0.4 mg PO DAILY
Eliquis 5 mg tablet
5 mg PO BID Qty: 90 3RF
acetaminophen [Tylenol Extra Strength] 500 mg Tablet
1,000 mg PO Q6HPRN PRN (Reason: mild pain)
calcium carbonate 500 mg calcium (1,250 mg) Tablet
500 mg PO DAILY
tramadol 50 mg Tablet
50 mg PO QIDPRN PRN (Reason: moderate pain)
diltiazem HCl 120 mg Capsule,Extended Release 24hr
120 mg PO BID Qty: 60 0RF
potassium chloride 10 mEq Tablet Extended Release
20 meq PO BID Qty: 0 0RF
cephalexin 500 mg capsule
500 mg PO Q6H 7 Days Qty: 28 0RF
furosemide [Lasix] 20 mg tablet
40 mg PO BID
Interventions
Interventions:
*Risk Screen - Suicide Last Done: 03/02/25 09:00
*General Assessment Last Done: 03/02/25 09:38
*Neglect/Abuse Screening Last Done: 03/02/25 09:39
*ED- Fall Risk Assessment Last Done: 03/02/25 09:38
*ED COVID-19 Vaccine History Last Done: 03/02/25 09:38
*Nursing Disposition Last Done: 03/02/25 10:00
ED-Musculoskeletal Assessment Last Done: 03/02/25 09:40
ED- Neurological Assessment Last Done: 03/02/25 09:40
ED-Skin Assessment Last Done: 03/02/25 09:42
Discharge Date and Time
Discharge Date/Time: 03/02/25 10:00
Print Language: CZECH
[2025-03-02 09:38] VITALS: BMI 28.0
--- NOTE | 2025-03-02 09:44 | EDRN ---
Pt had washed and dressed w/ neosporin both areas and put bandage on R elbow and R knee, removed on arrival to room.
[2025-03-02 09:46] VITALS: BP 113/65
[2025-03-02] MEDS: ADACEL 0.5 ML IM (09:55)
== END 2025-03-02 10:00 | disposition home or self-care (01) ==
LOC: EMR 08:59
PROVIDERS: EMERGENCY PHYSICIAN Emergency Medicine; FAMILY PHYSICIAN Physician Assistant Medical
DX: S20.219A Contusion of unspecified front wall of thorax, initial encounter (principal); W01.0XXA Fall on same level from slipping, tripping and stumbling without subsequent striking against object, initial encounter; I10 Essential (primary) hypertension; Z23 Encounter for immunization
CPT/HCPCS: 99283; 90471; 71101; 90715

== ENCOUNTER → 2025-05-24 15:48 | Outpatient (REF) | payer MEDICARE, SELFPAY | LOC: RAD 15:48 | PROVIDERS: ATTENDING PHYSICIAN Nurse Practitioner; FAMILY PHYSICIAN Physician Assistant Medical | DX: C90.00 Multiple myeloma not having achieved remission (principal) | CPT/HCPCS: 70487; Q9967 ==

== ENCOUNTER 2025-06-01 10:09 | Emergency (ER) | payer MEDICARE, SELFPAY ==
[2025-06-01 10:19] VITALS: BP 125/74
--- NOTE | 2025-06-01 10:36 | ED.GENMED ---
History of Present Illness
General
Chief Complaint: Head Injury
Time Seen by Provider: 06/01/25 10:36
History of Present Illness
History of Present Illness:
FOCUSED PAST MEDICAL HISTORY
- A-fib on Eliquis
REVIEW OF OLD RECORDS
- The patient was seen here in February with chest wall contusion
Note:
CHIEF COMPLAINT(S)
Groin pain and back pain after a fall.
HISTORY OF PRESENT ILLNESS
The patient is a 74-year-old male who presented following a fall last evening at approximately 7:30 PM while walking his dog. The dog jerked on its leash, causing the patient to lose balance, resulting in a fall where he landed on his back,
buttocks, and head. He reports chronic anticoagulant use with Apixaban, increasing his risk of bleeding. The patient describes experiencing pain in the groin area, buttock, and lower back, particularly on the right side. He denies any head
injury-related symptoms such as vomiting, vision changes, or loss of consciousness. He is able to ambulate without significant pain, suggesting no hip or pelvic fracture, although he reported a bruise on the right side. On physical examination,
there was tenderness upon palpation of the bruised area, and he describes soreness but no overwhelming pain.
PAST MEDICAL AND SURGICAL HISTORY
The patient has a history of back surgery approximately 30 years ago, with a noticeable scar in the lumbar region.
SOCIAL HISTORY
The patient is planning a vacation in a week.
REVIEW OF SYSTEMS
- Musculoskeletal: Reports right-sided groin pain, buttock pain, and low back pain following a fall. Bruising noted on the right side. No difficulty walking and denies significant pain while ambulating.
- Gastrointestinal: Experienced a mild, transient stomach pain this morning, which resolved. Denies urinary symptoms such as hematuria.
PHYSICAL EXAM
General: Alert, no acute distress.
Skin: Bruise noted on the right side; otherwise warm, dry.
Head: Normocephalic, atraumatic.
Neck: Supple, trachea midline.
Eye Ears, nose, mouth and throat: Oral mucosa moist.
Cardiovascular: Normal peripheral perfusion, No edema. No chest wall tenderness
Respiratory: Respirations are non-labored.
Gastrointestinal: Abdomen nondistended.
Back: Normal range of motion, small scar on the lumbar region from previous surgery. Very minimal tenderness in the right buttock but no pain when palpating the bones of the back.
Musculoskeletal: Normal ROM, normal strength. The patient was able to walk without any significant difficulty, no significant tenderness to palpation of the right groin.
Neurological: Alert and oriented to person, place, time, and situation, No focal neurological deficit observed.
Psychiatric: Cooperative, appropriate mood & affect.
PROBLEM LIST
- Acute: Right-sided groin pain, buttock pain, and low back pain secondary to fall.
- Chronic: History of lumbar spine surgery.
PLAN
- Obtain a computed tomography (CT) scan of the brain to evaluate for potential intracranial bleeding due to anticoagulant use (Apixaban).
- Monitor and manage pain, continue observation to watch for any new or progressing symptoms.
DIFFERENTIAL DIAGNOSIS
The Differential Diagnosis includes, in no particular order and is not limited to:
- Contusion or muscular strain from the fall
- Fracture of the pelvis or hip
- Hematoma formation due to anticoagulation therapy
- Intracranial hemorrhage
- Spinal injury
- Sacroiliac joint dysfunction
- Lumbar radiculopathy
- Abdominal injury stemming from the fall
- Urinary tract involvement post-trauma
- Exacerbation of underlying chronic pain conditions
RADIOLOGY
- CT imaging of the head and abdomen/pelvis obtained which are unremarkable
UPDATE
-SUMMARY OF ENCOUNTER
The patient, a 74-year-old male, was seen in the emergency department following a fall that resulted in groin, buttock, and low back pain. The fall occurred while he was walking his dog, and he landed on his back, buttocks, and head. Consideration
was given to his chronic anticoagulant use with apixaban, increasing the risk of bleeding. A computed tomography (CT) scan of the brain was performed to evaluate potential intracranial bleeding, given his anticoagulant use. The CT scan showed no
signs of intracranial bleeding, major fluid collection, or blood buildup. The scan did note the effects of a previous lumbar spine surgery, confirmed by a visible scar, but no acute injury was observed.
DISPOSITION
Discharge.
ASSESSMENT
The patients fall resulted in acute right-sided groin, buttock, and low back pain. There was no evidence of intracranial hemorrhage or acute injury on the CT scan.
PLAN
The plan is to monitor and manage the patients pain and continue observation for any new or progressing symptoms. The patient is discharged with reassurance that its safe to proceed with his planned vacation, with instructions on signs to watch for
that would require medical attention.
INDEPENDENT REVIEW OF LABS AND INTERPRETATION OF TESTS
My independent interpretation of the CT scan is that it shows no intracranial bleeding, major fluid collection, or blood buildup. The effects of prior lumbar surgery are visible, but no other concerns were noted.
PATIENT EDUCATION AND COUNSELING
The patient was advised regarding the findings of the CT scan and that no major intracranial bleeding was found. He was informed about the safety of continuing his plans for vacation and instructed on signs and symptoms that would necessitate
further medical evaluation.
MEDICAL DECISION MAKING
-Complexity of Data Reviewed: Chronic conditions affecting care include a history of lumbar spine surgery. The differential diagnosis list includes contusion or muscular strain from the fall, fracture of the pelvis or hip, hematoma formation,
intracranial hemorrhage, spinal injury, sacroiliac joint dysfunction, lumbar radiculopathy, abdominal injury, urinary tract involvement post-trauma, and exacerbation of underlying chronic pain conditions.
-Data:
Category 1
Clinical information was analyzed, and the CT brain scan conducted showed no acute abnormalities or bleeding.
-Risk:
Consideration of Admission/Observation: Escalation of care including admission/observation was considered given the complexity and risk of the patients presenting complaint, exam findings, and/or their underlying comorbidities. However, ultimately,
I feel the patient is safe for outpatient management with close follow-up. Reasoning: Work-up is reassuring, does not reveal any acute life/organ threatening processes, patients symptoms well controlled upon reevaluation, reexamination is
reassuring, vitals are stable, patient agreeable with discharge, reliable for follow-up.
DIAGNOSIS
- Contusion or muscular strain from fall (ICD-10: S39.0XXA)
- History of lumbar spine surgery (ICD-10: Z87.39)
- Minor head injury on anticoagulation
Past History
Past History
ED Past Medical History: Arrthythmia, CAD, HTN, Hypercholesterolemia, [place] and Other (multiple myeloma)
ED Past Surgical History: Cardiac (2 cardiac stents 2018) and Orthopedic
Social History
Tobacco: Non-smoker
Alcohol: None
Drug: None
Personal:
Living: with family
Phy Exam
Physical Exam
Physical Exam:
See HPI
Course
Orders/Labs/Results
Orders:
Orders
06/01/25 10:45
CT Abd/pel Without Iv Or Oral Urgent
Comment:
Reason For Exam: R flank/groin pain
CT Head W/o Iv Contrast Urgent
Comment:
Reason For Exam: trauma eliquis
Vital Signs
Initial and Last Documented VS:
Initial Vital Signs
Temp Pulse Resp BP Pulse Ox
36.6 C 69 16 125/74 100
06/01/25 10:19 06/01/25 10:19 06/01/25 10:19 06/01/25 10:19 06/01/25 10:19
Last Documented Vital Signs
Temp Pulse Resp BP Pulse Ox
36.6 C 69 16 125/74 100
06/01/25 10:19 06/01/25 10:19 06/01/25 10:19 06/01/25 10:19 06/01/25 10:37
*Pulse Oximetry
SaO2: 100
Oxygen Mode of Delivery: Room air
Patient hypoxic: no
*Critical Care Note
Total Time (30-74mins, 75-104mins- exclusive of procedures): Not Applicable
ED Attending Note
-
Portions of this chart may have been created with voice recognition software.� Occasional wrong word or��sound alike� substitutions may have occurred due to the inherent limitations of voice recognition software.
Discharge Plan
Departure
Prescriptions:
No Action
tamsulosin [Flomax] 0.4 mg Capsule
0.4 mg PO DAILY
Eliquis 5 mg tablet
5 mg PO BID Qty: 90 3RF
acetaminophen [Tylenol Extra Strength] 500 mg Tablet
1,000 mg PO Q6HPRN PRN (Reason: mild pain)
calcium carbonate 500 mg calcium (1,250 mg) Tablet
500 mg PO DAILY
tramadol 50 mg Tablet
50 mg PO QIDPRN PRN (Reason: moderate pain)
diltiazem HCl 120 mg Capsule,Extended Release 24hr
120 mg PO BID Qty: 60 0RF
potassium chloride 10 mEq Tablet Extended Release
20 meq PO BID Qty: 0 0RF
cephalexin 500 mg capsule
500 mg PO Q6H 7 Days Qty: 28 0RF
furosemide [Lasix] 20 mg tablet
40 mg PO BID
Referrals:
Evens Durant PA-C [Family Provider]
Interventions
Interventions:
*Risk Screen - Suicide Last Done: 06/01/25 10:19
*Neglect/Abuse Screening Last Done: 06/01/25 10:19
Discharge Date and Time
Print Language: LITHUANIAN
[2025-06-01 13:23] VITALS: BP 122/72
== END 2025-06-01 13:25 | disposition home or self-care (01) ==
LOC: EMR 10:09
PROVIDERS: EMERGENCY PHYSICIAN Emergency Medicine; FAMILY PHYSICIAN Physician Assistant Medical
DX: S09.90XA Unspecified injury of head, initial encounter (principal); R10.30 Lower abdominal pain, unspecified; M54.50 Low back pain, unspecified; W18.39XA Other fall on same level, initial encounter; Y93.K1 Activity, walking an animal; I48.91 Unspecified atrial fibrillation; Z79.01 Long term (current) use of anticoagulants; E78.00 Pure hypercholesterolemia, unspecified; I10 Essential (primary) hypertension; I25.10 Atherosclerotic heart disease of native coronary artery without angina pectoris; Z85.79 Personal history of other malignant neoplasms of lymphoid, hematopoietic and related tissues
CPT/HCPCS: 99284; 70450; 74176